=== PATIENT | male | born 1940 | race Caucasian/White ===

== ENCOUNTER 2016-09-04 15:06 | Inpatient (IN) | payer MEDICARE, OTHER ==
[~2016-09-04] VITALS: Ht 172.7 cm; Wt 103.0 kg
--- NOTE | 2016-09-04 16:38 | RAD ---
AP portable chest radiograph 09/04/2016 Clinical History: Cough for 2 to 3 days. An AP portable erect digital radiograph of the chest was obtained. No previous imaging studies are available for comparison. The cardiac silhouette is borderline enlarged. The thoracic aorta is mildly tortuous. Patchy areas of atelectasis and/or infiltrate are seen involving both lower lobes, left greater than right. No pneumothorax or pleural effusion is seen. There is diffuse osteopenia of the visualized bony structures. Degenerative changes are seen involving the thoracic spine. Impression: Patchy areas of atelectasis and/or infiltrate are seen involving both lower lobes.
[2016-09-04 17:45] LABS: BASO % 1 % (0-3); EOS % 4 % (0-3); HEMATOCRIT 32.5 % (39.0-53.0); LYMPH # 0.6 x10^3/uL (1.0-4.8); LYMPH % 7 % (24-48); MEAN CORPUSCULAR HEMOGLOBIN 31 pg (25-35); MEAN CORPUSCULAR HGB CONC 34 g/dL (31-37); MEAN CORPUSCULAR VOLUME 91 fL (79-100); MONO % 9 % (0-9); NEUT % 80 % (31-73); PLATELET COUNT 217 x10^3/uL (140-400); RED BLOOD COUNT 3.56 x10^6/uL (4.30-5.70); RED CELL DISTRIBUTION WIDTH 13.1 % (11.5-14.5); WHITE BLOOD COUNT 8.3 x10^3/uL (4.0-11.0)
[2016-09-04 18:04] LABS: CALCIUM 9.2 mg/dL (8.5-10.1); CREATININE 2.3 mg/dL (0.7-1.3); GFR 27.7
[2016-09-04 18:08] LABS: ALBUMIN 3.4 g/dL (3.4-5.0); ALBUMIN/GLOBULIN RATIO 0.8 (1.0-1.7); TOTAL BILIRUBIN 0.3 mg/dL (0.2-1.0); TOTAL PROTEIN 7.7 g/dL (6.4-8.2)
[2016-09-04] MEDS ORDERED: OXYCODONE/APAP 7.5/325 TABLET. PO ONE (18:15)
[2016-09-04] MEDS ORDERED: AMLO10TA2 PO (18:30)
[2016-09-04] MEDS ORDERED: OXYC-244 PO (18:30)
[2016-09-04] MEDS ORDERED: POTA20TA4 PO (18:30)
[2016-09-04] MEDS ORDERED: GABA-586 PO (18:30)
[2016-09-04] MEDS ORDERED: METO-269 PO (18:30)
[2016-09-04] MEDS ORDERED: PANT20TA2 PO (18:30)
[2016-09-04] MEDS ORDERED: SPIR50TA2 PO (18:30)
[2016-09-04] MEDS ORDERED: FURO-68 PO (18:30)
[2016-09-04] MEDS ORDERED: METF10002 PO (18:30)
[2016-09-04] MEDS ORDERED: ASPI-482 PO (18:30)
[2016-09-04] MEDS ORDERED: NITR0.4T SL (18:30)
[2016-09-04] MEDS ORDERED: PRAV20TA2 PO (18:30)
[2016-09-04] MEDS ORDERED: CYAN10005 PO (18:30)
[2016-09-04] MEDS ORDERED: SENN-37 PO (18:30)
[2016-09-04] MEDS ORDERED: CHOL10003 PO (18:30)
[2016-09-04] MEDS ORDERED: LISI10TA2 PO (18:30)
[2016-09-04] MEDS ORDERED: hydrALAZINE 20 MG/ML VIAL. IVP PRN (19:15)
[2016-09-04] MEDS ORDERED: ONDANSETRON PF 4 MG/2 ML VIAL. IV PRN (19:15)
--- NOTE | 2016-09-04 19:24 | PDOC1 ---
History and Physical Date of Admission Date of Admission 09/04/16 Identification/Chief Complaint Chief Complaint cough Problems: Source Source: Patient History of Present Illness History of Present Illness 76yo M, likely moderate dementia, from assisted living facility , for cough. Pt answer very few of my questions, saying only cough once time, doesnot know the place, or year, denies fever, chills, N/V, chest pain, sob. As PER ER nurse, pt' was admitted in hosp yesterday for PNA. The assited living facility found pt has some nose congestion and sent him here. CXR showed atelectasis/infiltrate. ERP gave levaquin 750mg in ER x1. normal WBC Past Medical History Past Medical History possible CHF Past Surgical History Past Surgical History: No pertinent history Family History Family History: No Significant Social History Smoke: No ALCOHOL: none Drugs: None Current Problem List Problem List Problems Medical Problems: (1) CAP (community acquired pneumonia) Status: Acute Current Medications Current Medications Current Medications Medications (Trade) Dose Ordered Sig/Eran Start Time Stop Time Status Last Admin Dose Admin Albuterol/ Ipratropium (Duoneb) 3 ml RTQID 09/04/16 20:00 09/05/16 19:59 Levofloxacin/ Dextrose (LEVAQUIN 750mg PREMIX) 150 ml @ 100 mls/hr 1X ONCE 09/04/16 18:30 09/04/16 19:59 09/04/16 18:16 100 MLS/HR Oxycodone/ Acetaminophen 1 tab 1 tab 1X ONCE 09/04/16 18:15 09/04/16 18:16 DC 09/04/16 18:13 1 TAB Allergies Allergies Allergies Coded Allergies Type Severity Reaction Last Updated Verified tetracycline Allergy Intermediate Rash 09/04/16 Yes ROS Review of System CONSTITUTIONAL: No fever or chills EYES: No recent changes SKIN: No rash or itching CARDIOVASCULAR: No chest pain, syncope, palpitations, or edema RESPIRATORY: No SOB or cough GASTROINTESTINAL: No nausea, vomiting or abdominal pain NEUROLOGICAL: No headaches or weakness ENDOCRINE: No cold or heat intolerance GENITOURINARY: No urgency or frequency of urination MUSCULOSKELETAL: No back pain or joint pain LYMPHATICS: No enlarged lymph nodes PSYCHIATRIC: No anxiety or depression Physical Exam Physical Exam GEN.: No apparent distress. Alert and orientedx1 HEENT: Head is normocephalic, atraumatic NECK: Supple. LUNGS: BL decreased BS HEART: RRR, S1, S2 present. Peripheral pulses intact ABDOMEN: Soft, nontender. Positive bowel sounds. EXTREMITIES: Without any cyanosis. NEUROLOGIC: Normal speech, normal tone PSYCHIATRIC: Normal affect, normal mood. SKIN: No ulcerations Vitals Vitals Vital Signs Date Time Temp Pulse Resp B/P Pulse Ox O2 Delivery O2 Flow Rate FiO2 09/04/16 18:13 26 09/04/16 18:12 70 130/67 95 Room Air 09/04/16 15:15 98.1 98.1 Labs Labs Laboratory Tests Test 09/04/16 17:10 White Blood Count 8.3x10^3/uL (4.0-11.0) Red Blood Count 3.56x10^6/uL (4.30-5.70) Hemoglobin 11.0g/dL (13.0-17.5) Hematocrit 32.5% (39.0-53.0) Mean Corpuscular Volume 91fL (79-100) Mean Corpuscular Hemoglobin 31pg (25-35) Mean Corpuscular Hemoglobin Concent 34g/dL (31-37) Red Cell Distribution Width 13.1% (11.5-14.5) Platelet Count 217x10^3/uL (140-400) Neutrophils (%) (Auto) 80% (31-73) Lymphocytes (%) (Auto) 7% (24-48) Monocytes (%) (Auto) 9% (0-9) Eosinophils (%) (Auto) 4% (0-3) Basophils (%) (Auto) 1% (0-3) Neutrophils # (Auto) 6.6x10^3uL (1.8-7.7) Lymphocytes # (Auto) 0.6x10^3/uL (1.0-4.8) Monocytes # (Auto) 0.7x10^3/uL (0.0-1.1) Eosinophils # (Auto) 0.3x10^3/uL (0.0-0.7) Basophils # (Auto) 0.0x10^3/uL (0.0-0.2) Sodium Level 139mmol/L (136-145) Potassium Level 5.0mmol/L (3.5-5.1) Chloride Level 100mmol/L (98-107) Carbon Dioxide Level 30mmol/L (21-32) Anion Gap 9 (6-14) Blood Urea Nitrogen 42mg/dL (8-26) Creatinine 2.3mg/dL (0.7-1.3) Estimated GFR (Cockcroft-Gault) 27.7 BUN/Creatinine Ratio 18 (6-20) Glucose Level 240mg/dL (70-99) Calcium Level 9.2mg/dL (8.5-10.1) Total Bilirubin 0.3mg/dL (0.2-1.0) Aspartate Amino Transf (AST/SGOT) 14U/L (15-37) Alanine Aminotransferase (ALT/SGPT) 19U/L (16-63) Alkaline Phosphatase 72U/L (46-116) Total Protein 7.7g/dL (6.4-8.2) Albumin 3.4g/dL (3.4-5.0) Albumin/Globulin Ratio 0.8 (1.0-1.7) Laboratory Tests Test 09/04/16 17:10 White Blood Count 8.3x10^3/uL (4.0-11.0) Red Blood Count 3.56x10^6/uL (4.30-5.70) Hemoglobin 11.0g/dL (13.0-17.5) Hematocrit 32.5% (39.0-53.0) Mean Corpuscular Volume 91fL (79-100) Mean Corpuscular Hemoglobin 31pg (25-35) Mean Corpuscular Hemoglobin Concent 34g/dL (31-37) Red Cell Distribution Width 13.1% (11.5-14.5) Platelet Count 217x10^3/uL (140-400) Neutrophils (%) (Auto) 80% (31-73) Lymphocytes (%) (Auto) 7% (24-48) Monocytes (%) (Auto) 9% (0-9) Eosinophils (%) (Auto) 4% (0-3) Basophils (%) (Auto) 1% (0-3) Neutrophils # (Auto) 6.6x10^3uL (1.8-7.7) Lymphocytes # (Auto) 0.6x10^3/uL (1.0-4.8) Monocytes # (Auto) 0.7x10^3/uL (0.0-1.1) Eosinophils # (Auto) 0.3x10^3/uL (0.0-0.7) Basophils # (Auto) 0.0x10^3/uL (0.0-0.2) Sodium Level 139mmol/L (136-145) Potassium Level 5.0mmol/L (3.5-5.1) Chloride Level 100mmol/L (98-107) Carbon Dioxide Level 30mmol/L (21-32) Anion Gap 9 (6-14) Blood Urea Nitrogen 42mg/dL (8-26) Creatinine 2.3mg/dL (0.7-1.3) Estimated GFR (Cockcroft-Gault) 27.7 BUN/Creatinine Ratio 18 (6-20) Glucose Level 240mg/dL (70-99) Calcium Level 9.2mg/dL (8.5-10.1) Total Bilirubin 0.3mg/dL (0.2-1.0) Aspartate Amino Transf (AST/SGOT) 14U/L (15-37) Alanine Aminotransferase (ALT/SGPT) 19U/L (16-63) Alkaline Phosphatase 72U/L (46-116) Total Protein 7.7g/dL (6.4-8.2) Albumin 3.4g/dL (3.4-5.0) Albumin/Globulin Ratio 0.8 (1.0-1.7) VTE Prophylaxis Ordered VTE Prophylaxis Devices: Yes VTE Pharmacological Prophylaxi: Yes Assessment/Plan Assessment/Plan 1. cough, could be 2/2 CHF, doubt PNA 2. CHF , no details 3. moderate/severe dementia 4. hyperglycemia, dm2 5. CKD4 possibly, wo baseline Cr 6. htn 7. gerd plan: 1. check Echo 2. cont home meds, ssi 3. labs tmr dvt ppx PTOT SW for SNF 4. levaquin for now, check flu. cough meds should taper abx soon if no symptoms hold metformin given CKD OBDULIO HER MD Sep 04, 2016 19:24
[2016-09-04] MEDS: IPRATRPIUM/ALBUTEROL 0.5/2.5MG 3 ML NEBU. NEB SCH (19:27)
--- NOTE | 2016-09-04 19:28 | PHYS DOC ---
Past Medical History Past Medical History: CHF, Diabetes-Type II, GERD, Hypertension Past Surgical History: Cholecystectomy Alcohol Use: None Drug Use: None Adult General Chief Complaint Chief Complaint: COUGH HPI HPI Patient is a 76 year old male brought to the ED from his intermediate with the complaint of cough. Patient is not really able to add much to the history. He does not know whether he's had a fever or chills. He believes he is been eating okay. He said his is currently in the hospital with pneumonia. His chief complaint at the time that I saw him was that he is behind on his oxycodone dose and he has pain all over and needs and oxycodone. He doesn't know whether he had a flu shot or not. He doesn't believe he has any lung problems or COPD, but again, he is a poor historian. Review of Systems Review of Systems Review of systems not able to be obtained because the patient is a poor historian and not giving reliable answers Current Medications Current Medications Current Medications Medications (Trade) Dose Ordered Sig/Eran Start Time Stop Time Status Last Admin Dose Admin Levofloxacin/ Dextrose (LEVAQUIN 750mg PREMIX) 150 ml @ 100 mls/hr 1X ONCE 09/04/16 18:30 09/04/16 19:59 DC 09/04/16 18:16 100 MLS/HR Oxycodone/ Acetaminophen 1 tab 1 tab 1X ONCE 09/04/16 18:15 09/04/16 18:16 DC 09/04/16 18:13 1 TAB Allergies Allergies Allergies Coded Allergies Type Severity Reaction Last Updated Verified tetracycline Allergy Intermediate Rash 09/04/16 Yes Physical Exam Physical Exam Constitutional: Well developed, well nourished, no acute distress, non-toxic appearance. No dyspnea, no cough, pulse ox on room air 94% at rest on the bed. HENT: Normocephalic, atraumatic, bilateral external ears normal, nose normal. [ ] Eyes: conjunctiva normal, no discharge. [] Neck: Normal range of motion, no stridor. [] Cardiovascular:Heart rate regular rhythm, no murmur [] Lungs & Thorax: Decreased breath sounds throughout with rhonchi in both bases, no wheezes Abdomen: Bowel sounds normal, soft, no tenderness, no masses, no pulsatile masses. [] Skin: Warm, dry, no erythema, no rash. [] Extremities: No tenderness, no cyanosis, no clubbing, ROM intact, no edema. [] Neurologic: Alert and oriented X 3, normal motor function, normal sensory function, no focal deficits noted. [] Current Patient Data Vital Signs Vital Signs Date Time Temp Pulse Resp B/P Pulse Ox O2 Delivery O2 Flow Rate FiO2 09/04/16 18:13 26 09/04/16 18:12 70 130/67 95 Room Air 09/04/16 15:15 98.1 98.1 Lab Values Laboratory Tests Test 09/04/16 17:10 White Blood Count 8.3x10^3/uL (4.0-11.0) Red Blood Count 3.56x10^6/uL (4.30-5.70) L Hemoglobin 11.0g/dL (13.0-17.5) L Hematocrit 32.5% (39.0-53.0) L Mean Corpuscular Volume 91fL (79-100) Mean Corpuscular Hemoglobin 31pg (25-35) Mean Corpuscular Hemoglobin Concent 34g/dL (31-37) Red Cell Distribution Width 13.1% (11.5-14.5) Platelet Count 217x10^3/uL (140-400) Neutrophils (%) (Auto) 80% (31-73) H Lymphocytes (%) (Auto) 7% (24-48) L Monocytes (%) (Auto) 9% (0-9) Eosinophils (%) (Auto) 4% (0-3) H Basophils (%) (Auto) 1% (0-3) Neutrophils # (Auto) 6.6x10^3uL (1.8-7.7) Lymphocytes # (Auto) 0.6x10^3/uL (1.0-4.8) L Monocytes # (Auto) 0.7x10^3/uL (0.0-1.1) Eosinophils # (Auto) 0.3x10^3/uL (0.0-0.7) Basophils # (Auto) 0.0x10^3/uL (0.0-0.2) Sodium Level 139mmol/L (136-145) Potassium Level 5.0mmol/L (3.5-5.1) Chloride Level 100mmol/L (98-107) Carbon Dioxide Level 30mmol/L (21-32) Anion Gap 9 (6-14) Blood Urea Nitrogen 42mg/dL (8-26) H Creatinine 2.3mg/dL (0.7-1.3) H Estimated GFR (Cockcroft-Gault) 27.7 BUN/Creatinine Ratio 18 (6-20) Glucose Level 240mg/dL (70-99) H Calcium Level 9.2mg/dL (8.5-10.1) Total Bilirubin 0.3mg/dL (0.2-1.0) Aspartate Amino Transferase (AST) 14U/L (15-37) L Alanine Aminotransferase (ALT) 19U/L (16-63) Alkaline Phosphatase 72U/L (46-116) Total Protein 7.7g/dL (6.4-8.2) Albumin 3.4g/dL (3.4-5.0) Albumin/Globulin Ratio 0.8 (1.0-1.7) L Laboratory Tests 09/04/16 17:10 Laboratory Tests 09/04/16 17:10 EKG EKG [] Radiology/Procedures Radiology/Procedures One view portable chest x-ray read by the radiologist. Patchy areas of atelectasis and/or infiltrate both lower lobes [] Course & Med Decision Making Course & Med Decision Making Pertinent Labs and Imaging studies reviewed. (See chart for details) 76-year-old male who is not a good historian sent from a intermediate with a cough, chest x-ray shows pneumonia. Blood cultures were done. The patient is a poor historian and in a intermediate setting, I believe he should be hospitalized for IV antibiotics and frequent nebulizers and close observation. I spoke with Dr. Sue , hospital medicine, who will admit the patient. I wrote bridge orders. [] Dragon Disclaimer Dragon Disclaimer This electronic medical record was generated, in whole or in part, using a voice recognition dictation system. Departure Departure Impression: Primary Impression: CAP (community acquired pneumonia) Disposition: ADMITTED INPATIENT Admitting Physician: Rebecca Sue Condition: STABLE Referrals: HARRIS LANDA MD (PCP) MASON PRO MD Sep 04, 2016 19:28
[2016-09-04 19:30] VITALS: BP 97/67
[2016-09-04] MEDS ORDERED: DEXTROSE 50% 25 GM / 50ML DISP.SYRIN. IV PRN (19:30)
[2016-09-04 20:00] VITALS: BP 97/67
--- NOTE | 2016-09-04 21:00 | ACF ---
Admission Forms Criteria PNEUMONIA, COMMUNITY ACQUIRED Clinical Indications for Admission to Inpatient Care ( Place 'X' for any and all applicable criteria): Admission is indicated for ANY ONE of the following (1)(2)(3): [ ]I. Hypoxemia indicated by ANY ONE of the following: [ ]a) Oxygen saturation less than 90% while breathing room air [ ]b) PO2 less than 60 mm Hg (8.0 kPa) while breathing room air [ ]c) Chronic lung disease with significant deterioration from baseline oxygenation [ ]II. Appropriate diagnostic testing and treatment unavailable in outpatient or recovery facility (eg,testing or infection control measures unavailable(10) [X]III. Moderate-risk or high-risk category patients (Pneumonia Severity Index (PSI) class IV or V, or CURB-65 score of 3 or greater). [ ]IV. Outpatient treatment failure as indicated by ANY ONE of the following(9) : [ ]a) Failure to respond to antibiotic (eg, resistant organism) [ ]b) Clinically significant adverse effects from medication (eg, vomiting) [ ]c) Complications of pneumonia (eg, empyema, bacteremia) [ ]d) Significant worsening of comorbid cond necessitating inpatient care (eg, chronic heart failure) [ ]V. Intermediate-risk category patients (eg, PSI class III or CURB-65 score 2) who do not improve with initial therapy and observation. [ ]. Immunocompromised patients (eg, AIDS, chronic steroid use) at moderate or high risk based on clinical evaluation. [ ]VII. Complicated pleural effusions (eg, exudative, loculated) [ ]VIII.Hemodynamic instability [ ] IX. Altered mental status that is severe or persistent. [ ]X. Dehydration that is severe or persistent. [ ]XI. Bacteremia [ ]XII. Respiratory finding (eg. tachypnea) that do not respond to outpatient or observation care treatment Extended stay beyond goal length of stay may be needed for (20) [ ]a) Unclear diagnosis [ ]b) Pleural disease [ ]c) Severe pneumonia or treatment failure (25 [ ]d) Respiratory failure (anticipate invasive or noninvasive ventilatory support) [ ]e) Abnormal serum electrolytes (serum Na concentration less than 135 mEq/L (mmol/L) (32)(33) [ ]f) Clinically significant comorbid illness (eg, heart failure, atrial fibrillation with rapid heart rate, alcohol withdrawal, renal insufficiency)(34)(35) [ ]g) Comorbid acute exacerbation of COPD(36) [ ]h) Concomitant diagnosis of malignancy that may be associated with malnutrition, immunologic impairment, or bronchial obstruction. [ ]i) Concomitant altered mental status [ ]j) Culture-identified Gram-negative or antibiotic-resistant organism (eg, Pseudomonas, methicillin-resistant Staphylococcus aureus)(30) [ ]k) Healthcare-associated pneumonia The original [facility] content created by [facility] [employer] has been revised. The portions of the content which have been revised are identified through the use of italic text or in bold, and [facility] has neither reviewed nor approved the modified material. All other unmodified content is copyright [facility] [employer]. Please see references footnoted in the original [facility] [employer] edition 2016 Admission Criteria Met?: Yes JACINDA PASCUAL Sep 04, 2016 21:00
[2016-09-04] MEDS: GUAIFENESIN ER 600 MG TABLET.ER PO SCH (21:05)
[2016-09-04] MEDS: GABAPENTIN 300 MG CAPSULE. PO SCH (21:05)
[2016-09-04] MEDS: ATORVASTATIN CALCIUM 10 MG TABLET. PO SCH (21:06)
[2016-09-04] MEDS: SENNOSIDES/DOCUSATE 8.6/50MG TABLET. PO SCH (21:08)
[2016-09-04] MEDS: HEPARIN PF for SUB-Q USE 5,000 UNIT/0.5 ML VIAL. SQ SCH (21:14)
[2016-09-05] VITALS (7 sets, daily range): BP systolic 90–121; BP diastolic 46–59
[2016-09-05 06:26] LABS: BASO % 0 % (0-3); EOS % 3 % (0-3); HEMATOCRIT 28.5 % (39.0-53.0); HEMOGLOBIN 10.1 g/dL (13.0-17.5); LYMPH # 0.6 x10^3/uL (1.0-4.8); LYMPH % 8 % (24-48); MEAN CORPUSCULAR HEMOGLOBIN 32 pg (25-35); MEAN CORPUSCULAR HGB CONC 35 g/dL (31-37); MEAN CORPUSCULAR VOLUME 91 fL (79-100); MONO % 10 % (0-9); NEUT % 79 % (31-73); PLATELET COUNT 176 x10^3/uL (140-400); RED BLOOD COUNT 3.12 x10^6/uL (4.30-5.70); RED CELL DISTRIBUTION WIDTH 12.9 % (11.5-14.5); WHITE BLOOD COUNT 7.6 x10^3/uL (4.0-11.0)
[2016-09-05 06:38] LABS: CALCIUM 9.1 mg/dL (8.5-10.1); GFR 32.6; POTASSIUM 4.9 mmol/L (3.5-5.1)
[2016-09-05] MEDS: HEPARIN PF for SUB-Q USE 5,000 UNIT/0.5 ML VIAL. SQ SCH ×3 (06:40→22:42)
[2016-09-05 07:07] LABS: OBC FLU VALID
[2016-09-05] MEDS: IPRATRPIUM/ALBUTEROL 0.5/2.5MG 3 ML NEBU. NEB SCH ×4 (08:34→19:43)
[2016-09-05] MEDS: PANTOPRAZOLE 40 MG TABLET. PO SCH (08:36)
[2016-09-05] MEDS: CYANOCOBALAMIN (VITAMIN B-12) 1,000 MCG TABLET. PO SCH (08:36)
[2016-09-05] MEDS: POTASSIUM CHLORIDE 20 MEQ TABLET.ER. PO SCH (08:36)
[2016-09-05] MEDS: OXYCODONE/APAP 7.5/325 TABLET. PO PRN ×2 (08:36→15:13)
[2016-09-05] MEDS: CHOLECALCIFEROL (VITAMIN D3) 1,000 UNIT TABLET PO SCH (08:43)
[2016-09-05] MEDS: ASPIRIN ENTERIC COATED 81 MG TABLET.DR. PO SCH (08:43)
[2016-09-05] MEDS: GUAIFENESIN ER 600 MG TABLET.ER PO SCH ×2 (08:43→20:22)
[2016-09-05] MEDS: INSULIN ASPART 300 UNITS/3 ML INSULN.PEN SQ SCH ×3 (08:53→17:08)
--- NOTE | 2016-09-05 11:45 | PDOC ---
PROGRESS NOTES Chief Complaint Chief Complaint 1. cough, could be 2/2 CHF, doubt PNA 2. CHF , no details 3. moderate/severe dementia 4. hyperglycemia, dm2 5. CKD4 possibly, wo baseline Cr 6. htn 7. gerd History of Present Illness History of Present Illness Resting in bed with no apparent distress VSS Labs reviewed Discussed with RN Vitals Vitals Vital Signs Date Time Temp Pulse Resp B/P Pulse Ox O2 Delivery O2 Flow Rate FiO2 09/05/16 11:24 98.2 97 17 121/55 92 Room Air 98.2 Physical Exam General: Alert, Cooperative Heart: Regular rate, No murmurs Lungs: Crackles Abdomen: Soft, No tenderness Extremities: No clubbing, Normal pulses Skin: No rashes, No breakdown Labs LABS Laboratory Tests Test 09/04/16 17:10 09/05/16 02:40 09/05/16 06:00 09/05/16 07:53 White Blood Count 8.3x10^3/uL (4.0-11.0) 7.6x10^3/uL (4.0-11.0) Red Blood Count 3.56x10^6/uL (4.30-5.70) 3.12x10^6/uL (4.30-5.70) Hemoglobin 11.0g/dL (13.0-17.5) 10.1g/dL (13.0-17.5) Hematocrit 32.5% (39.0-53.0) 28.5% (39.0-53.0) Mean Corpuscular Volume 91fL (79-100) 91fL (79-100) Mean Corpuscular Hemoglobin 31pg (25-35) 32pg (25-35) Mean Corpuscular Hemoglobin Concent 34g/dL (31-37) 35g/dL (31-37) Red Cell Distribution Width 13.1% (11.5-14.5) 12.9% (11.5-14.5) Platelet Count 217x10^3/uL (140-400) 176x10^3/uL (140-400) Neutrophils (%) (Auto) 80% (31-73) 79% (31-73) Lymphocytes (%) (Auto) 7% (24-48) 8% (24-48) Monocytes (%) (Auto) 9% (0-9) 10% (0-9) Eosinophils (%) (Auto) 4% (0-3) 3% (0-3) Basophils (%) (Auto) 1% (0-3) 0% (0-3) Neutrophils # (Auto) 6.6x10^3uL (1.8-7.7) 6.0x10^3uL (1.8-7.7) Lymphocytes # (Auto) 0.6x10^3/uL (1.0-4.8) 0.6x10^3/uL (1.0-4.8) Monocytes # (Auto) 0.7x10^3/uL (0.0-1.1) 0.8x10^3/uL (0.0-1.1) Eosinophils # (Auto) 0.3x10^3/uL (0.0-0.7) 0.2x10^3/uL (0.0-0.7) Basophils # (Auto) 0.0x10^3/uL (0.0-0.2) 0.0x10^3/uL (0.0-0.2) Sodium Level 139mmol/L (136-145) 133mmol/L (136-145) Potassium Level 5.0mmol/L (3.5-5.1) 4.9mmol/L (3.5-5.1) Chloride Level 100mmol/L (98-107) 101mmol/L (98-107) Carbon Dioxide Level 30mmol/L (21-32) 27mmol/L (21-32) Anion Gap 9 (6-14) 5 (6-14) Blood Urea Nitrogen 42mg/dL (8-26) 39mg/dL (8-26) Creatinine 2.3mg/dL (0.7-1.3) 2.0mg/dL (0.7-1.3) Estimated GFR (Cockcroft-Gault) 27.7 32.6 BUN/Creatinine Ratio 18 (6-20) Glucose Level 240mg/dL (70-99) 231mg/dL (70-99) Calcium Level 9.2mg/dL (8.5-10.1) 9.1mg/dL (8.5-10.1) Total Bilirubin 0.3mg/dL (0.2-1.0) Aspartate Amino Transf (AST/SGOT) 14U/L (15-37) Alanine Aminotransferase (ALT/SGPT) 19U/L (16-63) Alkaline Phosphatase 72U/L (46-116) Total Protein 7.7g/dL (6.4-8.2) Albumin 3.4g/dL (3.4-5.0) Albumin/Globulin Ratio 0.8 (1.0-1.7) Influenza Type A Antigen Negative (NEGATIVE) Influenza Type B Antigen Negative (NEGATIVE) Glucose (Fingerstick) 231mg/dL (70-99) Test 09/05/16 10:35 Glucose (Fingerstick) 271mg/dL (70-99) Review of Systems Review of Systems Complains of cough Complains of weakness Assessment and Plan Assessmemt and Plan Problems Medical Problems: (1) CAP (community acquired pneumonia) Status: Acute Assessment 1. cough, could be 2/2 CHF, doubt PNA 2. CHF , no details 3. moderate/severe dementia 4. hyperglycemia, dm2 5. CKD4 possibly, wo baseline Cr 6. htn 7. gerd plan: 1. check Echo 2. cont home meds, ssi 3. labs tmr dvt ppx PTOT SW for SNF 4. levaquin for now, check flu. cough meds should taper abx soon if no symptoms hold metformin given CKD Problems: Comment Review of Relevant I have reviewed the following items ivette (where applicable) has been applied. Labs Laboratory Tests Test 09/04/16 17:10 09/05/16 02:40 09/05/16 06:00 09/05/16 07:53 White Blood Count 8.3x10^3/uL (4.0-11.0) 7.6x10^3/uL (4.0-11.0) Red Blood Count 3.56x10^6/uL (4.30-5.70) 3.12x10^6/uL (4.30-5.70) Hemoglobin 11.0g/dL (13.0-17.5) 10.1g/dL (13.0-17.5) Hematocrit 32.5% (39.0-53.0) 28.5% (39.0-53.0) Mean Corpuscular Volume 91fL (79-100) 91fL (79-100) Mean Corpuscular Hemoglobin 31pg (25-35) 32pg (25-35) Mean Corpuscular Hemoglobin Concent 34g/dL (31-37) 35g/dL (31-37) Red Cell Distribution Width 13.1% (11.5-14.5) 12.9% (11.5-14.5) Platelet Count 217x10^3/uL (140-400) 176x10^3/uL (140-400) Neutrophils (%) (Auto) 80% (31-73) 79% (31-73) Lymphocytes (%) (Auto) 7% (24-48) 8% (24-48) Monocytes (%) (Auto) 9% (0-9) 10% (0-9) Eosinophils (%) (Auto) 4% (0-3) 3% (0-3) Basophils (%) (Auto) 1% (0-3) 0% (0-3) Neutrophils # (Auto) 6.6x10^3uL (1.8-7.7) 6.0x10^3uL (1.8-7.7) Lymphocytes # (Auto) 0.6x10^3/uL (1.0-4.8) 0.6x10^3/uL (1.0-4.8) Monocytes # (Auto) 0.7x10^3/uL (0.0-1.1) 0.8x10^3/uL (0.0-1.1) Eosinophils # (Auto) 0.3x10^3/uL (0.0-0.7) 0.2x10^3/uL (0.0-0.7) Basophils # (Auto) 0.0x10^3/uL (0.0-0.2) 0.0x10^3/uL (0.0-0.2) Sodium Level 139mmol/L (136-145) 133mmol/L (136-145) Potassium Level 5.0mmol/L (3.5-5.1) 4.9mmol/L (3.5-5.1) Chloride Level 100mmol/L (98-107) 101mmol/L (98-107) Carbon Dioxide Level 30mmol/L (21-32) 27mmol/L (21-32) Anion Gap 9 (6-14) 5 (6-14) Blood Urea Nitrogen 42mg/dL (8-26) 39mg/dL (8-26) Creatinine 2.3mg/dL (0.7-1.3) 2.0mg/dL (0.7-1.3) Estimated GFR (Cockcroft-Gault) 27.7 32.6 BUN/Creatinine Ratio 18 (6-20) Glucose Level 240mg/dL (70-99) 231mg/dL (70-99) Calcium Level 9.2mg/dL (8.5-10.1) 9.1mg/dL (8.5-10.1) Total Bilirubin 0.3mg/dL (0.2-1.0) Aspartate Amino Transf (AST/SGOT) 14U/L (15-37) Alanine Aminotransferase (ALT/SGPT) 19U/L (16-63) Alkaline Phosphatase 72U/L (46-116) Total Protein 7.7g/dL (6.4-8.2) Albumin 3.4g/dL (3.4-5.0) Albumin/Globulin Ratio 0.8 (1.0-1.7) Influenza Type A Antigen Negative (NEGATIVE) Influenza Type B Antigen Negative (NEGATIVE) Glucose (Fingerstick) 231mg/dL (70-99) Test 09/05/16 10:35 Glucose (Fingerstick) 271mg/dL (70-99) Laboratory Tests Test 09/04/16 17:10 09/05/16 02:40 09/05/16 06:00 09/05/16 07:53 White Blood Count 8.3x10^3/uL (4.0-11.0) 7.6x10^3/uL (4.0-11.0) Red Blood Count 3.56x10^6/uL (4.30-5.70) 3.12x10^6/uL (4.30-5.70) Hemoglobin 11.0g/dL (13.0-17.5) 10.1g/dL (13.0-17.5) Hematocrit 32.5% (39.0-53.0) 28.5% (39.0-53.0) Mean Corpuscular Volume 91fL (79-100) 91fL (79-100) Mean Corpuscular Hemoglobin 31pg (25-35) 32pg (25-35) Mean Corpuscular Hemoglobin Concent 34g/dL (31-37) 35g/dL (31-37) Red Cell Distribution Width 13.1% (11.5-14.5) 12.9% (11.5-14.5) Platelet Count 217x10^3/uL (140-400) 176x10^3/uL (140-400) Neutrophils (%) (Auto) 80% (31-73) 79% (31-73) Lymphocytes (%) (Auto) 7% (24-48) 8% (24-48) Monocytes (%) (Auto) 9% (0-9) 10% (0-9) Eosinophils (%) (Auto) 4% (0-3) 3% (0-3) Basophils (%) (Auto) 1% (0-3) 0% (0-3) Neutrophils # (Auto) 6.6x10^3uL (1.8-7.7) 6.0x10^3uL (1.8-7.7) Lymphocytes # (Auto) 0.6x10^3/uL (1.0-4.8) 0.6x10^3/uL (1.0-4.8) Monocytes # (Auto) 0.7x10^3/uL (0.0-1.1) 0.8x10^3/uL (0.0-1.1) Eosinophils # (Auto) 0.3x10^3/uL (0.0-0.7) 0.2x10^3/uL (0.0-0.7) Basophils # (Auto) 0.0x10^3/uL (0.0-0.2) 0.0x10^3/uL (0.0-0.2) Sodium Level 139mmol/L (136-145) 133mmol/L (136-145) Potassium Level 5.0mmol/L (3.5-5.1) 4.9mmol/L (3.5-5.1) Chloride Level 100mmol/L (98-107) 101mmol/L (98-107) Carbon Dioxide Level 30mmol/L (21-32) 27mmol/L (21-32) Anion Gap 9 (6-14) 5 (6-14) Blood Urea Nitrogen 42mg/dL (8-26) 39mg/dL (8-26) Creatinine 2.3mg/dL (0.7-1.3) 2.0mg/dL (0.7-1.3) Estimated GFR (Cockcroft-Gault) 27.7 32.6 BUN/Creatinine Ratio 18 (6-20) Glucose Level 240mg/dL (70-99) 231mg/dL (70-99) Calcium Level 9.2mg/dL (8.5-10.1) 9.1mg/dL (8.5-10.1) Total Bilirubin 0.3mg/dL (0.2-1.0) Aspartate Amino Transf (AST/SGOT) 14U/L (15-37) Alanine Aminotransferase (ALT/SGPT) 19U/L (16-63) Alkaline Phosphatase 72U/L (46-116) Total Protein 7.7g/dL (6.4-8.2) Albumin 3.4g/dL (3.4-5.0) Albumin/Globulin Ratio 0.8 (1.0-1.7) Influenza Type A Antigen Negative (NEGATIVE) Influenza Type B Antigen Negative (NEGATIVE) Glucose (Fingerstick) 231mg/dL (70-99) Test 09/05/16 10:35 Glucose (Fingerstick) 271mg/dL (70-99) Medications Current Medications Oxycodone/ Acetaminophen 1 tab 1 tab 1X ONCE PO Last administered on 09/04/16 18:13; Start 09/04/16 at 18:15; Stop 09/04/16 at 18:16; Status DC Levofloxacin/ Dextrose (LEVAQUIN 750mg PREMIX) 150 ml @ 100 mls/hr 1X ONCE IV Last administered on 09/04/16 18:16; Start 09/04/16 at 18:30; Stop 09/04/16 at 19:59; Status DC Albuterol/ Ipratropium (Duoneb) 3 ml RTQID NEB Last administered on 09/05/16 08 :34; Start 09/04/16 at 20:00; Stop 09/05/16 at 19:59 Amlodipine Besylate (Norvasc) 10 mg DAILY PO ; Start 09/05/16 at 09:00 Aspirin (Ecotrin) 81 mg DAILY PO Last administered on 09/05/16 08:43; Start 09/05/16 at 09:00 Vitamin D (Vitamin D3) 1,000 unit DAILY PO Last administered on 09/05/16 08:43 ; Start 09/05/16 at 09:00 Cyanocobalamin (Vitamin B-12) 1,000 mcg DAILY PO Last administered on 09/05/16 08:36; Start 09/05/16 at 09:00 Furosemide (Lasix) 40 mg DAILY PO ; Start 09/05/16 at 09:00 Gabapentin (Neurontin) 300 mg HS PO Last administered on 09/04/16 21:05; Start 09/04/16 at 21:00 Lisinopril (Prinivil) 10 mg DAILY PO ; Start 09/05/16 at 09:00 Metoprolol Succinate (Toprol Xl) 50 mg DAILY PO ; Start 09/05/16 at 09:00 Oxycodone/ Acetaminophen (Percocet 7.5/ 325) 1 tab PRN Q6HRS PRN PO PAIN Last administered on 09/05/16 08:36; Start 09/04/16 at 19:15 Potassium Chloride (Klor-Con) 20 meq DAILY PO Last administered on 09/05/16 08: 36; Start 09/05/16 at 09:00 Senna/Docusate Sodium (Senna Plus) 2 tab HS PO Last administered on 09/04/16 21 :08; Start 09/04/16 at 21:00 Pantoprazole Sodium (Protonix) 40 mg DAILYAC PO Last administered on 09/05/16 08:36; Start 09/05/16 at 07:30 Atorvastatin Calcium (Lipitor) 5 mg QHS PO Last administered on 09/04/16 21:06 ; Start 09/04/16 at 21:00 Spironolactone 50 mg 50 mg DAILY PO ; Start 09/05/16 at 09:00 Levofloxacin/ Dextrose (LEVAQUIN 250mg PREMIX) 50 ml @ 50 mls/hr Q24H IV ; Start 09/05/16 at 18:00 Albuterol Sulfate (Ventolin Neb Soln) 2.5 mg PRN Q4HRS PRN NEB SHORTNESS OF BREATH; Start 09/04/16 at 19:15 Guaifenesin (Mucinex) 600 mg BID PO Last administered on 09/05/16 08:43; Start 09/04/16 at 21:00 Acetaminophen (Tylenol) 650 mg PRN Q6HRS PRN PO MILD PAIN / TEMP; Start at 19:15 Ondansetron HCl (Zofran) 4 mg PRN Q6HRS PRN IV NAUSEA/VOMITING; Start 09/04/16 at 19:15 Heparin Sodium (Porcine) 5,000 unit Q8HRS SQ Last administered on 09/05/16 06: 40; Start 09/04/16 at 22:00 Hydralazine HCl (Apresoline) 10 mg PRN Q4HRS PRN IVP ELEVATED BP, SEE COMMENTS ; Start 09/04/16 at 19:15 Insulin Aspart (Novolog) 0-9 UNITS TIDWMEALS SQ Last administered on 09/05/16 08:53; Start 09/05/16 at 08:00 Dextrose 12.5 gm PRN Q15MIN PRN IV SEE COMMENTS; Start 09/04/16 at 19:30 Active Scripts Active Reported Protonix (Pantoprazole Sodium) 20 Mg Tablet.dr 1 Tab PO DAILY Toprol Xl (Metoprolol Succinate) 50 Mg Tab.er.24h 1 Tab PO DAILY Lisinopril 10 Mg Tablet 1 Tab PO DAILY Lasix (Furosemide) 40 Mg Tablet 1 Tab PO DAILY Aspir 81 (Aspirin) 81 Mg Tablet.dr 1 Tab PO DAILY Amlodipine Besylate 10 Mg Tablet 10 Mg PO DAILY Metformin Hcl 1,000 Mg Tablet 1 Tab PO BID Vitamin D3 (Cholecalciferol (Vitamin D3)) 1,000 Unit Tablet 800 Unit PO DAILY Vitamin B-12 (Cyanocobalamin (Vitamin B-12)) 1,000 Mcg Tablet 1 Tab PO DAILY Spironolactone 50 Mg Tablet 1 Tab PO DAILY Pravastatin Sodium 20 Mg Tablet 1 Tab PO DAILY Klor-Con M20 (Potassium Chloride) 20 Meq Tab.er.prt 1 Tab PO DAILY Nitrostat (Nitroglycerin) 0.4 Mg Tab.subl 1 Tab SL UD Senokot-S Tablet (Sennosides/Docusate Sodium) 1 Each Tablet 2 Tab PO HS Gabapentin 300 Mg Capsule 300 Mg PO HS Percocet 7.5-325 Mg Tablet (Oxycodone/Acetaminophen) 1 Each Tablet 1 Tab PO PRN Q6HRS PRN Vitals/I & O Vital Sign - Last 24 Hours 09/04/16 09/04/16 09/04/16 09/04/16 15:15 15:42 16:12 16:42 Temp 98.1 98.1 Pulse 75 62 60 58 Resp 18 16 15 16 B/P 92/55 100/58 113/55 114/63 Pulse Ox 94 92 95 96 O2 Delivery Room Air Room Air Room Air Room Air 09/04/16 09/04/16 09/04/16 09/04/16 17:12 17:42 18:12 18:13 Pulse 58 62 70 Resp 17 19 23 26 B/P 116/60 116/56 130/67 Pulse Ox 95 94 95 O2 Delivery Room Air Room Air Room Air 09/04/16 09/04/16 09/04/16 09/05/16 19:30 20:00 20:00 01:09 Temp 98.4 98.4 97.3 98.4 98.4 97.3 Pulse 67 67 74 Resp 20 22 B/P 97/67 97/67 112/54 Pulse Ox 91 91 92 O2 Delivery Room Air Room Air Room Air 09/05/16 09/05/16 09/05/16 09/05/16 03:00 03:58 07:00 07:45 Temp 98.7 98.8 98.7 98.8 Pulse 58 73 Resp 15 20 B/P 100/51 90/46 Pulse Ox 90 90 O2 Delivery Room Air Room Air Room Air 09/05/16 09/05/16 09/05/16 08:35 08:36 11:24 Temp 98.2 98.2 Pulse 97 Resp 17 B/P 121/55 Pulse Ox 90 92 O2 Delivery Room Air Room Air Room Air Intake and Output 09/04/16 09/04/16 09/05/16 15:00 23:00 07:00 Output Total 200 ml Balance -200 ml RAN ARROYO III DO Sep 05, 2016 11:45
[2016-09-05] MEDS: FUROSEMIDE 40 MG TABLET PO SCH (12:05)
[2016-09-05] MEDS: AMLODIPINE BESYLATE 10 MG TABLET PO SCH (12:05)
[2016-09-05] MEDS: METOPROLOL SUCC 24HR ER 50 MG TAB.ER.24H. PO SCH (12:05)
[2016-09-05] MEDS: ACETAMINOPHEN 325 MG TABLET. PO PRN (12:05)
[2016-09-05] MEDS: SPIRONOLACTONE 25 MG TABLET PO SCH (12:06)
[2016-09-05] MEDS: LISINOPRIL 10 MG TABLET PO SCH (12:08)
--- NOTE | 2016-09-05 12:54 | CARD ---
APPROVED REPORT EXAM: Two-dimensional and M-mode echocardiogram with Doppler and color Doppler. Other Information Quality : Fair INDICATION Congestive Heart Failure 2D DIMENSIONS Left Atrium(2D)3.2 (1.6-4.0cm)IVSd1.0 (0.7-1.1cm) Aortic Root(2D)2.9 (2.0-3.7cm)LVDd3.5 (3.9-5.9cm) LVOT Diameter1.9 (1.8-2.4cm)PWd1.1 (0.7-1.1cm) LVDs2.5 (2.5-4.0cm)FS (%) 29.2 % SV29.2 mlLVEF(%)57.0 (>50%) Aortic Valve AoV Peak Logan.183.4cm/sAoV VTI32.7cm AO Peak GR.13.5mmHgLVOT Peak Logan.167.0cm/s AO Mean GR.7mmHgAVA (VMAX)2.52cm2 ROWDY (VTI)2.80cm2 Mitral Valve MV E Wrcfmhgx21.1cm/sMV DECEL [id number] MV A Xozwhokl433.9cm/sE/A Ratio0.5 Tricuspid Valve TR P. Hlsgmpsu442am/sRAP [id number] TR Peak Gr.[id number] Pulmonary Vein S1 Qhagpmnn35.7cm/sD2 Smcpgfiv99.0cm/s PVa [id number] LEFT VENTRICLE The left ventricle is normal size. There is normal left ventricular wall thickness. The left ventricu lar systolic function is normal and the ejection fraction is within normal range. The Ejection Fracti on is 55-60%. There is grossly normal LV segmental wall motion. Transmitral Doppler flow pattern is G rade I-abnormal relaxation pattern. RIGHT VENTRICLE The right ventricle is normal size. The right ventricular systolic function is normal. ATRIA The left atrium size is normal. The right atrium size is normal. The interatrial septum is intact wit h no evidence for an atrial septal defect or patent foramen ovale as noted on 2-D or Doppler imaging. AORTIC VALVE The aortic valve is calcified but opens well. Doppler and Color Flow revealed no significant aortic r egurgitation. There is no significant aortic valvular stenosis. MITRAL VALVE The mitral valve is normal in structure and function. There is no evidence of mitral valve prolapse. There is no mitral valve stenosis. Doppler and Color-flow revealed trace mitral regurgitation. TRICUSPID VALVE The tricuspid valve is normal in structure and function. Doppler and Color Flow revealed trace to mil d tricuspid regurgitation. The PA pressure was estimated at 38 mmHg. There is no tricuspid valve sten osis. PULMONIC VALVE Doppler and Color Flow revealed trace pulmonic valvular regurgitation. There is no pulmonic valvular stenosis. GREAT VESSELS The aortic root is normal in size. The ascending aorta is normal in size. The IVC is normal in size a nd collapses >50% with inspiration. PERICARDIAL EFFUSION There is no evidence of significant pericardial effusion. Critical Notification Critical Value: No <Conclusion> The left ventricular systolic function is normal and the ejection fraction is within normal range. Th e Ejection Fraction is 55-60%. There is grossly normal LV segmental wall motion.
[2016-09-05] MEDS ORDERED: INSULIN DETEMIR 300 UNITS/3 ML INSULN.PEN. SQ SCH (16:00)
[2016-09-05] MEDS: ATORVASTATIN CALCIUM 10 MG TABLET. PO SCH (20:21)
[2016-09-05] MEDS: SENNOSIDES/DOCUSATE 8.6/50MG TABLET. PO SCH (20:21)
[2016-09-05] MEDS: GABAPENTIN 300 MG CAPSULE. PO SCH (20:21)
[2016-09-06 03:03] VITALS: BP 129/62
[2016-09-06 04:55] LABS: BASO % 0 % (0-3); EOS % 3 % (0-3); HEMATOCRIT 28.5 % (39.0-53.0); HEMOGLOBIN 9.7 g/dL (13.0-17.5); LYMPH # 0.7 x10^3/uL (1.0-4.8); LYMPH % 13 % (24-48); MEAN CORPUSCULAR HEMOGLOBIN 31 pg (25-35); MEAN CORPUSCULAR HGB CONC 34 g/dL (31-37); MEAN CORPUSCULAR VOLUME 93 fL (79-100); MONO % 9 % (0-9); NEUT % 74 % (31-73); PLATELET COUNT 174 x10^3/uL (140-400); RED BLOOD COUNT 3.07 x10^6/uL (4.30-5.70); RED CELL DISTRIBUTION WIDTH 12.8 % (11.5-14.5); WHITE BLOOD COUNT 4.9 x10^3/uL (4.0-11.0)
[2016-09-06 05:05] LABS: CALCIUM 8.6 mg/dL (8.5-10.1)
[2016-09-06 05:06] LABS: CREATININE 2.3 mg/dL (0.7-1.3); GFR 27.7; POTASSIUM 5.4 mmol/L (3.5-5.1)
[2016-09-06] MEDS: HEPARIN PF for SUB-Q USE 5,000 UNIT/0.5 ML VIAL. SQ SCH ×3 (06:27→21:06)
[2016-09-06 07:00] VITALS: BP 108/64
[2016-09-06] MEDS: ALBUTEROL SULFATE 2.5 MG/3 ML NEBU. NEB PRN ×4 (07:28→20:27)
[2016-09-06] MEDS ORDERED: INSULIN ASPART 300 UNITS/3 ML INSULN.PEN SQ ONE ×2 (08:00→13:30)
[2016-09-06] MEDS: INSULIN ASPART 300 UNITS/3 ML INSULN.PEN SQ SCH ×4 (08:00→18:06)
[2016-09-06] MEDS: POTASSIUM CHLORIDE 20 MEQ TABLET.ER. PO SCH ×2 (09:00→09:49)
[2016-09-06] MEDS: ASPIRIN ENTERIC COATED 81 MG TABLET.DR. PO SCH (09:47)
[2016-09-06] MEDS: LISINOPRIL 10 MG TABLET PO SCH (09:48)
[2016-09-06] MEDS: FUROSEMIDE 40 MG TABLET PO SCH (09:48)
[2016-09-06] MEDS: AMLODIPINE BESYLATE 10 MG TABLET PO SCH (09:49)
[2016-09-06] MEDS: GUAIFENESIN ER 600 MG TABLET.ER PO SCH ×2 (09:49→20:59)
[2016-09-06] MEDS: CHOLECALCIFEROL (VITAMIN D3) 1,000 UNIT TABLET PO SCH (09:49)
[2016-09-06] MEDS: CYANOCOBALAMIN (VITAMIN B-12) 1,000 MCG TABLET. PO SCH (09:49)
[2016-09-06] MEDS: PANTOPRAZOLE 40 MG TABLET. PO SCH (09:50)
[2016-09-06] MEDS: SPIRONOLACTONE 25 MG TABLET PO SCH (09:50)
[2016-09-06] MEDS: METOPROLOL SUCC 24HR ER 50 MG TAB.ER.24H. PO SCH (09:50)
[2016-09-06] MEDS: OXYCODONE/APAP 7.5/325 TABLET. PO PRN ×2 (10:05→17:56)
[2016-09-06 11:19] VITALS: BP 110/65
[2016-09-06 12:45] LABS: % EOS 2 % (0-5)
[2016-09-06 12:46] LABS: PLT ESTIMATE ADEQUATE (ADEQUATE)
--- NOTE | 2016-09-06 13:29 | PDOC ---
PROGRESS NOTES Chief Complaint Chief Complaint 1. cough, bronchtitis, 2. CHF , chronic diastolic 3. moderate/severe dementia 4. hyperglycemia, dm2 5. CKD4 possibly, wo baseline Cr 6. htn 7. gerd History of Present Illness History of Present Illness uo to chair some confusion cough better VSS Vitals Vitals Vital Signs Date Time Temp Pulse Resp B/P Pulse Ox O2 Delivery O2 Flow Rate FiO2 09/06/16 11:19 97.7 73 18 110/65 94 Room Air 97.7 Physical Exam General: Alert, Cooperative, No acute distress Heart: Regular rate, No murmurs Lungs: Crackles Abdomen: Soft, No tenderness Extremities: No clubbing, Normal pulses Skin: No rashes, No breakdown Labs LABS Laboratory Tests Test 09/05/16 16:57 09/05/16 20:44 09/06/16 04:30 09/06/16 07:40 Glucose (Fingerstick) 289mg/dL (70-99) 334mg/dL (70-99) 357mg/dL (70-99) White Blood Count 4.9x10^3/uL (4.0-11.0) Red Blood Count 3.07x10^6/uL (4.30-5.70) Hemoglobin 9.7g/dL (13.0-17.5) Hematocrit 28.5% (39.0-53.0) Mean Corpuscular Volume 93fL (79-100) Mean Corpuscular Hemoglobin 31pg (25-35) Mean Corpuscular Hemoglobin Concent 34g/dL (31-37) Red Cell Distribution Width 12.8% (11.5-14.5) Platelet Count 174x10^3/uL (140-400) Neutrophils (%) (Auto) 74% (31-73) Lymphocytes (%) (Auto) 13% (24-48) Monocytes (%) (Auto) 9% (0-9) Eosinophils (%) (Auto) 3% (0-3) Basophils (%) (Auto) 0% (0-3) Neutrophils # (Auto) 3.7x10^3uL (1.8-7.7) Lymphocytes # (Auto) 0.7x10^3/uL (1.0-4.8) Monocytes # (Auto) 0.4x10^3/uL (0.0-1.1) Eosinophils # (Auto) 0.2x10^3/uL (0.0-0.7) Basophils # (Auto) 0.0x10^3/uL (0.0-0.2) Segmented Neutrophils % 80% (35-66) Band Neutrophils % 4% (0-9) Lymphocytes % 11% (24-48) Monocytes % 3% (0-10) Eosinophils % 2% (0-5) Platelet Estimate Adequate (ADEQUATE) Sodium Level 138mmol/L (136-145) Potassium Level 5.4mmol/L (3.5-5.1) Chloride Level 101mmol/L (98-107) Carbon Dioxide Level 27mmol/L (21-32) Anion Gap 10 (6-14) Blood Urea Nitrogen 45mg/dL (8-26) Creatinine 2.3mg/dL (0.7-1.3) Estimated GFR (Cockcroft-Gault) 27.7 Glucose Level 302mg/dL (70-99) Calcium Level 8.6mg/dL (8.5-10.1) Test 09/06/16 10:22 09/06/16 12:09 Glucose (Fingerstick) 406mg/dL (70-99) 378mg/dL (70-99) Assessment and Plan Assessmemt and Plan very poor control DM2, add insulin X2, SSI Problems Medical Problems: (1) CAP (community acquired pneumonia) Status: Acute Problems: Comment Review of Relevant I have reviewed the following items ivette (where applicable) has been applied. Labs Laboratory Tests Test 09/04/16 17:10 09/05/16 02:40 09/05/16 06:00 09/05/16 07:53 White Blood Count 8.3x10^3/uL (4.0-11.0) 7.6x10^3/uL (4.0-11.0) Red Blood Count 3.56x10^6/uL (4.30-5.70) 3.12x10^6/uL (4.30-5.70) Hemoglobin 11.0g/dL (13.0-17.5) 10.1g/dL (13.0-17.5) Hematocrit 32.5% (39.0-53.0) 28.5% (39.0-53.0) Mean Corpuscular Volume 91fL (79-100) 91fL (79-100) Mean Corpuscular Hemoglobin 31pg (25-35) 32pg (25-35) Mean Corpuscular Hemoglobin Concent 34g/dL (31-37) 35g/dL (31-37) Red Cell Distribution Width 13.1% (11.5-14.5) 12.9% (11.5-14.5) Platelet Count 217x10^3/uL (140-400) 176x10^3/uL (140-400) Neutrophils (%) (Auto) 80% (31-73) 79% (31-73) Lymphocytes (%) (Auto) 7% (24-48) 8% (24-48) Monocytes (%) (Auto) 9% (0-9) 10% (0-9) Eosinophils (%) (Auto) 4% (0-3) 3% (0-3) Basophils (%) (Auto) 1% (0-3) 0% (0-3) Neutrophils # (Auto) 6.6x10^3uL (1.8-7.7) 6.0x10^3uL (1.8-7.7) Lymphocytes # (Auto) 0.6x10^3/uL (1.0-4.8) 0.6x10^3/uL (1.0-4.8) Monocytes # (Auto) 0.7x10^3/uL (0.0-1.1) 0.8x10^3/uL (0.0-1.1) Eosinophils # (Auto) 0.3x10^3/uL (0.0-0.7) 0.2x10^3/uL (0.0-0.7) Basophils # (Auto) 0.0x10^3/uL (0.0-0.2) 0.0x10^3/uL (0.0-0.2) Sodium Level 139mmol/L (136-145) 133mmol/L (136-145) Potassium Level 5.0mmol/L (3.5-5.1) 4.9mmol/L (3.5-5.1) Chloride Level 100mmol/L (98-107) 101mmol/L (98-107) Carbon Dioxide Level 30mmol/L (21-32) 27mmol/L (21-32) Anion Gap 9 (6-14) 5 (6-14) Blood Urea Nitrogen 42mg/dL (8-26) 39mg/dL (8-26) Creatinine 2.3mg/dL (0.7-1.3) 2.0mg/dL (0.7-1.3) Estimated GFR (Cockcroft-Gault) 27.7 32.6 BUN/Creatinine Ratio 18 (6-20) Glucose Level 240mg/dL (70-99) 231mg/dL (70-99) Calcium Level 9.2mg/dL (8.5-10.1) 9.1mg/dL (8.5-10.1) Total Bilirubin 0.3mg/dL (0.2-1.0) Aspartate Amino Transf (AST/SGOT) 14U/L (15-37) Alanine Aminotransferase (ALT/SGPT) 19U/L (16-63) Alkaline Phosphatase 72U/L (46-116) Total Protein 7.7g/dL (6.4-8.2) Albumin 3.4g/dL (3.4-5.0) Albumin/Globulin Ratio 0.8 (1.0-1.7) Nasal Screen MRSA (PCR) Negative (Negative) Influenza Type A Antigen Negative (NEGATIVE) Influenza Type B Antigen Negative (NEGATIVE) Glucose (Fingerstick) 231mg/dL (70-99) Test 09/05/16 10:35 09/05/16 16:57 09/05/16 20:44 09/06/16 04:30 Glucose (Fingerstick) 271mg/dL (70-99) 289mg/dL (70-99) 334mg/dL (70-99) White Blood Count 4.9x10^3/uL (4.0-11.0) Red Blood Count 3.07x10^6/uL (4.30-5.70) Hemoglobin 9.7g/dL (13.0-17.5) Hematocrit 28.5% (39.0-53.0) Mean Corpuscular Volume 93fL (79-100) Mean Corpuscular Hemoglobin 31pg (25-35) Mean Corpuscular Hemoglobin Concent 34g/dL (31-37) Red Cell Distribution Width 12.8% (11.5-14.5) Platelet Count 174x10^3/uL (140-400) Neutrophils (%) (Auto) 74% (31-73) Lymphocytes (%) (Auto) 13% (24-48) Monocytes (%) (Auto) 9% (0-9) Eosinophils (%) (Auto) 3% (0-3) Basophils (%) (Auto) 0% (0-3) Neutrophils # (Auto) 3.7x10^3uL (1.8-7.7) Lymphocytes # (Auto) 0.7x10^3/uL (1.0-4.8) Monocytes # (Auto) 0.4x10^3/uL (0.0-1.1) Eosinophils # (Auto) 0.2x10^3/uL (0.0-0.7) Basophils # (Auto) 0.0x10^3/uL (0.0-0.2) Segmented Neutrophils % 80% (35-66) Band Neutrophils % 4% (0-9) Lymphocytes % 11% (24-48) Monocytes % 3% (0-10) Eosinophils % 2% (0-5) Platelet Estimate Adequate (ADEQUATE) Sodium Level 138mmol/L (136-145) Potassium Level 5.4mmol/L (3.5-5.1) Chloride Level 101mmol/L (98-107) Carbon Dioxide Level 27mmol/L (21-32) Anion Gap 10 (6-14) Blood Urea Nitrogen 45mg/dL (8-26) Creatinine 2.3mg/dL (0.7-1.3) Estimated GFR (Cockcroft-Gault) 27.7 Glucose Level 302mg/dL (70-99) Calcium Level 8.6mg/dL (8.5-10.1) Test 09/06/16 07:40 09/06/16 10:22 09/06/16 12:09 Glucose (Fingerstick) 357mg/dL (70-99) 406mg/dL (70-99) 378mg/dL (70-99) Laboratory Tests Test 09/05/16 16:57 09/05/16 20:44 09/06/16 04:30 2/7/17 07:40 Glucose (Fingerstick) 289mg/dL (70-99) 334mg/dL (70-99) 357mg/dL (70-99) White Blood Count 4.9x10^3/uL (4.0-11.0) Red Blood Count 3.07x10^6/uL (4.30-5.70) Hemoglobin 9.7g/dL (13.0-17.5) Hematocrit 28.5% (39.0-53.0) Mean Corpuscular Volume 93fL (79-100) Mean Corpuscular Hemoglobin 31pg (25-35) Mean Corpuscular Hemoglobin Concent 34g/dL (31-37) Red Cell Distribution Width 12.8% (11.5-14.5) Platelet Count 174x10^3/uL (140-400) Neutrophils (%) (Auto) 74% (31-73) Lymphocytes (%) (Auto) 13% (24-48) Monocytes (%) (Auto) 9% (0-9) Eosinophils (%) (Auto) 3% (0-3) Basophils (%) (Auto) 0% (0-3) Neutrophils # (Auto) 3.7x10^3uL (1.8-7.7) Lymphocytes # (Auto) 0.7x10^3/uL (1.0-4.8) Monocytes # (Auto) 0.4x10^3/uL (0.0-1.1) Eosinophils # (Auto) 0.2x10^3/uL (0.0-0.7) Basophils # (Auto) 0.0x10^3/uL (0.0-0.2) Segmented Neutrophils % 80% (35-66) Band Neutrophils % 4% (0-9) Lymphocytes % 11% (24-48) Monocytes % 3% (0-10) Eosinophils % 2% (0-5) Platelet Estimate Adequate (ADEQUATE) Sodium Level 138mmol/L (136-145) Potassium Level 5.4mmol/L (3.5-5.1) Chloride Level 101mmol/L (98-107) Carbon Dioxide Level 27mmol/L (21-32) Anion Gap 10 (6-14) Blood Urea Nitrogen 45mg/dL (8-26) Creatinine 2.3mg/dL (0.7-1.3) Estimated GFR (Cockcroft-Gault) 27.7 Glucose Level 302mg/dL (70-99) Calcium Level 8.6mg/dL (8.5-10.1) Test 09/06/16 10:22 09/06/16 12:09 Glucose (Fingerstick) 406mg/dL (70-99) 378mg/dL (70-99) Microbiology 09/04/16 Blood Culture - Preliminary, Resulted NO GROWTH AFTER 1 DAY Medications Current Medications Oxycodone/ Acetaminophen 1 tab 1 tab 1X ONCE PO Last administered on 09/04/16 18:13; Start 09/04/16 at 18:15; Stop 09/04/16 at 18:16; Status DC Levofloxacin/ Dextrose (LEVAQUIN 750mg PREMIX) 150 ml @ 100 mls/hr 1X ONCE IV Last administered on 09/04/16 18:16; Start 09/04/16 at 18:30; Stop 09/04/16 at 19:59; Status DC Albuterol/ Ipratropium (Duoneb) 3 ml RTQID NEB Last administered on 09/05/16 19 :43; Start 09/04/16 at 20:00; Stop 09/05/16 at 19:59; Status DC Amlodipine Besylate (Norvasc) 10 mg DAILY PO Last administered on 09/06/16 09: 49; Start 09/05/16 at 09:00 Aspirin (Ecotrin) 81 mg DAILY PO Last administered on 09/06/16 09:47; Start 09/05/16 at 09:00 Vitamin D (Vitamin D3) 1,000 unit DAILY PO Last administered on 09/06/16 09:49 ; Start 09/05/16 at 09:00 Cyanocobalamin (Vitamin B-12) 1,000 mcg DAILY PO Last administered on 09/06/16 09:49; Start 09/05/16 at 09:00 Furosemide (Lasix) 40 mg DAILY PO Last administered on 09/06/16 09:48; Start at 09:00 Gabapentin (Neurontin) 300 mg HS PO Last administered on 09/05/16 20:21; Start 09/04/16 at 21:00 Lisinopril (Prinivil) 10 mg DAILY PO Last administered on 09/06/16 09:48; Start 09/05/16 at 09:00 Metoprolol Succinate (Toprol Xl) 50 mg DAILY PO Last administered on 09/06/16 09:50; Start 09/05/16 at 09:00 Oxycodone/ Acetaminophen (Percocet 7.5/ 325) 1 tab PRN Q6HRS PRN PO PAIN Last administered on 09/06/16 10:05; Start 09/04/16 at 19:15 Potassium Chloride (Klor-Con) 20 meq DAILY PO Last administered on 09/05/16 08: 36; Start 09/05/16 at 09:00 Senna/Docusate Sodium (Senna Plus) 2 tab HS PO Last administered on 09/05/16 20 :21; Start 09/04/16 at 21:00 Pantoprazole Sodium (Protonix) 40 mg DAILYAC PO Last administered on 09/06/16 09:50; Start 09/05/16 at 07:30 Atorvastatin Calcium (Lipitor) 5 mg QHS PO Last administered on 09/05/16 20:21 ; Start 09/04/16 at 21:00 Spironolactone 50 mg 50 mg DAILY PO Last administered on 09/06/16 09:50; Start 09/05/16 at 09:00 Levofloxacin/ Dextrose (LEVAQUIN 250mg PREMIX) 50 ml @ 50 mls/hr Q24H IV Last administered on 09/05/16 18:04; Start 09/05/16 at 18:00 Albuterol Sulfate (Ventolin Neb Soln) 2.5 mg PRN Q4HRS PRN NEB SHORTNESS OF BREATH Last administered on 09/06/16 11:07; Start 09/04/16 at 19:15 Guaifenesin (Mucinex) 600 mg BID PO Last administered on 09/06/16 09:49; Start 09/04/16 at 21:00 Acetaminophen (Tylenol) 650 mg PRN Q6HRS PRN PO MILD PAIN / TEMP Last administered on 09/05/16 12:05; Start 09/04/16 at 19:15 Ondansetron HCl (Zofran) 4 mg PRN Q6HRS PRN IV NAUSEA/VOMITING; Start 09/04/16 at 19:15 Heparin Sodium (Porcine) 5,000 unit Q8HRS SQ Last administered on 09/06/16 06: 27; Start 09/04/16 at 22:00 Hydralazine HCl (Apresoline) 10 mg PRN Q4HRS PRN IVP ELEVATED BP, SEE COMMENTS ; Start 09/04/16 at 19:15 Insulin Aspart (Novolog) 0-9 UNITS TIDWMEALS SQ Last administered on 09/06/16 12:14; Start 09/05/16 at 08:00 Dextrose 12.5 gm PRN Q15MIN PRN IV SEE COMMENTS; Start 09/04/16 at 19:30 Insulin Detemir (Levemir) 12 units QHS SQ Last administered on 09/05/16 17:08; Start 09/05/16 at 16:00 Insulin Aspart (Novolog) 11 units 1X ONCE SQ Last administered on 09/06/16 09: 56; Start 09/06/16 at 08:00; Stop 09/06/16 at 08:01; Status DC Active Scripts Active Reported Protonix (Pantoprazole Sodium) 20 Mg Tablet.dr 1 Tab PO DAILY Toprol Xl (Metoprolol Succinate) 50 Mg Tab.er.24h 1 Tab PO DAILY Lisinopril 10 Mg Tablet 1 Tab PO DAILY Lasix (Furosemide) 40 Mg Tablet 1 Tab PO DAILY Aspir 81 (Aspirin) 81 Mg Tablet.dr 1 Tab PO DAILY Amlodipine Besylate 10 Mg Tablet 10 Mg PO DAILY Metformin Hcl 1,000 Mg Tablet 1 Tab PO BID Vitamin D3 (Cholecalciferol (Vitamin D3)) 1,000 Unit Tablet 800 Unit PO DAILY Vitamin B-12 (Cyanocobalamin (Vitamin B-12)) 1,000 Mcg Tablet 1 Tab PO DAILY Spironolactone 50 Mg Tablet 1 Tab PO DAILY Pravastatin Sodium 20 Mg Tablet 1 Tab PO DAILY Klor-Con M20 (Potassium Chloride) 20 Meq Tab.er.prt 1 Tab PO DAILY Nitrostat (Nitroglycerin) 0.4 Mg Tab.subl 1 Tab SL UD Senokot-S Tablet (Sennosides/Docusate Sodium) 1 Each Tablet 2 Tab PO HS Gabapentin 300 Mg Capsule 300 Mg PO HS Percocet 7.5-325 Mg Tablet (Oxycodone/Acetaminophen) 1 Each Tablet 1 Tab PO PRN Q6HRS PRN Vitals/I & O Vital Sign - Last 24 Hours 2/6/17 2/6/17 2/6/17 2/6/17 15:13 15:22 15:30 17:09 Temp 97.6 97.6 Pulse 69 Resp 20 B/P 98/53 Pulse Ox 90 O2 Delivery Room Air Room Air Room Air Room Air 09/05/16 09/05/16 09/05/16 09/05/16 19:00 19:43 20:00 23:33 Temp 97.3 98.7 97.3 98.7 Pulse 71 60 Resp 18 18 B/P 99/51 119/59 Pulse Ox 94 92 96 O2 Delivery Room Air Room Air Room Air Room Air 09/06/16 09/06/16 09/06/16 09/06/16 03:03 07:00 07:29 09:48 Temp 97.8 97.7 97.8 97.7 Pulse 75 75 75 Resp 18 18 B/P 129/62 108/64 108/64 Pulse Ox 96 91 96 O2 Delivery Room Air Room Air Room Air 09/06/16 09/06/16 09/06/16 09/06/16 09:49 09:50 10:05 11:07 Pulse 75 75 Resp 18 B/P 108/64 108/64 Pulse Ox 94 O2 Delivery Room Air Room Air 09/06/16 11:19 Temp 97.7 97.7 Pulse 73 Resp 18 B/P 110/65 Pulse Ox 94 O2 Delivery Room Air Intake and Output 09/05/16 09/05/16 09/06/16 15:00 23:00 07:00 Intake Total 480 ml 300 ml Output Total 301 ml 700 ml Balance 480 ml -1 ml -700 ml PARVEEN HERRERA MD Sep 06, 2016 13:29
[2016-09-06 15:15] VITALS: BP 95/44
--- NOTE | 2016-09-06 16:39 | PDOC ---
Provider Note Provider Note dictated doubt pneumonia basal atelectasis can go back to assisted [facility] BETHEL GARCIA MD Sep 06, 2016 16:39
--- NOTE | 2016-09-06 17:22 | CONS ---
DATE OF CONSULTATION: 09/06/2016 ATTENDING PHYSICIAN: Dr. Sue. REASON FOR CONSULTATION: Possible pneumonia. HISTORY OF PRESENT ILLNESS: The patient is a 76-year-old with dementia. He was brought in from assisted living facility for runny nose. He says he does not have any significant cough. The patient has no fever, no chills, no shortness of breath, no chest pains. His chest x-ray was reviewed by me. There were patchy areas of atelectasis seen at the bases. Consultation was requested for further evaluation. Review of vital signs shows no fever and there was no significant leukocytosis. PAST MEDICAL HISTORY: Significant for possible CHF. PAST SURGICAL HISTORY: No recent surgery. ALLERGIES: TETRACYCLINE. MEDICATIONS: Reviewed as listed in the [facility] including antibiotic Levaquin. REVIEW OF SYSTEMS: A 10-point system was obtained. Pertinent positives discussed in history of present illness, otherwise noncontributory. SOCIAL HISTORY: Lives at the assisted living facility. PHYSICAL EXAMINATION: VITAL SIGNS: Blood pressure initially was 110, but later 95/44, pulse ox 94% on room air, afebrile. HEENT: Sclerae nonicteric. NECK: Supple. LUNGS: Diminished breath sounds. CARDIOVASCULAR: Regular rate. ABDOMEN: Soft, obese. EXTREMITIES: With no pitting edema. LABORATORY DATA: Reviewed. White cell count 4.9, hemoglobin 9.7. Influenza negative. BUN and creatinine 45 and 2.3. IMPRESSION: 1. Abnormal chest x-ray with most likely bibasilar atelectasis. Clinically, less likely pneumonia. 2. Clinically, less likely pneumonia. No cough, no fever, and no significant leukocytosis. 3. Renal insufficiency: Could be chronic. Need to review old lab values. 4. No significant tobacco history. RECOMMENDATIONS: 1. From a pulmonary standpoint, he could be discharged home on oral antibiotics. 2. Respiratory status is compensated. 3. Follow renal function. 4. We will be available on an as-needed basis for any further recommendations. Otherwise, I will sign off. BETHEL GARCIA MD DR: ELIJAH/holley JOB#: [id number] / [id number]
[2016-09-06 19:00] VITALS: BP 114/59
[2016-09-06] MEDS: SENNOSIDES/DOCUSATE 8.6/50MG TABLET. PO SCH (20:58)
[2016-09-06] MEDS: GABAPENTIN 300 MG CAPSULE. PO SCH (20:58)
[2016-09-06] MEDS: ATORVASTATIN CALCIUM 10 MG TABLET. PO SCH (20:59)
[2016-09-06] MEDS: INSULIN DETEMIR 300 UNITS/3 ML INSULN.PEN. SQ SCH (21:07)
[2016-09-06] MEDS: ACETAMINOPHEN 325 MG TABLET. PO PRN (21:09)
[2016-09-06 22:36] VITALS: BP 91/56
[2016-09-07 04:25] LABS: BASO % 1 % (0-3); EOS % 3 % (0-3); HEMATOCRIT 30.1 % (39.0-53.0); HEMOGLOBIN 10.3 g/dL (13.0-17.5); LYMPH # 0.8 x10^3/uL (1.0-4.8); LYMPH % 14 % (24-48); MEAN CORPUSCULAR HEMOGLOBIN 32 pg (25-35); MEAN CORPUSCULAR HGB CONC 34 g/dL (31-37); MEAN CORPUSCULAR VOLUME 93 fL (79-100); MONO % 9 % (0-9); NEUT % 72 % (31-73); PLATELET COUNT 175 x10^3/uL (140-400); RED BLOOD COUNT 3.25 x10^6/uL (4.30-5.70); RED CELL DISTRIBUTION WIDTH 12.6 % (11.5-14.5); WHITE BLOOD COUNT 5.7 x10^3/uL (4.0-11.0)
[2016-09-07 04:27] LABS: CALCIUM 8.9 mg/dL (8.5-10.1); CREATININE 2.3 mg/dL (0.7-1.3); GFR 27.7; POTASSIUM 4.9 mmol/L (3.5-5.1)
[2016-09-07] MEDS: HEPARIN PF for SUB-Q USE 5,000 UNIT/0.5 ML VIAL. SQ SCH ×3 (06:33→21:23)
[2016-09-07 07:00] VITALS: BP 111/66
[2016-09-07] MEDS: INSULIN ASPART 300 UNITS/3 ML INSULN.PEN SQ SCH ×6 (08:00→17:36)
[2016-09-07] MEDS: ASPIRIN ENTERIC COATED 81 MG TABLET.DR. PO SCH (08:38)
[2016-09-07] MEDS: CYANOCOBALAMIN (VITAMIN B-12) 1,000 MCG TABLET. PO SCH (08:38)
[2016-09-07] MEDS: PANTOPRAZOLE 40 MG TABLET. PO SCH (08:38)
[2016-09-07] MEDS: SPIRONOLACTONE 25 MG TABLET PO SCH (08:39)
[2016-09-07] MEDS: GUAIFENESIN ER 600 MG TABLET.ER PO SCH ×2 (08:39→21:13)
[2016-09-07] MEDS: POTASSIUM CHLORIDE 20 MEQ TABLET.ER. PO SCH (08:39)
[2016-09-07] MEDS: LISINOPRIL 10 MG TABLET PO SCH (08:39)
[2016-09-07] MEDS: METOPROLOL SUCC 24HR ER 50 MG TAB.ER.24H. PO SCH (08:40)
[2016-09-07] MEDS: FUROSEMIDE 40 MG TABLET PO SCH (08:40)
[2016-09-07] MEDS: AMLODIPINE BESYLATE 10 MG TABLET PO SCH (08:40)
[2016-09-07] MEDS: ACETAMINOPHEN 325 MG TABLET. PO PRN ×2 (09:10→14:56)
[2016-09-07] MEDS: CHOLECALCIFEROL (VITAMIN D3) 1,000 UNIT TABLET PO SCH (09:10)
[2016-09-07 10:51] VITALS: BP 122/74
--- NOTE | 2016-09-07 11:20 | PDOC ---
PULMONARY PROGRESS NOTES Subjective NO SOA Vitals Vital Signs Date Time Temp Pulse Resp B/P Pulse Ox O2 Delivery O2 Flow Rate FiO2 09/07/16 10:51 97.5 68 18 122/74 96 Room Air 97.5 General: Alert, No acute distress Lungs: Clear Cardiovascular: S1 Abdomen: Soft Neuro Exam: Alert Extremities: No Edema Skin: Warm Labs Laboratory Tests Test 09/05/16 16:57 09/05/16 20:44 09/06/16 04:30 09/06/16 07:40 Glucose (Fingerstick) 289mg/dL (70-99) 334mg/dL (70-99) 357mg/dL (70-99) White Blood Count 4.9x10^3/uL (4.0-11.0) Red Blood Count 3.07x10^6/uL (4.30-5.70) Hemoglobin 9.7g/dL (13.0-17.5) Hematocrit 28.5% (39.0-53.0) Mean Corpuscular Volume 93fL (79-100) Mean Corpuscular Hemoglobin 31pg (25-35) Mean Corpuscular Hemoglobin Concent 34g/dL (31-37) Red Cell Distribution Width 12.8% (11.5-14.5) Platelet Count 174x10^3/uL (140-400) Neutrophils (%) (Auto) 74% (31-73) Lymphocytes (%) (Auto) 13% (24-48) Monocytes (%) (Auto) 9% (0-9) Eosinophils (%) (Auto) 3% (0-3) Basophils (%) (Auto) 0% (0-3) Neutrophils # (Auto) 3.7x10^3uL (1.8-7.7) Lymphocytes # (Auto) 0.7x10^3/uL (1.0-4.8) Monocytes # (Auto) 0.4x10^3/uL (0.0-1.1) Eosinophils # (Auto) 0.2x10^3/uL (0.0-0.7) Basophils # (Auto) 0.0x10^3/uL (0.0-0.2) Segmented Neutrophils % 80% (35-66) Band Neutrophils % 4% (0-9) Lymphocytes % 11% (24-48) Monocytes % 3% (0-10) Eosinophils % 2% (0-5) Platelet Estimate Adequate (ADEQUATE) Sodium Level 138mmol/L (136-145) Potassium Level 5.4mmol/L (3.5-5.1) Chloride Level 101mmol/L (98-107) Carbon Dioxide Level 27mmol/L (21-32) Anion Gap 10 (6-14) Blood Urea Nitrogen 45mg/dL (8-26) Creatinine 2.3mg/dL (0.7-1.3) Estimated GFR (Cockcroft-Gault) 27.7 Glucose Level 302mg/dL (70-99) Hemoglobin A1c 7.2% (4.8-5.6) Calcium Level 8.6mg/dL (8.5-10.1) Test 09/06/16 10:22 09/06/16 12:09 09/06/16 15:04 09/06/16 16:14 Glucose (Fingerstick) 406mg/dL (70-99) 378mg/dL (70-99) 232mg/dL (70-99) 225mg/dL (70-99) Test 09/06/16 20:24 09/07/16 04:05 09/07/16 07:36 Glucose (Fingerstick) 156mg/dL (70-99) 183mg/dL (70-99) White Blood Count 5.7x10^3/uL (4.0-11.0) Red Blood Count 3.25x10^6/uL (4.30-5.70) Hemoglobin 10.3g/dL (13.0-17.5) Hematocrit 30.1% (39.0-53.0) Mean Corpuscular Volume 93fL (79-100) Mean Corpuscular Hemoglobin 32pg (25-35) Mean Corpuscular Hemoglobin Concent 34g/dL (31-37) Red Cell Distribution Width 12.6% (11.5-14.5) Platelet Count 175x10^3/uL (140-400) Neutrophils (%) (Auto) 72% (31-73) Lymphocytes (%) (Auto) 14% (24-48) Monocytes (%) (Auto) 9% (0-9) Eosinophils (%) (Auto) 3% (0-3) Basophils (%) (Auto) 1% (0-3) Neutrophils # (Auto) 4.1x10^3uL (1.8-7.7) Lymphocytes # (Auto) 0.8x10^3/uL (1.0-4.8) Monocytes # (Auto) 0.5x10^3/uL (0.0-1.1) Eosinophils # (Auto) 0.2x10^3/uL (0.0-0.7) Basophils # (Auto) 0.0x10^3/uL (0.0-0.2) Sodium Level 135mmol/L (136-145) Potassium Level 4.9mmol/L (3.5-5.1) Chloride Level 101mmol/L (98-107) Carbon Dioxide Level 28mmol/L (21-32) Anion Gap 6 (6-14) Blood Urea Nitrogen 40mg/dL (8-26) Creatinine 2.3mg/dL (0.7-1.3) Estimated GFR (Cockcroft-Gault) 27.7 Glucose Level 174mg/dL (70-99) Calcium Level 8.9mg/dL (8.5-10.1) Laboratory Tests Test 09/06/16 12:09 09/06/16 15:04 09/06/16 16:14 09/06/16 20:24 Glucose (Fingerstick) 378mg/dL (70-99) 232mg/dL (70-99) 225mg/dL (70-99) 156mg/dL (70-99) Test 09/07/16 04:05 09/07/16 07:36 White Blood Count 5.7x10^3/uL (4.0-11.0) Red Blood Count 3.25x10^6/uL (4.30-5.70) Hemoglobin 10.3g/dL (13.0-17.5) Hematocrit 30.1% (39.0-53.0) Mean Corpuscular Volume 93fL (79-100) Mean Corpuscular Hemoglobin 32pg (25-35) Mean Corpuscular Hemoglobin Concent 34g/dL (31-37) Red Cell Distribution Width 12.6% (11.5-14.5) Platelet Count 175x10^3/uL (140-400) Neutrophils (%) (Auto) 72% (31-73) Lymphocytes (%) (Auto) 14% (24-48) Monocytes (%) (Auto) 9% (0-9) Eosinophils (%) (Auto) 3% (0-3) Basophils (%) (Auto) 1% (0-3) Neutrophils # (Auto) 4.1x10^3uL (1.8-7.7) Lymphocytes # (Auto) 0.8x10^3/uL (1.0-4.8) Monocytes # (Auto) 0.5x10^3/uL (0.0-1.1) Eosinophils # (Auto) 0.2x10^3/uL (0.0-0.7) Basophils # (Auto) 0.0x10^3/uL (0.0-0.2) Sodium Level 135mmol/L (136-145) Potassium Level 4.9mmol/L (3.5-5.1) Chloride Level 101mmol/L (98-107) Carbon Dioxide Level 28mmol/L (21-32) Anion Gap 6 (6-14) Blood Urea Nitrogen 40mg/dL (8-26) Creatinine 2.3mg/dL (0.7-1.3) Estimated GFR (Cockcroft-Gault) 27.7 Glucose Level 174mg/dL (70-99) Calcium Level 8.9mg/dL (8.5-10.1) Glucose (Fingerstick) 183mg/dL (70-99) Medications Active Scripts Medications Dose Route/Sig Days Date Category Protonix (Pantoprazole Sodium) 20 Mg Tablet.dr 1 Tab PO DAILY 09/04/16 Reported Toprol Xl (Metoprolol Succinate) 50 Mg Tab.er.24h 1 Tab PO DAILY 09/04/16 Reported Lisinopril 10 Mg Tablet 1 Tab PO DAILY 09/04/16 Reported Lasix (Furosemide) 40 Mg Tablet 1 Tab PO DAILY 09/04/16 Reported Aspir 81 (Aspirin) 81 Mg Tablet.dr 1 Tab PO DAILY 09/04/16 Reported Amlodipine Besylate 10 Mg Tablet 10 Mg PO DAILY 09/04/16 Reported Metformin Hcl 1,000 Mg Tablet 1 Tab PO BID 09/04/16 Reported Vitamin D3 (Cholecalciferol (Vitamin D3)) 1,000 Unit Tablet 800 Unit PO DAILY 2/5/17 Reported Vitamin B-12 (Cyanocobalamin (Vitamin B-12)) 1,000 Mcg Tablet 1 Tab PO DAILY 09/04/16 Reported Spironolactone 50 Mg Tablet 1 Tab PO DAILY 09/04/16 Reported Pravastatin Sodium 20 Mg Tablet 1 Tab PO DAILY 09/04/16 Reported Klor-Con M20 (Potassium Chloride) 20 Meq Tab.er.prt 1 Tab PO DAILY 09/04/16 Reported Nitrostat (Nitroglycerin) 0.4 Mg Tab.subl 1 Tab SL UD 09/04/16 Reported Senokot-S Tablet (Sennosides/Docusate Sodium) 1 Each Tablet 2 Tab PO HS 09/04/16 Reported Gabapentin 300 Mg Capsule 300 Mg PO HS 09/04/16 Reported Percocet 7.5-325 Mg Tablet (Oxycodone/Acetaminophen) 1 Each Tablet 1 Tab PO PRN Q6HRS PRN 09/04/16 Reported Impression . 1. Abnormal chest x-ray with most likely bibasilar atelectasis. Clinically, less likely pneumonia. 2. Clinically, less likely pneumonia. No cough, no fever, and no significant leukocytosis. 3. Renal insufficiency: Could be chronic. Need to review old lab values. 4. No significant tobacco history. Plan . 1. From a pulmonary standpoint, he could be discharged home on oral antibiotics. 2. Respiratory status is compensated. 3. Follow renal function. 4. We will be available on an as-needed basis for any further recommendations. Otherwise, I will sign off. BETHEL GARCIA MD Sep 07, 2016 11:20
[2016-09-07] MEDS: OXYCODONE/APAP 7.5/325 TABLET. PO PRN ×2 (12:00→21:15)
[2016-09-07] MEDS: LEVOFLOXACIN 250 MG TABLET. PO SCH (14:41)
[2016-09-07 14:42] VITALS: BP 106/72
--- NOTE | 2016-09-07 14:54 | PDOC2 ---
CONSULT Date of Consult Date of Consult DATE: 09/07/16 TIME: 14:53 Reason for Consult Reason for Consult: ^ creat Referring Physician Referring Physician: Dr Jenkins Identification/Chief Complaint Chief Complaint Runny Nose Problems: Source Source: Chart review, Patient History of Present Illness Reason for Visit: as dictated Past Surgical History Past Surgical History: No pertinent history Family History Family History: No Significant Social History No ALCOHOL: none Drugs: None Lives: with Family Domestic Violence: Neg Current Problem List Problem List Problems Medical Problems: (1) CAP (community acquired pneumonia) Status: Acute Current Medications Current Medications Current Medications Oxycodone/ Acetaminophen 1 tab 1 tab 1X ONCE PO Last administered on 09/04/16 18:13; Start 09/04/16 at 18:15; Stop 09/04/16 at 18:16; Status DC Levofloxacin/ Dextrose (LEVAQUIN 750mg PREMIX) 150 ml @ 100 mls/hr 1X ONCE IV Last administered on 09/04/16 18:16; Start 09/04/16 at 18:30; Stop 09/04/16 at 19:59; Status DC Albuterol/ Ipratropium (Duoneb) 3 ml RTQID NEB Last administered on 09/05/16 19 :43; Start 09/04/16 at 20:00; Stop 09/05/16 at 19:59; Status DC Amlodipine Besylate (Norvasc) 10 mg DAILY PO Last administered on 09/07/16 08: 40; Start 09/05/16 at 09:00 Aspirin (Ecotrin) 81 mg DAILY PO Last administered on 09/07/16 08:38; Start 09/05/16 at 09:00 Vitamin D (Vitamin D3) 1,000 unit DAILY PO Last administered on 09/07/16 09:10 ; Start 09/05/16 at 09:00 Cyanocobalamin (Vitamin B-12) 1,000 mcg DAILY PO Last administered on 09/07/16 08:38; Start 09/05/16 at 09:00 Furosemide (Lasix) 40 mg DAILY PO Last administered on 09/07/16 08:40; Start at 09:00 Gabapentin (Neurontin) 300 mg HS PO Last administered on 09/06/16 20:58; Start 09/04/16 at 21:00 Lisinopril (Prinivil) 10 mg DAILY PO Last administered on 09/07/16 08:39; Start 09/05/16 at 09:00 Metoprolol Succinate (Toprol Xl) 50 mg DAILY PO Last administered on 09/07/16 08:40; Start 09/05/16 at 09:00 Oxycodone/ Acetaminophen (Percocet 7.5/ 325) 1 tab PRN Q6HRS PRN PO PAIN Last administered on 09/07/16 12:00; Start 09/04/16 at 19:15 Potassium Chloride (Klor-Con) 20 meq DAILY PO Last administered on 09/07/16 08: 39; Start 09/05/16 at 09:00 Senna/Docusate Sodium (Senna Plus) 2 tab HS PO Last administered on 09/06/16 20 :58; Start 09/04/16 at 21:00 Pantoprazole Sodium (Protonix) 40 mg DAILYAC PO Last administered on 09/07/16 08:38; Start 09/05/16 at 07:30 Atorvastatin Calcium (Lipitor) 5 mg QHS PO Last administered on 09/06/16 20:59 ; Start 09/04/16 at 21:00 Spironolactone 50 mg 50 mg DAILY PO Last administered on 09/07/16 08:39; Start 09/05/16 at 09:00 Levofloxacin/ Dextrose (LEVAQUIN 250mg PREMIX) 50 ml @ 50 mls/hr Q24H IV Last administered on 09/06/16 17:56; Start 09/05/16 at 18:00; Stop 09/07/16 at 13:15; Status DC Albuterol Sulfate (Ventolin Neb Soln) 2.5 mg PRN Q4HRS PRN NEB SHORTNESS OF BREATH Last administered on 09/06/16 20:27; Start 09/04/16 at 19:15 Guaifenesin (Mucinex) 600 mg BID PO Last administered on 09/07/16 08:39; Start 09/04/16 at 21:00 Acetaminophen (Tylenol) 650 mg PRN Q6HRS PRN PO MILD PAIN / TEMP Last administered on 09/07/16 09:10; Start 09/04/16 at 19:15 Ondansetron HCl (Zofran) 4 mg PRN Q6HRS PRN IV NAUSEA/VOMITING; Start 09/04/16 at 19:15 Heparin Sodium (Porcine) 5,000 unit Q8HRS SQ Last administered on 09/07/16 06: 33; Start 09/04/16 at 22:00 Hydralazine HCl (Apresoline) 10 mg PRN Q4HRS PRN IVP ELEVATED BP, SEE COMMENTS ; Start 09/04/16 at 19:15 Insulin Aspart (Novolog) 0-9 UNITS TIDWMEALS SQ Last administered on 09/07/16 12:00; Start 09/05/16 at 08:00 Dextrose 12.5 gm PRN Q15MIN PRN IV SEE COMMENTS; Start 09/04/16 at 19:30 Insulin Detemir (Levemir) 12 units QHS SQ Last administered on 09/05/16 17:08; Start 09/05/16 at 16:00; Stop 09/06/16 at 13:28; Status DC Insulin Aspart (Novolog) 11 units 1X ONCE SQ Last administered on 09/06/16 09: 56; Start 09/06/16 at 08:00; Stop 09/06/16 at 08:01; Status DC Insulin Detemir (Levemir) 18 units QHS SQ Last administered on 09/06/16 21:07; Start 09/06/16 at 21:00 Insulin Aspart (Novolog) 10 units TIDAC SQ Last administered on 09/07/16 11:30 ; Start 09/06/16 at 16:30 Insulin Aspart (Novolog) 14 units 1X ONCE SQ ; Start 09/06/16 at 13:30; Stop 09/06/16 at 13:32; Status DC Levofloxacin (Levaquin) 250 mg DAILY06 PO Last administered on 09/07/16 14:41; Start 09/07/16 at 14:00 Active Scripts Active Reported Protonix (Pantoprazole Sodium) 20 Mg Tablet. 1 Tab PO DAILY Toprol Xl (Metoprolol Succinate) 50 Mg Tab.er.24h 1 Tab PO DAILY Lisinopril 10 Mg Tablet 1 Tab PO DAILY Lasix (Furosemide) 40 Mg Tablet 1 Tab PO DAILY Aspir 81 (Aspirin) 81 Mg Tablet. 1 Tab PO DAILY Amlodipine Besylate 10 Mg Tablet 10 Mg PO DAILY Metformin Hcl 1,000 Mg Tablet 1 Tab PO BID Vitamin D3 (Cholecalciferol (Vitamin D3)) 1,000 Unit Tablet 800 Unit PO DAILY Vitamin B-12 (Cyanocobalamin (Vitamin B-12)) 1,000 Mcg Tablet 1 Tab PO DAILY Spironolactone 50 Mg Tablet 1 Tab PO DAILY Pravastatin Sodium 20 Mg Tablet 1 Tab PO DAILY Klor-Con M20 (Potassium Chloride) 20 Meq Tab.er.prt 1 Tab PO DAILY Nitrostat (Nitroglycerin) 0.4 Mg Tab.subl 1 Tab SL UD Senokot-S Tablet (Sennosides/Docusate Sodium) 1 Each Tablet 2 Tab PO HS Gabapentin 300 Mg Capsule 300 Mg PO HS Percocet 7.5-325 Mg Tablet (Oxycodone/Acetaminophen) 1 Each Tablet 1 Tab PO PRN Q6HRS PRN Allergies Allergies: Coded Allergies: tetracycline (Verified Allergy, Intermediate, Rash, 09/04/16) ROS Review of System GEN: no Fevers no Chills EYES: no new Visual Complaints ENT: no EN Drainage no Hearing deficits Runny nose CVS: no Orthopnea no CP RESP: no SOB no DAVID GI: no Nausea no Vomiting : no Dysuria no Urgency HEME: no easy bruising no Palp Ly Nodes NEURO no Focal Weakness no Sz PSYCH: no Suicidal Ideation no Depression SKIN: no Rashes ENDO: no Polyuria or Polydipsia no Hot/Cold Intolerance MU SK: ch Arthraigia no Myalgia Physical Exam Physical Exam General Appearance: Awake Alert Oriented x 2 In no Distress; forgetful/ Dementia Eyes: VIsion Unchanged Conjunctiva Normal EN: No EN Drainage Mucous Memb. moist Neck: no JVD no JVP Supple no Thyromegaly CVS: S1 S2 ? soft Murmur No Gallop No Rub no Edema Resp: no Rales no Rhonchi no Acc. Muscle use GI: BAS +ve NO Bruit Non Tender Non Distended : no CVA tenderness; no Suprapubic Tenderness SKIN: no Rashes Breast Exam deferred Mu.Sk: Adequate ROM no Muscle Atrophy Heme: Unable to palpate Obvious LAD no palp Splenomegaly NEURO: Good Strength and Tone Cranial Nerves II - XII grossly intact; ? Some memory loss Psych: not Depressed no Active hallucination Vital Signs Vital Signs Date Time Temp Pulse Resp B/P Pulse Ox O2 Delivery O2 Flow Rate FiO2 09/07/16 14:42 97.5 64 18 106/72 96 Room Air 97.5 Assessment & Plan CKD III: DM/ HTNsive / NS cannot be ruled out. Current FLuid and E-lyte status does not necessitate emergent need for Dialysis. Will re-evaluate for Dialysis in am ? ANTWON - await Renal US to R/o Obstruction. No baseline avail in our system and pt is not aware of recent Blood work - does not know his PCP either Anemia: check Iron etc; not ready for Epogen yet. Transfuse as needed. HTN: Current BP meds reviewed. See orders for changes. Discussed Plan of Care and prognosis etc. at length with family. Labs Labs Laboratory Tests Test 09/05/16 16:57 09/05/16 20:44 09/06/16 04:30 09/06/16 07:40 Glucose (Fingerstick) 289mg/dL (70-99) 334mg/dL (70-99) 357mg/dL (70-99) White Blood Count 4.9x10^3/uL (4.0-11.0) Red Blood Count 3.07x10^6/uL (4.30-5.70) Hemoglobin 9.7g/dL (13.0-17.5) Hematocrit 28.5% (39.0-53.0) Mean Corpuscular Volume 93fL (79-100) Mean Corpuscular Hemoglobin 31pg (25-35) Mean Corpuscular Hemoglobin Concent 34g/dL (31-37) Red Cell Distribution Width 12.8% (11.5-14.5) Platelet Count 174x10^3/uL (140-400) Neutrophils (%) (Auto) 74% (31-73) Lymphocytes (%) (Auto) 13% (24-48) Monocytes (%) (Auto) 9% (0-9) Eosinophils (%) (Auto) 3% (0-3) Basophils (%) (Auto) 0% (0-3) Neutrophils # (Auto) 3.7x10^3uL (1.8-7.7) Lymphocytes # (Auto) 0.7x10^3/uL (1.0-4.8) Monocytes # (Auto) 0.4x10^3/uL (0.0-1.1) Eosinophils # (Auto) 0.2x10^3/uL (0.0-0.7) Basophils # (Auto) 0.0x10^3/uL (0.0-0.2) Segmented Neutrophils % 80% (35-66) Band Neutrophils % 4% (0-9) Lymphocytes % 11% (24-48) Monocytes % 3% (0-10) Eosinophils % 2% (0-5) Platelet Estimate Adequate (ADEQUATE) Sodium Level 138mmol/L (136-145) Potassium Level 5.4mmol/L (3.5-5.1) Chloride Level 101mmol/L (98-107) Carbon Dioxide Level 27mmol/L (21-32) Anion Gap 10 (6-14) Blood Urea Nitrogen 45mg/dL (8-26) Creatinine 2.3mg/dL (0.7-1.3) Estimated GFR (Cockcroft-Gault) 27.7 Glucose Level 302mg/dL (70-99) Hemoglobin A1c 7.2% (4.8-5.6) Calcium Level 8.6mg/dL (8.5-10.1) Test 09/06/16 10:22 09/06/16 12:09 09/06/16 15:04 09/06/16 16:14 Glucose (Fingerstick) 406mg/dL (70-99) 378mg/dL (70-99) 232mg/dL (70-99) 225mg/dL (70-99) Test 09/06/16 20:24 09/07/16 04:05 09/07/16 07:36 09/07/16 11:17 Glucose (Fingerstick) 156mg/dL (70-99) 183mg/dL (70-99) 212mg/dL (70-99) White Blood Count 5.7x10^3/uL (4.0-11.0) Red Blood Count 3.25x10^6/uL (4.30-5.70) Hemoglobin 10.3g/dL (13.0-17.5) Hematocrit 30.1% (39.0-53.0) Mean Corpuscular Volume 93fL (79-100) Mean Corpuscular Hemoglobin 32pg (25-35) Mean Corpuscular Hemoglobin Concent 34g/dL (31-37) Red Cell Distribution Width 12.6% (11.5-14.5) Platelet Count 175x10^3/uL (140-400) Neutrophils (%) (Auto) 72% (31-73) Lymphocytes (%) (Auto) 14% (24-48) Monocytes (%) (Auto) 9% (0-9) Eosinophils (%) (Auto) 3% (0-3) Basophils (%) (Auto) 1% (0-3) Neutrophils # (Auto) 4.1x10^3uL (1.8-7.7) Lymphocytes # (Auto) 0.8x10^3/uL (1.0-4.8) Monocytes # (Auto) 0.5x10^3/uL (0.0-1.1) Eosinophils # (Auto) 0.2x10^3/uL (0.0-0.7) Basophils # (Auto) 0.0x10^3/uL (0.0-0.2) Sodium Level 135mmol/L (136-145) Potassium Level 4.9mmol/L (3.5-5.1) Chloride Level 101mmol/L (98-107) Carbon Dioxide Level 28mmol/L (21-32) Anion Gap 6 (6-14) Blood Urea Nitrogen 40mg/dL (8-26) Creatinine 2.3mg/dL (0.7-1.3) Estimated GFR (Cockcroft-Gault) 27.7 Glucose Level 174mg/dL (70-99) Calcium Level 8.9mg/dL (8.5-10.1) Laboratory Tests Test 09/06/16 15:04 09/06/16 16:14 09/06/16 20:24 09/07/16 04:05 Glucose (Fingerstick) 232mg/dL (70-99) 225mg/dL (70-99) 156mg/dL (70-99) White Blood Count 5.7x10^3/uL (4.0-11.0) Red Blood Count 3.25x10^6/uL (4.30-5.70) Hemoglobin 10.3g/dL (13.0-17.5) Hematocrit 30.1% (39.0-53.0) Mean Corpuscular Volume 93fL (79-100) Mean Corpuscular Hemoglobin 32pg (25-35) Mean Corpuscular Hemoglobin Concent 34g/dL (31-37) Red Cell Distribution Width 12.6% (11.5-14.5) Platelet Count 175x10^3/uL (140-400) Neutrophils (%) (Auto) 72% (31-73) Lymphocytes (%) (Auto) 14% (24-48) Monocytes (%) (Auto) 9% (0-9) Eosinophils (%) (Auto) 3% (0-3) Basophils (%) (Auto) 1% (0-3) Neutrophils # (Auto) 4.1x10^3uL (1.8-7.7) Lymphocytes # (Auto) 0.8x10^3/uL (1.0-4.8) Monocytes # (Auto) 0.5x10^3/uL (0.0-1.1) Eosinophils # (Auto) 0.2x10^3/uL (0.0-0.7) Basophils # (Auto) 0.0x10^3/uL (0.0-0.2) Sodium Level 135mmol/L (136-145) Potassium Level 4.9mmol/L (3.5-5.1) Chloride Level 101mmol/L (98-107) Carbon Dioxide Level 28mmol/L (21-32) Anion Gap 6 (6-14) Blood Urea Nitrogen 40mg/dL (8-26) Creatinine 2.3mg/dL (0.7-1.3) Estimated GFR (Cockcroft-Gault) 27.7 Glucose Level 174mg/dL (70-99) Calcium Level 8.9mg/dL (8.5-10.1) Test 09/07/16 07:36 09/07/16 11:17 Glucose (Fingerstick) 183mg/dL (70-99) 212mg/dL (70-99) Images Images The left ventricular systolic function is normal and the ejection fraction is within normal range. The Ejection Fraction is 55-60%. There is grossly normal LV segmental wall motion. Impression: Patchy areas of atelectasis and/or infiltrate are seen involving both lower lobes. TOBIN ANTONIO MD Sep 07, 2016 14:54
[2016-09-07] MEDS ORDERED: INSU100I17 SQ (14:55)
[2016-09-07] MEDS ORDERED: LEVO250T25 PO ×2 (14:55→14:56)
[2016-09-07] MEDS ORDERED: INSU100I27 SQ (14:55)
[2016-09-07] MEDS ORDERED: MAGNESIUM SULFATE 2GM 50 ML IV PRN (15:00)
[2016-09-07] MEDS ORDERED: OXYC-244 PO (15:11)
[2016-09-07 16:01] LABS: % SAT IRON 26 % (15-34); IRON,SERUM 67 ug/dL (65-175)
[2016-09-07 16:02] LABS: URIC ACID 8.7 mg/dL (3.5-7.2)
[2016-09-07 19:00] VITALS: BP 99/49
[2016-09-07] MEDS: ALBUTEROL SULFATE 2.5 MG/3 ML NEBU. NEB PRN (19:43)
[2016-09-07] MEDS: IPRATRPIUM/ALBUTEROL 0.5/2.5MG 3 ML NEBU. NEB SCH (20:00)
[2016-09-07] MEDS: SENNOSIDES/DOCUSATE 8.6/50MG TABLET. PO SCH (21:14)
[2016-09-07] MEDS: GABAPENTIN 300 MG CAPSULE. PO SCH (21:14)
[2016-09-07] MEDS: ATORVASTATIN CALCIUM 10 MG TABLET. PO SCH (21:14)
[2016-09-07] MEDS: INSULIN DETEMIR 300 UNITS/3 ML INSULN.PEN. SQ SCH (21:22)
[2016-09-07 23:00] VITALS: BP 103/63
[2016-09-08 05:17] LABS: UR PROTEIN RD 9.2 mg/dL (Not Estab.)
[2016-09-08 05:27] LABS: BASO % 1 % (0-3); EOS % 3 % (0-3); HEMATOCRIT 34.9 % (39.0-53.0); HEMOGLOBIN 11.9 g/dL (13.0-17.5); LYMPH % 13 % (24-48); MEAN CORPUSCULAR HEMOGLOBIN 31 pg (25-35); MEAN CORPUSCULAR HGB CONC 34 g/dL (31-37); MEAN CORPUSCULAR VOLUME 91 fL (79-100); MONO % 7 % (0-9); NEUT % 76 % (31-73); PLATELET COUNT 256 x10^3/uL (140-400); RED BLOOD COUNT 3.84 x10^6/uL (4.30-5.70); RED CELL DISTRIBUTION WIDTH 12.9 % (11.5-14.5); WHITE BLOOD COUNT 7.5 x10^3/uL (4.0-11.0)
[2016-09-08 05:37] LABS: ALBUMIN 3.2 g/dL (3.4-5.0); CALCIUM 9.5 mg/dL (8.5-10.1); CREATININE 2.2 mg/dL (0.7-1.3); GFR 29.2; PHOSPHORUS 3.7 mg/dL (2.6-4.7)
[2016-09-08 05:39] LABS: POTASSIUM 5.4 mmol/L (3.5-5.1)
[2016-09-08] MEDS: LEVOFLOXACIN 250 MG TABLET. PO SCH (06:21)
[2016-09-08] MEDS: HEPARIN PF for SUB-Q USE 5,000 UNIT/0.5 ML VIAL. SQ SCH (06:25)
[2016-09-08] MEDS: IPRATRPIUM/ALBUTEROL 0.5/2.5MG 3 ML NEBU. NEB SCH ×2 (07:09→10:52)
[2016-09-08 07:15] VITALS: BP 102/45
[2016-09-08] MEDS: FUROSEMIDE 40 MG TABLET PO SCH (08:06)
[2016-09-08] MEDS: CHOLECALCIFEROL (VITAMIN D3) 1,000 UNIT TABLET PO SCH (08:06)
[2016-09-08] MEDS: GUAIFENESIN ER 600 MG TABLET.ER PO SCH (08:06)
[2016-09-08] MEDS: SPIRONOLACTONE 25 MG TABLET PO SCH (08:06)
[2016-09-08] MEDS: CYANOCOBALAMIN (VITAMIN B-12) 1,000 MCG TABLET. PO SCH (08:06)
[2016-09-08] MEDS: OXYCODONE/APAP 7.5/325 TABLET. PO PRN (08:06)
[2016-09-08] MEDS: PANTOPRAZOLE 40 MG TABLET. PO SCH (08:06)
[2016-09-08] MEDS: METOPROLOL SUCC 24HR ER 50 MG TAB.ER.24H. PO SCH (08:07)
[2016-09-08] MEDS: ASPIRIN ENTERIC COATED 81 MG TABLET.DR. PO SCH (08:07)
[2016-09-08] MEDS: POTASSIUM CHLORIDE 20 MEQ TABLET.ER. PO SCH ×2 (08:07→08:15)
[2016-09-08] MEDS: AMLODIPINE BESYLATE 10 MG TABLET PO SCH (08:07)
[2016-09-08] MEDS: LISINOPRIL 10 MG TABLET PO SCH (08:07)
[2016-09-08] MEDS: INSULIN ASPART 300 UNITS/3 ML INSULN.PEN SQ SCH ×2 (08:14)
--- NOTE | 2016-09-08 08:32 | RAD ---
Renal sonography History: Chronic kidney disease. Acute renal failure. Findings: The longitudinal and AP and transverse dimensions of the right kidney are 9.2 cm and 5.8 cm and 5.5 cm respectively. There is a prominent central parapelvic cyst of the right kidney measuring 4.1 cm in greatest dimension. Sonography of the left renal fossa demonstrates a complex cystic structure. This measures 7.7 cm in greatest dimension. This could represent chronic hydronephrosis with associated renal atrophy or congenital cystic dysplasia of the left kidney. The urinary bladder is mildly distended. IMPRESSION: Prominent parapelvic cyst of the right kidney. No hydronephrosis is seen on this side. Complex cystic lesion of the left renal fossa is seen. The discussion above.
[2016-09-08 11:03] VITALS: BP 123/75
--- NOTE | 2016-09-08 11:09 | PDOC ---
SUBJECTIVE ROS Pt was Discharged beofre I could see him or review his US; I was not called prior to D/c OBJECTIVE Vital Signs Vital Signs Date Time Temp Pulse Resp B/P Pulse Ox O2 Delivery O2 Flow Rate FiO2 09/08/16 10:53 94 Room Air 09/08/16 08:07 70 102/45 09/08/16 07:15 98.7 18 98.7 I & 0 Intake and Output 09/08/16 07:00 Intake Total 1560 ml Output Total 850 ml Balance 710 ml Intake Oral 1560 ml Output Urine Total 850 ml # Voids 4 COMMENT/RELEVANT DATA Meds Current Medications Medications (Trade) Dose Ordered Sig/Eran Start Time Stop Time Status Last Admin Dose Admin Acetaminophen (Tylenol) 650 mg PRN Q6HRS PRN 09/04/16 19:15 09/07/16 14:56 650 MG Albuterol Sulfate (Ventolin Neb Soln) 2.5 mg PRN Q4HRS PRN 09/04/16 19:15 09/07/16 19:43 2.5 MG Albuterol/ Ipratropium (Duoneb) 3 ml RTQID 09/07/16 20:00 09/08/16 10:52 3 ML Amlodipine Besylate (Norvasc) 10 mg DAILY 09/05/16 09:00 09/08/16 08:07 10 MG Aspirin (Ecotrin) 81 mg DAILY 09/05/16 09:00 09/08/16 08:07 81 MG Atorvastatin Calcium (Lipitor) 5 mg QHS 09/04/16 21:00 09/07/16 21:14 5 MG Cyanocobalamin (Vitamin B-12) 1,000 mcg DAILY 09/05/16 09:00 09/08/16 08:06 1,000 MCG Dextrose 12.5 gm PRN Q15MIN PRN 09/04/16 19:30 Furosemide (Lasix) 40 mg DAILY 09/05/16 09:00 09/08/16 08:06 40 MG Gabapentin (Neurontin) 300 mg HS 09/04/16 21:00 09/07/16 21:14 300 MG Guaifenesin (Mucinex) 600 mg BID 09/04/16 21:00 09/08/16 08:06 600 MG Heparin Sodium (Porcine) 5,000 unit Q8HRS 09/04/16 22:00 09/08/16 06:25 5,000 UNIT Hydralazine HCl (Apresoline) 10 mg PRN Q4HRS PRN 09/04/16 19:15 Insulin Aspart (Novolog) 14 units 1X ONCE 09/06/16 13:30 09/06/16 13:32 DC Insulin Detemir (Levemir) 18 units QHS 09/06/16 21:00 09/07/16 21:22 18 UNITS Levofloxacin 250 mg 250 mg DAILY06 09/07/16 14:00 09/08/16 06:21 250 MG Levofloxacin/ Dextrose (LEVAQUIN 250mg PREMIX) 50 ml @ 50 mls/hr Q24H 09/05/16 18:00 09/07/16 13:15 DC 09/06/16 17:56 50 MLS/HR Levofloxacin/ Dextrose (LEVAQUIN 750mg PREMIX) 150 ml @ 100 mls/hr 1X ONCE 09/04/16 18:30 09/04/16 19:59 DC 09/04/16 18:16 100 MLS/HR Lisinopril (Prinivil) 10 mg DAILY 09/05/16 09:00 09/08/16 08:07 10 MG Magnesium Sulfate/ Dextrose (Magnesium Sulfate PREMIX 2GM) 50 ml @ 25 mls/hr PRN DAILY PRN 09/07/16 15:00 Metoprolol Succinate (Toprol Xl) 50 mg DAILY 09/05/16 09:00 09/08/16 08:07 50 MG Ondansetron HCl (Zofran) 4 mg PRN Q6HRS PRN 09/04/16 19:15 Oxycodone/ Acetaminophen (Percocet 7.5/ 325) 1 tab PRN Q6HRS PRN 09/04/16 19:15 09/08/16 08:06 1 TAB Oxycodone/ Acetaminophen 1 tab 1 tab 1X ONCE 09/04/16 18:15 09/04/16 18:16 DC 09/04/16 18:13 1 TAB Pantoprazole Sodium (Protonix) 40 mg DAILYAC 09/05/16 07:30 09/08/16 08:06 40 MG Potassium Chloride (Klor-Con) 20 meq DAILY 09/05/16 09:00 09/08/16 08:27 DC 09/07/16 08:39 20 MEQ Senna/Docusate Sodium (Senna Plus) 2 tab HS 09/04/16 21:00 09/07/16 21:14 2 TAB Spironolactone 50 mg 50 mg DAILY 09/05/16 09:00 09/08/16 08:06 50 MG Vitamin D (Vitamin D3) 1,000 unit DAILY 09/05/16 09:00 09/08/16 08:06 1,000 UNIT Lab Laboratory Tests Test 09/07/16 11:17 09/07/16 15:20 09/07/16 16:21 09/07/16 16:30 Glucose (Fingerstick) 212mg/dL (70-99) 130mg/dL (70-99) Reticulocyte Count (auto) 1.5% (0.5-2.5) Lactic Acid Level 1.3mmol/L (0.4-2.0) Uric Acid 8.7mg/dL (3.5-7.2) Iron Level 67ug/dL (65-175) Total Iron Binding Capacity 260ug/dL (250-450) Iron Saturation 26% (15-34) Ferritin 214ng/mL (26-388) Creatine Kinase 41U/L (39-308) Vitamin B12 Level 1599pg/mL (211-946) Urine Protein 9.2mg/dL (Not Estab.) Urine Random Sodium 86mmol/L (Not Estab.) Urine Creatinine 56.6mg/dL (Not Estab.) Urine Protein/Creatinine Ratio 163mg/g creat (0-200) Test 09/07/16 21:38 09/08/16 04:50 09/08/16 07:47 Glucose (Fingerstick) 203mg/dL (70-99) 214mg/dL (70-99) White Blood Count 7.5x10^3/uL (4.0-11.0) Red Blood Count 3.84x10^6/uL (4.30-5.70) Hemoglobin 11.9g/dL (13.0-17.5) Hematocrit 34.9% (39.0-53.0) Mean Corpuscular Volume 91fL (79-100) Mean Corpuscular Hemoglobin 31pg (25-35) Mean Corpuscular Hemoglobin Concent 34g/dL (31-37) Red Cell Distribution Width 12.9% (11.5-14.5) Platelet Count 256x10^3/uL (140-400) Neutrophils (%) (Auto) 76% (31-73) Lymphocytes (%) (Auto) 13% (24-48) Monocytes (%) (Auto) 7% (0-9) Eosinophils (%) (Auto) 3% (0-3) Basophils (%) (Auto) 1% (0-3) Neutrophils # (Auto) 5.7x10^3uL (1.8-7.7) Lymphocytes # (Auto) 1.0x10^3/uL (1.0-4.8) Monocytes # (Auto) 0.5x10^3/uL (0.0-1.1) Eosinophils # (Auto) 0.2x10^3/uL (0.0-0.7) Basophils # (Auto) 0.0x10^3/uL (0.0-0.2) Sodium Level 136mmol/L (136-145) Potassium Level 5.4mmol/L (3.5-5.1) Chloride Level 100mmol/L (98-107) Carbon Dioxide Level 30mmol/L (21-32) Anion Gap 6 (6-14) Blood Urea Nitrogen 43mg/dL (8-26) Creatinine 2.2mg/dL (0.7-1.3) Estimated GFR (Cockcroft-Gault) 29.2 Glucose Level 229mg/dL (70-99) Calcium Level 9.5mg/dL (8.5-10.1) Phosphorus Level 3.7mg/dL (2.6-4.7) Magnesium Level 1.9mg/dL (1.8-2.4) Albumin 3.2g/dL (3.4-5.0) TOBIN ANTONIO MD Sep 08, 2016 11:08
[2016-09-08] MEDS ORDERED: SODIUM POLYSTYRENE SULFONATE 15 GM/60 ML ORAL.SUSP. PO PRN (11:15)
--- NOTE | 2016-09-08 21:27 | CONS ---
DATE OF CONSULTATION: PRIMARY PHYSICIAN: Dr. Jenkins REASON FOR CONSULTATION: Acute renal failure. HISTORY OF PRESENT ILLNESS: The patient is a 76-year-old gentleman who is not the best historian. He appears to have ____ amount of underlying cognitive deficits and memory deficits too. He was admitted to the hospital for a runny nose, initially felt to have pneumonia, but this apparently did not machine turner to be the case. He is a poor historian and does not know his primary care physician. He does not know where his last set of labs was done. He tells me he is diabetic since 1963 (52 years). He is not aware of renal insufficiency per se. He is on Lasix and numerous other medications. He is known to be a diabetic. His sugars were mildly elevated. No urine specimens available. In this setting, he is noted to have a creatinine of 2.3 over the last few days and we were asked to see him. He is also noted to be anemic. Corresponding to his creatinine of 2.3, his GFR is noted to be 28 mL per minute. PAST MEDICAL HISTORY: Positive for: 1. Diabetes. 2. Hypertension. 3. Peripheral neuropathy. 4. Hyperlipidemia. 5. Hearing deficits. 6. Possible underlying dementia. 7. Abdominal hernia 8. Cholecystectomy. 9. Occasional heartburn/GERD. 10. Urinary urgency and incontinence. 11. Osteoarthritis. 12. Back pain. 13. Previous history of smoking. Does not smoke currently. FAMILY HISTORY: He is not aware of family history, but hypertension does run in the family. SOCIAL HISTORY: Currently nonsmoker, lives with his . No alcohol use. Assisted living facility. For rest of details, see electronic records. TOBIN ANTONIO MD DR: CJ/holley JOB#: [id number] / [id number]
== END 2016-09-08 11:12 | disposition home health service (06) | DRG 177 ==
LOC: ER 15:06 → 5 SOUTH 18:37
PROVIDERS: ADMIT Internal Medicine; ATTEND Internal Medicine
DX: J69.0 Pneumonitis due to inhalation of food and vomit (principal); N17.0 Acute kidney failure with tubular necrosis; I13.0 Hypertensive heart and chronic kidney disease with heart failure and stage 1 through stage 4 chronic kidney disease, or unspecified chronic kidney disease; J98.11 Atelectasis; I50.32 Chronic diastolic (congestive) heart failure; K21.9 Gastro-esophageal reflux disease without esophagitis; E11.65 Type 2 diabetes mellitus with hyperglycemia; E11.22 Type 2 diabetes mellitus with diabetic chronic kidney disease; D64.9 Anemia, unspecified; E78.5 Hyperlipidemia, unspecified; F03.90 Unspecified dementia, unspecified severity, without behavioral disturbance, psychotic disturbance, mood disturbance, and anxiety; N18.3 Chronic kidney disease, stage 3 (moderate); M19.90 Unspecified osteoarthritis, unspecified site; Z90.49 Acquired absence of other specified parts of digestive tract; Z87.891 Personal history of nicotine dependence; Z79.899 Other long term (current) drug therapy
CPT/HCPCS: 36415; 71010; 76770; 80048; 80053; 80069; 82550; 82570; 82607; 82728; 82947; 83036; 83540; 83550; 83605; 83735; 84156; 84300; 84550; 85007; 85027; 85045; 87040; 87641; 87804; 93306; 94250; 94640; 94760; 96374; J1815; J1956; J7620; 97110; 97116; 97530; 97535; 99285-25

== ENCOUNTER 2016-09-13 22:35 | Inpatient (IN) | payer MEDICARE ==
[~2016-09-13] VITALS: Ht 177.8 cm; Wt 103.0 kg
[~2016-09-13 22:35] MED LIST: AMLO10TA2 PO; ASPI-482 PO; CHOL10003 PO; CYAN10005 PO; FURO-68 PO; GABA-586 PO; INSU100I17 SQ; INSU100I27 SQ; LEVO250T25 PO; LISI10TA2 PO; METF10002 PO; METO-269 PO; NITR0.4T SL; OXYC-244 PO; PANT20TA2 PO; POTA20TA4 PO; PRAV20TA2 PO; SENN-37 PO; SPIR50TA2 PO
--- NOTE | 2016-09-14 00:07 | PHYS DOC ---
Past Medical History Past Medical History: CHF, Diabetes-Type II, GERD, Hypertension Past Surgical History: Cholecystectomy Alcohol Use: None Drug Use: None Adult General Chief Complaint Chief Complaint: HYPERGLYCEMIA HPI HPI Patient is a 76 year old male who presents with hyperglycemia. Patient sent to emergency department from [facility] living after his fingerstick read 459. Patient denies any complaints at this time. He does have history of diabetes, and believes he has been getting his medication as he is supposed to. Review of Systems Review of Systems Constitutional: Denies fever or chills Eyes: Denies change in visual acuity or eye pain HENT: Denies nasal congestion or sore throat Respiratory: Denies cough or shortness of breath Cardiovascular: Denies chest pain GI: Denies abdominal pain, nausea, vomiting, bloody stools or diarrhea : Denies dysuria or hematuria Musculoskeletal: Denies back pain or joint pain Integument: Denies rash or skin lesions Neurologic: Denies headache, focal weakness or sensory changes Current Medications Current Medications Current Medications Medications (Trade) Dose Ordered Sig/Eran Start Time Stop Time Status Last Admin Dose Admin Calcium Gluconate 1,000 mg 1X ONCE 09/14/16 01:00 09/14/16 01:01 DC 09/14/16 01:09 1,000 MG Furosemide (Lasix) 40 mg 1X ONCE 09/14/16 01:30 09/14/16 01:31 DC 09/14/16 02:07 40 MG Insulin Human Regular (Novolin R Vial) 10 unit 1X ONCE 09/14/16 01:00 09/14/16 01:01 DC 09/14/16 01:10 10 UNIT Sodium Chloride (Iv Sodium Chloride 0.9% 500ml Bag) 500 ml @ 500 mls/hr 1X ONCE 09/14/16 00:15 09/14/16 01:14 DC 09/14/16 00:25 500 MLS/HR Allergies Allergies Allergies Coded Allergies Type Severity Reaction Last Updated Verified tetracycline Allergy Intermediate Rash 09/04/16 Yes Physical Exam Physical Exam Constitutional: Well developed, well nourished, no acute distress, non-toxic appearance HENT: Normocephalic, atraumatic, bilateral external ears normal Eyes: EOMI, conjunctiva normal, no discharge Neck: Normal range of motion, no stridor Cardiovascular: Heart rate normal, regular rhythm, no murmur Lungs & Thorax: Bilateral breath sounds clear to auscultation Abdomen: Bowel sounds normal, soft, non-distended, no TTP Skin: Warm, dry, no erythema, no rash Back: No tenderness Extremities: BLE non-pitting edema. No obvious deformity, Neurologic: Alert and oriented X 3, no gross deficits noted Current Patient Data Vital Signs Vital Signs Date Time Temp Pulse Resp B/P Pulse Ox O2 Delivery O2 Flow Rate FiO2 09/14/16 01:00 58 14 128/60 100 Room Air 09/13/16 22:36 97.6 97.6 Lab Values Laboratory Tests Test 09/14/16 00:00 09/14/16 00:20 White Blood Count 8.9x10^3/uL (4.0-11.0) Red Blood Count 3.52x10^6/uL (4.30-5.70) L Hemoglobin 10.9g/dL (13.0-17.5) L Hematocrit 32.0% (39.0-53.0) L Mean Corpuscular Volume 91fL (79-100) Mean Corpuscular Hemoglobin 31pg (25-35) Mean Corpuscular Hemoglobin Concent 34g/dL (31-37) Red Cell Distribution Width 13.1% (11.5-14.5) Platelet Count 229x10^3/uL (140-400) Neutrophils (%) (Auto) 81% (31-73) H Lymphocytes (%) (Auto) 9% (24-48) L Monocytes (%) (Auto) 7% (0-9) Eosinophils (%) (Auto) 3% (0-3) Basophils (%) (Auto) 1% (0-3) Neutrophils # (Auto) 7.2x10^3uL (1.8-7.7) Lymphocytes # (Auto) 0.8x10^3/uL (1.0-4.8) L Monocytes # (Auto) 0.6x10^3/uL (0.0-1.1) Eosinophils # (Auto) 0.2x10^3/uL (0.0-0.7) Basophils # (Auto) 0.0x10^3/uL (0.0-0.2) Sodium Level 136mmol/L (136-145) Potassium Level 6.4mmol/L (3.5-5.1) *H Chloride Level 100mmol/L (98-107) Carbon Dioxide Level 29mmol/L (21-32) Anion Gap 7 (6-14) Blood Urea Nitrogen 55mg/dL (8-26) H Creatinine 2.5mg/dL (0.7-1.3) H Estimated GFR (Cockcroft-Gault) 25.2 Glucose Level 437mg/dL (70-99) H Calcium Level 9.3mg/dL (8.5-10.1) Urine Collection Type Unknown Urine Color Yellow Urine Clarity Clear Urine pH 6.0 Urine Specific [place] 1.010 Urine Protein Negativemg/dL (NEG-TRACE) Urine Glucose (UA) 500mg/dL (NEG) Urine Ketones (Stick) Negativemg/dL (NEG) Urine Blood Negative (NEG) Urine Nitrite Negative (NEG) Urine Bilirubin Negative (NEG) Urine Urobilinogen Dipstick 0.2mg/dL (0.2 mg/dL) Urine Leukocyte Esterase Negative (NEG) Urine RBC Occ/HPF (0-2) Urine WBC Occ/HPF (0-4) Urine Squamous Epithelial Cells Few/LPF Urine Bacteria 0/HPF (0-FEW) Laboratory Tests 09/14/16 00:00 Laboratory Tests 09/14/16 00:00 EKG EKG EKG (my read): sinus rhythm, rate 61, [place] 232ms, nonspecific ST changes Radiology/Procedures Radiology/Procedures [] Course & Med Decision Making Course & Med Decision Making Pertinent Labs and Imaging studies reviewed. (See chart for details) Patient is 76-year-old male who presents with hyperglycemia. Labs ordered to evaluate for diabetic complications. Labs most notable for hyperkalemia, potassium 6.4. Glucose 437, creatinine 2.5. Calcium gluconate ordered in addition to insulin and dose of Lasix. Discussed results with patient. Patient admitted to hospitalist service for further evaluation and treatment. Nephrology consult entered. Dragon Disclaimer Dragon Disclaimer This electronic medical record was generated, in whole or in part, using a voice recognition dictation system. Departure Departure Impression: Primary Impression: Hyperkalemia Additional Impression: Hyperglycemia Disposition: 09 ADMITTED INPATIENT Admitting Physician: Rebecca Sue Condition: STABLE Referrals: HARRIS LANDA MD (PCP) Problem Qualifiers VITALY BRAVO MD Sep 14, 2016 00:06
[2016-09-14] MEDS ORDERED: IV NORMAL SALINE 500ML BAG 500 ML IV ONE (00:15)
[2016-09-14 00:25] LABS: BASO % 1 % (0-3); EOS % 3 % (0-3); HEMOGLOBIN 10.9 g/dL (13.0-17.5); LYMPH # 0.8 x10^3/uL (1.0-4.8); LYMPH % 9 % (24-48); MEAN CORPUSCULAR HEMOGLOBIN 31 pg (25-35); MEAN CORPUSCULAR HGB CONC 34 g/dL (31-37); MEAN CORPUSCULAR VOLUME 91 fL (79-100); MONO % 7 % (0-9); NEUT % 81 % (31-73); PLATELET COUNT 229 x10^3/uL (140-400); RED BLOOD COUNT 3.52 x10^6/uL (4.30-5.70); RED CELL DISTRIBUTION WIDTH 13.1 % (11.5-14.5); WHITE BLOOD COUNT 8.9 x10^3/uL (4.0-11.0)
[2016-09-14 00:30] LABS: CALCIUM 9.3 mg/dL (8.5-10.1); CREATININE 2.5 mg/dL (0.7-1.3); GFR 25.2
[2016-09-14 00:45] LABS: BILIRUBIN,URINE NEGATIVE (NEG); GLUCOSE,URINE 500 mg/dL (NEG); NITRITE,URINE NEGATIVE (NEG); PROTEIN,URINE NEGATIVE (NEG-TRACE); UROBILINOGEN,URINE 0.2 mg/dL (0.2 mg/dL)
[2016-09-14 00:50] LABS: POTASSIUM 6.4 mmol/L (3.5-5.1)
[2016-09-14 00:56] LABS: BACTERIA,URINE 0 /HPF (0-FEW); RBC,URINE OCC /HPF (0-2); SQUAMOUS EPITHELIAL CELL,UR FEW /LPF; WBC,URINE OCC /HPF (0-4)
[2016-09-14] MEDS ORDERED: CALCIUM GLUCONATE 1,000 MG/10 ML VIAL IVP ONE (01:00)
[2016-09-14] MEDS ORDERED: INSULIN REGULAR 100 UNIT/ML 10ML VIAL. IV ONE (01:00)
[2016-09-14] MEDS ORDERED: FUROSEMIDE 40 MG/4 ML VIAL IVP ONE (01:30)
[2016-09-14] MEDS ORDERED: MORPHINE SULFATE 2 MG/ML DISP.SYRIN. IV PRN (01:45)
[2016-09-14] MEDS ORDERED: DEXTROSE 50% 25 GM / 50ML DISP.SYRIN. IV PRN (01:45)
[2016-09-14] MEDS ORDERED: ONDANSETRON PF 4 MG/2 ML VIAL. IV PRN (01:45)
[2016-09-14] MEDS ORDERED: ACETAMINOPHEN 325 MG TABLET. PO PRN ×2 (01:45→11:45)
[2016-09-14 04:11] LABS: CALCIUM 9.6 mg/dL (8.5-10.1); CREATININE 2.3 mg/dL (0.7-1.3); GFR 27.7; POTASSIUM 5.1 mmol/L (3.5-5.1)
[2016-09-14] MEDS ORDERED: ACET325T9 PO (05:28)
[2016-09-14 05:30] VITALS: BP 95/58
[2016-09-14 07:05] VITALS: BP 101/54
[2016-09-14] MEDS: INSULIN ASPART 300 UNITS/3 ML INSULN.PEN SQ SCH ×5 (08:45→18:20)
[2016-09-14 10:35] VITALS: BP 87/42
--- NOTE | 2016-09-14 11:34 | PDOC1 ---
History and Physical Date of Admission Date of Admission DATE: 09/14/16 TIME: 11:33 Identification/Chief Complaint Chief Complaint confusion Source Source: Chart review, Patient History of Present Illness History of Present Illness recent DC to SNU was confused yesterday, blood sugar elevated, lives at [facility] assisted living after his fingerstick read 459. Had been reported as medical compliant, Patient denies any complaints at this time. Past Medical History Cardiovascular: HTN GI: No pertinent hx Renal/: Chronic renal insuff, Acute renal failure Endocrine: Diabetes Past Surgical History Past Surgical History: No pertinent history Family History Family History: No Significant Social History Smoke: No ALCOHOL: none Drugs: None Current Problem List Problem List Problems Medical Problems: (1) Hyperglycemia Status: Acute (2) Hyperkalemia Status: Acute Problems: Current Medications Current Medications Current Medications Sodium Chloride (Iv Sodium Chloride 0.9% 500ml Bag) 500 ml @ 500 mls/hr 1X ONCE IV Last administered on 09/14/16 00:25; Start 09/14/16 at 00:15; Stop at 01:14; Status DC Calcium Gluconate 1,000 mg 1X ONCE IVP Last administered on 09/14/16 01:09; Start 09/14/16 at 01:00; Stop 09/14/16 at 01:01; Status DC Insulin Human Regular (Novolin R Vial) 10 unit 1X ONCE IV Last administered on 09/14/16 01:10; Start 09/14/16 at 01:00; Stop 09/14/16 at 01:01; Status DC Furosemide (Lasix) 40 mg 1X ONCE IVP Last administered on 09/14/16 02:07; Start 09/14/16 at 01:30; Stop 09/14/16 at 01:31; Status DC Ondansetron HCl (Zofran) 4 mg PRN Q8HRS PRN IV NAUSEA/VOMITING; Start 09/14/16 at 01:45; Stop 09/15/16 at 01:44 Morphine Sulfate 2 mg PRN Q2HR PRN IV PAIN; Start 09/14/16 at 01:45; Stop 09/15 at 01:44 Acetaminophen (Tylenol) 650 mg PRN Q4HRS PRN PO FEVER; Start 09/14/16 at 01:45 ; Stop 09/15/16 at 01:44 Insulin Aspart (Novolog) 0-7 UNITS TIDWMEALS SQ Last administered on 09/14/16t 08:45; Start 09/14/16 at 08:00 Dextrose 12.5 gm PRN Q15MIN PRN IV SEE COMMENTS; Start 09/14/16 at 01:45 Active Scripts Active Percocet 7.5-325 Mg Tablet (Oxycodone/Acetaminophen) 1 Each Tablet 1 Tab PO PRN Q6HRS PRN Levaquin (Levofloxacin) 250 Mg Tablet 250 Mg PO DAILY06 Levemir Flextouch (Insulin Detemir) 100 Unit/1 Ml Insuln.pen 18 Units SQ QHS 30 Days Novolog Flexpen (Insulin Aspart) 100 Unit/1 Ml Insuln.pen 10 Units SQ TIDAC 30 Days Reported Tylenol (Acetaminophen) 325 Mg Tablet 650 Mg PO PRN Q4-6HRS PRN Protonix (Pantoprazole Sodium) 20 Mg Tablet.dr 1 Tab PO DAILY Toprol Xl (Metoprolol Succinate) 50 Mg Tab.er.24h 1 Tab PO DAILY Lisinopril 10 Mg Tablet 1 Tab PO DAILY Lasix (Furosemide) 40 Mg Tablet 1 Tab PO DAILY Aspir 81 (Aspirin) 81 Mg Tablet.dr 1 Tab PO DAILY Amlodipine Besylate 10 Mg Tablet 10 Mg PO DAILY Vitamin D3 (Cholecalciferol (Vitamin D3)) 1,000 Unit Tablet 800 Unit PO DAILY Vitamin B-12 (Cyanocobalamin (Vitamin B-12)) 1,000 Mcg Tablet 1 Tab PO DAILY Spironolactone 50 Mg Tablet 1 Tab PO DAILY Pravastatin Sodium 20 Mg Tablet 1 Tab PO DAILY Klor-Con M20 (Potassium Chloride) 20 Meq Tab.er.prt 2 Tab PO DAILY Nitrostat (Nitroglycerin) 0.4 Mg Tab.subl 1 Tab SL UD Senokot-S Tablet (Sennosides/Docusate Sodium) 1 Each Tablet 2 Tab PO HS Gabapentin 300 Mg Capsule 300 Mg PO HS Allergies Allergies: Coded Allergies: tetracycline (Verified Allergy, Intermediate, Rash, 09/04/16) ROS General: No: Appetite, Chills, Fatigue, Malaise, Night Sweats, Other PSYCHOLOGICAL ROS: No: Anxiety, Behavioral Disorder, Concentration difficultie , Decreased libido, Depression, Disorientation, Hallucinations, Hostility, Irritablity, Memory difficulties, Mood Swings, Obsessive thoughts, Other, Physical abuse, Sexual abuse, Sleep disturbances, Suicidal ideation HEENT: No: Epistaxis, Heacaches, Hearing change, Nasal congestion, Nasal discharge, Oral lesions, Other, Sinus pain, Sneezing, Snoring, Sore Throat, Tinnitus, Vertigo, Visual Changes, Vocal changes Respiratory: No: Cough, Hemoptysis, Orthopnea, Other, Pleuritic Pain, SOB with excertion, Shortness of breath, Sputum Changes, Stridor, Tachypnea, Wheezing Cardiovascular: No Chest Pain, No Edema, No Lt Headedness, No Orthopnea, No Other, No Palpitations, No Paroxysmal Noc. Dyspnea Gastrointestinal: No Abdominal Pain, No Constipation, No Diarrhea, No Hematochezia, No Melena, No Nausea, No Other, No Vomiting Genitourinary: No , No , No , No , No , No , No , No Discharge, No Dysuria, No Flank Pain, No Frequency, No Hematuria, No Incontinence, No Other, No Pain, No Retention, No Urgency Musculoskeletal: No Gait Disturbance, No Joint Pain, No Joint Stiffness, No Joint Swelling, No Muscle Pain, No Muscular Weakness, No Other, No Pain In:, No Swelling In: Neurological: No Behavorial Changes, No Bowel/Bladder ControlChng, No Confusion , No Dizziness, No Gait Disturbance, No Headaches, No Impaired Coord/balance, No Memory Loss, No Numbness/Tingling, No Other, No Seizures, No Speech Problems , No Tremors, No Visual Changes, No Weakness Skin: No Acne, No Dry Skin, No Eczema, No Hair Changes, No Lumps, No Mole Changes, No Mottling, No Nail Changes, No Other, No Pruritus, No Rash, No Skin Lesion Changes Physical Exam General: Alert, Oriented X3, Cooperative, No acute distress HEENT: Atraumatic, PERRLA, EOMI, Mucous membr. moist/pink (a little dry, ), Other (dentures) Lungs: Clear to auscultation Heart: no gallops, no murmurs Abdomen: Normal bowel sounds, Soft Extremities: No clubbing, No edema Skin: No breakdown, No significant lesion Neuro: Normal speech Psych/Mental Status: Mood NL Vitals Vitals Vital Signs Date Time Temp Pulse Resp B/P Pulse Ox O2 Delivery O2 Flow Rate FiO2 2/15/17 07:05 97.6 62 18 101/54 97 Room Air 97.6 Labs Labs Laboratory Tests Test 09/13/16 22:46 09/14/16 00:00 09/14/16 00:20 09/14/16 03:20 Glucose (Fingerstick) 415mg/dL (70-99) White Blood Count 8.9x10^3/uL (4.0-11.0) Red Blood Count 3.52x10^6/uL (4.30-5.70) Hemoglobin 10.9g/dL (13.0-17.5) Hematocrit 32.0% (39.0-53.0) Mean Corpuscular Volume 91fL (79-100) Mean Corpuscular Hemoglobin 31pg (25-35) Mean Corpuscular Hemoglobin Concent 34g/dL (31-37) Red Cell Distribution Width 13.1% (11.5-14.5) Platelet Count 229x10^3/uL (140-400) Neutrophils (%) (Auto) 81% (31-73) Lymphocytes (%) (Auto) 9% (24-48) Monocytes (%) (Auto) 7% (0-9) Eosinophils (%) (Auto) 3% (0-3) Basophils (%) (Auto) 1% (0-3) Neutrophils # (Auto) 7.2x10^3uL (1.8-7.7) Lymphocytes # (Auto) 0.8x10^3/uL (1.0-4.8) Monocytes # (Auto) 0.6x10^3/uL (0.0-1.1) Eosinophils # (Auto) 0.2x10^3/uL (0.0-0.7) Basophils # (Auto) 0.0x10^3/uL (0.0-0.2) Sodium Level 136mmol/L (136-145) 139mmol/L (136-145) Potassium Level 6.4mmol/L (3.5-5.1) 5.1mmol/L (3.5-5.1) Chloride Level 100mmol/L (98-107) 103mmol/L (98-107) Carbon Dioxide Level 29mmol/L (21-32) 28mmol/L (21-32) Anion Gap 7 (6-14) 8 (6-14) Blood Urea Nitrogen 55mg/dL (8-26) 52mg/dL (8-26) Creatinine 2.5mg/dL (0.7-1.3) 2.3mg/dL (0.7-1.3) Estimated GFR (Cockcroft-Gault) 25.2 27.7 Glucose Level 437mg/dL (70-99) 158mg/dL (70-99) Calcium Level 9.3mg/dL (8.5-10.1) 9.6mg/dL (8.5-10.1) Urine Collection Type Unknown Urine Color Yellow Urine Clarity Clear Urine pH 6.0 Urine Specific [place] 1.010 Urine Protein Negativemg/dL (NEG-TRACE) Urine Glucose (UA) 500mg/dL (NEG) Urine Ketones (Stick) Negativemg/dL (NEG) Urine Blood Negative (NEG) Urine Nitrite Negative (NEG) Urine Bilirubin Negative (NEG) Urine Urobilinogen Dipstick 0.2mg/dL (0.2 mg/dL) Urine Leukocyte Esterase Negative (NEG) Urine RBC Occ/HPF (0-2) Urine WBC Occ/HPF (0-4) Urine Squamous Epithelial Cells Few/LPF Urine Bacteria 0/HPF (0-FEW) Test 09/14/16 08:29 Glucose (Fingerstick) 225mg/dL (70-99) Laboratory Tests Test 09/13/16 22:46 09/14/16 00:00 09/14/16 00:20 09/14/16 03:20 Glucose (Fingerstick) 415mg/dL (70-99) White Blood Count 8.9x10^3/uL (4.0-11.0) Red Blood Count 3.52x10^6/uL (4.30-5.70) Hemoglobin 10.9g/dL (13.0-17.5) Hematocrit 32.0% (39.0-53.0) Mean Corpuscular Volume 91fL (79-100) Mean Corpuscular Hemoglobin 31pg (25-35) Mean Corpuscular Hemoglobin Concent 34g/dL (31-37) Red Cell Distribution Width 13.1% (11.5-14.5) Platelet Count 229x10^3/uL (140-400) Neutrophils (%) (Auto) 81% (31-73) Lymphocytes (%) (Auto) 9% (24-48) Monocytes (%) (Auto) 7% (0-9) Eosinophils (%) (Auto) 3% (0-3) Basophils (%) (Auto) 1% (0-3) Neutrophils # (Auto) 7.2x10^3uL (1.8-7.7) Lymphocytes # (Auto) 0.8x10^3/uL (1.0-4.8) Monocytes # (Auto) 0.6x10^3/uL (0.0-1.1) Eosinophils # (Auto) 0.2x10^3/uL (0.0-0.7) Basophils # (Auto) 0.0x10^3/uL (0.0-0.2) Sodium Level 136mmol/L (136-145) 139mmol/L (136-145) Potassium Level 6.4mmol/L (3.5-5.1) 5.1mmol/L (3.5-5.1) Chloride Level 100mmol/L (98-107) 103mmol/L (98-107) Carbon Dioxide Level 29mmol/L (21-32) 28mmol/L (21-32) Anion Gap 7 (6-14) 8 (6-14) Blood Urea Nitrogen 55mg/dL (8-26) 52mg/dL (8-26) Creatinine 2.5mg/dL (0.7-1.3) 2.3mg/dL (0.7-1.3) Estimated GFR (Cockcroft-Gault) 25.2 27.7 Glucose Level 437mg/dL (70-99) 158mg/dL (70-99) Calcium Level 9.3mg/dL (8.5-10.1) 9.6mg/dL (8.5-10.1) Urine Collection Type Unknown Urine Color Yellow Urine Clarity Clear Urine pH 6.0 Urine Specific [place] 1.010 Urine Protein Negativemg/dL (NEG-TRACE) Urine Glucose (UA) 500mg/dL (NEG) Urine Ketones (Stick) Negativemg/dL (NEG) Urine Blood Negative (NEG) Urine Nitrite Negative (NEG) Urine Bilirubin Negative (NEG) Urine Urobilinogen Dipstick 0.2mg/dL (0.2 mg/dL) Urine Leukocyte Esterase Negative (NEG) Urine RBC Occ/HPF (0-2) Urine WBC Occ/HPF (0-4) Urine Squamous Epithelial Cells Few/LPF Urine Bacteria 0/HPF (0-FEW) Test 09/14/16 08:29 Glucose (Fingerstick) 225mg/dL (70-99) VTE Prophylaxis Ordered VTE Prophylaxis Devices: Yes VTE Pharmacological Prophylaxi: Yes Assessment/Plan Assessment/Plan recent admit, for PNA, was at SNU, has completed Levaquin 10 days admit for acute metabolic encephalopathy, a little improved chronic dementia hyperglycemia, better w/ insulin given Hyperkalemia on CKD 4, stop potassium repalcement, cont Aldactone, consult renal, will need closer outpatient f/u obesity BMI 32 mild/mod dementia, is oriented / now, but poor recall admit PARVEEN HERRERA MD Sep 14, 2016 11:34
[2016-09-14] MEDS ORDERED: NITROGLYCERIN SUBLINGUAL 0.4 MG BOTTLE OF 25. SL PRN (11:45)
[2016-09-14] MEDS ORDERED: OXYCODONE/APAP 7.5/325 TABLET. PO PRN (11:45)
[2016-09-14] MEDS: AMLODIPINE BESYLATE 10 MG TABLET PO SCH (12:00)
[2016-09-14] MEDS ORDERED: LISINOPRIL 10 MG TABLET PO SCH (12:00)
[2016-09-14] MEDS: SPIRONOLACTONE 25 MG TABLET PO SCH (12:00)
[2016-09-14] MEDS: FUROSEMIDE 40 MG TABLET PO SCH (12:00)
[2016-09-14] MEDS: PANTOPRAZOLE 40 MG TABLET. PO SCH (12:38)
[2016-09-14] MEDS: ASPIRIN ENTERIC COATED 81 MG TABLET.DR. PO SCH (12:40)
[2016-09-14] MEDS: CYANOCOBALAMIN (VITAMIN B-12) 1,000 MCG TABLET. PO SCH (12:40)
[2016-09-14] MEDS: METOPROLOL SUCC 24HR ER 50 MG TAB.ER.24H. PO SCH (12:40)
[2016-09-14] MEDS: CHOLECALCIFEROL (VITAMIN D3) 1,000 UNIT TABLET PO SCH (12:40)
--- NOTE | 2016-09-14 14:56 | PDOC2 ---
CONSULT Date of Consult Date of Consult DATE: 09/14/16 TIME: 14:51 Reason for Consult Reason for Consult: RENAL FAILURE Referring Physician Referring Physician: RENETTA Identification/Chief Complaint Chief Complaint INCREASED BG Source Source: Chart review History of Present Illness Reason for Visit: THIS IS A 76 YR OLD AD[facility]ED [facility] WITH CONFUSION AND INCREASED BLOOD GLUCOSE LEVELS. HER CR IS 2.5. OLD RECORDS SHOW A CR OF 2.0-2.5 AT BASELINE C/W STAGE 4 CKD. HE IS ALSO HYPERKALEMIC. HX NOTED FOR A BILATERAL RENAL CYST AND THE LEFT ONE WAS CLASSIFIED COMPLEX IN NATURE Past Medical History Cardiovascular: HTN GI: No pertinent hx Renal/: Chronic renal insuff, Acute renal failure Endocrine: Diabetes Past Surgical History Past Surgical History: No pertinent history Family History Family History: No Significant Social History No ALCOHOL: none Drugs: None Lives: with Family Domestic Violence: Neg Current Problem List Problem List Problems Medical Problems: (1) Hyperglycemia Status: Acute (2) Hyperkalemia Status: Acute Current Medications Current Medications Current Medications Sodium Chloride (Iv Sodium Chloride 0.9% 500ml Bag) 500 ml @ 500 mls/hr 1X ONCE IV Last administered on 09/14/16 00:25; Start 09/14/16 at 00:15; Stop at 01:14; Status DC Calcium Gluconate 1,000 mg 1X ONCE IVP Last administered on 09/14/16 01:09; Start 09/14/16 at 01:00; Stop 09/14/16 at 01:01; Status DC Insulin Human Regular (Novolin R Vial) 10 unit 1X ONCE IV Last administered on 09/14/16 01:10; Start 09/14/16 at 01:00; Stop 09/14/16 at 01:01; Status DC Furosemide (Lasix) 40 mg 1X ONCE IVP Last administered on 09/14/16 02:07; Start 09/14/16 at 01:30; Stop 09/14/16 at 01:31; Status DC Ondansetron HCl (Zofran) 4 mg PRN Q8HRS PRN IV NAUSEA/VOMITING; Start 09/14/16 at 01:45; Stop 09/15/16 at 01:44 Morphine Sulfate 2 mg PRN Q2HR PRN IV PAIN; Start 09/14/16 at 01:45; Stop 09/15 at 01:44 Acetaminophen (Tylenol) 650 mg PRN Q4HRS PRN PO FEVER; Start 09/14/16 at 01:45 ; Stop 09/15/16 at 01:44 Insulin Aspart (Novolog) 0-7 UNITS TIDWMEALS SQ Last administered on 09/14/16 08:45; Start 09/14/16 at 08:00 Dextrose 12.5 gm PRN Q15MIN PRN IV SEE COMMENTS; Start 09/14/16 at 01:45 Acetaminophen (Tylenol) 650 mg PRN Q8HRS PRN PO FEVER; Start 09/14/16 at 11:45 Amlodipine Besylate (Norvasc) 10 mg DAILY PO ; Start 09/14/16 at 12:00 Aspirin (Ecotrin) 81 mg DAILY08 PO Last administered on 09/14/16 12:40; Start 09/14/16 at 12:00 Vitamin D (Vitamin D3) 800 unit DAILY PO Last administered on 09/14/16 12:40; Start 09/14/16 at 12:00 Cyanocobalamin (Vitamin B-12) 1,000 mcg DAILY PO Last administered on 12:40; Start 09/14/16 at 12:00 Furosemide (Lasix) 40 mg DAILY PO ; Start 09/14/16 at 12:00 Gabapentin (Neurontin) 300 mg HS PO ; Start 09/14/16 at 21:00 Insulin Aspart (Novolog) 10 units TIDAC SQ ; Start 09/14/16 at 12:00 Insulin Detemir (Levemir) 18 units QHS SQ ; Start 09/14/16 at 21:00 Lisinopril (Prinivil) 10 mg DAILY PO ; Start 09/14/16 at 12:00 Metoprolol Succinate (Toprol Xl) 50 mg DAILY PO Last administered on 09/14/16 12:40; Start 09/14/16 at 12:00 Nitroglycerin (Nitrostat) 0.4 mg PRN Q5MIN PRN SL CHEST PAIN; Start 09/14/16 at 11:45 Oxycodone/ Acetaminophen (Percocet 7.5/ 325) 1 tab PRN Q6HRS PRN PO PAIN; Start 09/14/16 at 11:45 Senna/Docusate Sodium (Senna Plus) 2 tab HS PO ; Start 09/14/16 at 21:00 Pantoprazole Sodium (Protonix) 40 mg DAILYAC PO Last administered on 09/14/16t 12:38; Start 09/14/16 at 12:00 Atorvastatin Calcium (Lipitor) 5 mg QHS PO ; Start 09/14/16 at 21:00 Spironolactone (Aldactone) 50 mg DAILY PO ; Start 09/14/16 at 12:00 Enoxaparin Sodium (Lovenox Per Pharmacy Prophylaxis Dosing) 1 each PRN DAILY PRN MC SEE COMMENTS; Start 09/14/16 at 11:45 Enoxaparin Sodium (Lovenox 30mg Syringe) 30 mg Q24H SQ ; Start 09/14/16 at 16:00 Active Scripts Active Percocet 7.5-325 Mg Tablet (Oxycodone/Acetaminophen) 1 Each Tablet 1 Tab PO PRN Q6HRS PRN Levaquin (Levofloxacin) 250 Mg Tablet 250 Mg PO DAILY06 Levemir Flextouch (Insulin Detemir) 100 Unit/1 Ml Insuln.pen 18 Units SQ QHS 30 Days Novolog Flexpen (Insulin Aspart) 100 Unit/1 Ml Insuln.pen 10 Units SQ TIDAC 30 Days Reported Tylenol (Acetaminophen) 325 Mg Tablet 650 Mg PO PRN Q4-6HRS PRN Protonix (Pantoprazole Sodium) 20 Mg Tablet.dr 1 Tab PO DAILY Toprol Xl (Metoprolol Succinate) 50 Mg Tab.er.24h 1 Tab PO DAILY Lisinopril 10 Mg Tablet 1 Tab PO DAILY Lasix (Furosemide) 40 Mg Tablet 1 Tab PO DAILY Aspir 81 (Aspirin) 81 Mg Tablet.dr 1 Tab PO DAILY Amlodipine Besylate 10 Mg Tablet 10 Mg PO DAILY Vitamin D3 (Cholecalciferol (Vitamin D3)) 1,000 Unit Tablet 800 Unit PO DAILY Vitamin B-12 (Cyanocobalamin (Vitamin B-12)) 1,000 Mcg Tablet 1 Tab PO DAILY Spironolactone 50 Mg Tablet 1 Tab PO DAILY Pravastatin Sodium 20 Mg Tablet 1 Tab PO DAILY Klor-Con M20 (Potassium Chloride) 20 Meq Tab.er.prt 2 Tab PO DAILY Nitrostat (Nitroglycerin) 0.4 Mg Tab.subl 1 Tab SL UD Senokot-S Tablet (Sennosides/Docusate Sodium) 1 Each Tablet 2 Tab PO HS Gabapentin 300 Mg Capsule 300 Mg PO HS Allergies Allergies: Coded Allergies: tetracycline (Verified Allergy, Intermediate, Rash, 09/04/16) ROS Review of System CONFUSED Physical Exam General: Alert, Cooperative, No acute distress HEENT: Atraumatic, PERRLA Lungs: Clear to auscultation Heart: Regular rate, Normal S1, Normal S2 Abdomen: No tenderness Extremities: No clubbing Skin: No breakdown Neuro: Other (CONFUSED) Psych/Mental Status: Other (CONFUSED) Vitals VITALS Vital Signs Date Time Temp Pulse Resp B/P Pulse Ox O2 Delivery O2 Flow Rate FiO2 09/14/16 12:40 80 09/14/16 10:35 98.1 18 87/42 92 Room Air 98.1 Labs Labs Laboratory Tests Test 09/13/16 22:46 09/14/16 00:00 09/14/16 00:20 09/14/16 03:20 Glucose (Fingerstick) 415mg/dL (70-99) White Blood Count 8.9x10^3/uL (4.0-11.0) Red Blood Count 3.52x10^6/uL (4.30-5.70) Hemoglobin 10.9g/dL (13.0-17.5) Hematocrit 32.0% (39.0-53.0) Mean Corpuscular Volume 91fL (79-100) Mean Corpuscular Hemoglobin 31pg (25-35) Mean Corpuscular Hemoglobin Concent 34g/dL (31-37) Red Cell Distribution Width 13.1% (11.5-14.5) Platelet Count 229x10^3/uL (140-400) Neutrophils (%) (Auto) 81% (31-73) Lymphocytes (%) (Auto) 9% (24-48) Monocytes (%) (Auto) 7% (0-9) Eosinophils (%) (Auto) 3% (0-3) Basophils (%) (Auto) 1% (0-3) Neutrophils # (Auto) 7.2x10^3uL (1.8-7.7) Lymphocytes # (Auto) 0.8x10^3/uL (1.0-4.8) Monocytes # (Auto) 0.6x10^3/uL (0.0-1.1) Eosinophils # (Auto) 0.2x10^3/uL (0.0-0.7) Basophils # (Auto) 0.0x10^3/uL (0.0-0.2) Sodium Level 136mmol/L (136-145) 139mmol/L (136-145) Potassium Level 6.4mmol/L (3.5-5.1) 5.1mmol/L (3.5-5.1) Chloride Level 100mmol/L (98-107) 103mmol/L (98-107) Carbon Dioxide Level 29mmol/L (21-32) 28mmol/L (21-32) Anion Gap 7 (6-14) 8 (6-14) Blood Urea Nitrogen 55mg/dL (8-26) 52mg/dL (8-26) Creatinine 2.5mg/dL (0.7-1.3) 2.3mg/dL (0.7-1.3) Estimated GFR (Cockcroft-Gault) 25.2 27.7 Glucose Level 437mg/dL (70-99) 158mg/dL (70-99) Calcium Level 9.3mg/dL (8.5-10.1) 9.6mg/dL (8.5-10.1) Urine Collection Type Unknown Urine Color Yellow Urine Clarity Clear Urine pH 6.0 Urine Specific [place] 1.010 Urine Protein Negativemg/dL (NEG-TRACE) Urine Glucose (UA) 500mg/dL (NEG) Urine Ketones (Stick) Negativemg/dL (NEG) Urine Blood Negative (NEG) Urine Nitrite Negative (NEG) Urine Bilirubin Negative (NEG) Urine Urobilinogen Dipstick 0.2mg/dL (0.2 mg/dL) Urine Leukocyte Esterase Negative (NEG) Urine RBC Occ/HPF (0-2) Urine WBC Occ/HPF (0-4) Urine Squamous Epithelial Cells Few/LPF Urine Bacteria 0/HPF (0-FEW) Test 09/14/16 08:29 09/14/16 11:51 Glucose (Fingerstick) 225mg/dL (70-99) 296mg/dL (70-99) Laboratory Tests Test 09/13/16 22:46 09/14/16 00:00 09/14/16 00:20 09/14/16 03:20 Glucose (Fingerstick) 415mg/dL (70-99) White Blood Count 8.9x10^3/uL (4.0-11.0) Red Blood Count 3.52x10^6/uL (4.30-5.70) Hemoglobin 10.9g/dL (13.0-17.5) Hematocrit 32.0% (39.0-53.0) Mean Corpuscular Volume 91fL (79-100) Mean Corpuscular Hemoglobin 31pg (25-35) Mean Corpuscular Hemoglobin Concent 34g/dL (31-37) Red Cell Distribution Width 13.1% (11.5-14.5) Platelet Count 229x10^3/uL (140-400) Neutrophils (%) (Auto) 81% (31-73) Lymphocytes (%) (Auto) 9% (24-48) Monocytes (%) (Auto) 7% (0-9) Eosinophils (%) (Auto) 3% (0-3) Basophils (%) (Auto) 1% (0-3) Neutrophils # (Auto) 7.2x10^3uL (1.8-7.7) Lymphocytes # (Auto) 0.8x10^3/uL (1.0-4.8) Monocytes # (Auto) 0.6x10^3/uL (0.0-1.1) Eosinophils # (Auto) 0.2x10^3/uL (0.0-0.7) Basophils # (Auto) 0.0x10^3/uL (0.0-0.2) Sodium Level 136mmol/L (136-145) 139mmol/L (136-145) Potassium Level 6.4mmol/L (3.5-5.1) 5.1mmol/L (3.5-5.1) Chloride Level 100mmol/L (98-107) 103mmol/L (98-107) Carbon Dioxide Level 29mmol/L (21-32) 28mmol/L (21-32) Anion Gap 7 (6-14) 8 (6-14) Blood Urea Nitrogen 55mg/dL (8-26) 52mg/dL (8-26) Creatinine 2.5mg/dL (0.7-1.3) 2.3mg/dL (0.7-1.3) Estimated GFR (Cockcroft-Gault) 25.2 27.7 Glucose Level 437mg/dL (70-99) 158mg/dL (70-99) Calcium Level 9.3mg/dL (8.5-10.1) 9.6mg/dL (8.5-10.1) Urine Collection Type Unknown Urine Color Yellow Urine Clarity Clear Urine pH 6.0 Urine Specific [place] 1.010 Urine Protein Negativemg/dL (NEG-TRACE) Urine Glucose (UA) 500mg/dL (NEG) Urine Ketones (Stick) Negativemg/dL (NEG) Urine Blood Negative (NEG) Urine Nitrite Negative (NEG) Urine Bilirubin Negative (NEG) Urine Urobilinogen Dipstick 0.2mg/dL (0.2 mg/dL) Urine Leukocyte Esterase Negative (NEG) Urine RBC Occ/HPF (0-2) Urine WBC Occ/HPF (0-4) Urine Squamous Epithelial Cells Few/LPF Urine Bacteria 0/HPF (0-FEW) Test 09/14/16 08:29 09/14/16 11:51 Glucose (Fingerstick) 225mg/dL (70-99) 296mg/dL (70-99) Assessment/Plan Assessment/Plan IMP ANTWON MILD CKD STAGE 4 WITH CR OF 2.0-2.5 HYPERKALEMIA DM II WITH HYPERGLYCEMIA COMPLEX LEFT RENAL CYST PLAN HOLD LISINOPRIL HOLD KCL BARRERA'S THIEN SHAH MD Sep 14, 2016 14:56
[2016-09-14] MEDS: IV NORMAL SALINE 1000ML BAG 1,000 ML IV SCH (15:00)
[2016-09-14 15:05] VITALS: BP 95/56
[2016-09-14] MEDS ORDERED: ENOXAPARIN 30 MG/0.3 ML DISP.SYRIN. SQ SCH (16:00)
[2016-09-14 19:59] VITALS: BP 107/85
[2016-09-14] MEDS ORDERED: SENNOSIDES/DOCUSATE 8.6/50MG TABLET. PO SCH (21:00)
[2016-09-14] MEDS ORDERED: ATORVASTATIN CALCIUM 10 MG TABLET. PO SCH (21:00)
[2016-09-14] MEDS ORDERED: INSULIN DETEMIR 300 UNITS/3 ML INSULN.PEN. SQ SCH (21:00)
[2016-09-14] MEDS ORDERED: GABAPENTIN 300 MG CAPSULE. PO SCH (21:00)
[2016-09-14 23:00] VITALS: BP 110/75
[2016-09-15 03:11] VITALS: BP 109/58
[2016-09-15] MEDS: IV NORMAL SALINE 1000ML BAG 1,000 ML IV SCH (04:18)
[2016-09-15 05:59] LABS: CALCIUM 9.4 mg/dL (8.5-10.1); CREATININE 2.2 mg/dL (0.7-1.3); GFR 29.2
[2016-09-15 06:01] LABS: POTASSIUM 5.4 mmol/L (3.5-5.1)
[2016-09-15] MEDS: PANTOPRAZOLE 40 MG TABLET. PO SCH (06:13)
[2016-09-15 07:00] VITALS: BP 89/43
[2016-09-15] MEDS: AMLODIPINE BESYLATE 10 MG TABLET PO SCH (07:58)
[2016-09-15] MEDS: METOPROLOL SUCC 24HR ER 50 MG TAB.ER.24H. PO SCH (07:58)
[2016-09-15] MEDS: FUROSEMIDE 40 MG TABLET PO SCH (07:58)
[2016-09-15] MEDS: SPIRONOLACTONE 25 MG TABLET PO SCH (07:58)
[2016-09-15] MEDS: INSULIN ASPART 300 UNITS/3 ML INSULN.PEN SQ SCH ×4 (08:26→12:56)
[2016-09-15] MEDS: CHOLECALCIFEROL (VITAMIN D3) 1,000 UNIT TABLET PO SCH (09:57)
[2016-09-15] MEDS: ASPIRIN ENTERIC COATED 81 MG TABLET.DR. PO SCH (09:57)
[2016-09-15] MEDS: CYANOCOBALAMIN (VITAMIN B-12) 1,000 MCG TABLET. PO SCH (09:57)
[2016-09-15 11:00] VITALS: BP 96/43
--- NOTE | 2016-09-15 12:12 | PDOC ---
Renal-Progress Notes Subjective Notes Notes NONE History of Present Illness Hx of present illness BETTER Vitals Vitals Vital Signs Date Time Temp Pulse Resp B/P Pulse Ox O2 Delivery O2 Flow Rate FiO2 09/15/16 11:00 98.0 66 18 96/43 93 Room Air 98.0 Weight Weight [ ] I.O. Intake and Output Intake and Output 09/15/16 07:00 Intake Total 1340 ml Output Total 750 ml Balance 590 ml Intake Oral 1340 ml Output Urine Total 750 ml # Voids 6 Labs Labs Laboratory Tests Test 09/14/16 16:35 09/14/16 21:08 09/15/16 03:15 09/15/16 07:21 Glucose (Fingerstick) 206mg/dL (70-99) 151mg/dL (70-99) 270mg/dL (70-99) Sodium Level 138mmol/L (136-145) Potassium Level 5.4mmol/L (3.5-5.1) Chloride Level 101mmol/L (98-107) Carbon Dioxide Level 28mmol/L (21-32) Anion Gap 9 (6-14) Blood Urea Nitrogen 51mg/dL (8-26) Creatinine 2.2mg/dL (0.7-1.3) Estimated GFR (Cockcroft-Gault) 29.2 Glucose Level 256mg/dL (70-99) Calcium Level 9.4mg/dL (8.5-10.1) Test 09/15/16 11:29 Glucose (Fingerstick) 323mg/dL (70-99) Review of Systems Constitutional: yes: no symptom reported Physical Exam General Appearance: no apparent distress Skin: warm Respiratory: decreased breath sounds Heart: S1S2 Abdomen: soft, bowel sounds present Extremities: pulses present Neurology: alert Assessment Assessment IMP CKD STAGE 4-STABLE WITH CR OF 2.2 HYPERKALEMIA-BETTER COMPLICATED LEFT RENAL CYST HYPERGLYCEMIA-IMPROVED PLAN OP SONO TO EVAL RENAL CYST Q 6 MONTHS CONT IVF'S THIEN SHAH MD Sep 15, 2016 12:12
--- NOTE | 2016-09-15 13:23 | PDOC3 ---
Discharge Summary Visit Information Date of Admission: Sep 14, 2016 Date of Discharge: Sep 15, 2016 Admitting Diagnosis Comment: Syncopal episode likely sec to hyperglycemia [place] resident Obesity CKD stage 3 Hyperkalemia Final Diagnosis Problems Medical Problems: (1) CKD stage 3 due to type 1 diabetes mellitus Status: Acute (2) Hyperglycemia Status: Acute (3) Hyperkalemia Status: Acute Brief Hospital Course Allergies Allergies Coded Allergies Type Severity Reaction Last Updated Verified tetracycline Allergy Intermediate Rash 09/04/16 Yes Vital Signs Vital Signs Date Time Temp Pulse Resp B/P Pulse Ox O2 Delivery O2 Flow Rate FiO2 09/15/16 11:00 98.0 66 18 96/43 93 Room Air 98.0 Lab Results Laboratory Tests Test 09/13/16 22:46 09/14/16 00:00 09/14/16 00:20 09/14/16 03:20 Glucose (Fingerstick) 415mg/dL (70-99) White Blood Count 8.9x10^3/uL (4.0-11.0) Red Blood Count 3.52x10^6/uL (4.30-5.70) Hemoglobin 10.9g/dL (13.0-17.5) Hematocrit 32.0% (39.0-53.0) Mean Corpuscular Volume 91fL (79-100) Mean Corpuscular Hemoglobin 31pg (25-35) Mean Corpuscular Hemoglobin Concent 34g/dL (31-37) Red Cell Distribution Width 13.1% (11.5-14.5) Platelet Count 229x10^3/uL (140-400) Neutrophils (%) (Auto) 81% (31-73) Lymphocytes (%) (Auto) 9% (24-48) Monocytes (%) (Auto) 7% (0-9) Eosinophils (%) (Auto) 3% (0-3) Basophils (%) (Auto) 1% (0-3) Neutrophils # (Auto) 7.2x10^3uL (1.8-7.7) Lymphocytes # (Auto) 0.8x10^3/uL (1.0-4.8) Monocytes # (Auto) 0.6x10^3/uL (0.0-1.1) Eosinophils # (Auto) 0.2x10^3/uL (0.0-0.7) Basophils # (Auto) 0.0x10^3/uL (0.0-0.2) Sodium Level 136mmol/L (136-145) 139mmol/L (136-145) Potassium Level 6.4mmol/L (3.5-5.1) 5.1mmol/L (3.5-5.1) Chloride Level 100mmol/L (98-107) 103mmol/L (98-107) Carbon Dioxide Level 29mmol/L (21-32) 28mmol/L (21-32) Anion Gap 7 (6-14) 8 (6-14) Blood Urea Nitrogen 55mg/dL (8-26) 52mg/dL (8-26) Creatinine 2.5mg/dL (0.7-1.3) 2.3mg/dL (0.7-1.3) Estimated GFR (Cockcroft-Gault) 25.2 27.7 Glucose Level 437mg/dL (70-99) 158mg/dL (70-99) Calcium Level 9.3mg/dL (8.5-10.1) 9.6mg/dL (8.5-10.1) Urine Collection Type Unknown Urine Color Yellow Urine Clarity Clear Urine pH 6.0 Urine Specific [place] 1.010 Urine Protein Negativemg/dL (NEG-TRACE) Urine Glucose (UA) 500mg/dL (NEG) Urine Ketones (Stick) Negativemg/dL (NEG) Urine Blood Negative (NEG) Urine Nitrite Negative (NEG) Urine Bilirubin Negative (NEG) Urine Urobilinogen Dipstick 0.2mg/dL (0.2 mg/dL) Urine Leukocyte Esterase Negative (NEG) Urine RBC Occ/HPF (0-2) Urine WBC Occ/HPF (0-4) Urine Squamous Epithelial Cells Few/LPF Urine Bacteria 0/HPF (0-FEW) Test 09/14/16 08:29 09/14/16 11:51 09/14/16 16:35 09/14/16 21:08 Glucose (Fingerstick) 225mg/dL (70-99) 296mg/dL (70-99) 206mg/dL (70-99) 151mg/dL (70-99) Test 09/15/16 03:15 09/15/16 07:21 09/15/16 11:29 Sodium Level 138mmol/L (136-145) Potassium Level 5.4mmol/L (3.5-5.1) Chloride Level 101mmol/L (98-107) Carbon Dioxide Level 28mmol/L (21-32) Anion Gap 9 (6-14) Blood Urea Nitrogen 51mg/dL (8-26) Creatinine 2.2mg/dL (0.7-1.3) Estimated GFR (Cockcroft-Gault) 29.2 Glucose Level 256mg/dL (70-99) Calcium Level 9.4mg/dL (8.5-10.1) Glucose (Fingerstick) 270mg/dL (70-99) 323mg/dL (70-99) Laboratory Tests Test 09/14/16 16:35 09/14/16 21:08 09/15/16 03:15 09/15/16 07:21 Glucose (Fingerstick) 206mg/dL (70-99) 151mg/dL (70-99) 270mg/dL (70-99) Sodium Level 138mmol/L (136-145) Potassium Level 5.4mmol/L (3.5-5.1) Chloride Level 101mmol/L (98-107) Carbon Dioxide Level 28mmol/L (21-32) Anion Gap 9 (6-14) Blood Urea Nitrogen 51mg/dL (8-26) Creatinine 2.2mg/dL (0.7-1.3) Estimated GFR (Cockcroft-Gault) 29.2 Glucose Level 256mg/dL (70-99) Calcium Level 9.4mg/dL (8.5-10.1) Test 09/15/16 11:29 Glucose (Fingerstick) 323mg/dL (70-99) Brief Hospital Course Mr. Townsend is a 76 old male recently dcd [facility] [place], admitted bec of hyperglycemia, BS > 500s. now better. HAs a wofe. Pt wants to go home, Seems knowledgeable to adjust/inc detemir that I have instructed (from 18 to 25 qhs),. Cont 10 units novolog TID,. Cleared from PT to go back to [place] or H with HH Script for inc detemir provided, Needs teaching on how to do this Dw pt and RN Pt seen and examined Discharge Information Condition at Discharge: Improved, Stable Disposition/Orders: D/C to Home, Other ([place]) Scheduled Amlodipine Besylate (Amlodipine Besylate) 10 MG PO DAILY (Reported) Aspirin (Aspir 81) 1 TAB PO DAILY (Reported) Cholecalciferol (Vitamin D3) (Vitamin D3) 800 UNIT PO DAILY (Reported) Cyanocobalamin (Vitamin B-12) (Vitamin B-12) 1 TAB PO DAILY (Reported) Furosemide (Lasix) 1 TAB PO DAILY (Reported) Gabapentin (Gabapentin) 300 MG PO HS (Reported) Insulin Aspart (Novolog Flexpen) 10 UNITS SQ TIDAC Insulin Detemir (Levemir Flextouch) 18 UNITS SQ QHS Levofloxacin (Levaquin) 250 MG PO DAILY06 Lisinopril (Lisinopril) 1 TAB PO DAILY (Reported) Metoprolol Succinate (Toprol Xl) 1 TAB PO DAILY (Reported) Nitroglycerin (Nitrostat) 1 TAB SL UD (Reported) Pantoprazole Sodium (Protonix) 1 TAB PO DAILY (Reported) Potassium Chloride (Klor-Con M20) 2 TAB PO DAILY (Reported) Pravastatin Sodium (Pravastatin Sodium) 1 TAB PO DAILY (Reported) Sennosides/Docusate Sodium (Senokot-S Tablet) 2 TAB PO HS (Reported) Spironolactone (Spironolactone) 1 TAB PO DAILY (Reported) Scheduled PRN Acetaminophen (Tylenol) 650 MG PO PRN Q4-6HRS PRN PRN FEVER (Reported) Oxycodone/Apap 7.5-325 (Percocet 7.5-325 Mg Tablet) 1 TAB PO PRN Q6HRS PRN PRN PAIN HADLEY MANCINI MD Sep 15, 2016 13:23
--- NOTE | 2016-09-15 17:31 | ACF ---
Admission Forms Criteria DIABETES Clinical Indications for Admission to Inpatient Care (Place 'X' for any and all applicable criteria): Admission is indicated by presence of ALL (if I & II) or ANY ONE (if III or IV) of the following (1)(2)(3)(4): [X]I. Diabetes is uncontrolled as indicated by ANY ONE of the following: [ ]a) Diabetic ketoacidosis as indicated by ALL of the following (8): [ ]i) Hyperglycemia (eg, plasma glucose greater than 200 mg/ dL (11.1 mmol/L)) [ ]ii) Acidosis (eg, arterial pH less than 7.30, serum bicarbonate level less than 15 mEq/L (mmol/L)) [ ]iii) Moderate ketonuria or ketonemia [ ]b) Hyperglycemic hyperosmolar state as indicated by ALL of the following(9)(10): [ ]i) Neurologic dysfunction (eg, stupor, coma, hemiparesis , seizure)(13) [ ]ii) Plasma glucose greater than 600 mg/dL (33.3 mmol/L) [ ]iii) Serum osmolality greater than 320 mOsm/kg (mmol/kg) [X]c) Severe signs or symptoms secondary to hyperglycemia indicated by ANY ONE of the following: [ ]i) Altered mental status(10) [ ]ii) Significant hypovolemia or dehydration [ ]iii) Intractable nausea or vomiting [ ]iv) Unexplained fever or severe infection [X]v) Severe electrolyte abnormality (eg, hypokalemia, hyperkalemia, hypernatremia) [X]II. Management at other levels of care (Also use Diabetes: Observation Care as appropriate) is not feasible because of ANY ONE of the following: [X]a) Condition was not adequately corrected with treatment at other levels of care. [ ]b) Treatment at other levels of care is not appropriate because of condition severity (eg, hyperosmolar coma). [ ]III. Contraindications and/or Inappropriate clinical situations for Observational Care in patients with Diabetes, when ANY ONE of the following is required: [ ]a) Patient require specific diagnostic workup or therapeutic intervention 22 [ ]b) Patient with abnormal vital signs or altered mental status 23 [ ]IV. General contraindications and/or Inappropriate clinical situations for Observational Care in patients with Diabetes, when ANY ONE of the following is required: [ ]a) Prediction of prolongation of LOS based on ANY ONE of the following may be considered as a contraindication for observational care 2, 3, 4, 5, 6, 7, 8, 9, 10, 11 [ ]i) Age > 65 yrs. [ ]ii) Patient arriving by ambulance [ ]iii) Patient with high acuity [ ]iv) Patient requiring vital sign monitoring [ ]v) Patient on IV medication [ ]b) Systolic blood pressures 180mmHg 3,12 [ ]c) Patient with altered mental status including delirium and other alteration of consciousness, (3) [ ]d) Patient whose discharge disposition will be to a assisted home or rehabilitation home should not be managed in Emergency Department Observation Unit. CMS rule requires 3 days hospital stay before such placement.3,13 [ ]e) Patient with failure to thrive due to broad array of etiologies 3,16,17 [ ]f) Inability to ambulate 3,14 Extended stay beyond goal length of stay may be needed for(3)(20): [ ]a) Treatment of precipitating causes [ ]b) Development of hypoglycemia [ ]c) Complications of treatment [ ]d) Complications of decompensated diabetes (eg, acute gastric dilatation, persistent metabolic or neurologic derangement) [ ]e) Active Comorbidities [ ]f) Older patients( 65 years or older) The original [employer] content created by [employer] has been revised. The portions of the content which have been revised are identified through the use of italic text or in bold,and [facility] [employer] [employer] has neither reviewed nor approved the modified material. All other unmodified content is copyright [employer]. Please see references footnoted in the original [facility] edition 2016 Admission Criteria Met?: Yes LUIZ ANNA Sep 15, 2016 17:31
[2016-09-15] MEDS ORDERED: INSULIN DETEMIR 300 UNITS/3 ML INSULN.PEN. SQ SCH (21:00)
== END 2016-09-15 15:30 | disposition home or self-care (01) | DRG 682 ==
LOC: ER 22:35 → 6 SOUTH 09-14 01:32
PROVIDERS: ADMIT Internal Medicine; ATTEND Internal Medicine
DX: N17.9 Acute kidney failure, unspecified (principal); G93.41 Metabolic encephalopathy; I13.0 Hypertensive heart and chronic kidney disease with heart failure and stage 1 through stage 4 chronic kidney disease, or unspecified chronic kidney disease; E11.65 Type 2 diabetes mellitus with hyperglycemia; N18.4 Chronic kidney disease, stage 4 (severe); F03.90 Unspecified dementia, unspecified severity, without behavioral disturbance, psychotic disturbance, mood disturbance, and anxiety; Z68.32 Body mass index [BMI] 32.0-32.9, adult; E11.22 Type 2 diabetes mellitus with diabetic chronic kidney disease; E66.9 Obesity, unspecified; I50.9 Heart failure, unspecified; Z79.899 Other long term (current) drug therapy; Z79.82 Long term (current) use of aspirin; Z88.1 Allergy status to other antibiotic agents; Z90.49 Acquired absence of other specified parts of digestive tract
CPT/HCPCS: 36415; 80048; 81001; 82947; 85027; 96361; 96374; 96375; J0610; J1650; J1815; J1940; J7030; J7040; 97116; 99285-25

== ENCOUNTER 2016-12-29 17:18 | Inpatient (IN) | payer MEDICARE ==
[~2016-12-29] VITALS: Ht 175.3 cm; Wt 104.5 kg
[2016-12-29] VITALS (18 sets, daily range): BP systolic 70–153; BP diastolic 42–88
[~2016-12-29 17:18] MED LIST changes: +ACET325T9 PO; +METF-620 PO; -METF10002 PO
[2016-12-29] MEDS ORDERED: ATROPINE 1 MG/10 ML DISP.SYRIN ONE (17:27)
[2016-12-29] MEDS ORDERED: NALOXONE 2 MG/2 ML DISP.SYRIN. ONE (17:27)
[2016-12-29] MEDS ORDERED: IV NORMAL SALINE 1000ML BAG 1,000 ML IV SCH (17:44)
[2016-12-29 17:53] LABS: BASO % 1 % (0-3); EOS % 3 % (0-3); HEMATOCRIT 31.1 % (39.0-53.0); HEMOGLOBIN 10.5 g/dL (13.0-17.5); LYMPH # 0.6 x10^3/uL (1.0-4.8); LYMPH % 11 % (24-48); MEAN CORPUSCULAR HEMOGLOBIN 31 pg (25-35); MEAN CORPUSCULAR HGB CONC 34 g/dL (31-37); MEAN CORPUSCULAR VOLUME 91 fL (79-100); MONO % 11 % (0-9); NEUT % 74 % (31-73); PLATELET COUNT 156 x10^3/uL (140-400); RED BLOOD COUNT 3.41 x10^6/uL (4.30-5.70); WHITE BLOOD COUNT 5.9 x10^3/uL (4.0-11.0)
[2016-12-29 18:00] LABS: INR 1.1 (0.8-1.1); PROTHROMBIN TIME PATIENT 13.6 SEC (11.7-14.0)
[2016-12-29] MEDS ORDERED: MIDAZOLAM PREMIX 100 ML IV ONE (18:00)
[2016-12-29] MEDS ORDERED: MIDAZOLAM HCL/PF 5 MG/5 ML VIAL. IV ONE (18:00)
[2016-12-29 18:05] LABS: CALCIUM 8.7 mg/dL (8.5-10.1); CREATININE 2.2 mg/dL (0.7-1.3); GFR 29.2; POTASSIUM 4.3 mmol/L (3.5-5.1)
[2016-12-29] MEDS ORDERED: ETOMIDATE 20 MG/10 ML VIAL. IV ONE ×2 (18:05→18:45)
[2016-12-29] MEDS ORDERED: SUCCINYLCHOLINE 200 MG/10 ML VIAL. ONE (18:05)
[2016-12-29 18:11] LABS: ALBUMIN 3.6 g/dL (3.4-5.0); ALBUMIN/GLOBULIN RATIO 1.4 (1.0-1.7); TOTAL BILIRUBIN 0.3 mg/dL (0.2-1.0); TOTAL PROTEIN 6.1 g/dL (6.4-8.2)
[2016-12-29 18:17] LABS: BILIRUBIN,URINE NEGATIVE (NEG); GLUCOSE,URINE NEGATIVE (NEG); NITRITE,URINE NEGATIVE (NEG); PH,URINE 5.5; PROTEIN,URINE NEGATIVE (NEG-TRACE); UROBILINOGEN,URINE 0.2 mg/dL (0.2 mg/dL)
[2016-12-29 18:23] LABS: BARBITURATES NEG (NEG); BENZODIAZEPINES NEG (NEG); CANNABINOIDS NEG (NEG); COCAINE NEG (NEG); METHADONE NEG (NEG); OPIATES NEG (NEG); PHENCYCLIDINE NEG (NEG)
[2016-12-29 18:28] LABS: BACTERIA,URINE 0 /HPF (0-FEW); RBC,URINE 0 /HPF (0-2); SQUAMOUS EPITHELIAL CELL,UR FEW /LPF; WBC,URINE 0 /HPF (0-4)
[2016-12-29 18:42] LABS: HCO3 ABG 21 mmol/L (21-28); PCO2 ABG 41 mmHg (35-46); PH ABG 7.32 (7.35-7.45); PO2 ABG 156 mmHg (65-108); SAT O2 ABG 98 % (92-99)
[2016-12-29 18:43] LABS: FIO2 ABG 40
[2016-12-29] MEDS ORDERED: DEXTROSE 50% 25 GM / 50ML DISP.SYRIN. IV ONE (18:45)
[2016-12-29] MEDS ORDERED: hydrALAZINE 20 MG/ML VIAL. IVP PRN (18:45)
[2016-12-29] MEDS ORDERED: DEXTROSE 50% 25 GM / 50ML DISP.SYRIN. IV PRN ×2 (18:45→19:45)
[2016-12-29] MEDS ORDERED: NALOXONE 2 MG/2 ML DISP.SYRIN. IV ONE (18:45)
[2016-12-29] MEDS ORDERED: SUCCINYLCHOLINE 200 MG/10 ML VIAL. IV ONE (18:45)
[2016-12-29] MEDS ORDERED: PIP/TAZO PER PHARMACY MC PRN (18:45)
[2016-12-29] MEDS: IV NORMAL SALINE 1000ML BAG 1,000 ML IV SCH ×6 (18:45→21:39)
[2016-12-29] MEDS ORDERED: DOCUSATE SODIUM 100 MG CAPSULE. PO PRN (18:45)
[2016-12-29] MEDS ORDERED: ACETAMINOPHEN 325 MG TABLET. PO PRN ×2 (18:45→19:45)
[2016-12-29] MEDS ORDERED: ONDANSETRON PF 4 MG/2 ML VIAL. IV PRN ×2 (18:45→19:45)
--- NOTE | 2016-12-29 18:53 | PDOC1 ---
History and Physical Date of Admission Date of Admission 12/29/16 Identification/Chief Complaint Chief Complaint AMS Problems: Source Source: Chart review History of Present Illness History of Present Illness 76yo M, h/o HTN, DM2, FROM SNF, was sent for AMS. pt is intubated now, all history from ERP. as per ERP, pt was found ok at 5pm today, then became lethargic. EMS was called , pt was found hypoglycemia at 47 and d50 was given, repeated glucose in ER was fine. pt was thought taken too much pain meds in SNF, then Narcan was given x2, no response. Pt cont lethargic, unresponsive, BP 90s, RR 8, HR 47 in ER, he was then intubated. pt seems only moves left lower ext when i saw him in ER. CXR, hEAD CT, CHEST CT done, result pending. Past Medical History Cardiovascular: HTN GI: No pertinent hx Renal/: Chronic renal insuff, Acute renal failure Endocrine: Diabetes Past Surgical History Past Surgical History: No pertinent history Family History Family History: No Significant Social History Smoke: No ALCOHOL: none Drugs: None Current Medications Current Medications Current Medications Medications (Trade) Dose Ordered Sig/Eran Start Time Stop Time Status Last Admin Dose Admin Atropine Sulfate 1 mg STK-MED ONCE 12/29/16 17:27 12/29/16 17:28 DC Etomidate (Amidate) 20 mg STK-MED ONCE 12/29/16 18:05 12/29/16 18:06 DC Midazolam HCl 100 ml @ 0 mls/hr 1X ONCE 12/29/16 18:00 12/29/16 18:01 DC 12/29/16 18:08 0 MLS/HR Midazolam HCl (Versed) 5 mg 1X ONCE 12/29/16 18:00 12/29/16 18:01 DC 12/29/16 17:53 5 MG Naloxone HCl (Narcan) 2 mg STK-MED ONCE 12/29/16 17:27 12/29/16 17:28 DC Sodium Chloride 1,000 ml @ 1,000 mls/hr Q1H 12/29/16 17:44 12/29/16 18:43 12/29/16 17:30 1,000 MLS/HR Succinylcholine Chloride (Anectine) 200 mg STK-MED ONCE 12/29/16 18:05 12/29/16 18:06 DC Allergies Allergies Allergies Coded Allergies Type Severity Reaction Last Updated Verified tetracycline Allergy Intermediate Rash 09/04/16 Yes ROS Review of System CONSTITUTIONAL: No fever or chills EYES: No recent changes SKIN: No rash or itching CARDIOVASCULAR: No chest pain, syncope, palpitations, or edema RESPIRATORY: No SOB or cough GASTROINTESTINAL: No nausea, vomiting or abdominal pain NEUROLOGICAL: No headaches or weakness ENDOCRINE: No cold or heat intolerance GENITOURINARY: No urgency or frequency of urination MUSCULOSKELETAL: No back pain or joint pain LYMPHATICS: No enlarged lymph nodes PSYCHIATRIC: No anxiety or depression Physical Exam Physical Exam GEN.: intubated, sedated HEENT: Head is normocephalic, atraumatic NECK: Supple. LUNGS: Clear to auscultation. HEART: RRR, S1, S2 present. Peripheral pulses intact ABDOMEN: Soft, nontender. Positive bowel sounds. EXTREMITIES: Without any cyanosis. NEUROLOGIC: Normal speech, normal tone PSYCHIATRIC: Normal affect, normal mood. SKIN: No ulcerations Vitals Vitals Vital Signs Date Time Temp Pulse Resp B/P (MAP) Pulse Ox O2 Delivery O2 Flow Rate FiO2 12/29/16 17:49 100 Ventilator 12/29/16 17:44 65 14 195/104 (134) 12/29/16 17:19 98.0 98.0 Labs Labs Laboratory Tests Test 12/29/16 17:30 12/29/16 18:10 White Blood Count 5.9 x10^3/uL (4.0-11.0) Red Blood Count 3.41 x10^6/uL (4.30-5.70) Hemoglobin 10.5 g/dL (13.0-17.5) Hematocrit 31.1 % (39.0-53.0) Mean Corpuscular Volume 91 fL (79-100) Mean Corpuscular Hemoglobin 31 pg (25-35) Mean Corpuscular Hemoglobin Concent 34 g/dL (31-37) Red Cell Distribution Width 13.0 % (11.5-14.5) Platelet Count 156 x10^3/uL (140-400) Neutrophils (%) (Auto) 74 % (31-73) Lymphocytes (%) (Auto) 11 % (24-48) Monocytes (%) (Auto) 11 % (0-9) Eosinophils (%) (Auto) 3 % (0-3) Basophils (%) (Auto) 1 % (0-3) Neutrophils # (Auto) 4.4 x10^3uL (1.8-7.7) Lymphocytes # (Auto) 0.6 x10^3/uL (1.0-4.8) Monocytes # (Auto) 0.7 x10^3/uL (0.0-1.1) Eosinophils # (Auto) 0.2 x10^3/uL (0.0-0.7) Basophils # (Auto) 0.0 x10^3/uL (0.0-0.2) Prothrombin Time 13.6 SEC (11.7-14.0) Prothromb Time International Ratio 1.1 (0.8-1.1) Activated Partial Thromboplast Time 34 SEC (24-38) Sodium Level 138 mmol/L (136-145) Potassium Level 4.3 mmol/L (3.5-5.1) Chloride Level 103 mmol/L (98-107) Carbon Dioxide Level 28 mmol/L (21-32) Anion Gap 7 (6-14) Blood Urea Nitrogen 43 mg/dL (8-26) Creatinine 2.2 mg/dL (0.7-1.3) Estimated GFR (Cockcroft-Gault) 29.2 BUN/Creatinine Ratio 20 (6-20) Glucose Level 142 mg/dL (70-99) Lactic Acid Level 1.4 mmol/L (0.4-2.0) Calcium Level 8.7 mg/dL (8.5-10.1) Magnesium Level 2.0 mg/dL (1.8-2.4) Total Bilirubin 0.3 mg/dL (0.2-1.0) Aspartate Amino Transf (AST/SGOT) 19 U/L (15-37) Alanine Aminotransferase (ALT/SGPT) 21 U/L (16-63) Alkaline Phosphatase 62 U/L (46-116) Ammonia 17 mcmol/L (11-34) Total Protein 6.1 g/dL (6.4-8.2) Albumin 3.6 g/dL (3.4-5.0) Albumin/Globulin Ratio 1.4 (1.0-1.7) Lipase 156 U/L (73-393) Urine Collection Type Unknown Urine Color Yellow Urine Clarity Clear Urine pH 5.5 Urine Specific [place] 1.015 Urine Protein Negative mg/dL (NEG-TRACE) Urine Glucose (UA) Negative mg/dL (NEG) Urine Ketones (Stick) Negative mg/dL (NEG) Urine Blood Negative (NEG) Urine Nitrite Negative (NEG) Urine Bilirubin Negative (NEG) Urine Urobilinogen Dipstick 0.2 mg/dL (0.2 mg/dL) Urine Leukocyte Esterase Negative (NEG) Urine RBC 0 /HPF (0-2) Urine WBC 0 /HPF (0-4) Urine Squamous Epithelial Cells Few /LPF Urine Bacteria 0 /HPF (0-FEW) Urine Hyaline Casts Few /HPF Urine Mucus Mod /LPF Urine Opiates Screen Neg (NEG) Urine Methadone Screen Neg (NEG) Urine Barbiturates Neg (NEG) Urine Phencyclidine Screen Neg (NEG) Urine Amphetamine/Methamphetamine Neg (NEG) Urine Benzodiazepines Screen Neg (NEG) Urine Cocaine Screen Neg (NEG) Urine Cannabinoids Screen Neg (NEG) Urine Ethyl Alcohol Neg (NEG) Laboratory Tests Test 12/29/16 17:30 12/29/16 18:10 White Blood Count 5.9 x10^3/uL (4.0-11.0) Red Blood Count 3.41 x10^6/uL (4.30-5.70) Hemoglobin 10.5 g/dL (13.0-17.5) Hematocrit 31.1 % (39.0-53.0) Mean Corpuscular Volume 91 fL (79-100) Mean Corpuscular Hemoglobin 31 pg (25-35) Mean Corpuscular Hemoglobin Concent 34 g/dL (31-37) Red Cell Distribution Width 13.0 % (11.5-14.5) Platelet Count 156 x10^3/uL (140-400) Neutrophils (%) (Auto) 74 % (31-73) Lymphocytes (%) (Auto) 11 % (24-48) Monocytes (%) (Auto) 11 % (0-9) Eosinophils (%) (Auto) 3 % (0-3) Basophils (%) (Auto) 1 % (0-3) Neutrophils # (Auto) 4.4 x10^3uL (1.8-7.7) Lymphocytes # (Auto) 0.6 x10^3/uL (1.0-4.8) Monocytes # (Auto) 0.7 x10^3/uL (0.0-1.1) Eosinophils # (Auto) 0.2 x10^3/uL (0.0-0.7) Basophils # (Auto) 0.0 x10^3/uL (0.0-0.2) Prothrombin Time 13.6 SEC (11.7-14.0) Prothromb Time International Ratio 1.1 (0.8-1.1) Activated Partial Thromboplast Time 34 SEC (24-38) Sodium Level 138 mmol/L (136-145) Potassium Level 4.3 mmol/L (3.5-5.1) Chloride Level 103 mmol/L (98-107) Carbon Dioxide Level 28 mmol/L (21-32) Anion Gap 7 (6-14) Blood Urea Nitrogen 43 mg/dL (8-26) Creatinine 2.2 mg/dL (0.7-1.3) Estimated GFR (Cockcroft-Gault) 29.2 BUN/Creatinine Ratio 20 (6-20) Glucose Level 142 mg/dL (70-99) Lactic Acid Level 1.4 mmol/L (0.4-2.0) Calcium Level 8.7 mg/dL (8.5-10.1) Magnesium Level 2.0 mg/dL (1.8-2.4) Total Bilirubin 0.3 mg/dL (0.2-1.0) Aspartate Amino Transf (AST/SGOT) 19 U/L (15-37) Alanine Aminotransferase (ALT/SGPT) 21 U/L (16-63) Alkaline Phosphatase 62 U/L (46-116) Ammonia 17 mcmol/L (11-34) Total Protein 6.1 g/dL (6.4-8.2) Albumin 3.6 g/dL (3.4-5.0) Albumin/Globulin Ratio 1.4 (1.0-1.7) Lipase 156 U/L (73-393) Urine Collection Type Unknown Urine Color Yellow Urine Clarity Clear Urine pH 5.5 Urine Specific [place] 1.015 Urine Protein Negative mg/dL (NEG-TRACE) Urine Glucose (UA) Negative mg/dL (NEG) Urine Ketones (Stick) Negative mg/dL (NEG) Urine Blood Negative (NEG) Urine Nitrite Negative (NEG) Urine Bilirubin Negative (NEG) Urine Urobilinogen Dipstick 0.2 mg/dL (0.2 mg/dL) Urine Leukocyte Esterase Negative (NEG) Urine RBC 0 /HPF (0-2) Urine WBC 0 /HPF (0-4) Urine Squamous Epithelial Cells Few /LPF Urine Bacteria 0 /HPF (0-FEW) Urine Hyaline Casts Few /HPF Urine Mucus Mod /LPF Urine Opiates Screen Neg (NEG) Urine Methadone Screen Neg (NEG) Urine Barbiturates Neg (NEG) Urine Phencyclidine Screen Neg (NEG) Urine Amphetamine/Methamphetamine Neg (NEG) Urine Benzodiazepines Screen Neg (NEG) Urine Cocaine Screen Neg (NEG) Urine Cannabinoids Screen Neg (NEG) Urine Ethyl Alcohol Neg (NEG) VTE Prophylaxis Ordered VTE Prophylaxis Devices: Yes VTE Pharmacological Prophylaxi: Yes Assessment/Plan Assessment/Plan 1. AMS, metabolic encephalopathy 2/2 hypoglycemia possibly, head CT pending 2. acute resp failure with 1, and possible PNA (CXR has some infiltrate at LLL vs. atelectasis) 3. DM2 with hypoglycemia now, on insulin 4. HTN, now BP borderline low 5. from SNF, baseline mild dementia 6. obesity 7. CKD4 8. NORmacytic anemia 9. sinus bradycardia,resolved. plan: ABG was not done till intubated, result pending CXR, head CT, chest CT pending, may need Brain MRI if not wake up tmr admit in ICU with intubation sedation NPO, ivf for now hold po home meds and insulin, ssi for now pulm, neuro consult CXR daily labs tmr add zosyn and vanco for now, dc soon if wake up wo PNA issues dvt, gi ppx critical care 40min OBDULIO HER MD Dec 29, 2016 18:53
--- NOTE | 2016-12-29 18:56 | PHYS DOC ---
Past Medical History Past Medical History: CHF, Diabetes-Type II, GERD, Hypertension Past Surgical History: Cholecystectomy Alcohol Use: None Drug Use: None Adult General Chief Complaint Chief Complaint: HYPOGLYCEMIA HPI HPI Patient is a 76 year old male who presents with altered mental status. Patient was brought to the emergency department by EMS from [facility] for evaluation. Patient was noted at approximately 1700 this evening to display signs of lethargy. The patient presented to the emergency department and severe lethargy and is unable to provide any history. EMS reports that the patient was found have a blood sugar of 47 on their arrival. The patient was given any up of D50 which helped improve the patient's mental status. The patient did not display any focal neurologic symptoms per the EMS evaluation. However upon arrival the patient became severely lethargic and is arousable only to painful stimulus. Patient has history of type 2 diabetes mellitus and is on insulin therapy. Patient was last seen at his baseline shortly prior to 1700. The patient is noted to also be on oxycodone for treatment of chronic pain. [facility] notes that the patient also takes sleep aids which he purchases and takes independently from his MAR. Review of Systems Review of Systems Unable to obtain from patient as he is currently obtunded Current Medications Current Medications Current Medications Medications (Trade) Dose Ordered Sig/Eran Start Time Stop Time Status Last Admin Dose Admin Atropine Sulfate 1 mg STK-MED ONCE 12/29/16 17:27 12/29/16 17:28 DC Etomidate (Amidate) 20 mg STK-MED ONCE 12/29/16 18:05 12/29/16 18:06 DC Midazolam HCl 100 ml @ 0 mls/hr 1X ONCE 12/29/16 18:00 12/29/16 18:01 DC 12/29/16 18:08 0 MLS/HR Midazolam HCl (Versed) 5 mg 1X ONCE 12/29/16 18:00 12/29/16 18:01 DC 12/29/16 17:53 5 MG Naloxone HCl (Narcan) 2 mg STK-MED ONCE 12/29/16 17:27 12/29/16 17:28 DC Sodium Chloride 1,000 ml @ 1,000 mls/hr Q1H 12/29/16 17:44 12/29/16 18:43 DC 12/29/16 17:30 1,000 MLS/HR Succinylcholine Chloride (Anectine) 200 mg STK-MED ONCE 12/29/16 18:05 12/29/16 18:06 DC Allergies Allergies Allergies Coded Allergies Type Severity Reaction Last Updated Verified tetracycline Allergy Intermediate Rash 09/04/16 Yes Physical Exam Physical Exam Constitutional: Patient is obtunded, afebrile, opens eyes to deep painful stimulus. [] HENT: Normocephalic, atraumatic, bilateral external ears normal, oropharynx dry , no oral exudates, nose normal. [] Eyes: PERRLA, EOMI, conjunctiva normal, no discharge. [] Neck: Normal range of motion, no tenderness, supple, no stridor. [] Cardiovascular: Bradycardia, normal rhythm, no murmur [] Lungs & Thorax: Slow and sonorous respirations, clear to auscultation bilaterally, 5 cm ecchymosis present along left lateral chest wall near the axilla [] Abdomen: Bowel sounds normal, nondistended, no palpable masses. [] Skin: Cool, pale, no erythema, no rash. [] Back: No tenderness, no CVA tenderness. [] Extremities: No tenderness, no cyanosis, no clubbing, ROM intact, no edema. [] Neurologic: Obtunded, opens eyes to sternal rub and withdraws to pain, moves all extremities purposefully. [] Current Patient Data Vital Signs Vital Signs Date Time Temp Pulse Resp B/P (MAP) Pulse Ox O2 Delivery O2 Flow Rate FiO2 12/29/16 18:15 54 16 151/85 (107) 100 Ventilator 12/29/16 17:19 98.0 98.0 Lab Values Laboratory Tests Test 12/29/16 17:30 12/29/16 17:44 12/29/16 18:10 White Blood Count 5.9 x10^3/uL (4.0-11.0) Red Blood Count 3.41 x10^6/uL (4.30-5.70) L Hemoglobin 10.5 g/dL (13.0-17.5) L Hematocrit 31.1 % (39.0-53.0) L Mean Corpuscular Volume 91 fL (79-100) Mean Corpuscular Hemoglobin 31 pg (25-35) Mean Corpuscular Hemoglobin Concent 34 g/dL (31-37) Red Cell Distribution Width 13.0 % (11.5-14.5) Platelet Count 156 x10^3/uL (140-400) Neutrophils (%) (Auto) 74 % (31-73) H Lymphocytes (%) (Auto) 11 % (24-48) L Monocytes (%) (Auto) 11 % (0-9) H Eosinophils (%) (Auto) 3 % (0-3) Basophils (%) (Auto) 1 % (0-3) Neutrophils # (Auto) 4.4 x10^3uL (1.8-7.7) Lymphocytes # (Auto) 0.6 x10^3/uL (1.0-4.8) L Monocytes # (Auto) 0.7 x10^3/uL (0.0-1.1) Eosinophils # (Auto) 0.2 x10^3/uL (0.0-0.7) Basophils # (Auto) 0.0 x10^3/uL (0.0-0.2) Prothrombin Time 13.6 SEC (11.7-14.0) Prothrombin Time INR 1.1 (0.8-1.1) PTT 34 SEC (24-38) Sodium Level 138 mmol/L (136-145) Potassium Level 4.3 mmol/L (3.5-5.1) Chloride Level 103 mmol/L (98-107) Carbon Dioxide Level 28 mmol/L (21-32) Anion Gap 7 (6-14) Blood Urea Nitrogen 43 mg/dL (8-26) H Creatinine 2.2 mg/dL (0.7-1.3) H Estimated GFR (Cockcroft-Gault) 29.2 BUN/Creatinine Ratio 20 (6-20) Glucose Level 142 mg/dL (70-99) H Lactic Acid Level 1.4 mmol/L (0.4-2.0) Calcium Level 8.7 mg/dL (8.5-10.1) Magnesium Level 2.0 mg/dL (1.8-2.4) Total Bilirubin 0.3 mg/dL (0.2-1.0) Aspartate Amino Transferase (AST) 19 U/L (15-37) Alanine Aminotransferase (ALT) 21 U/L (16-63) Alkaline Phosphatase 62 U/L (46-116) Ammonia 17 mcmol/L (11-34) Total Protein 6.1 g/dL (6.4-8.2) L Albumin 3.6 g/dL (3.4-5.0) Albumin/Globulin Ratio 1.4 (1.0-1.7) Lipase 156 U/L (73-393) O2 Saturation 98 % (92-99) Arterial Blood pH 7.32 (7.35-7.45) L Arterial Blood pCO2 at Patient Temp 41 mmHg (35-46) Arterial Blood pO2 at Patient Temp 156 mmHg (65-108) H Arterial Blood HCO3 21 mmol/L (21-28) Arterial Blood Base Excess -5 mmol/L (-3-3) L FiO2 40 Urine Collection Type Unknown Urine Color Yellow Urine Clarity Clear Urine pH 5.5 Urine Specific [place] 1.015 Urine Protein Negative mg/dL (NEG-TRACE) Urine Glucose (UA) Negative mg/dL (NEG) Urine Ketones (Stick) Negative mg/dL (NEG) Urine Blood Negative (NEG) Urine Nitrite Negative (NEG) Urine Bilirubin Negative (NEG) Urine Urobilinogen Dipstick 0.2 mg/dL (0.2 mg/dL) Urine Leukocyte Esterase Negative (NEG) Urine RBC 0 /HPF (0-2) Urine WBC 0 /HPF (0-4) Urine Squamous Epithelial Cells Few /LPF Urine Bacteria 0 /HPF (0-FEW) Urine Hyaline Casts Few /HPF Urine Mucus Mod /LPF Urine Opiates Screen Neg (NEG) Urine Methadone Screen Neg (NEG) Urine Barbiturates Neg (NEG) Urine Phencyclidine Screen Neg (NEG) Urine Amphetamine/Methamphetamine Neg (NEG) Urine Benzodiazepines Screen Neg (NEG) Urine Cocaine Screen Neg (NEG) Urine Cannabinoids Screen Neg (NEG) Urine Ethyl Alcohol Neg (NEG) Laboratory Tests 12/29/16 17:30 Laboratory Tests 12/29/16 17:30 EKG EKG Interpreted by me: Heart rate 48, sinus bradycardia, prolonged WI interval, left axis deviation, no acute ST/T-wave abnormalities present [] Radiology/Procedures Radiology/Procedures One view AP chest x-ray interpreted by me: Endotracheal tube in satisfactory position above the joseline, no obvious infiltrate, possible left lower lobe effusion versus deep sulcus [] Course & Med Decision Making Course & Med Decision Making Pertinent Labs and Imaging studies reviewed. (See chart for details) The patient was placed in the trauma bay in the emergency department. IV access was obtained and patient was started on IV fluids due to hypotension. Patient was given 2 mg of IV Narcan with no response. Patient was also given a half amp of D50 with no improvement in patient's mental status. Patient's blood sugar was found to be 119 before administration of D50. Patient's respiratory rate remains dangerously slow. For this reason the patient was intubated for airway protection and impending respiratory failure. This procedure as outlined in the procedure note. After intubation the patient's vital signs have stabilized. The patient's advanced imaging reveals no obvious acute pathology at this time. The patient's symptoms are suspected to be due to possible medication overdose. Patient will be admitted for further evaluation and treatment under ICU care. I spoke with Dr. Sue who accepted care patient in hospital. Critical care time excluding procedures: 55 minutes Dragon Disclaimer Dragon Disclaimer This electronic medical record was generated, in whole or in part, using a voice recognition dictation system. Intubation Procedure Intub Indication: Respiratory failure Consent: Unable to give consent due to emergent nature. Medications Used: see nursing note Procedure: The patient was placed in the appropriate position. Intubation was performed under direct laryngoscopy with placement of a 7.5 endotracheal tube. Secured at 21 cm at the lip. Initial confirmation of placement included bilateral breath sounds, tube fogging, adequate chest rise, adequate pulse oximetry reading. A chest x-ray to verify correct placement of the tube showed appropriate tube position. The patient tolerated the procedure well. Complications: none. Departure Departure Impression: Primary Impression: Acute encephalopathy Additional Impressions: Acute respiratory failure Chronic kidney disease, stage IV (severe) Hypoglycemia Type 2 diabetes mellitus Disposition: ADMITTED INPATIENT Admitting Physician: Rebecca Sue Condition: CRITICAL Referrals: UNKNOWN PCP NAME (PCP) Problem Qualifiers Additional Impressions: Acute respiratory failure Respiratory failure complication: hypoxia Qualified Codes: J96.01 - Acute respiratory failure with hypoxia Type 2 diabetes mellitus Diabetes mellitus complication status: with hypoglycemia Diabetes mellitus complication detail: with coma Diabetes mellitus exterminator helper insulin use: with shelter use Qualified Codes: E11.641 - Type 2 diabetes mellitus with hypoglycemia with coma; Z79.4 - correction (current) use of insulin DIONTE CUENCA MD Dec 29, 2016 18:56
--- NOTE | 2016-12-29 18:59 | RAD ---
INDICATION: AMS, NO PRIORS COMPARISON: None. TECHNIQUE: Axial CT images obtained through the head without intravenous contrast. One or more of the following individualized dose reduction techniques were utilized for this examination: 1. Automated exposure control; 2. Adjustment of the mA and/or kV according to patient size; 3. Use of iterative reconstruction technique. FINDINGS: No intracranial hemorrhage. No midline shift. Basal cisterns patents. Ventricles and sulci are globally prominent. No acute osseous abnormality. Scattered foci of low attenuation within the white matter. Calcific atherosclerosis. IMPRESSION: 1. No acute intracranial hemorrhage. 2. Scattered regions of low attenuation within the white matter. Non-specific in nature but frequently secondary to chronic small vessel ischemic disease. 3. Prominence of ventricles and sulci which is frequently secondary to age related volume loss. 4. Partial opacification left mastoid air cells. Could be from congestion within the region but mastoiditis not excluded. Electronically signed by: Ash Petty MD (12/29/2016 6:56 PM)
--- NOTE | 2016-12-29 19:14 | RAD ---
INDICATION: AMS, ABNORMAL CXR, NO PRIORS COMPARISON: None. TECHNIQUE: Axial CT images obtained through the chest. No intravenous contrast. One or more of the following individualized dose reduction techniques were utilized for this examination: 1. Automated exposure control; 2. Adjustment of the mA and/or kV according to patient size; 3. Use of iterative reconstruction technique. FINDINGS: Endotracheal tube midthoracic trachea. Enteric tube with tip in stomach. Scoliotic curvature of the spine with degenerative changes. No evidence of pneumothorax. Linear opacities in bilateral lungs. Mild patchy opacity left lung base dependently. Sub-4 mm nodule near fissure on right. Partially visualized lesion left kidney measuring up to about 44 mm with calcifications. There is also partially visualized right renal exophytic lesion. A large amount of stool in partially visualized colon. Moderate calcific atherosclerosis. Coronary artery calcific atherosclerosis. Multiple compression fractures of the spine including mild compression fracture T1, T3, T4, T6. Moderate compression fracture T7. Moderate compression fracture T9. Moderate compression fracture T12. Angulation at mid sternum. IMPRESSION: 1. Linear opacities bilateral lungs with mild patchy opacity at left lung base. This could all be secondary to atelectasis but if the patient is displaying infectious symptoms early infiltrate not excluded given left basilar opacity. 2. Sub-4 mm right lung pulmonary nodule. 3. Multiple compression fractures thoracic spine unknown age. There is also some angulation of the sternum which could be secondary to an old fracture but would correlate with point tenderness to ensure that there is not an acute injury contributing to this appearance. 4. Partial visualization of bilateral renal lesions. Would obtain a follow-up ultrasound, CT or MRI renal protocol to further evaluate and to assess for solid neoplastic component. Electronically signed by: Ash Petty MD (12/29/2016 7:11 PM)
[2016-12-29] MEDS: VANCOMYCIN PER PHARMACY MC PRN (19:30)
[2016-12-29] MEDS ORDERED: VANCOMYCIN 2 GM in IV NORMAL SALINE 500ML BAG 500 ML IV ONE (20:00)
[2016-12-29] MEDS: PIPERACILLIN/TAZOBACTAM 3.375 GM in IV NORMAL SALINE 50ML 50 ML IV SCH (20:16)
[2016-12-29] MEDS ORDERED: AMLO5TAB2 PO (21:36)
[2016-12-29] MEDS ORDERED: ATOR10TA60 PO (21:36)
[2016-12-29] MEDS ORDERED: INSU100I17 SQ (21:36)
[2016-12-29] MEDS ORDERED: OXYC-244 PO (21:36)
[2016-12-29] MEDS ORDERED: GUAI600T38 PO (21:36)
[2016-12-29] MEDS ORDERED: INSU100V13 SQ (21:36)
[2016-12-29] MEDS ORDERED: NOREPINEPHRIN PREMIX 250 ML IV PRN (21:45)
[2016-12-29] MEDS ORDERED: IV NORMAL SALINE 1000ML BAG 1,000 ML IV ONE (21:45)
--- NOTE | 2016-12-29 22:17 | EKG ---
[facility] [address] [place] [address] Test Date: 2016-12-29 Test Time: 22:17:52 Pat Name: RUBI BOLAND Department: Room: 110 1 Gender: M Converter Operator: LUCIE : [id number] Requested By: DIONTE CUENCA Order Number: [id number] Reading MD: Abhishek Wise Measurements Intervals [place] Rate: 37 P: -61 NC: 220 QRS: -43 QRSD: 102 T: 43 QT: 536 QTc: 425 Interpretive Statements SINUS BRADYCARDIA PROLONGED NC INTERVAL ABNORMAL LEFT AXIS DEVIATION LEFT ANTERIOR FASCICULAR BLOCK ABNORMAL ECG RI6.01 Compared to ECG 09/14/2016 01:15:57 Sinus rhythm no longer present Electronically Signed On 01-04-2017 9:26:10 CDT by Abhishek Wise
[2016-12-29] MEDS: HYDROCORTISONE SOD SUCC/PF 100 MG/2 ML VIAL. IV SCH (23:50)
[2016-12-30] VITALS (26 sets, daily range): BP systolic 100–148; BP diastolic 47–63
[2016-12-30] MEDS: PIPERACILLIN/TAZOBACTAM 3.375 GM in IV NORMAL SALINE 50ML 50 ML IV SCH ×5 (00:29→23:38)
[2016-12-30] MEDS: MIDAZOLAM PREMIX 100 ML IV PRN ×2 (00:48→10:12)
--- NOTE | 2016-12-30 03:45 | ACF ---
Admission Forms Criteria RESPIRATORY FAILURE G Clinical Indications for Admission to Inpatient Care (Place 'X' for any and all applicable criteria): Hospital admission is needed for appropriate care of the patient because of acute respiratory failure or insufficiency as indicated by ANY ONE of the following(1)(2)(3)(4)(5)(6)(7)(8): X]I. Mechanical ventilation needed (acute invasive or noninvasive) [ ]II. Severe ventilation deficit as indicated by ANY ONE of the following (9) [ ]a) Respiratory acidosis (pH less than 7.32 and partial pressure of carbon dioxide greater than 40 mm Hg (5.3 kPa)) [ ]b) Partial pressure of carbon dioxide greater than 44 mm Hg (5.9 kPa ) (new) [ ]c) Airflow measurements less than 25% of predicted (eg, peak expiratory flow rate less than 100 L/minute) [ ]d) Forced vital capacity less than 15 mL/kg of ideal body weight, or 50% decrease in vital capacity from baseline [ ]III. Noncardiac pulmonary edema not resolving with rapid emergency treatment (8) [ ]IV. Severe respiratory distress as indicated by ANY ONE of the following: [ ]a) Severe tachypnea (respiratory rate greater than 30, greater than 45 for 6-month-old, greater than 60 for ) [ ]b) Severe hypoxemia (partial pressure of oxygen less than 50 mm Hg ( 6.7 kPa) on greater than 50% oxygen or partial pressure of oxygen to FIO2 ratio less than 200) [ ]c) Mental status deterioration from respiratory disease [ ]V. Airway obstruction or inadequate protection [A](10)(11) The original [employer] content created by [employer] has been revised. The portions of the content which have been revised are identified through the use of italic text or in bold, and [employer] has neither reviewed nor approved the modified material. All other unmodified content is copyright [employer]. Please see references footnoted in the original [employer] edition 2016 Admission Criteria Met?: Yes NOEMY ARGUELLO Dec 30, 2016 03:45
[2016-12-30] MEDS: IV NORMAL SALINE 1000ML BAG 1,000 ML IV SCH ×3 (05:35→16:39)
[2016-12-30 05:36] LABS: BASO % 0 % (0-3); EOS % 0 % (0-3); HEMATOCRIT 33.2 % (39.0-53.0); HEMOGLOBIN 11.8 g/dL (13.0-17.5); LYMPH # 0.5 x10^3/uL (1.0-4.8); LYMPH % 5 % (24-48); MEAN CORPUSCULAR HEMOGLOBIN 32 pg (25-35); MEAN CORPUSCULAR HGB CONC 36 g/dL (31-37); MEAN CORPUSCULAR VOLUME 89 fL (79-100); MONO % 4 % (0-9); NEUT % 91 % (31-73); PLATELET COUNT 192 x10^3/uL (140-400); RED BLOOD COUNT 3.74 x10^6/uL (4.30-5.70); RED CELL DISTRIBUTION WIDTH 13.2 % (11.5-14.5); WHITE BLOOD COUNT 10.2 x10^3/uL (4.0-11.0)
[2016-12-30] MEDS: HYDROCORTISONE SOD SUCC/PF 100 MG/2 ML VIAL. IV SCH ×3 (05:50→21:48)
[2016-12-30 05:52] LABS: CALCIUM 8.4 mg/dL (8.5-10.1); CREATININE 1.9 mg/dL (0.7-1.3); GFR 34.5; POTASSIUM 4.4 mmol/L (3.5-5.1)
--- NOTE | 2016-12-30 07:35 | EKG ---
[facility] [address] [place] [address] Test Date: 2016-12-29 Test Time: 17:29:24 Pat Name: RUBI BOLAND Department: Room: 110 1 Gender: M Representative: : [id number] Requested By: OBDULIO HER Order Number: [id number] Reading MD: Abhishek Wise Measurements Intervals [place] Rate: 48 P: 51 NM: 252 QRS: -36 QRSD: 104 T: 24 QT: 480 QTc: 429 Interpretive Statements SINUS BRADYCARDIA PROLONGED NM INTERVAL ABNORMAL LEFT AXIS DEVIATION LEFT ANTERIOR FASCICULAR BLOCK RI6.01 Unconfirmed report Compared to ECG 09/14/2016 01:15:57 Sinus rhythm no longer present Electronically Signed On 01-04-2017 9:22:31 CDT by Abhishek Wise
[2016-12-30] MEDS: ASPIRIN ENTERIC COATED 81 MG TABLET.DR. PO SCH (07:43)
[2016-12-30] MEDS: PANTOPRAZOLE IV PUSH 40 MG VIAL. IVP SCH (07:43)
[2016-12-30 07:45] LABS: HCO3 ABG 19 mmol/L (21-28); PCO2 ABG 34 mmHg (35-46); PH ABG 7.36 (7.35-7.45); PO2 ABG 102 mmHg (65-108); SAT O2 ABG 97 % (92-99)
[2016-12-30 07:57] LABS: FIO2 ABG 40
--- NOTE | 2016-12-30 08:22 | RAD ---
Exam: AP portable chest. History: Respiratory failure, status post intubation. Comparison: 09/04/2016. Findings: Endotracheal tube tip projects 5 cm above the joseline. Cardiac silhouette appears within normal limits for size. No pneumothorax is seen. Right lung appears clear. There is hazy density at the left lung base. Impression: 1. Hazy density at the left lung base, could represent combination of pleural effusion and atelectasis versus developing airspace disease. 2. Endotracheal tube tip projects 5 cm above the joseline.
[2016-12-30] MEDS: CYANOCOBALAMIN (VITAMIN B-12) 1,000 MCG TABLET. PO SCH (08:27)
[2016-12-30] MEDS: CHOLECALCIFEROL (VITAMIN D3) 1,000 UNIT TABLET PO SCH (08:28)
--- NOTE | 2016-12-30 08:28 | RAD ---
Exam: AP portable chest. History: Intubation, respiratory distress. Comparison: 12/29/2016. Findings: Endotracheal tube tip projects 6 cm by the joseline. Esophagogastric tube has been placed with the tip projecting at the proximal body of stomach. No pneumothorax is identified. Left basilar density persists. There is mild increased density at the right lung base. There is mild accentuation of pulmonary vascularity, but this may be artifact of supine positioning. Impression: 1. Left greater than right basilar densities. This could represent changes of pleural effusions and atelectasis versus airspace disease.
[2016-12-30] MEDS: INSULIN ASPART 300 UNITS/3 ML INSULN.PEN SQ SCH ×3 (08:57→16:40)
[2016-12-30 09:43] LABS: PLT ESTIMATE ADEQUATE (ADEQUATE)
[2016-12-30] MEDS ORDERED: ENOXAPARIN 30 MG/0.3 ML SYRINGE. SQ SCH (10:00)
--- NOTE | 2016-12-30 10:00 | PDOC2 ---
NEUROLOGY CONSULT Date of Admission Date of Admission DATE: 12/30/16 TIME: 09:54 Reason for Consult Reason for Consult: altered mental status Referring Physician Referring Physician: Dr. Sue Source Source: Chart review History of Present Illness History of Present Illness The patient is a 76-year-old male who was found unresponsive at his assisted living. It is thought that he took too much sleeping medicine and his blood sugar was 47 when found. He was intubated. He is now on sedation. No one witnessed any seizures. Past Medical History Cardiovascular: HTN, Hyperlipidemia Pulmonary: Bronchitis CENTRAL NERVOUS SYSTEM: Periperal neuropathy GI: Other (Ventral hernia) Musculoskeletal: low back pain, Osteoarthritis Renal/: Urinary Incontinence Endocrine: Diabetes Past Surgical History Past Surgical History: Cholecystectomy Family History Family History: No pertinent hx Social History Social History Lives in assisted-living Current Medications Current Medications Current Medications Naloxone HCl (Narcan) 2 mg STK-MED ONCE .ROUTE ; Start 12/29/16 at 17:27; Stop at 17:28; Status DC Atropine Sulfate 1 mg STK-MED ONCE .ROUTE ; Start 12/29/16 at 17:27; Stop at 17:28; Status DC Sodium Chloride 1,000 ml @ 1,000 mls/hr Q1H IV Last administered on 12/29/16 17:30; Start 12/29/16 at 17:44; Stop 12/29/16 at 18:43; Status DC Midazolam HCl (Versed) 5 mg 1X ONCE IV Last administered on 12/29/16 17:53; Start 12/29/16 at 18:00; Stop 12/29/16 at 18:01; Status DC Midazolam HCl 100 ml @ 0 mls/hr 1X ONCE IV Last administered on 12/29/16 18:08 ; Start 12/29/16 at 18:00; Stop 12/29/16 at 18:01; Status DC Etomidate (Amidate) 20 mg STK-MED ONCE IV ; Start 12/29/16 at 18:05; Stop at 18:06; Status DC Succinylcholine Chloride (Anectine) 200 mg STK-MED ONCE .ROUTE ; Start 12/29/16 at 18:05; Stop 12/29/16 at 18:06; Status DC Aspirin (Ecotrin) 81 mg DAILYWBKFT PO ; Start 12/30/16 at 08:00 Vitamin D (Vitamin D3) 1,000 unit DAILY PO ; Start 12/30/16 at 09:00 Cyanocobalamin (Vitamin B-12) 1,000 mcg DAILY PO ; Start 12/30/16 at 09:00 Sodium Chloride 1,000 ml @ 100 mls/hr Q10H IV Last administered on 12/30/16 07 :43; Start 12/29/16 at 18:45 Acetaminophen (Tylenol) 650 mg PRN Q6HRS PRN PO FEVER; Start 12/29/16 at 18:45 Ondansetron HCl (Zofran) 4 mg PRN Q6HRS PRN IV NAUSEA/VOMITING; Start 12/29/16 at 18:45 Morphine Sulfate 2 mg PRN Q2HR PRN IV PAIN; Start 12/29/16 at 18:45 Tramadol HCl (Ultram) 50 mg PRN Q6HRS PRN PO PAIN; Start 12/29/16 at 18:45 Hydralazine HCl (Apresoline) 10 mg PRN Q4HRS PRN IVP ELEVATED BP, SEE COMMENTS ; Start 12/29/16 at 18:45 Docusate Sodium (Colace) 100 mg PRN DAILY PRN PO CONSTIPATION; Start 12/29/16 at 18:45 Naloxone HCl (Narcan) 2 mg 1X ONCE IV Last administered on 12/29/16 17:32; Start 12/29/16 at 18:45; Stop 12/29/16 at 18:46; Status DC Etomidate (Amidate) 20 mg 1X ONCE IV Last administered on 12/29/16 17:39; Start 12/29/16 at 18:45; Stop 12/29/16 at 18:46; Status DC Succinylcholine Chloride (Anectine) 100 mg 1X ONCE IV Last administered on 12/29 17:39; Start 12/29/16 at 18:45; Stop 12/29/16 at 18:46; Status DC Dextrose (Dextrose 50%-Water Syringe) 25 gm 1X ONCE IV Last administered on 17:20; Start 12/29/16 at 18:45; Stop 12/29/16 at 18:46; Status DC Insulin Aspart (NovoLOG) 0-9 UNITS TIDWMEALS SQ Last administered on 12/30/16 08:57; Start 12/30/16 at 08:00 Dextrose (Dextrose 50%-Water Syringe) 12.5 gm PRN Q15MIN PRN IV SEE COMMENTS; Start 12/29/16 at 18:45; Stop 12/29/16 at 19:45; Status DC Enoxaparin Sodium (Lovenox 30mg Syringe) 30 mg Q24H SQ Last administered on 12/30 08:51; Start 12/30/16 at 10:00 Pantoprazole Sodium (Protonix Vial) 40 mg DAILYAC IVP Last administered on 07:43; Start 12/30/16 at 07:30 Vancomycin HCl (Vanco Per Pharmacy) 1 each PRN DAILY PRN MC SEE COMMENTS Last administered on 12/29/16 19:30; Start 12/29/16 at 18:45 Vancomycin HCl 2 gm/Sodium Chloride 500 ml @ 250 mls/hr 1X ONCE IV Last administered on 12/29/16 20:47; Start 12/29/16 at 20:00; Stop 12/29/16 at 21:59; Status DC Piperacillin Sod/ Tazobactam Sod 3.375 gm/Sodium Chloride 50 ml @ 100 mls/hr Q6HRS IV Last administered on 12/30/16 05:46; Start 12/29/16 at 19:00 Piperacillin Sod/ Tazobactam Sod (Zosyn Per Pharmacy) 1 each PRN DAILY PRN MC SEE COMMENTS; Start 12/29/16 at 18:45 Vancomycin HCl 1.5 gm/Sodium Chloride 500 ml @ 250 mls/hr Q24H IV ; Start at 20:00 Vancomycin HCl 1 each 1X ONCE MC ; Start 12/31/16 at 19:30; Stop 12/31/16 at 19: 31 Ondansetron HCl (Zofran) 4 mg PRN Q8HRS PRN IV NAUSEA/VOMITING; Start 12/29/16 at 19:45; Stop 12/30/16 at 19:44 Sodium Chloride 1,000 ml @ 100 mls/hr Q10H IV ; Start 12/29/16 at 19:35; Stop at 07:37; Status DC Acetaminophen (Tylenol) 650 mg PRN Q4HRS PRN PO FEVER; Start 12/29/16 at 19:45; Stop 12/30/16 at 19:44 Dextrose (Dextrose 50%-Water Syringe) 12.5 gm PRN Q15MIN PRN IV SEE COMMENTS; Start 12/29/16 at 19:45 Midazolam HCl 100 ml @ 0 mls/hr CONT PRN IV SEE I/O RECORD Last administered on 12/30/16 00:48; Start 12/29/16 at 19:45 Sodium Chloride 1,000 ml @ 3,030 mls/hr Q20M IV Last administered on 12/29/16 21:39; Start 12/29/16 at 20:30; Stop 12/29/16 at 21:30; Status DC Norepinephrine Bitartrate 250 ml @ 0 mls/hr CONT PRN IV SEE I/O RECORD Last administered on 12/29/16 22:00; Start 12/29/16 at 21:45 Sodium Chloride 1,000 ml @ 999 mls/hr 1X ONCE IV Last administered on 22:20; Start 12/29/16 at 21:45; Stop 12/29/16 at 22:45; Status DC Dopamine HCl/ Dextrose 250 ml @ As Directed STK-MED ONCE IV ; Start 12/29/16 at 22:04; Stop 12/29/16 at 22:05; Status DC Dopamine HCl/ Dextrose 250 ml @ 18.966 mls/ hr CONT PRN IV SEE I/O RECORD Last administered on 12/30/16 07:43; Start 12/29/16 at 22:15 Hydrocortisone Sodium Succinate (Solu-CORTEF) 100 mg Q8HRS IV Last administered on 12/30/16 05:50; Start 12/29/16 at 22:30 Active Scripts Active Reported Levemir (Insulin Detemir) 100 Unit/1 Ml Vial 40 Unit SQ QHS Mucinex (Guaifenesin) 600 Mg Tablet.er 1 Tab PO BID PRN Atorvastatin Calcium 10 Mg Tablet 10 Mg PO HS Percocet 7.5-325 Mg Tablet (Oxycodone/Acetaminophen) 1 Each Tablet 1 Tab PO Q4HRS Amlodipine Besylate 5 Mg Tablet 5 Mg PO DAILY Novolog Flexpen (Insulin Aspart) 100 Unit/1 Ml Insuln.pen 15 Unit SQ BIDACLD Tylenol (Acetaminophen) 325 Mg Tablet 650 Mg PO PRN Q4-6HRS PRN Protonix (Pantoprazole Sodium) 20 Mg Tablet.dr 1 Tab PO DAILY Toprol Xl (Metoprolol Succinate) 50 Mg Tab.er.24h 1 Tab PO DAILY Lisinopril 10 Mg Tablet 1 Tab PO DAILY Lasix (Furosemide) 40 Mg Tablet 1 Tab PO DAILY Aspir 81 (Aspirin) 81 Mg Tablet.dr 1 Tab PO DAILY Vitamin D3 (Cholecalciferol (Vitamin D3)) 1,000 Unit Tablet 800 Unit PO DAILY Vitamin B-12 (Cyanocobalamin (Vitamin B-12)) 1,000 Mcg Tablet 1 Tab PO DAILY Spironolactone 50 Mg Tablet 1 Tab PO DAILY Nitrostat (Nitroglycerin) 0.4 Mg Tab.subl 1 Tab SL UD Senokot-S Tablet (Sennosides/Docusate Sodium) 1 Each Tablet 2 Tab PO HS Gabapentin 300 Mg Capsule 300 Mg PO HS Allergies Allergies: Coded Allergies: tetracycline (Verified Allergy, Intermediate, Rash, 09/04/16) ROS Review of System Not obtainable Physical Exam Physical Examination PHYSICAL EXAMINATION: Vital signs: see above. General appearance is normal and in no acute distress. HEENT: Normocephalic and nontraumatic. Eyes, nose, ears, and throat are unremarkable. Neck is supple. No lymphadenopathy. No bruits are heard over the carotid artery. No crepitus. NEUROLOGIC: He is intubated and sedated in the intensive care unit. Pupil are reactive to light. There is no facial asymmetry. Reflexes are 0+. Plantar responses are silent. I saw some spontaneous movement of the right foot. Vitals VITALS Vital Signs Date Time Temp Pulse Resp B/P (MAP) Pulse Ox O2 Delivery O2 Flow Rate FiO2 12/30/16 09:12 99 Ventilator 12/30/16 07:00 63 16 128/60 (82) 12/30/16 04:00 99.1 99.1 Labs Labs Laboratory Tests Test 12/29/16 17:30 12/29/16 17:44 12/29/16 18:10 12/29/16 22:08 White Blood Count 5.9 x10^3/uL (4.0-11.0) Red Blood Count 3.41 x10^6/uL (4.30-5.70) Hemoglobin 10.5 g/dL (13.0-17.5) Hematocrit 31.1 % (39.0-53.0) Mean Corpuscular Volume 91 fL (79-100) Mean Corpuscular Hemoglobin 31 pg (25-35) Mean Corpuscular Hemoglobin Concent 34 g/dL (31-37) Red Cell Distribution Width 13.0 % (11.5-14.5) Platelet Count 156 x10^3/uL (140-400) Neutrophils (%) (Auto) 74 % (31-73) Lymphocytes (%) (Auto) 11 % (24-48) Monocytes (%) (Auto) 11 % (0-9) Eosinophils (%) (Auto) 3 % (0-3) Basophils (%) (Auto) 1 % (0-3) Neutrophils # (Auto) 4.4 x10^3uL (1.8-7.7) Lymphocytes # (Auto) 0.6 x10^3/uL (1.0-4.8) Monocytes # (Auto) 0.7 x10^3/uL (0.0-1.1) Eosinophils # (Auto) 0.2 x10^3/uL (0.0-0.7) Basophils # (Auto) 0.0 x10^3/uL (0.0-0.2) Prothrombin Time 13.6 SEC (11.7-14.0) Prothromb Time International Ratio 1.1 (0.8-1.1) Activated Partial Thromboplast Time 34 SEC (24-38) Sodium Level 138 mmol/L (136-145) Potassium Level 4.3 mmol/L (3.5-5.1) Chloride Level 103 mmol/L (98-107) Carbon Dioxide Level 28 mmol/L (21-32) Anion Gap 7 (6-14) Blood Urea Nitrogen 43 mg/dL (8-26) Creatinine 2.2 mg/dL (0.7-1.3) Estimated GFR (Cockcroft-Gault) 29.2 BUN/Creatinine Ratio 20 (6-20) Glucose Level 142 mg/dL (70-99) Lactic Acid Level 1.4 mmol/L (0.4-2.0) Calcium Level 8.7 mg/dL (8.5-10.1) Magnesium Level 2.0 mg/dL (1.8-2.4) Total Bilirubin 0.3 mg/dL (0.2-1.0) Aspartate Amino Transf (AST/SGOT) 19 U/L (15-37) Alanine Aminotransferase (ALT/SGPT) 21 U/L (16-63) Alkaline Phosphatase 62 U/L (46-116) Ammonia 17 mcmol/L (11-34) Total Protein 6.1 g/dL (6.4-8.2) Albumin 3.6 g/dL (3.4-5.0) Albumin/Globulin Ratio 1.4 (1.0-1.7) Lipase 156 U/L (73-393) O2 Saturation 98 % (92-99) Arterial Blood pH 7.32 (7.35-7.45) Arterial Blood pCO2 at Patient Temp 41 mmHg (35-46) Arterial Blood pO2 at Patient Temp 156 mmHg (65-108) Arterial Blood HCO3 21 mmol/L (21-28) Arterial Blood Base Excess -5 mmol/L (-3-3) FiO2 40 Urine Collection Type Unknown Urine Color Yellow Urine Clarity Clear Urine pH 5.5 Urine Specific [place] 1.015 Urine Protein Negative mg/dL (NEG-TRACE) Urine Glucose (UA) Negative mg/dL (NEG) Urine Ketones (Stick) Negative mg/dL (NEG) Urine Blood Negative (NEG) Urine Nitrite Negative (NEG) Urine Bilirubin Negative (NEG) Urine Urobilinogen Dipstick 0.2 mg/dL (0.2 mg/dL) Urine Leukocyte Esterase Negative (NEG) Urine RBC 0 /HPF (0-2) Urine WBC 0 /HPF (0-4) Urine Squamous Epithelial Cells Few /LPF Urine Bacteria 0 /HPF (0-FEW) Urine Hyaline Casts Few /HPF Urine Mucus Mod /LPF Urine Opiates Screen Neg (NEG) Urine Methadone Screen Neg (NEG) Urine Barbiturates Neg (NEG) Urine Phencyclidine Screen Neg (NEG) Urine Amphetamine/Methamphetamine Neg (NEG) Urine Benzodiazepines Screen Neg (NEG) Urine Cocaine Screen Neg (NEG) Urine Cannabinoids Screen Neg (NEG) Urine Ethyl Alcohol Neg (NEG) Glucose (Fingerstick) 102 mg/dL (70-99) Test 12/30/16 00:42 12/30/16 05:00 12/30/16 07:41 12/30/16 08:00 Glucose (Fingerstick) 170 mg/dL (70-99) 236 mg/dL (70-99) White Blood Count 10.2 x10^3/uL (4.0-11.0) Red Blood Count 3.74 x10^6/uL (4.30-5.70) Hemoglobin 11.8 g/dL (13.0-17.5) Hematocrit 33.2 % (39.0-53.0) Mean Corpuscular Volume 89 fL (79-100) Mean Corpuscular Hemoglobin 32 pg (25-35) Mean Corpuscular Hemoglobin Concent 36 g/dL (31-37) Red Cell Distribution Width 13.2 % (11.5-14.5) Platelet Count 192 x10^3/uL (140-400) Neutrophils (%) (Auto) 91 % (31-73) Lymphocytes (%) (Auto) 5 % (24-48) Monocytes (%) (Auto) 4 % (0-9) Eosinophils (%) (Auto) 0 % (0-3) Basophils (%) (Auto) 0 % (0-3) Neutrophils # (Auto) 9.3 x10^3uL (1.8-7.7) Lymphocytes # (Auto) 0.5 x10^3/uL (1.0-4.8) Monocytes # (Auto) 0.4 x10^3/uL (0.0-1.1) Eosinophils # (Auto) 0.0 x10^3/uL (0.0-0.7) Basophils # (Auto) 0.0 x10^3/uL (0.0-0.2) Segmented Neutrophils % 85 % (35-66) Band Neutrophils % 8 % (0-9) Lymphocytes % 5 % (24-48) Monocytes % 2 % (0-10) Platelet Estimate Adequate (ADEQUATE) Sodium Level 139 mmol/L (136-145) Potassium Level 4.4 mmol/L (3.5-5.1) Chloride Level 105 mmol/L (98-107) Carbon Dioxide Level 20 mmol/L (21-32) Anion Gap 14 (6-14) Blood Urea Nitrogen 38 mg/dL (8-26) Creatinine 1.9 mg/dL (0.7-1.3) Estimated GFR (Cockcroft-Gault) 34.5 Glucose Level 231 mg/dL (70-99) Calcium Level 8.4 mg/dL (8.5-10.1) O2 Saturation 97 % (92-99) Arterial Blood pH 7.36 (7.35-7.45) Arterial Blood pCO2 at Patient Temp 34 mmHg (35-46) Arterial Blood pO2 at Patient Temp 102 mmHg (65-108) Arterial Blood HCO3 19 mmol/L (21-28) Arterial Blood Base Excess -6 mmol/L (-3-3) FiO2 40 Laboratory Tests Test 12/29/16 17:30 12/29/16 17:44 12/29/16 18:10 12/29/16 22:08 White Blood Count 5.9 x10^3/uL (4.0-11.0) Red Blood Count 3.41 x10^6/uL (4.30-5.70) Hemoglobin 10.5 g/dL (13.0-17.5) Hematocrit 31.1 % (39.0-53.0) Mean Corpuscular Volume 91 fL (79-100) Mean Corpuscular Hemoglobin 31 pg (25-35) Mean Corpuscular Hemoglobin Concent 34 g/dL (31-37) Red Cell Distribution Width 13.0 % (11.5-14.5) Platelet Count 156 x10^3/uL (140-400) Neutrophils (%) (Auto) 74 % (31-73) Lymphocytes (%) (Auto) 11 % (24-48) Monocytes (%) (Auto) 11 % (0-9) Eosinophils (%) (Auto) 3 % (0-3) Basophils (%) (Auto) 1 % (0-3) Neutrophils # (Auto) 4.4 x10^3uL (1.8-7.7) Lymphocytes # (Auto) 0.6 x10^3/uL (1.0-4.8) Monocytes # (Auto) 0.7 x10^3/uL (0.0-1.1) Eosinophils # (Auto) 0.2 x10^3/uL (0.0-0.7) Basophils # (Auto) 0.0 x10^3/uL (0.0-0.2) Prothrombin Time 13.6 SEC (11.7-14.0) Prothromb Time International Ratio 1.1 (0.8-1.1) Activated Partial Thromboplast Time 34 SEC (24-38) Sodium Level 138 mmol/L (136-145) Potassium Level 4.3 mmol/L (3.5-5.1) Chloride Level 103 mmol/L (98-107) Carbon Dioxide Level 28 mmol/L (21-32) Anion Gap 7 (6-14) Blood Urea Nitrogen 43 mg/dL (8-26) Creatinine 2.2 mg/dL (0.7-1.3) Estimated GFR (Cockcroft-Gault) 29.2 BUN/Creatinine Ratio 20 (6-20) Glucose Level 142 mg/dL (70-99) Lactic Acid Level 1.4 mmol/L (0.4-2.0) Calcium Level 8.7 mg/dL (8.5-10.1) Magnesium Level 2.0 mg/dL (1.8-2.4) Total Bilirubin 0.3 mg/dL (0.2-1.0) Aspartate Amino Transf (AST/SGOT) 19 U/L (15-37) Alanine Aminotransferase (ALT/SGPT) 21 U/L (16-63) Alkaline Phosphatase 62 U/L (46-116) Ammonia 17 mcmol/L (11-34) Total Protein 6.1 g/dL (6.4-8.2) Albumin 3.6 g/dL (3.4-5.0) Albumin/Globulin Ratio 1.4 (1.0-1.7) Lipase 156 U/L (73-393) O2 Saturation 98 % (92-99) Arterial Blood pH 7.32 (7.35-7.45) Arterial Blood pCO2 at Patient Temp 41 mmHg (35-46) Arterial Blood pO2 at Patient Temp 156 mmHg (65-108) Arterial Blood HCO3 21 mmol/L (21-28) Arterial Blood Base Excess -5 mmol/L (-3-3) FiO2 40 Urine Collection Type Unknown Urine Color Yellow Urine Clarity Clear Urine pH 5.5 Urine Specific [place] 1.015 Urine Protein Negative mg/dL (NEG-TRACE) Urine Glucose (UA) Negative mg/dL (NEG) Urine Ketones (Stick) Negative mg/dL (NEG) Urine Blood Negative (NEG) Urine Nitrite Negative (NEG) Urine Bilirubin Negative (NEG) Urine Urobilinogen Dipstick 0.2 mg/dL (0.2 mg/dL) Urine Leukocyte Esterase Negative (NEG) Urine RBC 0 /HPF (0-2) Urine WBC 0 /HPF (0-4) Urine Squamous Epithelial Cells Few /LPF Urine Bacteria 0 /HPF (0-FEW) Urine Hyaline Casts Few /HPF Urine Mucus Mod /LPF Urine Opiates Screen Neg (NEG) Urine Methadone Screen Neg (NEG) Urine Barbiturates Neg (NEG) Urine Phencyclidine Screen Neg (NEG) Urine Amphetamine/Methamphetamine Neg (NEG) Urine Benzodiazepines Screen Neg (NEG) Urine Cocaine Screen Neg (NEG) Urine Cannabinoids Screen Neg (NEG) Urine Ethyl Alcohol Neg (NEG) Glucose (Fingerstick) 102 mg/dL (70-99) Test 12/30/16 00:42 12/30/16 05:00 12/30/16 07:41 12/30/16 08:00 Glucose (Fingerstick) 170 mg/dL (70-99) 236 mg/dL (70-99) White Blood Count 10.2 x10^3/uL (4.0-11.0) Red Blood Count 3.74 x10^6/uL (4.30-5.70) Hemoglobin 11.8 g/dL (13.0-17.5) Hematocrit 33.2 % (39.0-53.0) Mean Corpuscular Volume 89 fL (79-100) Mean Corpuscular Hemoglobin 32 pg (25-35) Mean Corpuscular Hemoglobin Concent 36 g/dL (31-37) Red Cell Distribution Width 13.2 % (11.5-14.5) Platelet Count 192 x10^3/uL (140-400) Neutrophils (%) (Auto) 91 % (31-73) Lymphocytes (%) (Auto) 5 % (24-48) Monocytes (%) (Auto) 4 % (0-9) Eosinophils (%) (Auto) 0 % (0-3) Basophils (%) (Auto) 0 % (0-3) Neutrophils # (Auto) 9.3 x10^3uL (1.8-7.7) Lymphocytes # (Auto) 0.5 x10^3/uL (1.0-4.8) Monocytes # (Auto) 0.4 x10^3/uL (0.0-1.1) Eosinophils # (Auto) 0.0 x10^3/uL (0.0-0.7) Basophils # (Auto) 0.0 x10^3/uL (0.0-0.2) Segmented Neutrophils % 85 % (35-66) Band Neutrophils % 8 % (0-9) Lymphocytes % 5 % (24-48) Monocytes % 2 % (0-10) Platelet Estimate Adequate (ADEQUATE) Sodium Level 139 mmol/L (136-145) Potassium Level 4.4 mmol/L (3.5-5.1) Chloride Level 105 mmol/L (98-107) Carbon Dioxide Level 20 mmol/L (21-32) Anion Gap 14 (6-14) Blood Urea Nitrogen 38 mg/dL (8-26) Creatinine 1.9 mg/dL (0.7-1.3) Estimated GFR (Cockcroft-Gault) 34.5 Glucose Level 231 mg/dL (70-99) Calcium Level 8.4 mg/dL (8.5-10.1) O2 Saturation 97 % (92-99) Arterial Blood pH 7.36 (7.35-7.45) Arterial Blood pCO2 at Patient Temp 34 mmHg (35-46) Arterial Blood pO2 at Patient Temp 102 mmHg (65-108) Arterial Blood HCO3 19 mmol/L (21-28) Arterial Blood Base Excess -6 mmol/L (-3-3) FiO2 40 Images Images FINDINGS: No intracranial hemorrhage. No midline shift. Basal cisterns patents. Ventricles and sulci are globally prominent. No acute osseous abnormality. Scattered foci of low attenuation within the white matter. Calcific atherosclerosis. IMPRESSION: 1. No acute intracranial hemorrhage. 2. Scattered regions of low attenuation within the white matter. Non-specific in nature but frequently secondary to chronic small vessel ischemic disease. 3. Prominence of ventricles and sulci which is frequently secondary to age related volume loss. 4. Partial opacification left mastoid air cells. Could be from congestion within the region but mastoiditis not excluded. Assessment/Plan Assessment/Plan Impression: Metabolic encephalopathy due to hypoglycemia, possible sedatives, although urine drug screen is negative. Recommendations: Wean from respirator if possible Additional studies depending on his course, but no need for immediate MRI, repeat head scan, or lumbar puncture. EEG would be useless under the sedation. Thank you for letting me help with the patient's care. JOSE ALBERTO ROMERO MD Dec 30, 2016 10:00
--- NOTE | 2016-12-30 10:12 | PDOC2 ---
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 Sue SOURCE Source: Chart review HISTORY OF PRESENT ILLNESS HISTORY OF PRESENT ILLNESS This is a 76 yo male who presented from [facility] secondary to altered mental status. HPI obtain from chart review as patient is intubate. Patient reportedly found to be lethargic around 1700 yesterday evening. EMS called. BS noted to be 47. Given D50, which improved cognition. Upon arrival to ED, patient only arousable to painful stimuli. Given Narcan and D50 without improvement in mental status. RR suppressed and subsequently intubated. Concern for patient taking too many sleeping aides as he administers them to himself without supervision. PAST MEDICAL HISTORY Cardiovascular: HTN, Hyperlipidemia Pulmonary: Pneumonia CENTRAL NERVOUS SYSTEM: Dementia, Periperal neuropathy Musculoskeletal: low back pain, Osteoarthritis Endocrine: Diabetes PAST SURGICAL HISTORY Past Surgical History: Cholecystectomy FAMILY HISTORY Family History: Family History Unknown SOCIAL HISTORY Smoke: No ALCOHOL: none Lives: Long Term ([facility] ) CURRENT MEDICATIONS CURRENT MEDICATIONS Current Medications Medications (Trade) Dose Ordered Sig/Eran Route PRN Reason Start Time Stop Time Status Last Admin Dose Admin Sodium Chloride 1,000 ml @ 1,000 mls/hr Q1H IV 12/29/16 17:44 12/29/16 18:43 DC 12/29/16 17:30 Midazolam HCl (Versed) 5 mg 1X ONCE IV 12/29/16 18:00 12/29/16 18:01 DC 12/29/16 17:53 Midazolam HCl 100 ml @ 0 mls/hr 1X ONCE IV 12/29/16 18:00 12/29/16 18:01 DC 12/29/16 18:08 Sodium Chloride 1,000 ml @ 100 mls/hr Q10H IV 12/29/16 18:45 12/30/16 07:43 Naloxone HCl (Narcan) 2 mg 1X ONCE IV 12/29/16 18:45 12/29/16 18:46 DC 12/29/16 17:32 Etomidate (Amidate) 20 mg 1X ONCE IV 12/29/16 18:45 12/29/16 18:46 DC 12/29/16 17:39 Succinylcholine Chloride (Anectine) 100 mg 1X ONCE IV 12/29/16 18:45 12/29/16 18:46 DC 12/29/16 17:39 Dextrose (Dextrose 50%-Water Syringe) 25 gm 1X ONCE IV 12/29/16 18:45 12/29/16 18:46 DC 12/29/16 17:20 Insulin Aspart (NovoLOG) 0-9 UNITS TIDWMEALS SQ 12/30/16 08:00 12/30/16 08:57 Enoxaparin Sodium (Lovenox 30mg Syringe) 30 mg Q24H SQ 12/30/16 10:00 12/30/16 08:51 Pantoprazole Sodium (Protonix Vial) 40 mg DAILYAC IVP 12/30/16 07:30 12/30/16 07:43 Vancomycin HCl (Vanco Per Pharmacy) 1 each PRN DAILY PRN MC SEE COMMENTS 12/29/16 18:45 12/29/16 19:30 Vancomycin HCl 2 gm/Sodium Chloride 500 ml @ 250 mls/hr 1X ONCE IV 12/29/16 20:00 12/29/16 21:59 DC 12/29/16 20:47 Piperacillin Sod/ Tazobactam Sod 3.375 gm/Sodium Chloride 50 ml @ 100 mls/hr Q6HRS IV 12/29/16 19:00 12/30/16 05:46 Midazolam HCl 100 ml @ 0 mls/hr CONT PRN IV SEE I/O RECORD 12/29/16 19:45 12/30/16 00:48 Sodium Chloride 1,000 ml @ 3,030 mls/hr Q20M IV 12/29/16 20:30 12/29/16 21:30 DC 12/29/16 21:39 Norepinephrine Bitartrate 250 ml @ 0 mls/hr CONT PRN IV SEE I/O RECORD 12/29/16 21:45 12/29/16 22:00 Sodium Chloride 1,000 ml @ 999 mls/hr 1X ONCE IV 12/29/16 21:45 12/29/16 22:45 DC 12/29/16 22:20 Dopamine HCl/ Dextrose 250 ml @ 18.966 mls/ hr CONT PRN IV SEE I/O RECORD 12/29/16 22:15 12/30/16 07:43 Hydrocortisone Sodium Succinate (Solu-CORTEF) 100 mg Q8HRS IV 12/29/16 22:30 12/30/16 05:50 ALLERGIES ALLERGIES: Coded Allergies: tetracycline (Verified Allergy, Intermediate, Rash, 09/04/16) ROS Review of System unobtainable PHYSICAL EXAM General: Other (sedated ) HEENT: Atraumatic Lungs: Other (mechanical ventilation) Heart: Normal S1, Normal S2, Other (tele; SB. distant heart tones ) Abdomen: Soft Extremities: No edema, Normal pulses Skin: No significant lesion Neuro: Other (sedated ) VITALS VITALS Vital Signs Date Time Temp Pulse Resp B/P (MAP) Pulse Ox O2 Delivery O2 Flow Rate FiO2 12/30/16 09:12 99 Ventilator 12/30/16 07:00 63 16 128/60 (82) 12/30/16 04:00 99.1 99.1 LABS Lab: Laboratory Tests Test 12/29/16 17:30 12/29/16 17:44 12/29/16 18:10 12/29/16 22:08 White Blood Count 5.9 x10^3/uL (4.0-11.0) Red Blood Count 3.41 x10^6/uL (4.30-5.70) Hemoglobin 10.5 g/dL (13.0-17.5) Hematocrit 31.1 % (39.0-53.0) Mean Corpuscular Volume 91 fL (79-100) Mean Corpuscular Hemoglobin 31 pg (25-35) Mean Corpuscular Hemoglobin Concent 34 g/dL (31-37) Red Cell Distribution Width 13.0 % (11.5-14.5) Platelet Count 156 x10^3/uL (140-400) Neutrophils (%) (Auto) 74 % (31-73) Lymphocytes (%) (Auto) 11 % (24-48) Monocytes (%) (Auto) 11 % (0-9) Eosinophils (%) (Auto) 3 % (0-3) Basophils (%) (Auto) 1 % (0-3) Neutrophils # (Auto) 4.4 x10^3uL (1.8-7.7) Lymphocytes # (Auto) 0.6 x10^3/uL (1.0-4.8) Monocytes # (Auto) 0.7 x10^3/uL (0.0-1.1) Eosinophils # (Auto) 0.2 x10^3/uL (0.0-0.7) Basophils # (Auto) 0.0 x10^3/uL (0.0-0.2) Prothrombin Time 13.6 SEC (11.7-14.0) Prothromb Time International Ratio 1.1 (0.8-1.1) Activated Partial Thromboplast Time 34 SEC (24-38) Sodium Level 138 mmol/L (136-145) Potassium Level 4.3 mmol/L (3.5-5.1) Chloride Level 103 mmol/L (98-107) Carbon Dioxide Level 28 mmol/L (21-32) Anion Gap 7 (6-14) Blood Urea Nitrogen 43 mg/dL (8-26) Creatinine 2.2 mg/dL (0.7-1.3) Estimated GFR (Cockcroft-Gault) 29.2 BUN/Creatinine Ratio 20 (6-20) Glucose Level 142 mg/dL (70-99) Lactic Acid Level 1.4 mmol/L (0.4-2.0) Calcium Level 8.7 mg/dL (8.5-10.1) Magnesium Level 2.0 mg/dL (1.8-2.4) Total Bilirubin 0.3 mg/dL (0.2-1.0) Aspartate Amino Transf (AST/SGOT) 19 U/L (15-37) Alanine Aminotransferase (ALT/SGPT) 21 U/L (16-63) Alkaline Phosphatase 62 U/L (46-116) Ammonia 17 mcmol/L (11-34) Total Protein 6.1 g/dL (6.4-8.2) Albumin 3.6 g/dL (3.4-5.0) Albumin/Globulin Ratio 1.4 (1.0-1.7) Lipase 156 U/L (73-393) O2 Saturation 98 % (92-99) Arterial Blood pH 7.32 (7.35-7.45) Arterial Blood pCO2 at Patient Temp 41 mmHg (35-46) Arterial Blood pO2 at Patient Temp 156 mmHg (65-108) Arterial Blood HCO3 21 mmol/L (21-28) Arterial Blood Base Excess -5 mmol/L (-3-3) FiO2 40 Urine Collection Type Unknown Urine Color Yellow Urine Clarity Clear Urine pH 5.5 Urine Specific Mccoy 1.015 Urine Protein Negative mg/dL (NEG-TRACE) Urine Glucose (UA) Negative mg/dL (NEG) Urine Ketones (Stick) Negative mg/dL (NEG) Urine Blood Negative (NEG) Urine Nitrite Negative (NEG) Urine Bilirubin Negative (NEG) Urine Urobilinogen Dipstick 0.2 mg/dL (0.2 mg/dL) Urine Leukocyte Esterase Negative (NEG) Urine RBC 0 /HPF (0-2) Urine WBC 0 /HPF (0-4) Urine Squamous Epithelial Cells Few /LPF Urine Bacteria 0 /HPF (0-FEW) Urine Hyaline Casts Few /HPF Urine Mucus Mod /LPF Urine Opiates Screen Neg (NEG) Urine Methadone Screen Neg (NEG) Urine Barbiturates Neg (NEG) Urine Phencyclidine Screen Neg (NEG) Urine Amphetamine/Methamphetamine Neg (NEG) Urine Benzodiazepines Screen Neg (NEG) Urine Cocaine Screen Neg (NEG) Urine Cannabinoids Screen Neg (NEG) Urine Ethyl Alcohol Neg (NEG) Glucose (Fingerstick) 102 mg/dL (70-99) Test 12/30/16 00:42 12/30/16 05:00 12/30/16 07:41 12/30/16 08:00 Glucose (Fingerstick) 170 mg/dL (70-99) 236 mg/dL (70-99) White Blood Count 10.2 x10^3/uL (4.0-11.0) Red Blood Count 3.74 x10^6/uL (4.30-5.70) Hemoglobin 11.8 g/dL (13.0-17.5) Hematocrit 33.2 % (39.0-53.0) Mean Corpuscular Volume 89 fL (79-100) Mean Corpuscular Hemoglobin 32 pg (25-35) Mean Corpuscular Hemoglobin Concent 36 g/dL (31-37) Red Cell Distribution Width 13.2 % (11.5-14.5) Platelet Count 192 x10^3/uL (140-400) Neutrophils (%) (Auto) 91 % (31-73) Lymphocytes (%) (Auto) 5 % (24-48) Monocytes (%) (Auto) 4 % (0-9) Eosinophils (%) (Auto) 0 % (0-3) Basophils (%) (Auto) 0 % (0-3) Neutrophils # (Auto) 9.3 x10^3uL (1.8-7.7) Lymphocytes # (Auto) 0.5 x10^3/uL (1.0-4.8) Monocytes # (Auto) 0.4 x10^3/uL (0.0-1.1) Eosinophils # (Auto) 0.0 x10^3/uL (0.0-0.7) Basophils # (Auto) 0.0 x10^3/uL (0.0-0.2) Segmented Neutrophils % 85 % (35-66) Band Neutrophils % 8 % (0-9) Lymphocytes % 5 % (24-48) Monocytes % 2 % (0-10) Platelet Estimate Adequate (ADEQUATE) Sodium Level 139 mmol/L (136-145) Potassium Level 4.4 mmol/L (3.5-5.1) Chloride Level 105 mmol/L (98-107) Carbon Dioxide Level 20 mmol/L (21-32) Anion Gap 14 (6-14) Blood Urea Nitrogen 38 mg/dL (8-26) Creatinine 1.9 mg/dL (0.7-1.3) Estimated GFR (Cockcroft-Gault) 34.5 Glucose Level 231 mg/dL (70-99) Calcium Level 8.4 mg/dL (8.5-10.1) O2 Saturation 97 % (92-99) Arterial Blood pH 7.36 (7.35-7.45) Arterial Blood pCO2 at Patient Temp 34 mmHg (35-46) Arterial Blood pO2 at Patient Temp 102 mmHg (65-108) Arterial Blood HCO3 19 mmol/L (21-28) Arterial Blood Base Excess -6 mmol/L (-3-3) FiO2 40 ECHOCARDIOGRAM ECHOCARDIOGRAM <Conclusion> The left ventricular systolic function is normal and the ejection fraction is within normal range. The Ejection Fraction is 55-60%. There is grossly normal LV segmental wall motion. DATE: 09/05/16 1254 ASSESSMENT/PLAN ASSESSMENT/PLAN 1. Sinus bradycardia with period of 2:1 block; medication/hypothermia induced? 2. Metabolic encephalopathy 3. Acute respiratory failure s/p intubation 4. Abd CXR; ?PNA 5. Hypothermia; resolved 6. Hypotension 7. Hyperlipidemia 8. ANTWON with CKD 9. DM with hypoglycemia 10. Baseline dementia ? Recommendations Initial EKG shows SB; review of tele shows period of 2:1 block. Monitor tele Hold BB. Avoid AV jorge blocking agents Titrate off Dopamine as able. Recent echo with normal LVEF Ventilator management per pulmonary Supportive care Problems: BALA MITCHELL MD 12/30/161907: CARDIAC CONSULT ALLERGIES ALLERGIES: Coded Allergies: tetracycline (Verified Allergy, Intermediate, Rash, 09/04/16) ASSESSMENT/PLAN ASSESSMENT/PLAN Patient seen and examined. Agree with above nurse practitioner note. 76-year-old male presenting with mental status changes. Etiology likely related to underlying sepsis. Telemetry reviewed and notable for bradycardia in the setting of hypothermia again likely related to sepsis. On examination he has normal heart tones. Echocardiogram without any significant pathology. Supportive care from a cardiac standpoint. Off dopamine at this time. Maintaining heart rate. We will follow along peripherally. Problems: GENO COPELAND APRN Dec 30, 2016 10:12 BALA MITCHELL MD Dec 30, 2016 19:08
--- NOTE | 2016-12-30 10:32 | PDOC ---
PROGRESS NOTES Chief Complaint Chief Complaint 1. AMS, metabolic encephalopathy in the background of hypoglycemia 2. acute resp failure with bradypnea and possible PNA, intubated on admission () 3 L > R pleuarl effusion vs atelectasis vs PNA 4. HYPOTENSIVE shock on dopa 5. from SNF, baseline mild dementia 6. obesity 7. ANTWON on CKD4 8. NORmocytic anemia 9. Multiple compression fxs, chronic 10. 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 Vitals Vitals Vital Signs Date Time Temp Pulse Resp B/P (MAP) Pulse Ox O2 Delivery O2 Flow Rate FiO2 12/30/16 10:00 56 16 129/51 (77) 99 Ventilator 12/30/16 08:00 99.1 99.1 Physical Exam General: No acute distress Heart: Regular rate, Normal S1, Normal S2, No murmurs Lungs: Other (dec BS L, coarse) Abdomen: Normal bowel sounds, Soft Extremities: No clubbing, No cyanosis Skin: No rashes, No breakdown Labs LABS Laboratory Tests Test 12/29/16 17:30 12/29/16 17:44 12/29/16 18:10 12/29/16 22:08 White Blood Count 5.9 x10^3/uL (4.0-11.0) Red Blood Count 3.41 x10^6/uL (4.30-5.70) Hemoglobin 10.5 g/dL (13.0-17.5) Hematocrit 31.1 % (39.0-53.0) Mean Corpuscular Volume 91 fL (79-100) Mean Corpuscular Hemoglobin 31 pg (25-35) Mean Corpuscular Hemoglobin Concent 34 g/dL (31-37) Red Cell Distribution Width 13.0 % (11.5-14.5) Platelet Count 156 x10^3/uL (140-400) Neutrophils (%) (Auto) 74 % (31-73) Lymphocytes (%) (Auto) 11 % (24-48) Monocytes (%) (Auto) 11 % (0-9) Eosinophils (%) (Auto) 3 % (0-3) Basophils (%) (Auto) 1 % (0-3) Neutrophils # (Auto) 4.4 x10^3uL (1.8-7.7) Lymphocytes # (Auto) 0.6 x10^3/uL (1.0-4.8) Monocytes # (Auto) 0.7 x10^3/uL (0.0-1.1) Eosinophils # (Auto) 0.2 x10^3/uL (0.0-0.7) Basophils # (Auto) 0.0 x10^3/uL (0.0-0.2) Prothrombin Time 13.6 SEC (11.7-14.0) Prothromb Time International Ratio 1.1 (0.8-1.1) Activated Partial Thromboplast Time 34 SEC (24-38) Sodium Level 138 mmol/L (136-145) Potassium Level 4.3 mmol/L (3.5-5.1) Chloride Level 103 mmol/L (98-107) Carbon Dioxide Level 28 mmol/L (21-32) Anion Gap 7 (6-14) Blood Urea Nitrogen 43 mg/dL (8-26) Creatinine 2.2 mg/dL (0.7-1.3) Estimated GFR (Cockcroft-Gault) 29.2 BUN/Creatinine Ratio 20 (6-20) Glucose Level 142 mg/dL (70-99) Lactic Acid Level 1.4 mmol/L (0.4-2.0) Calcium Level 8.7 mg/dL (8.5-10.1) Magnesium Level 2.0 mg/dL (1.8-2.4) Total Bilirubin 0.3 mg/dL (0.2-1.0) Aspartate Amino Transf (AST/SGOT) 19 U/L (15-37) Alanine Aminotransferase (ALT/SGPT) 21 U/L (16-63) Alkaline Phosphatase 62 U/L (46-116) Ammonia 17 mcmol/L (11-34) Total Protein 6.1 g/dL (6.4-8.2) Albumin 3.6 g/dL (3.4-5.0) Albumin/Globulin Ratio 1.4 (1.0-1.7) Lipase 156 U/L (73-393) O2 Saturation 98 % (92-99) Arterial Blood pH 7.32 (7.35-7.45) Arterial Blood pCO2 at Patient Temp 41 mmHg (35-46) Arterial Blood pO2 at Patient Temp 156 mmHg (65-108) Arterial Blood HCO3 21 mmol/L (21-28) Arterial Blood Base Excess -5 mmol/L (-3-3) FiO2 40 Urine Collection Type Unknown Urine Color Yellow Urine Clarity Clear Urine pH 5.5 Urine Specific [place] 1.015 Urine Protein Negative mg/dL (NEG-TRACE) Urine Glucose (UA) Negative mg/dL (NEG) Urine Ketones (Stick) Negative mg/dL (NEG) Urine Blood Negative (NEG) Urine Nitrite Negative (NEG) Urine Bilirubin Negative (NEG) Urine Urobilinogen Dipstick 0.2 mg/dL (0.2 mg/dL) Urine Leukocyte Esterase Negative (NEG) Urine RBC 0 /HPF (0-2) Urine WBC 0 /HPF (0-4) Urine Squamous Epithelial Cells Few /LPF Urine Bacteria 0 /HPF (0-FEW) Urine Hyaline Casts Few /HPF Urine Mucus Mod /LPF Urine Opiates Screen Neg (NEG) Urine Methadone Screen Neg (NEG) Urine Barbiturates Neg (NEG) Urine Phencyclidine Screen Neg (NEG) Urine Amphetamine/Methamphetamine Neg (NEG) Urine Benzodiazepines Screen Neg (NEG) Urine Cocaine Screen Neg (NEG) Urine Cannabinoids Screen Neg (NEG) Urine Ethyl Alcohol Neg (NEG) Glucose (Fingerstick) 102 mg/dL (70-99) Test 12/30/16 00:42 12/30/16 05:00 12/30/16 07:41 12/30/16 08:00 Glucose (Fingerstick) 170 mg/dL (70-99) 236 mg/dL (70-99) White Blood Count 10.2 x10^3/uL (4.0-11.0) Red Blood Count 3.74 x10^6/uL (4.30-5.70) Hemoglobin 11.8 g/dL (13.0-17.5) Hematocrit 33.2 % (39.0-53.0) Mean Corpuscular Volume 89 fL (79-100) Mean Corpuscular Hemoglobin 32 pg (25-35) Mean Corpuscular Hemoglobin Concent 36 g/dL (31-37) Red Cell Distribution Width 13.2 % (11.5-14.5) Platelet Count 192 x10^3/uL (140-400) Neutrophils (%) (Auto) 91 % (31-73) Lymphocytes (%) (Auto) 5 % (24-48) Monocytes (%) (Auto) 4 % (0-9) Eosinophils (%) (Auto) 0 % (0-3) Basophils (%) (Auto) 0 % (0-3) Neutrophils # (Auto) 9.3 x10^3uL (1.8-7.7) Lymphocytes # (Auto) 0.5 x10^3/uL (1.0-4.8) Monocytes # (Auto) 0.4 x10^3/uL (0.0-1.1) Eosinophils # (Auto) 0.0 x10^3/uL (0.0-0.7) Basophils # (Auto) 0.0 x10^3/uL (0.0-0.2) Segmented Neutrophils % 85 % (35-66) Band Neutrophils % 8 % (0-9) Lymphocytes % 5 % (24-48) Monocytes % 2 % (0-10) Platelet Estimate Adequate (ADEQUATE) Sodium Level 139 mmol/L (136-145) Potassium Level 4.4 mmol/L (3.5-5.1) Chloride Level 105 mmol/L (98-107) Carbon Dioxide Level 20 mmol/L (21-32) Anion Gap 14 (6-14) Blood Urea Nitrogen 38 mg/dL (8-26) Creatinine 1.9 mg/dL (0.7-1.3) Estimated GFR (Cockcroft-Gault) 34.5 Glucose Level 231 mg/dL (70-99) Calcium Level 8.4 mg/dL (8.5-10.1) O2 Saturation 97 % (92-99) Arterial Blood pH 7.36 (7.35-7.45) Arterial Blood pCO2 at Patient Temp 34 mmHg (35-46) Arterial Blood pO2 at Patient Temp 102 mmHg (65-108) Arterial Blood HCO3 19 mmol/L (21-28) Arterial Blood Base Excess -6 mmol/L (-3-3) FiO2 40 Review of Systems Review of Systems intubated,sedated Assessment and Plan Assessmemt and Plan Problems Medical Problems: (1) Acute encephalopathy Status: Acute (2) Acute respiratory failure Status: Acute (3) Chronic kidney disease, stage IV (severe) Status: Acute (4) Hypoglycemia Status: Acute (5) Type 2 diabetes mellitus Status: Acute Problems: Comment Review of Relevant I have reviewed the following items ivette (where applicable) has been applied. Labs Laboratory Tests Test 12/29/16 17:30 12/29/16 17:44 12/29/16 18:10 12/29/16 22:08 White Blood Count 5.9 x10^3/uL (4.0-11.0) Red Blood Count 3.41 x10^6/uL (4.30-5.70) Hemoglobin 10.5 g/dL (13.0-17.5) Hematocrit 31.1 % (39.0-53.0) Mean Corpuscular Volume 91 fL (79-100) Mean Corpuscular Hemoglobin 31 pg (25-35) Mean Corpuscular Hemoglobin Concent 34 g/dL (31-37) Red Cell Distribution Width 13.0 % (11.5-14.5) Platelet Count 156 x10^3/uL (140-400) Neutrophils (%) (Auto) 74 % (31-73) Lymphocytes (%) (Auto) 11 % (24-48) Monocytes (%) (Auto) 11 % (0-9) Eosinophils (%) (Auto) 3 % (0-3) Basophils (%) (Auto) 1 % (0-3) Neutrophils # (Auto) 4.4 x10^3uL (1.8-7.7) Lymphocytes # (Auto) 0.6 x10^3/uL (1.0-4.8) Monocytes # (Auto) 0.7 x10^3/uL (0.0-1.1) Eosinophils # (Auto) 0.2 x10^3/uL (0.0-0.7) Basophils # (Auto) 0.0 x10^3/uL (0.0-0.2) Prothrombin Time 13.6 SEC (11.7-14.0) Prothromb Time International Ratio 1.1 (0.8-1.1) Activated Partial Thromboplast Time 34 SEC (24-38) Sodium Level 138 mmol/L (136-145) Potassium Level 4.3 mmol/L (3.5-5.1) Chloride Level 103 mmol/L (98-107) Carbon Dioxide Level 28 mmol/L (21-32) Anion Gap 7 (6-14) Blood Urea Nitrogen 43 mg/dL (8-26) Creatinine 2.2 mg/dL (0.7-1.3) Estimated GFR (Cockcroft-Gault) 29.2 BUN/Creatinine Ratio 20 (6-20) Glucose Level 142 mg/dL (70-99) Lactic Acid Level 1.4 mmol/L (0.4-2.0) Calcium Level 8.7 mg/dL (8.5-10.1) Magnesium Level 2.0 mg/dL (1.8-2.4) Total Bilirubin 0.3 mg/dL (0.2-1.0) Aspartate Amino Transf (AST/SGOT) 19 U/L (15-37) Alanine Aminotransferase (ALT/SGPT) 21 U/L (16-63) Alkaline Phosphatase 62 U/L (46-116) Ammonia 17 mcmol/L (11-34) Total Protein 6.1 g/dL (6.4-8.2) Albumin 3.6 g/dL (3.4-5.0) Albumin/Globulin Ratio 1.4 (1.0-1.7) Lipase 156 U/L (73-393) O2 Saturation 98 % (92-99) Arterial Blood pH 7.32 (7.35-7.45) Arterial Blood pCO2 at Patient Temp 41 mmHg (35-46) Arterial Blood pO2 at Patient Temp 156 mmHg (65-108) Arterial Blood HCO3 21 mmol/L (21-28) Arterial Blood Base Excess -5 mmol/L (-3-3) FiO2 40 Urine Collection Type Unknown Urine Color Yellow Urine Clarity Clear Urine pH 5.5 Urine Specific [place] 1.015 Urine Protein Negative mg/dL (NEG-TRACE) Urine Glucose (UA) Negative mg/dL (NEG) Urine Ketones (Stick) Negative mg/dL (NEG) Urine Blood Negative (NEG) Urine Nitrite Negative (NEG) Urine Bilirubin Negative (NEG) Urine Urobilinogen Dipstick 0.2 mg/dL (0.2 mg/dL) Urine Leukocyte Esterase Negative (NEG) Urine RBC 0 /HPF (0-2) Urine WBC 0 /HPF (0-4) Urine Squamous Epithelial Cells Few /LPF Urine Bacteria 0 /HPF (0-FEW) Urine Hyaline Casts Few /HPF Urine Mucus Mod /LPF Urine Opiates Screen Neg (NEG) Urine Methadone Screen Neg (NEG) Urine Barbiturates Neg (NEG) Urine Phencyclidine Screen Neg (NEG) Urine Amphetamine/Methamphetamine Neg (NEG) Urine Benzodiazepines Screen Neg (NEG) Urine Cocaine Screen Neg (NEG) Urine Cannabinoids Screen Neg (NEG) Urine Ethyl Alcohol Neg (NEG) Glucose (Fingerstick) 102 mg/dL (70-99) Test 12/30/16 00:42 12/30/16 05:00 12/30/16 07:41 12/30/16 08:00 Glucose (Fingerstick) 170 mg/dL (70-99) 236 mg/dL (70-99) White Blood Count 10.2 x10^3/uL (4.0-11.0) Red Blood Count 3.74 x10^6/uL (4.30-5.70) Hemoglobin 11.8 g/dL (13.0-17.5) Hematocrit 33.2 % (39.0-53.0) Mean Corpuscular Volume 89 fL (79-100) Mean Corpuscular Hemoglobin 32 pg (25-35) Mean Corpuscular Hemoglobin Concent 36 g/dL (31-37) Red Cell Distribution Width 13.2 % (11.5-14.5) Platelet Count 192 x10^3/uL (140-400) Neutrophils (%) (Auto) 91 % (31-73) Lymphocytes (%) (Auto) 5 % (24-48) Monocytes (%) (Auto) 4 % (0-9) Eosinophils (%) (Auto) 0 % (0-3) Basophils (%) (Auto) 0 % (0-3) Neutrophils # (Auto) 9.3 x10^3uL (1.8-7.7) Lymphocytes # (Auto) 0.5 x10^3/uL (1.0-4.8) Monocytes # (Auto) 0.4 x10^3/uL (0.0-1.1) Eosinophils # (Auto) 0.0 x10^3/uL (0.0-0.7) Basophils # (Auto) 0.0 x10^3/uL (0.0-0.2) Segmented Neutrophils % 85 % (35-66) Band Neutrophils % 8 % (0-9) Lymphocytes % 5 % (24-48) Monocytes % 2 % (0-10) Platelet Estimate Adequate (ADEQUATE) Sodium Level 139 mmol/L (136-145) Potassium Level 4.4 mmol/L (3.5-5.1) Chloride Level 105 mmol/L (98-107) Carbon Dioxide Level 20 mmol/L (21-32) Anion Gap 14 (6-14) Blood Urea Nitrogen 38 mg/dL (8-26) Creatinine 1.9 mg/dL (0.7-1.3) Estimated GFR (Cockcroft-Gault) 34.5 Glucose Level 231 mg/dL (70-99) Calcium Level 8.4 mg/dL (8.5-10.1) O2 Saturation 97 % (92-99) Arterial Blood pH 7.36 (7.35-7.45) Arterial Blood pCO2 at Patient Temp 34 mmHg (35-46) Arterial Blood pO2 at Patient Temp 102 mmHg (65-108) Arterial Blood HCO3 19 mmol/L (21-28) Arterial Blood Base Excess -6 mmol/L (-3-3) FiO2 40 Laboratory Tests Test 12/29/16 17:30 12/29/16 17:44 12/29/16 18:10 12/29/16 22:08 White Blood Count 5.9 x10^3/uL (4.0-11.0) Red Blood Count 3.41 x10^6/uL (4.30-5.70) Hemoglobin 10.5 g/dL (13.0-17.5) Hematocrit 31.1 % (39.0-53.0) Mean Corpuscular Volume 91 fL (79-100) Mean Corpuscular Hemoglobin 31 pg (25-35) Mean Corpuscular Hemoglobin Concent 34 g/dL (31-37) Red Cell Distribution Width 13.0 % (11.5-14.5) Platelet Count 156 x10^3/uL (140-400) Neutrophils (%) (Auto) 74 % (31-73) Lymphocytes (%) (Auto) 11 % (24-48) Monocytes (%) (Auto) 11 % (0-9) Eosinophils (%) (Auto) 3 % (0-3) Basophils (%) (Auto) 1 % (0-3) Neutrophils # (Auto) 4.4 x10^3uL (1.8-7.7) Lymphocytes # (Auto) 0.6 x10^3/uL (1.0-4.8) Monocytes # (Auto) 0.7 x10^3/uL (0.0-1.1) Eosinophils # (Auto) 0.2 x10^3/uL (0.0-0.7) Basophils # (Auto) 0.0 x10^3/uL (0.0-0.2) Prothrombin Time 13.6 SEC (11.7-14.0) Prothromb Time International Ratio 1.1 (0.8-1.1) Activated Partial Thromboplast Time 34 SEC (24-38) Sodium Level 138 mmol/L (136-145) Potassium Level 4.3 mmol/L (3.5-5.1) Chloride Level 103 mmol/L (98-107) Carbon Dioxide Level 28 mmol/L (21-32) Anion Gap 7 (6-14) Blood Urea Nitrogen 43 mg/dL (8-26) Creatinine 2.2 mg/dL (0.7-1.3) Estimated GFR (Cockcroft-Gault) 29.2 BUN/Creatinine Ratio 20 (6-20) Glucose Level 142 mg/dL (70-99) Lactic Acid Level 1.4 mmol/L (0.4-2.0) Calcium Level 8.7 mg/dL (8.5-10.1) Magnesium Level 2.0 mg/dL (1.8-2.4) Total Bilirubin 0.3 mg/dL (0.2-1.0) Aspartate Amino Transf (AST/SGOT) 19 U/L (15-37) Alanine Aminotransferase (ALT/SGPT) 21 U/L (16-63) Alkaline Phosphatase 62 U/L (46-116) Ammonia 17 mcmol/L (11-34) Total Protein 6.1 g/dL (6.4-8.2) Albumin 3.6 g/dL (3.4-5.0) Albumin/Globulin Ratio 1.4 (1.0-1.7) Lipase 156 U/L (73-393) O2 Saturation 98 % (92-99) Arterial Blood pH 7.32 (7.35-7.45) Arterial Blood pCO2 at Patient Temp 41 mmHg (35-46) Arterial Blood pO2 at Patient Temp 156 mmHg (65-108) Arterial Blood HCO3 21 mmol/L (21-28) Arterial Blood Base Excess -5 mmol/L (-3-3) FiO2 40 Urine Collection Type Unknown Urine Color Yellow Urine Clarity Clear Urine pH 5.5 Urine Specific [place] 1.015 Urine Protein Negative mg/dL (NEG-TRACE) Urine Glucose (UA) Negative mg/dL (NEG) Urine Ketones (Stick) Negative mg/dL (NEG) Urine Blood Negative (NEG) Urine Nitrite Negative (NEG) Urine Bilirubin Negative (NEG) Urine Urobilinogen Dipstick 0.2 mg/dL (0.2 mg/dL) Urine Leukocyte Esterase Negative (NEG) Urine RBC 0 /HPF (0-2) Urine WBC 0 /HPF (0-4) Urine Squamous Epithelial Cells Few /LPF Urine Bacteria 0 /HPF (0-FEW) Urine Hyaline Casts Few /HPF Urine Mucus Mod /LPF Urine Opiates Screen Neg (NEG) Urine Methadone Screen Neg (NEG) Urine Barbiturates Neg (NEG) Urine Phencyclidine Screen Neg (NEG) Urine Amphetamine/Methamphetamine Neg (NEG) Urine Benzodiazepines Screen Neg (NEG) Urine Cocaine Screen Neg (NEG) Urine Cannabinoids Screen Neg (NEG) Urine Ethyl Alcohol Neg (NEG) Glucose (Fingerstick) 102 mg/dL (70-99) Test 12/30/16 00:42 12/30/16 05:00 12/30/16 07:41 12/30/16 08:00 Glucose (Fingerstick) 170 mg/dL (70-99) 236 mg/dL (70-99) White Blood Count 10.2 x10^3/uL (4.0-11.0) Red Blood Count 3.74 x10^6/uL (4.30-5.70) Hemoglobin 11.8 g/dL (13.0-17.5) Hematocrit 33.2 % (39.0-53.0) Mean Corpuscular Volume 89 fL (79-100) Mean Corpuscular Hemoglobin 32 pg (25-35) Mean Corpuscular Hemoglobin Concent 36 g/dL (31-37) Red Cell Distribution Width 13.2 % (11.5-14.5) Platelet Count 192 x10^3/uL (140-400) Neutrophils (%) (Auto) 91 % (31-73) Lymphocytes (%) (Auto) 5 % (24-48) Monocytes (%) (Auto) 4 % (0-9) Eosinophils (%) (Auto) 0 % (0-3) Basophils (%) (Auto) 0 % (0-3) Neutrophils # (Auto) 9.3 x10^3uL (1.8-7.7) Lymphocytes # (Auto) 0.5 x10^3/uL (1.0-4.8) Monocytes # (Auto) 0.4 x10^3/uL (0.0-1.1) Eosinophils # (Auto) 0.0 x10^3/uL (0.0-0.7) Basophils # (Auto) 0.0 x10^3/uL (0.0-0.2) Segmented Neutrophils % 85 % (35-66) Band Neutrophils % 8 % (0-9) Lymphocytes % 5 % (24-48) Monocytes % 2 % (0-10) Platelet Estimate Adequate (ADEQUATE) Sodium Level 139 mmol/L (136-145) Potassium Level 4.4 mmol/L (3.5-5.1) Chloride Level 105 mmol/L (98-107) Carbon Dioxide Level 20 mmol/L (21-32) Anion Gap 14 (6-14) Blood Urea Nitrogen 38 mg/dL (8-26) Creatinine 1.9 mg/dL (0.7-1.3) Estimated GFR (Cockcroft-Gault) 34.5 Glucose Level 231 mg/dL (70-99) Calcium Level 8.4 mg/dL (8.5-10.1) O2 Saturation 97 % (92-99) Arterial Blood pH 7.36 (7.35-7.45) Arterial Blood pCO2 at Patient Temp 34 mmHg (35-46) Arterial Blood pO2 at Patient Temp 102 mmHg (65-108) Arterial Blood HCO3 19 mmol/L (21-28) Arterial Blood Base Excess -6 mmol/L (-3-3) FiO2 40 Medications Current Medications Naloxone HCl (Narcan) 2 mg STK-MED ONCE .ROUTE ; Start 12/29/16 at 17:27; Stop at 17:28; Status DC Atropine Sulfate 1 mg STK-MED ONCE .ROUTE ; Start 12/29/16 at 17:27; Stop at 17:28; Status DC Sodium Chloride 1,000 ml @ 1,000 mls/hr Q1H IV Last administered on 12/29/16 17:30; Start 12/29/16 at 17:44; Stop 12/29/16 at 18:43; Status DC Midazolam HCl (Versed) 5 mg 1X ONCE IV Last administered on 12/29/16 17:53; Start 12/29/16 at 18:00; Stop 12/29/16 at 18:01; Status DC Midazolam HCl 100 ml @ 0 mls/hr 1X ONCE IV Last administered on 12/29/16 18:08 ; Start 12/29/16 at 18:00; Stop 12/29/16 at 18:01; Status DC Etomidate (Amidate) 20 mg STK-MED ONCE IV ; Start 12/29/16 at 18:05; Stop at 18:06; Status DC Succinylcholine Chloride (Anectine) 200 mg STK-MED ONCE .ROUTE ; Start 12/29/16 at 18:05; Stop 12/29/16 at 18:06; Status DC Aspirin (Ecotrin) 81 mg DAILYWBKFT PO ; Start 12/30/16 at 08:00 Vitamin D (Vitamin D3) 1,000 unit DAILY PO ; Start 12/30/16 at 09:00 Cyanocobalamin (Vitamin B-12) 1,000 mcg DAILY PO ; Start 12/30/16 at 09:00 Sodium Chloride 1,000 ml @ 100 mls/hr Q10H IV Last administered on 12/30/16 07 :43; Start 12/29/16 at 18:45 Acetaminophen (Tylenol) 650 mg PRN Q6HRS PRN PO FEVER; Start 12/29/16 at 18:45 Ondansetron HCl (Zofran) 4 mg PRN Q6HRS PRN IV NAUSEA/VOMITING; Start 12/29/16 at 18:45 Morphine Sulfate 2 mg PRN Q2HR PRN IV PAIN; Start 12/29/16 at 18:45 Tramadol HCl (Ultram) 50 mg PRN Q6HRS PRN PO PAIN; Start 12/29/16 at 18:45 Hydralazine HCl (Apresoline) 10 mg PRN Q4HRS PRN IVP ELEVATED BP, SEE COMMENTS ; Start 12/29/16 at 18:45 Docusate Sodium (Colace) 100 mg PRN DAILY PRN PO CONSTIPATION; Start 12/29/16 at 18:45 Naloxone HCl (Narcan) 2 mg 1X ONCE IV Last administered on 12/29/16 17:32; Start 12/29/16 at 18:45; Stop 12/29/16 at 18:46; Status DC Etomidate (Amidate) 20 mg 1X ONCE IV Last administered on 12/29/16 17:39; Start 12/29/16 at 18:45; Stop 12/29/16 at 18:46; Status DC Succinylcholine Chloride (Anectine) 100 mg 1X ONCE IV Last administered on 12/29 17:39; Start 12/29/16 at 18:45; Stop 12/29/16 at 18:46; Status DC Dextrose (Dextrose 50%-Water Syringe) 25 gm 1X ONCE IV Last administered on 17:20; Start 12/29/16 at 18:45; Stop 12/29/16 at 18:46; Status DC Insulin Aspart (NovoLOG) 0-9 UNITS TIDWMEALS SQ Last administered on 12/30/16 08:57; Start 12/30/16 at 08:00 Dextrose (Dextrose 50%-Water Syringe) 12.5 gm PRN Q15MIN PRN IV SEE COMMENTS; Start 12/29/16 at 18:45; Stop 12/29/16 at 19:45; Status DC Enoxaparin Sodium (Lovenox 30mg Syringe) 30 mg Q24H SQ Last administered on 12/30 08:51; Start 12/30/16 at 10:00 Pantoprazole Sodium (Protonix Vial) 40 mg DAILYAC IVP Last administered on 07:43; Start 12/30/16 at 07:30 Vancomycin HCl (Vanco Per Pharmacy) 1 each PRN DAILY PRN MC SEE COMMENTS Last administered on 12/29/16 19:30; Start 12/29/16 at 18:45 Vancomycin HCl 2 gm/Sodium Chloride 500 ml @ 250 mls/hr 1X ONCE IV Last administered on 12/29/16 20:47; Start 12/29/16 at 20:00; Stop 12/29/16 at 21:59; Status DC Piperacillin Sod/ Tazobactam Sod 3.375 gm/Sodium Chloride 50 ml @ 100 mls/hr Q6HRS IV Last administered on 12/30/16 05:46; Start 12/29/16 at 19:00 Piperacillin Sod/ Tazobactam Sod (Zosyn Per Pharmacy) 1 each PRN DAILY PRN MC SEE COMMENTS; Start 12/29/16 at 18:45 Vancomycin HCl 1.5 gm/Sodium Chloride 500 ml @ 250 mls/hr Q24H IV ; Start at 20:00 Vancomycin HCl 1 each 1X ONCE MC ; Start 12/31/16 at 19:30; Stop 12/31/16 at 19: 31 Ondansetron HCl (Zofran) 4 mg PRN Q8HRS PRN IV NAUSEA/VOMITING; Start 12/29/16 at 19:45; Stop 12/30/16 at 19:44 Sodium Chloride 1,000 ml @ 100 mls/hr Q10H IV ; Start 12/29/16 at 19:35; Stop at 07:37; Status DC Acetaminophen (Tylenol) 650 mg PRN Q4HRS PRN PO FEVER; Start 12/29/16 at 19:45; Stop 12/30/16 at 19:44 Dextrose (Dextrose 50%-Water Syringe) 12.5 gm PRN Q15MIN PRN IV SEE COMMENTS; Start 12/29/16 at 19:45 Midazolam HCl 100 ml @ 0 mls/hr CONT PRN IV SEE I/O RECORD Last administered on 12/30/16 10:12; Start 12/29/16 at 19:45 Sodium Chloride 1,000 ml @ 3,030 mls/hr Q20M IV Last administered on 12/29/16 21:39; Start 12/29/16 at 20:30; Stop 12/29/16 at 21:30; Status DC Norepinephrine Bitartrate 250 ml @ 0 mls/hr CONT PRN IV SEE I/O RECORD Last administered on 12/29/16 22:00; Start 12/29/16 at 21:45 Sodium Chloride 1,000 ml @ 999 mls/hr 1X ONCE IV Last administered on 22:20; Start 12/29/16 at 21:45; Stop 12/29/16 at 22:45; Status DC Dopamine HCl/ Dextrose 250 ml @ As Directed STK-MED ONCE IV ; Start 12/29/16 at 22:04; Stop 12/29/16 at 22:05; Status DC Dopamine HCl/ Dextrose 250 ml @ 18.966 mls/ hr CONT PRN IV SEE I/O RECORD Last administered on 12/30/16 07:43; Start 12/29/16 at 22:15 Hydrocortisone Sodium Succinate (Solu-CORTEF) 100 mg Q8HRS IV Last administered on 12/30/16 05:50; Start 12/29/16 at 22:30 Active Scripts Active Reported Levemir (Insulin Detemir) 100 Unit/1 Ml Vial 40 Unit SQ QHS Mucinex (Guaifenesin) 600 Mg Tablet.er 1 Tab PO BID PRN Atorvastatin Calcium 10 Mg Tablet 10 Mg PO HS Percocet 7.5-325 Mg Tablet (Oxycodone/Acetaminophen) 1 Each Tablet 1 Tab PO Q4HRS Amlodipine Besylate 5 Mg Tablet 5 Mg PO DAILY Novolog Flexpen (Insulin Aspart) 100 Unit/1 Ml Insuln.pen 15 Unit SQ BIDACLD Tylenol (Acetaminophen) 325 Mg Tablet 650 Mg PO PRN Q4-6HRS PRN Protonix (Pantoprazole Sodium) 20 Mg Tablet.dr 1 Tab PO DAILY Toprol Xl (Metoprolol Succinate) 50 Mg Tab.er.24h 1 Tab PO DAILY Lisinopril 10 Mg Tablet 1 Tab PO DAILY Lasix (Furosemide) 40 Mg Tablet 1 Tab PO DAILY Aspir 81 (Aspirin) 81 Mg Tablet.dr 1 Tab PO DAILY Vitamin D3 (Cholecalciferol (Vitamin D3)) 1,000 Unit Tablet 800 Unit PO DAILY Vitamin B-12 (Cyanocobalamin (Vitamin B-12)) 1,000 Mcg Tablet 1 Tab PO DAILY Spironolactone 50 Mg Tablet 1 Tab PO DAILY Nitrostat (Nitroglycerin) 0.4 Mg Tab.subl 1 Tab SL UD Senokot-S Tablet (Sennosides/Docusate Sodium) 1 Each Tablet 2 Tab PO HS Gabapentin 300 Mg Capsule 300 Mg PO HS Vitals/I & O Vital Sign - Last 24 Hours 12/29/16 12/29/16 12/29/16 12/29/16 17:19 17:44 17:49 18:00 Temp 98.0 98.0 Pulse 46 65 56 Resp 9 14 16 B/P (MAP) 92/51 (65) 195/104 (134) 131/65 (87) Pulse Ox 86 100 100 100 O2 Delivery Room Air Ventilator Ventilator Ventilator 12/29/16 12/29/16 12/29/16 12/29/16 18:15 18:30 18:45 19:00 Pulse 54 54 54 52 Resp 16 16 16 16 B/P (MAP) 151/85 (107) 116/57 (76) 123/67 (85) 99/62 (74) Pulse Ox 100 100 100 100 O2 Delivery Ventilator Ventilator Ventilator Ventilator 12/29/16 12/29/16 12/29/16 12/29/16 19:30 19:42 19:45 19:45 Temp 92.0 92.0 Pulse 48 50 Resp 16 16 B/P (MAP) 106/59 (75) 90/56 (67) Pulse Ox 100 100 O2 Delivery Ventilator Ventilator Ventilator Mechanical Ventilator 12/29/16 12/29/16 12/29/16 12/29/16 20:00 20:15 20:30 20:45 Pulse 49 47 46 46 Resp 16 16 16 16 B/P (MAP) 71/49 (56) 73/49 (57) 70/45 (53) 71/43 (52) Pulse Ox 100 100 100 100 O2 Delivery Ventilator Ventilator Ventilator Ventilator 12/29/16 12/29/16 12/29/16 12/29/16 21:00 21:15 21:30 21:45 Temp 96.4 96.4 Pulse 45 46 45 45 Resp 16 16 16 16 B/P (MAP) 74/45 (55) 79/46 (57) 83/48 (60) 85/42 (56) Pulse Ox 100 100 100 100 O2 Delivery Ventilator Ventilator Ventilator Ventilator 12/29/16 12/29/16 12/29/16 12/29/16 22:00 22:15 22:30 22:45 Pulse 36 38 44 57 Resp 16 16 16 16 B/P (MAP) 123/55 (77) 152/88 (109) 123/61 (81) 147/66 (93) Pulse Ox 100 100 100 100 O2 Delivery Ventilator Ventilator Ventilator Ventilator 12/29/16 12/29/16 12/29/16 12/29/16 23:00 23:15 23:30 23:45 Pulse 50 52 60 58 Resp 16 16 16 16 B/P (MAP) 153/61 (91) 148/61 (90) 149/61 (90) 140/60 (86) Pulse Ox 100 100 99 99 O2 Delivery Ventilator Ventilator Ventilator Ventilator 12/29/16 12/30/16 12/30/16 12/30/16 23:59 00:00 00:02 00:15 Temp 98.1 98.1 Pulse 63 58 Resp 16 16 B/P (MAP) 135/59 (84) 132/52 (78) Pulse Ox 99 98 99 O2 Delivery Mechanical Ventilator Ventilator Ventilator Ventilator 12/30/16 12/30/16 12/30/16 12/30/16 00:30 00:45 01:00 01:46 Pulse 60 60 64 Resp 16 16 16 B/P (MAP) 129/51 (77) 126/50 (75) 123/49 (73) Pulse Ox 99 99 99 98 O2 Delivery Ventilator Ventilator Ventilator Ventilator 12/30/16 12/30/16 12/30/16 12/30/16 02:00 03:00 03:36 04:00 Temp 99.1 99.1 Pulse 69 64 61 Resp 16 16 16 B/P (MAP) 128/58 (81) 136/58 (84) 129/59 (82) Pulse Ox 99 100 98 100 O2 Delivery Ventilator Ventilator Ventilator Ventilator 12/30/16 12/30/16 12/30/16 12/30/16 04:00 05:00 05:38 06:00 Pulse 62 61 Resp 16 16 B/P (MAP) 129/57 (81) 122/61 (81) Pulse Ox 100 98 100 O2 Delivery Mechanical Ventilator Ventilator Ventilator Ventilator 12/30/16 12/30/16 12/30/16 12/30/16 07:00 07:16 08:00 09:00 Temp 99.1 99.1 Pulse 63 60 47 Resp 16 16 16 B/P (MAP) 128/60 (82) 127/62 (83) 137/63 (87) Pulse Ox 99 99 99 99 O2 Delivery Ventilator Ventilator Ventilator Ventilator 12/30/16 12/30/16 09:12 10:00 Pulse 56 Resp 16 B/P (MAP) 129/51 (77) Pulse Ox 99 99 O2 Delivery Ventilator Ventilator Intake and Output 12/29/16 12/29/16 12/30/16 14:59 22:59 06:59 Intake Total 4550 ml 2818 ml Output Total 200 ml 1375 ml Balance 4350 ml 1443 ml Nutrition Consultation Dietary Evaluation: Recommendations by RD: Increase Calorie Intake Comments: Rec. TF's as medically appropriate: Diabetisource AC, goal rate 60 ml/hr start at 20 ml/hr, increase by 20 ml/hr q8h to goal rate flushes 200 cc q6h if no IVF's running Expected Outcomes/Goals: TF initiation Malnutrition Findings: Reduced [employer] Strength: N/A Weight Status: Obese Fluid Accumulation (N/A): N/A HADLEY MANCINI MD Dec 30, 2016 10:32
--- NOTE | 2016-12-30 11:14 | PDOC ---
Provider Note Provider Note dictated BETHEL GARCIA MD Dec 30, 2016 11:14
[2016-12-30] MEDS ORDERED: PANTOPRAZOLE IV PUSH 40 MG VIAL. IVP SCH (11:30)
[2016-12-30] MEDS: VANCOMYCIN PER PHARMACY MC PRN (12:00)
--- NOTE | 2016-12-30 12:12 | CONS ---
DATE OF CONSULTATION: ATTENDING PHYSICIAN: Dr. Sue. REASON FOR CONSULTATION: Respiratory failure, encephalopathy. HISTORY OF PRESENT ILLNESS: The patient is a 76-year-old male who was brought in from skilled care facility with altered mental status. The patient was found okay yesterday at 5 p.m., but then became lethargic. EMS was called and he was found to be hypoglycemic with a blood sugar of 47. He received an amp of D50. He also had received multiple amps of glucose in the ER. The patient was also thought to have taken pain medications at [facility] and was given ____ without any response. He also apparently took a sleeping aid as well. I have reviewed his medications from home and they do include gabapentin and oxycodone. He was intubated due to poor mental status. His arterial blood gases post-intubation showed a pH of 7.32, pCO2 of 41, pO2 156 with bicarbonate 21 on 40% FiO2. He underwent CT of the chest, which was reviewed by me. There was some basal atelectasis. There was a 4-mm tiny right lung nodule. There were multiple compression fractures in the thoracic spine of unknown age. There was some partially visualized bilateral renal lesions. The patient was also hypotensive on arrival and did receive 4 liters of IV fluid per sepsis protocol. He was also hypothermic on arrival with a core temperature in the low 90s and also was bradycardic as well. Initially was on Levophed and then to help his heart rate. He was then switched to dopamine and currently on ____ dopamine. He is also on Versed ____ the dose has been tapered off. I have been asked to see him for further evaluation. He is currently on assist control mode, rate of 16, tidal volume of 600, 40% FiO2 and 5 of PEEP. PAST MEDICAL HISTORY: Significant for history of CHF, diabetes, GERD and hypertension. PAST SURGICAL HISTORY: Cholecystectomy. ALLERGIES: TETRACYCLINE. MEDICATIONS: All reviewed including broad spectrum antibiotics and also hydrocortisone. REVIEW OF SYSTEMS: System review unable to obtain as the patient is on the ventilator. SOCIAL HISTORY: He was living at the skilled care facility. PHYSICAL EXAMINATION: GENERAL: He is intubated. He is sedated with Versed. VITAL SIGNS: His latest blood pressure 121 systolic. He is on ____ of dopamine. Heart rate is in the 50s. Pulse ox is 99%. HEENT: Sclerae nonicteric. Pupils reactive to light. NECK: Supple. LUNGS: Diminished breath sounds. CARDIOVASCULAR: Regular rate. ABDOMEN: Obese. EXTREMITIES: With trace pitting edema. LABORATORY DATA: Reviewed. ABGs latest showed a pH of 7.36, pCO2 of 34 and a pO2 102 with a bicarbonate of 19 on 40% FiO2. BUN is 38, creatinine 1.9. That is trending towards improvement. White cell count ____, hemoglobin 11.8 and platelets are 192. IMPRESSION: 1. Acute respiratory failure secondary to multifactorial etiologies and includes a combination of early sepsis and hypoglycemic encephalopathy. 2. Hypotension with hypothermia present on admission. He has a low-grade fever of 99. Suspect sepsis. Currently, etiology is not so obvious. He has some basilar atelectasis on the CT chest. 3. Abnormal CT chest with basilar atelectasis and 4 mm nodule in the right lung. He also has some bilateral renal lesions and I will leave up to primary care to do any further workup. 4. Shock combination of hypovolemic and septic. 5. Encephalopathy related to hypoglycemia and early sepsis. 6. Bradycardia RECOMMENDATIONS: 1. Continue with present assist control mode. We will wean off sedation and assess mental status. 2. Wean off dopamine. 3. Monitor heart rate and if he becomes bradycardic again, consider Cardiology recommendations and followup. 4. Continue hydrocortisone. 5. Bronchodilators. 6. Broad-spectrum antibiotics. 7. Follow all cultures. 8. DVT prophylaxis with heparin. 9. Stress ulcer prophylaxis with Protonix. 10. Follow Infectious Disease recommendations. 11. Discussed with RN and RT. We will follow along with you. Critical care time 40 minutes. BETHEL GARCIA MD DR: ELIJAH/holley JOB#: [id number] / [id number] MARSHA
[2016-12-30] MEDS: HEPARIN PF for SUB-Q USE 5,000 UNIT/0.5 ML VIAL. SQ SCH ×2 (14:19→21:48)
--- NOTE | 2016-12-30 17:50 | CARD ---
APPROVED REPORT EXAM: Two-dimensional and M-mode echocardiogram with Doppler and color Doppler. Other Information Quality : AverageHR: 67bpm Rhythm : NSR INDICATION Bradycardia 2D DIMENSIONS Left Atrium(2D)2.5 (1.6-4.0cm)IVSd1.2 (0.7-1.1cm) Aortic Root(2D)3.0 (2.0-3.7cm)LVDd4.1 (3.9-5.9cm) LVOT Diameter2.3 (1.8-2.4cm)PWd1.2 (0.7-1.1cm) LVDs2.4 (2.5-4.0cm)FS (%) 41.7 % SV55.2 mlLVEF(%)73.0 (>50%) Aortic Valve AoV Peak Logan.168.1cm/sAoV VTI33.3cm AO Peak GR.11.3mmHgLVOT Peak Logan.154.5cm/s AO Mean GR.6mmHgAVA (VMAX)3.93cm2 Mitral Valve MV E Iizejqmm68.2cm/sMV E Peak Gr.3mmHg MV DECEL [id number] A Xjmuaidu515.9cm/s MV E Mean Gr.2mmHgE/A Ratio0.8 MV A [id number] Pulmonary Valve PV Peak Bxaubgoz66.3cm/s Tricuspid Valve TR P. [id number]/sTR Peak Gr.10mmHg LEFT VENTRICLE The left ventricle is normal size. There is mild left ventricular hypertrophy. The left ventricular s ystolic function is normal and the ejection fraction is within normal range. The Ejection Fraction is 65-70%. There is normal LV segmental wall motion. Transmitral Doppler flow pattern is Grade I-abnorm al relaxation pattern. RIGHT VENTRICLE The right ventricle is normal size. There is normal right ventricular wall thickness. The right ventr icular systolic function is normal. ATRIA The left atrium size is normal. The right atrium size is normal. The interatrial septum is intact wit h no evidence for an atrial septal defect or patent foramen ovale as noted on 2-D or Doppler imaging. AORTIC VALVE The aortic valve is not well visualized but appeared to open well. Doppler and Color Flow revealed no significant aortic regurgitation. There is no significant aortic valvular stenosis. MITRAL VALVE The mitral valve is not well visualized but appeared to open well. There is no evidence of mitral debbi ve prolapse. There is no mitral valve stenosis. Doppler and Color Flow revealed no mitral valve regur gitation noted. TRICUSPID VALVE Doppler and Color Flow revealed trace tricuspid regurgitation. The pulmonary artery systolic pressure is estimated at 13 mmHg. There is no pulmonary hypertension. PULMONIC VALVE The pulmonic valve is not well visualized but appeared to open well. Doppler and Color Flow revealed no pulmonic valvular regurgitation. There is no pulmonic valvular stenosis. GREAT VESSELS The aortic root is normal in size. The ascending aorta is normal in size. The pulmonary artery is not well visualized. The IVC is normal in size and collapses >50% with inspiration. PERICARDIAL EFFUSION There is no evidence of significant pericardial effusion. Critical Notification Critical Value: No <Conclusion> The left ventricular systolic function is normal and the ejection fraction is within normal range. T he Ejection Fraction is 65-70%. There is normal LV segmental wall motion.
[2016-12-30] MEDS: VANCOMYCIN 1.5 GM in IV NORMAL SALINE 500ML BAG 500 ML IV SCH (20:02)
[2016-12-31] VITALS (24 sets, daily range): BP systolic 124–162; BP diastolic 58–86
[2016-12-31 05:33] LABS: BASO % 0 % (0-3); EOS % 0 % (0-3); HEMOGLOBIN 10.4 g/dL (13.0-17.5); LYMPH # 0.4 x10^3/uL (1.0-4.8); LYMPH % 7 % (24-48); MEAN CORPUSCULAR HEMOGLOBIN 31 pg (25-35); MEAN CORPUSCULAR HGB CONC 35 g/dL (31-37); MEAN CORPUSCULAR VOLUME 91 fL (79-100); MONO % 5 % (0-9); NEUT % 88 % (31-73); PLATELET COUNT 151 x10^3/uL (140-400); RED BLOOD COUNT 3.31 x10^6/uL (4.30-5.70); RED CELL DISTRIBUTION WIDTH 13.5 % (11.5-14.5); WHITE BLOOD COUNT 6.2 x10^3/uL (4.0-11.0)
[2016-12-31] MEDS: HYDROCORTISONE SOD SUCC/PF 100 MG/2 ML VIAL. IV SCH ×3 (05:43→20:24)
[2016-12-31] MEDS: PIPERACILLIN/TAZOBACTAM 3.375 GM in IV NORMAL SALINE 50ML 50 ML IV SCH ×4 (05:44→23:34)
[2016-12-31] MEDS: HEPARIN PF for SUB-Q USE 5,000 UNIT/0.5 ML VIAL. SQ SCH ×3 (05:46→20:25)
[2016-12-31 06:03] LABS: CALCIUM 8.2 mg/dL (8.5-10.1); CREATININE 1.9 mg/dL (0.7-1.3); GFR 34.5; POTASSIUM 3.8 mmol/L (3.5-5.1)
[2016-12-31] MEDS: IV NORMAL SALINE 1000ML BAG 1,000 ML IV SCH ×3 (07:22→17:20)
[2016-12-31 07:46] LABS: HCO3 ABG 20 mmol/L (21-28); PCO2 ABG 33 mmHg (35-46); PH ABG 7.39 (7.35-7.45); PO2 ABG 111 mmHg (65-108); SAT O2 ABG 97 % (92-99)
[2016-12-31 07:48] LABS: FIO2 ABG 40
[2016-12-31] MEDS: PANTOPRAZOLE IV PUSH 40 MG VIAL. IVP SCH (08:09)
[2016-12-31] MEDS: ASPIRIN ENTERIC COATED 81 MG TABLET.DR. PO SCH (08:09)
[2016-12-31] MEDS: INSULIN ASPART 300 UNITS/3 ML INSULN.PEN SQ SCH ×3 (08:14→17:11)
[2016-12-31] MEDS: CHOLECALCIFEROL (VITAMIN D3) 1,000 UNIT TABLET PO SCH (08:16)
[2016-12-31] MEDS: CYANOCOBALAMIN (VITAMIN B-12) 1,000 MCG TABLET. PO SCH (08:17)
[2016-12-31 10:08] LABS: HCO3 ABG 20 mmol/L (21-28); PCO2 ABG 35 mmHg (35-46); PH ABG 7.38 (7.35-7.45); PO2 ABG 106 mmHg (65-108); SAT O2 ABG 97 % (92-99)
[2016-12-31 10:09] LABS: FIO2 ABG 40
--- NOTE | 2016-12-31 10:29 | PDOC ---
PULMONARY PROGRESS NOTES Subjective fully awake Vitals Vital Signs Date Time Temp Pulse Resp B/P (MAP) Pulse Ox O2 Delivery O2 Flow Rate FiO2 12/31/16 10:10 65 17 154/73 (100) 100 Ventilator 12/31/16 07:00 98.6 98.6 General: Alert, No acute distress Lungs: Other (decrease bs) Cardiovascular: S1 Abdomen: Soft Extremities: No Edema Labs Laboratory Tests Test 12/29/16 17:30 12/29/16 17:44 12/29/16 18:10 12/29/16 19:30 White Blood Count 5.9 x10^3/uL (4.0-11.0) Red Blood Count 3.41 x10^6/uL (4.30-5.70) Hemoglobin 10.5 g/dL (13.0-17.5) Hematocrit 31.1 % (39.0-53.0) Mean Corpuscular Volume 91 fL (79-100) Mean Corpuscular Hemoglobin 31 pg (25-35) Mean Corpuscular Hemoglobin Concent 34 g/dL (31-37) Red Cell Distribution Width 13.0 % (11.5-14.5) Platelet Count 156 x10^3/uL (140-400) Neutrophils (%) (Auto) 74 % (31-73) Lymphocytes (%) (Auto) 11 % (24-48) Monocytes (%) (Auto) 11 % (0-9) Eosinophils (%) (Auto) 3 % (0-3) Basophils (%) (Auto) 1 % (0-3) Neutrophils # (Auto) 4.4 x10^3uL (1.8-7.7) Lymphocytes # (Auto) 0.6 x10^3/uL (1.0-4.8) Monocytes # (Auto) 0.7 x10^3/uL (0.0-1.1) Eosinophils # (Auto) 0.2 x10^3/uL (0.0-0.7) Basophils # (Auto) 0.0 x10^3/uL (0.0-0.2) Prothrombin Time 13.6 SEC (11.7-14.0) Prothromb Time International Ratio 1.1 (0.8-1.1) Activated Partial Thromboplast Time 34 SEC (24-38) Sodium Level 138 mmol/L (136-145) Potassium Level 4.3 mmol/L (3.5-5.1) Chloride Level 103 mmol/L (98-107) Carbon Dioxide Level 28 mmol/L (21-32) Anion Gap 7 (6-14) Blood Urea Nitrogen 43 mg/dL (8-26) Creatinine 2.2 mg/dL (0.7-1.3) Estimated GFR (Cockcroft-Gault) 29.2 BUN/Creatinine Ratio 20 (6-20) Glucose Level 142 mg/dL (70-99) Lactic Acid Level 1.4 mmol/L (0.4-2.0) Calcium Level 8.7 mg/dL (8.5-10.1) Magnesium Level 2.0 mg/dL (1.8-2.4) Total Bilirubin 0.3 mg/dL (0.2-1.0) Aspartate Amino Transf (AST/SGOT) 19 U/L (15-37) Alanine Aminotransferase (ALT/SGPT) 21 U/L (16-63) Alkaline Phosphatase 62 U/L (46-116) Ammonia 17 mcmol/L (11-34) Total Protein 6.1 g/dL (6.4-8.2) Albumin 3.6 g/dL (3.4-5.0) Albumin/Globulin Ratio 1.4 (1.0-1.7) Lipase 156 U/L (73-393) O2 Saturation 98 % (92-99) Arterial Blood pH 7.32 (7.35-7.45) Arterial Blood pCO2 at Patient Temp 41 mmHg (35-46) Arterial Blood pO2 at Patient Temp 156 mmHg (65-108) Arterial Blood HCO3 21 mmol/L (21-28) Arterial Blood Base Excess -5 mmol/L (-3-3) FiO2 40 Urine Collection Type Unknown Urine Color Yellow Urine Clarity Clear Urine pH 5.5 Urine Specific [place] 1.015 Urine Protein Negative mg/dL (NEG-TRACE) Urine Glucose (UA) Negative mg/dL (NEG) Urine Ketones (Stick) Negative mg/dL (NEG) Urine Blood Negative (NEG) Urine Nitrite Negative (NEG) Urine Bilirubin Negative (NEG) Urine Urobilinogen Dipstick 0.2 mg/dL (0.2 mg/dL) Urine Leukocyte Esterase Negative (NEG) Urine RBC 0 /HPF (0-2) Urine WBC 0 /HPF (0-4) Urine Squamous Epithelial Cells Few /LPF Urine Bacteria 0 /HPF (0-FEW) Urine Hyaline Casts Few /HPF Urine Mucus Mod /LPF Urine Opiates Screen Neg (NEG) Urine Methadone Screen Neg (NEG) Urine Barbiturates Neg (NEG) Urine Phencyclidine Screen Neg (NEG) Urine Amphetamine/Methamphetamine Neg (NEG) Urine Benzodiazepines Screen Neg (NEG) Urine Cocaine Screen Neg (NEG) Urine Cannabinoids Screen Neg (NEG) Urine Ethyl Alcohol Neg (NEG) Nasal Screen MRSA (PCR) Negative (Negative) Test 12/29/16 22:08 12/30/16 00:42 12/30/16 05:00 12/30/16 07:41 Glucose (Fingerstick) 102 mg/dL (70-99) 170 mg/dL (70-99) 236 mg/dL (70-99) White Blood Count 10.2 x10^3/uL (4.0-11.0) Red Blood Count 3.74 x10^6/uL (4.30-5.70) Hemoglobin 11.8 g/dL (13.0-17.5) Hematocrit 33.2 % (39.0-53.0) Mean Corpuscular Volume 89 fL (79-100) Mean Corpuscular Hemoglobin 32 pg (25-35) Mean Corpuscular Hemoglobin Concent 36 g/dL (31-37) Red Cell Distribution Width 13.2 % (11.5-14.5) Platelet Count 192 x10^3/uL (140-400) Neutrophils (%) (Auto) 91 % (31-73) Lymphocytes (%) (Auto) 5 % (24-48) Monocytes (%) (Auto) 4 % (0-9) Eosinophils (%) (Auto) 0 % (0-3) Basophils (%) (Auto) 0 % (0-3) Neutrophils # (Auto) 9.3 x10^3uL (1.8-7.7) Lymphocytes # (Auto) 0.5 x10^3/uL (1.0-4.8) Monocytes # (Auto) 0.4 x10^3/uL (0.0-1.1) Eosinophils # (Auto) 0.0 x10^3/uL (0.0-0.7) Basophils # (Auto) 0.0 x10^3/uL (0.0-0.2) Segmented Neutrophils % 85 % (35-66) Band Neutrophils % 8 % (0-9) Lymphocytes % 5 % (24-48) Monocytes % 2 % (0-10) Platelet Estimate Adequate (ADEQUATE) Sodium Level 139 mmol/L (136-145) Potassium Level 4.4 mmol/L (3.5-5.1) Chloride Level 105 mmol/L (98-107) Carbon Dioxide Level 20 mmol/L (21-32) Anion Gap 14 (6-14) Blood Urea Nitrogen 38 mg/dL (8-26) Creatinine 1.9 mg/dL (0.7-1.3) Estimated GFR (Cockcroft-Gault) 34.5 Glucose Level 231 mg/dL (70-99) Calcium Level 8.4 mg/dL (8.5-10.1) Test 12/30/16 08:00 12/30/16 12:42 12/30/16 16:36 12/30/16 20:50 O2 Saturation 97 % (92-99) Arterial Blood pH 7.36 (7.35-7.45) Arterial Blood pCO2 at Patient Temp 34 mmHg (35-46) Arterial Blood pO2 at Patient Temp 102 mmHg (65-108) Arterial Blood HCO3 19 mmol/L (21-28) Arterial Blood Base Excess -6 mmol/L (-3-3) FiO2 40 Glucose (Fingerstick) 261 mg/dL (70-99) 233 mg/dL (70-99) 201 mg/dL (70-99) Test 12/31/16 01:30 12/31/16 05:10 12/31/16 07:40 12/31/16 08:12 Glucose (Fingerstick) 267 mg/dL (70-99) 271 mg/dL (70-99) White Blood Count 6.2 x10^3/uL (4.0-11.0) Red Blood Count 3.31 x10^6/uL (4.30-5.70) Hemoglobin 10.4 g/dL (13.0-17.5) Hematocrit 30.0 % (39.0-53.0) Mean Corpuscular Volume 91 fL (79-100) Mean Corpuscular Hemoglobin 31 pg (25-35) Mean Corpuscular Hemoglobin Concent 35 g/dL (31-37) Red Cell Distribution Width 13.5 % (11.5-14.5) Platelet Count 151 x10^3/uL (140-400) Neutrophils (%) (Auto) 88 % (31-73) Lymphocytes (%) (Auto) 7 % (24-48) Monocytes (%) (Auto) 5 % (0-9) Eosinophils (%) (Auto) 0 % (0-3) Basophils (%) (Auto) 0 % (0-3) Neutrophils # (Auto) 5.4 x10^3uL (1.8-7.7) Lymphocytes # (Auto) 0.4 x10^3/uL (1.0-4.8) Monocytes # (Auto) 0.3 x10^3/uL (0.0-1.1) Eosinophils # (Auto) 0.0 x10^3/uL (0.0-0.7) Basophils # (Auto) 0.0 x10^3/uL (0.0-0.2) Sodium Level 143 mmol/L (136-145) Potassium Level 3.8 mmol/L (3.5-5.1) Chloride Level 110 mmol/L (98-107) Carbon Dioxide Level 20 mmol/L (21-32) Anion Gap 13 (6-14) Blood Urea Nitrogen 40 mg/dL (8-26) Creatinine 1.9 mg/dL (0.7-1.3) Estimated GFR (Cockcroft-Gault) 34.5 Glucose Level 278 mg/dL (70-99) Calcium Level 8.2 mg/dL (8.5-10.1) O2 Saturation 97 % (92-99) Arterial Blood pH 7.39 (7.35-7.45) Arterial Blood pCO2 at Patient Temp 33 mmHg (35-46) Arterial Blood pO2 at Patient Temp 111 mmHg (65-108) Arterial Blood HCO3 20 mmol/L (21-28) Arterial Blood Base Excess -5 mmol/L (-3-3) FiO2 40 Test /10/14 10:05 O2 Saturation 97 % (92-99) Arterial Blood pH 7.38 (7.35-7.45) Arterial Blood pCO2 at Patient Temp 35 mmHg (35-46) Arterial Blood pO2 at Patient Temp 106 mmHg (65-108) Arterial Blood HCO3 20 mmol/L (21-28) Arterial Blood Base Excess -4 mmol/L (-3-3) FiO2 40 Laboratory Tests Test 12/30/16 12:42 12/30/16 16:36 12/30/16 20:50 12/31/16 01:30 Glucose (Fingerstick) 261 mg/dL (70-99) 233 mg/dL (70-99) 201 mg/dL (70-99) 267 mg/dL (70-99) Test 12/31/16 05:10 12/31/16 07:40 12/31/16 08:12 12/31/16 10:05 White Blood Count 6.2 x10^3/uL (4.0-11.0) Red Blood Count 3.31 x10^6/uL (4.30-5.70) Hemoglobin 10.4 g/dL (13.0-17.5) Hematocrit 30.0 % (39.0-53.0) Mean Corpuscular Volume 91 fL (79-100) Mean Corpuscular Hemoglobin 31 pg (25-35) Mean Corpuscular Hemoglobin Concent 35 g/dL (31-37) Red Cell Distribution Width 13.5 % (11.5-14.5) Platelet Count 151 x10^3/uL (140-400) Neutrophils (%) (Auto) 88 % (31-73) Lymphocytes (%) (Auto) 7 % (24-48) Monocytes (%) (Auto) 5 % (0-9) Eosinophils (%) (Auto) 0 % (0-3) Basophils (%) (Auto) 0 % (0-3) Neutrophils # (Auto) 5.4 x10^3uL (1.8-7.7) Lymphocytes # (Auto) 0.4 x10^3/uL (1.0-4.8) Monocytes # (Auto) 0.3 x10^3/uL (0.0-1.1) Eosinophils # (Auto) 0.0 x10^3/uL (0.0-0.7) Basophils # (Auto) 0.0 x10^3/uL (0.0-0.2) Sodium Level 143 mmol/L (136-145) Potassium Level 3.8 mmol/L (3.5-5.1) Chloride Level 110 mmol/L (98-107) Carbon Dioxide Level 20 mmol/L (21-32) Anion Gap 13 (6-14) Blood Urea Nitrogen 40 mg/dL (8-26) Creatinine 1.9 mg/dL (0.7-1.3) Estimated GFR (Cockcroft-Gault) 34.5 Glucose Level 278 mg/dL (70-99) Calcium Level 8.2 mg/dL (8.5-10.1) O2 Saturation 97 % (92-99) 97 % (92-99) Arterial Blood pH 7.39 (7.35-7.45) 7.38 (7.35-7.45) Arterial Blood pCO2 at Patient Temp 33 mmHg (35-46) 35 mmHg (35-46) Arterial Blood pO2 at Patient Temp 111 mmHg (65-108) 106 mmHg (65-108) Arterial Blood HCO3 20 mmol/L (21-28) 20 mmol/L (21-28) Arterial Blood Base Excess -5 mmol/L (-3-3) -4 mmol/L (-3-3) FiO2 40 40 Glucose (Fingerstick) 271 mg/dL (70-99) Medications Active Scripts Medications Dose Route/Sig Max Daily Dose Days Date Category Levemir (Insulin Detemir) 100 Unit/1 Ml Vial 40 Unit SQ QHS 12/29/16 Reported Mucinex (Guaifenesin) 600 Mg Tablet.er 1 Tab PO BID PRN 12/29/16 Reported Atorvastatin Calcium 10 Mg Tablet 10 Mg PO HS 12/29/16 Reported Percocet 7.5-325 Mg Tablet (Oxycodone/Acetaminophen) 1 Each Tablet 1 Tab PO Q4HRS 12/29/16 Reported Amlodipine Besylate 5 Mg Tablet 5 Mg PO DAILY 12/29/16 Reported Novolog Flexpen (Insulin Aspart) 100 Unit/1 Ml Insuln.pen 15 Unit SQ BIDACLD 12/29/16 Reported Tylenol (Acetaminophen) 325 Mg Tablet 650 Mg PO PRN Q4-6HRS PRN 09/14/16 Reported Protonix (Pantoprazole Sodium) 20 Mg Tablet.dr 1 Tab PO DAILY 09/04/16 Reported Toprol Xl (Metoprolol Succinate) 50 Mg Tab.er.24h 1 Tab PO DAILY 09/04/16 Reported Lisinopril 10 Mg Tablet 1 Tab PO DAILY 09/04/16 Reported Lasix (Furosemide) 40 Mg Tablet 1 Tab PO DAILY 09/04/16 Reported Aspir 81 (Aspirin) 81 Mg Tablet.dr 1 Tab PO DAILY 09/04/16 Reported Vitamin D3 (Cholecalciferol (Vitamin D3)) 1,000 Unit Tablet 800 Unit PO DAILY 09/04/16 Reported Vitamin B-12 (Cyanocobalamin (Vitamin B-12)) 1,000 Mcg Tablet 1 Tab PO DAILY 09/04/16 Reported Spironolactone 50 Mg Tablet 1 Tab PO DAILY 09/04/16 Reported Nitrostat (Nitroglycerin) 0.4 Mg Tab.subl 1 Tab SL UD 09/04/16 Reported Senokot-S Tablet (Sennosides/Docusate Sodium) 1 Each Tablet 2 Tab PO HS 09/04/16 Reported Gabapentin 300 Mg Capsule 300 Mg PO HS 09/04/16 Reported Impression . 1. Acute respiratory failure secondary to multifactorial etiologies and includes a combination of early sepsis and hypoglycemic encephalopathy. 2. Hypotension with hypothermia present on admission. He has a low-grade fever of 99. Suspect sepsis. Currently, etiology is not so obvious. He has some basilar atelectasis on the CT chest. 3. Abnormal CT chest with basilar atelectasis and 4 mm nodule in the right lung. He also has some bilateral renal lesions and I will leave up to primary care to do any further workup. 4. Shock combination of hypovolemic and septic. 5. Encephalopathy related to hypoglycemia and early sepsis. 6. Bradycardia Plan . 1. fully awake, on CPAP trial. will extubate 2. off dopamine. 3. Monitor heart rate .follow Cardiology recommendations 4. Continue hydrocortisone.taper dose 5. Bronchodilators. 6. Broad-spectrum antibiotics. 7. Follow all cultures. 8. DVT prophylaxis with heparin. 9. Stress ulcer prophylaxis with Protonix. 10. Follow Infectious Disease recommendations. 11. Discussed with RN and RT. BETHEL GARCIA MD Dec 31, 2016 10:29
--- NOTE | 2016-12-31 10:35 | PDOC ---
PROGRESS NOTES Chief Complaint Chief Complaint 1. AMS, metabolic encephalopathy in the background of hypoglycemia 2. acute resp failure with bradypnea and possible PNA, intubated on admission () 3 L > R pleuarl effusion vs atelectasis vs PNA 4. HYPOTENSIVE shock on dopa 5. from SNF, baseline mild dementia 6. obesity 7. ANTWON on CKD4 8. NORmocytic anemia 9. Multiple compression fxs, chronic 10. DM 2 History of Present Illness History of Present Illness Bradycardia resolved Off dopa gtt Sen in ICU, intubated but awake Follows commands If ABG good this AM, likely extubate today LAbs good VS good I have personally reviewed Vent 40% fiO2 PEEP5 [place] in CREa stable at 1.9 BS high, (230s) on TF via NGT CXR I have personally reviewed today,stable PLAN: Await ABG Likely be able to extubate today Start levemir 20 qdaily, first dose now COnt high dose SSI Dw RT Vitals Vitals Vital Signs Date Time Temp Pulse Resp B/P (MAP) Pulse Ox O2 Delivery O2 Flow Rate FiO2 12/31/16 10:28 Nasal Cannula 4.0 12/31/16 10:10 65 17 154/73 (100) 100 12/31/16 07:00 98.6 98.6 Physical Exam General: Other (sedated ) Heart: Normal S1, Normal S2, Other (tele; SB. distant heart tones ) Lungs: Other (decrease bs) Abdomen: Soft Extremities: No clubbing, No edema, Normal pulses Skin: No rashes, No significant lesion Labs LABS Laboratory Tests Test 12/30/16 12:42 12/30/16 16:36 12/30/16 20:50 12/31/16 01:30 Glucose (Fingerstick) 261 mg/dL (70-99) 233 mg/dL (70-99) 201 mg/dL (70-99) 267 mg/dL (70-99) Test 12/31/16 05:10 12/31/16 07:40 12/31/16 08:12 12/31/16 10:05 White Blood Count 6.2 x10^3/uL (4.0-11.0) Red Blood Count 3.31 x10^6/uL (4.30-5.70) Hemoglobin 10.4 g/dL (13.0-17.5) Hematocrit 30.0 % (39.0-53.0) Mean Corpuscular Volume 91 fL (79-100) Mean Corpuscular Hemoglobin 31 pg (25-35) Mean Corpuscular Hemoglobin Concent 35 g/dL (31-37) Red Cell Distribution Width 13.5 % (11.5-14.5) Platelet Count 151 x10^3/uL (140-400) Neutrophils (%) (Auto) 88 % (31-73) Lymphocytes (%) (Auto) 7 % (24-48) Monocytes (%) (Auto) 5 % (0-9) Eosinophils (%) (Auto) 0 % (0-3) Basophils (%) (Auto) 0 % (0-3) Neutrophils # (Auto) 5.4 x10^3uL (1.8-7.7) Lymphocytes # (Auto) 0.4 x10^3/uL (1.0-4.8) Monocytes # (Auto) 0.3 x10^3/uL (0.0-1.1) Eosinophils # (Auto) 0.0 x10^3/uL (0.0-0.7) Basophils # (Auto) 0.0 x10^3/uL (0.0-0.2) Sodium Level 143 mmol/L (136-145) Potassium Level 3.8 mmol/L (3.5-5.1) Chloride Level 110 mmol/L (98-107) Carbon Dioxide Level 20 mmol/L (21-32) Anion Gap 13 (6-14) Blood Urea Nitrogen 40 mg/dL (8-26) Creatinine 1.9 mg/dL (0.7-1.3) Estimated GFR (Cockcroft-Gault) 34.5 Glucose Level 278 mg/dL (70-99) Calcium Level 8.2 mg/dL (8.5-10.1) O2 Saturation 97 % (92-99) 97 % (92-99) Arterial Blood pH 7.39 (7.35-7.45) 7.38 (7.35-7.45) Arterial Blood pCO2 at Patient Temp 33 mmHg (35-46) 35 mmHg (35-46) Arterial Blood pO2 at Patient Temp 111 mmHg (65-108) 106 mmHg (65-108) Arterial Blood HCO3 20 mmol/L (21-28) 20 mmol/L (21-28) Arterial Blood Base Excess -5 mmol/L (-3-3) -4 mmol/L (-3-3) FiO2 40 40 Glucose (Fingerstick) 271 mg/dL (70-99) Review of Systems Review of Systems intubated Assessment and Plan Assessmemt and Plan Problems Medical Problems: (1) Acute encephalopathy Status: Acute (2) Acute respiratory failure Status: Acute (3) Chronic kidney disease, stage IV (severe) Status: Acute (4) Hypoglycemia Status: Acute (5) Type 2 diabetes mellitus Status: Acute Problems: Comment Review of Relevant I have reviewed the following items ivette (where applicable) has been applied. Labs Laboratory Tests Test 12/29/16 17:30 12/29/16 17:44 12/29/16 18:10 12/29/16 19:30 White Blood Count 5.9 x10^3/uL (4.0-11.0) Red Blood Count 3.41 x10^6/uL (4.30-5.70) Hemoglobin 10.5 g/dL (13.0-17.5) Hematocrit 31.1 % (39.0-53.0) Mean Corpuscular Volume 91 fL (79-100) Mean Corpuscular Hemoglobin 31 pg (25-35) Mean Corpuscular Hemoglobin Concent 34 g/dL (31-37) Red Cell Distribution Width 13.0 % (11.5-14.5) Platelet Count 156 x10^3/uL (140-400) Neutrophils (%) (Auto) 74 % (31-73) Lymphocytes (%) (Auto) 11 % (24-48) Monocytes (%) (Auto) 11 % (0-9) Eosinophils (%) (Auto) 3 % (0-3) Basophils (%) (Auto) 1 % (0-3) Neutrophils # (Auto) 4.4 x10^3uL (1.8-7.7) Lymphocytes # (Auto) 0.6 x10^3/uL (1.0-4.8) Monocytes # (Auto) 0.7 x10^3/uL (0.0-1.1) Eosinophils # (Auto) 0.2 x10^3/uL (0.0-0.7) Basophils # (Auto) 0.0 x10^3/uL (0.0-0.2) Prothrombin Time 13.6 SEC (11.7-14.0) Prothromb Time International Ratio 1.1 (0.8-1.1) Activated Partial Thromboplast Time 34 SEC (24-38) Sodium Level 138 mmol/L (136-145) Potassium Level 4.3 mmol/L (3.5-5.1) Chloride Level 103 mmol/L (98-107) Carbon Dioxide Level 28 mmol/L (21-32) Anion Gap 7 (6-14) Blood Urea Nitrogen 43 mg/dL (8-26) Creatinine 2.2 mg/dL (0.7-1.3) Estimated GFR (Cockcroft-Gault) 29.2 BUN/Creatinine Ratio 20 (6-20) Glucose Level 142 mg/dL (70-99) Lactic Acid Level 1.4 mmol/L (0.4-2.0) Calcium Level 8.7 mg/dL (8.5-10.1) Magnesium Level 2.0 mg/dL (1.8-2.4) Total Bilirubin 0.3 mg/dL (0.2-1.0) Aspartate Amino Transf (AST/SGOT) 19 U/L (15-37) Alanine Aminotransferase (ALT/SGPT) 21 U/L (16-63) Alkaline Phosphatase 62 U/L (46-116) Ammonia 17 mcmol/L (11-34) Total Protein 6.1 g/dL (6.4-8.2) Albumin 3.6 g/dL (3.4-5.0) Albumin/Globulin Ratio 1.4 (1.0-1.7) Lipase 156 U/L (73-393) O2 Saturation 98 % (92-99) Arterial Blood pH 7.32 (7.35-7.45) Arterial Blood pCO2 at Patient Temp 41 mmHg (35-46) Arterial Blood pO2 at Patient Temp 156 mmHg (65-108) Arterial Blood HCO3 21 mmol/L (21-28) Arterial Blood Base Excess -5 mmol/L (-3-3) FiO2 40 Urine Collection Type Unknown Urine Color Yellow Urine Clarity Clear Urine pH 5.5 Urine Specific [place] 1.015 Urine Protein Negative mg/dL (NEG-TRACE) Urine Glucose (UA) Negative mg/dL (NEG) Urine Ketones (Stick) Negative mg/dL (NEG) Urine Blood Negative (NEG) Urine Nitrite Negative (NEG) Urine Bilirubin Negative (NEG) Urine Urobilinogen Dipstick 0.2 mg/dL (0.2 mg/dL) Urine Leukocyte Esterase Negative (NEG) Urine RBC 0 /HPF (0-2) Urine WBC 0 /HPF (0-4) Urine Squamous Epithelial Cells Few /LPF Urine Bacteria 0 /HPF (0-FEW) Urine Hyaline Casts Few /HPF Urine Mucus Mod /LPF Urine Opiates Screen Neg (NEG) Urine Methadone Screen Neg (NEG) Urine Barbiturates Neg (NEG) Urine Phencyclidine Screen Neg (NEG) Urine Amphetamine/Methamphetamine Neg (NEG) Urine Benzodiazepines Screen Neg (NEG) Urine Cocaine Screen Neg (NEG) Urine Cannabinoids Screen Neg (NEG) Urine Ethyl Alcohol Neg (NEG) Nasal Screen MRSA (PCR) Negative (Negative) Test 12/29/16 22:08 12/30/16 00:42 12/30/16 05:00 12/30/16 07:41 Glucose (Fingerstick) 102 mg/dL (70-99) 170 mg/dL (70-99) 236 mg/dL (70-99) White Blood Count 10.2 x10^3/uL (4.0-11.0) Red Blood Count 3.74 x10^6/uL (4.30-5.70) Hemoglobin 11.8 g/dL (13.0-17.5) Hematocrit 33.2 % (39.0-53.0) Mean Corpuscular Volume 89 fL (79-100) Mean Corpuscular Hemoglobin 32 pg (25-35) Mean Corpuscular Hemoglobin Concent 36 g/dL (31-37) Red Cell Distribution Width 13.2 % (11.5-14.5) Platelet Count 192 x10^3/uL (140-400) Neutrophils (%) (Auto) 91 % (31-73) Lymphocytes (%) (Auto) 5 % (24-48) Monocytes (%) (Auto) 4 % (0-9) Eosinophils (%) (Auto) 0 % (0-3) Basophils (%) (Auto) 0 % (0-3) Neutrophils # (Auto) 9.3 x10^3uL (1.8-7.7) Lymphocytes # (Auto) 0.5 x10^3/uL (1.0-4.8) Monocytes # (Auto) 0.4 x10^3/uL (0.0-1.1) Eosinophils # (Auto) 0.0 x10^3/uL (0.0-0.7) Basophils # (Auto) 0.0 x10^3/uL (0.0-0.2) Segmented Neutrophils % 85 % (35-66) Band Neutrophils % 8 % (0-9) Lymphocytes % 5 % (24-48) Monocytes % 2 % (0-10) Platelet Estimate Adequate (ADEQUATE) Sodium Level 139 mmol/L (136-145) Potassium Level 4.4 mmol/L (3.5-5.1) Chloride Level 105 mmol/L (98-107) Carbon Dioxide Level 20 mmol/L (21-32) Anion Gap 14 (6-14) Blood Urea Nitrogen 38 mg/dL (8-26) Creatinine 1.9 mg/dL (0.7-1.3) Estimated GFR (Cockcroft-Gault) 34.5 Glucose Level 231 mg/dL (70-99) Calcium Level 8.4 mg/dL (8.5-10.1) Test 12/30/16 08:00 12/30/16 12:42 12/30/16 16:36 12/30/16 20:50 O2 Saturation 97 % (92-99) Arterial Blood pH 7.36 (7.35-7.45) Arterial Blood pCO2 at Patient Temp 34 mmHg (35-46) Arterial Blood pO2 at Patient Temp 102 mmHg (65-108) Arterial Blood HCO3 19 mmol/L (21-28) Arterial Blood Base Excess -6 mmol/L (-3-3) FiO2 40 Glucose (Fingerstick) 261 mg/dL (70-99) 233 mg/dL (70-99) 201 mg/dL (70-99) Test 12/31/16 01:30 12/31/16 05:10 12/31/16 07:40 12/31/16 08:12 Glucose (Fingerstick) 267 mg/dL (70-99) 271 mg/dL (70-99) White Blood Count 6.2 x10^3/uL (4.0-11.0) Red Blood Count 3.31 x10^6/uL (4.30-5.70) Hemoglobin 10.4 g/dL (13.0-17.5) Hematocrit 30.0 % (39.0-53.0) Mean Corpuscular Volume 91 fL (79-100) Mean Corpuscular Hemoglobin 31 pg (25-35) Mean Corpuscular Hemoglobin Concent 35 g/dL (31-37) Red Cell Distribution Width 13.5 % (11.5-14.5) Platelet Count 151 x10^3/uL (140-400) Neutrophils (%) (Auto) 88 % (31-73) Lymphocytes (%) (Auto) 7 % (24-48) Monocytes (%) (Auto) 5 % (0-9) Eosinophils (%) (Auto) 0 % (0-3) Basophils (%) (Auto) 0 % (0-3) Neutrophils # (Auto) 5.4 x10^3uL (1.8-7.7) Lymphocytes # (Auto) 0.4 x10^3/uL (1.0-4.8) Monocytes # (Auto) 0.3 x10^3/uL (0.0-1.1) Eosinophils # (Auto) 0.0 x10^3/uL (0.0-0.7) Basophils # (Auto) 0.0 x10^3/uL (0.0-0.2) Sodium Level 143 mmol/L (136-145) Potassium Level 3.8 mmol/L (3.5-5.1) Chloride Level 110 mmol/L (98-107) Carbon Dioxide Level 20 mmol/L (21-32) Anion Gap 13 (6-14) Blood Urea Nitrogen 40 mg/dL (8-26) Creatinine 1.9 mg/dL (0.7-1.3) Estimated GFR (Cockcroft-Gault) 34.5 Glucose Level 278 mg/dL (70-99) Calcium Level 8.2 mg/dL (8.5-10.1) O2 Saturation 97 % (92-99) Arterial Blood pH 7.39 (7.35-7.45) Arterial Blood pCO2 at Patient Temp 33 mmHg (35-46) Arterial Blood pO2 at Patient Temp 111 mmHg (65-108) Arterial Blood HCO3 20 mmol/L (21-28) Arterial Blood Base Excess -5 mmol/L (-3-3) FiO2 40 Test 6/3/17 10:05 O2 Saturation 97 % (92-99) Arterial Blood pH 7.38 (7.35-7.45) Arterial Blood pCO2 at Patient Temp 35 mmHg (35-46) Arterial Blood pO2 at Patient Temp 106 mmHg (65-108) Arterial Blood HCO3 20 mmol/L (21-28) Arterial Blood Base Excess -4 mmol/L (-3-3) FiO2 40 Laboratory Tests Test 12/30/16 12:42 12/30/16 16:36 12/30/16 20:50 12/31/16 01:30 Glucose (Fingerstick) 261 mg/dL (70-99) 233 mg/dL (70-99) 201 mg/dL (70-99) 267 mg/dL (70-99) Test 12/31/16 05:10 12/31/16 07:40 12/31/16 08:12 12/31/16 10:05 White Blood Count 6.2 x10^3/uL (4.0-11.0) Red Blood Count 3.31 x10^6/uL (4.30-5.70) Hemoglobin 10.4 g/dL (13.0-17.5) Hematocrit 30.0 % (39.0-53.0) Mean Corpuscular Volume 91 fL (79-100) Mean Corpuscular Hemoglobin 31 pg (25-35) Mean Corpuscular Hemoglobin Concent 35 g/dL (31-37) Red Cell Distribution Width 13.5 % (11.5-14.5) Platelet Count 151 x10^3/uL (140-400) Neutrophils (%) (Auto) 88 % (31-73) Lymphocytes (%) (Auto) 7 % (24-48) Monocytes (%) (Auto) 5 % (0-9) Eosinophils (%) (Auto) 0 % (0-3) Basophils (%) (Auto) 0 % (0-3) Neutrophils # (Auto) 5.4 x10^3uL (1.8-7.7) Lymphocytes # (Auto) 0.4 x10^3/uL (1.0-4.8) Monocytes # (Auto) 0.3 x10^3/uL (0.0-1.1) Eosinophils # (Auto) 0.0 x10^3/uL (0.0-0.7) Basophils # (Auto) 0.0 x10^3/uL (0.0-0.2) Sodium Level 143 mmol/L (136-145) Potassium Level 3.8 mmol/L (3.5-5.1) Chloride Level 110 mmol/L (98-107) Carbon Dioxide Level 20 mmol/L (21-32) Anion Gap 13 (6-14) Blood Urea Nitrogen 40 mg/dL (8-26) Creatinine 1.9 mg/dL (0.7-1.3) Estimated GFR (Cockcroft-Gault) 34.5 Glucose Level 278 mg/dL (70-99) Calcium Level 8.2 mg/dL (8.5-10.1) O2 Saturation 97 % (92-99) 97 % (92-99) Arterial Blood pH 7.39 (7.35-7.45) 7.38 (7.35-7.45) Arterial Blood pCO2 at Patient Temp 33 mmHg (35-46) 35 mmHg (35-46) Arterial Blood pO2 at Patient Temp 111 mmHg (65-108) 106 mmHg (65-108) Arterial Blood HCO3 20 mmol/L (21-28) 20 mmol/L (21-28) Arterial Blood Base Excess -5 mmol/L (-3-3) -4 mmol/L (-3-3) FiO2 40 40 Glucose (Fingerstick) 271 mg/dL (70-99) Microbiology 12/29/16 Blood Culture - Preliminary, Resulted NO GROWTH AFTER 1 DAY Medications Current Medications Naloxone HCl (Narcan) 2 mg STK-MED ONCE .ROUTE ; Start 12/29/16 at 17:27; Stop at 17:28; Status DC Atropine Sulfate 1 mg STK-MED ONCE .ROUTE ; Start 12/29/16 at 17:27; Stop at 17:28; Status DC Sodium Chloride 1,000 ml @ 1,000 mls/hr Q1H IV Last administered on 12/29/16 17:30; Start 12/29/16 at 17:44; Stop 12/29/16 at 18:43; Status DC Midazolam HCl (Versed) 5 mg 1X ONCE IV Last administered on 12/29/16 17:53; Start 12/29/16 at 18:00; Stop 12/29/16 at 18:01; Status DC Midazolam HCl 100 ml @ 0 mls/hr 1X ONCE IV Last administered on 12/29/16 18:08 ; Start 12/29/16 at 18:00; Stop 12/29/16 at 18:01; Status DC Etomidate (Amidate) 20 mg STK-MED ONCE IV ; Start 12/29/16 at 18:05; Stop at 18:06; Status DC Succinylcholine Chloride (Anectine) 200 mg STK-MED ONCE .ROUTE ; Start 12/29/16 at 18:05; Stop 12/29/16 at 18:06; Status DC Aspirin (Ecotrin) 81 mg DAILYWBKFT PO Last administered on 12/31/16 08:09; Start 12/30/16 at 08:00 Vitamin D (Vitamin D3) 1,000 unit DAILY PO Last administered on 12/31/16 08:16 ; Start 12/30/16 at 09:00 Cyanocobalamin (Vitamin B-12) 1,000 mcg DAILY PO Last administered on 12/31/16 08:17; Start 12/30/16 at 09:00 Sodium Chloride 1,000 ml @ 100 mls/hr Q10H IV Last administered on 12/31/16 07 :22; Start 12/29/16 at 18:45 Acetaminophen (Tylenol) 650 mg PRN Q6HRS PRN PO FEVER; Start 12/29/16 at 18:45 Ondansetron HCl (Zofran) 4 mg PRN Q6HRS PRN IV NAUSEA/VOMITING; Start 12/29/16 at 18:45 Morphine Sulfate 2 mg PRN Q2HR PRN IV PAIN; Start 12/29/16 at 18:45 Tramadol HCl (Ultram) 50 mg PRN Q6HRS PRN PO PAIN; Start 12/29/16 at 18:45 Hydralazine HCl (Apresoline) 10 mg PRN Q4HRS PRN IVP ELEVATED BP, SEE COMMENTS ; Start 12/29/16 at 18:45 Docusate Sodium (Colace) 100 mg PRN DAILY PRN PO CONSTIPATION; Start 12/29/16 at 18:45 Naloxone HCl (Narcan) 2 mg 1X ONCE IV Last administered on 12/29/16 17:32; Start 12/29/16 at 18:45; Stop 12/29/16 at 18:46; Status DC Etomidate (Amidate) 20 mg 1X ONCE IV Last administered on 12/29/16 17:39; Start 12/29/16 at 18:45; Stop 12/29/16 at 18:46; Status DC Succinylcholine Chloride (Anectine) 100 mg 1X ONCE IV Last administered on 12/29 17:39; Start 12/29/16 at 18:45; Stop 12/29/16 at 18:46; Status DC Dextrose (Dextrose 50%-Water Syringe) 25 gm 1X ONCE IV Last administered on 17:20; Start 12/29/16 at 18:45; Stop 12/29/16 at 18:46; Status DC Insulin Aspart (NovoLOG) 0-9 UNITS TIDWMEALS SQ Last administered on 12/31/16 08:14; Start 12/30/16 at 08:00 Dextrose (Dextrose 50%-Water Syringe) 12.5 gm PRN Q15MIN PRN IV SEE COMMENTS; Start 12/29/16 at 18:45; Stop 12/29/16 at 19:45; Status DC Enoxaparin Sodium (Lovenox 30mg Syringe) 30 mg Q24H SQ Last administered on 12/30 08:51; Start 12/30/16 at 10:00; Stop 12/30/16 at 10:38; Status DC Pantoprazole Sodium (Protonix Vial) 40 mg DAILYAC IVP Last administered on 08:09; Start 12/30/16 at 07:30 Vancomycin HCl (Vanco Per Pharmacy) 1 each PRN DAILY PRN MC SEE COMMENTS Last administered on 12/30/16 12:00; Start 12/29/16 at 18:45 Vancomycin HCl 2 gm/Sodium Chloride 500 ml @ 250 mls/hr 1X ONCE IV Last administered on 12/29/16 20:47; Start 12/29/16 at 20:00; Stop 12/29/16 at 21:59; Status DC Piperacillin Sod/ Tazobactam Sod 3.375 gm/Sodium Chloride 50 ml @ 100 mls/hr Q6HRS IV Last administered on 12/31/16 05:44; Start 12/29/16 at 19:00 Piperacillin Sod/ Tazobactam Sod (Zosyn Per Pharmacy) 1 each PRN DAILY PRN MC SEE COMMENTS; Start 12/29/16 at 18:45 Vancomycin HCl 1.5 gm/Sodium Chloride 500 ml @ 250 mls/hr Q24H IV Last administered on 12/30/16 20:02; Start 12/30/16 at 20:00 Vancomycin HCl 1 each 1X ONCE MC ; Start 12/31/16 at 19:30; Stop 12/31/16 at 19: 31 Ondansetron HCl (Zofran) 4 mg PRN Q8HRS PRN IV NAUSEA/VOMITING; Start 12/29/16 at 19:45; Stop 12/30/16 at 10:39; Status DC Sodium Chloride 1,000 ml @ 100 mls/hr Q10H IV ; Start 12/29/16 at 19:35; Stop at 07:37; Status DC Acetaminophen (Tylenol) 650 mg PRN Q4HRS PRN PO FEVER; Start 12/29/16 at 19:45; Stop 12/30/16 at 10:37; Status DC Dextrose (Dextrose 50%-Water Syringe) 12.5 gm PRN Q15MIN PRN IV SEE COMMENTS; Start 12/29/16 at 19:45 Midazolam HCl 100 ml @ 0 mls/hr CONT PRN IV SEE I/O RECORD Last administered on 12/30/16 10:12; Start 12/29/16 at 19:45 Sodium Chloride 1,000 ml @ 3,030 mls/hr Q20M IV Last administered on 12/29/16 21:39; Start 12/29/16 at 20:30; Stop 12/29/16 at 21:30; Status DC Norepinephrine Bitartrate 250 ml @ 0 mls/hr CONT PRN IV SEE I/O RECORD Last administered on 12/29/16 22:00; Start 12/29/16 at 21:45 Sodium Chloride 1,000 ml @ 999 mls/hr 1X ONCE IV Last administered on 22:20; Start 12/29/16 at 21:45; Stop 12/29/16 at 22:45; Status DC Dopamine HCl/ Dextrose 250 ml @ As Directed STK-MED ONCE IV ; Start 12/29/16 at 22:04; Stop 12/29/16 at 22:05; Status DC Dopamine HCl/ Dextrose 250 ml @ 18.966 mls/ hr CONT PRN IV SEE I/O RECORD Last administered on 12/30/16 07:43; Start 12/29/16 at 22:15 Hydrocortisone Sodium Succinate (Solu-CORTEF) 100 mg Q8HRS IV Last administered on 12/31/16 05:43; Start 12/29/16 at 22:30; Stop 12/31/16 at 10:30; Status DC Heparin Sodium (Porcine) (Heparin Sq) 5,000 unit Q8HRS SQ Last administered on 12/31/16 05:46; Start 12/30/16 at 14:00 Pantoprazole Sodium (Protonix Vial) 40 mg DAILYAC IVP ; Start 12/30/16 at 11:30; Status Cancel Hydrocortisone Sodium Succinate (Solu-CORTEF) 50 mg Q8HRS IV ; Start 12/31/16 at 14:00; Status UNV Active Scripts Active Reported Levemir (Insulin Detemir) 100 Unit/1 Ml Vial 40 Unit SQ QHS Mucinex (Guaifenesin) 600 Mg Tablet.er 1 Tab PO BID PRN Atorvastatin Calcium 10 Mg Tablet 10 Mg PO HS Percocet 7.5-325 Mg Tablet (Oxycodone/Acetaminophen) 1 Each Tablet 1 Tab PO Q4HRS Amlodipine Besylate 5 Mg Tablet 5 Mg PO DAILY Novolog Flexpen (Insulin Aspart) 100 Unit/1 Ml Insuln.pen 15 Unit SQ BIDACLD Tylenol (Acetaminophen) 325 Mg Tablet 650 Mg PO PRN Q4-6HRS PRN Protonix (Pantoprazole Sodium) 20 Mg Tablet.dr 1 Tab PO DAILY Toprol Xl (Metoprolol Succinate) 50 Mg Tab.er.24h 1 Tab PO DAILY Lisinopril 10 Mg Tablet 1 Tab PO DAILY Lasix (Furosemide) 40 Mg Tablet 1 Tab PO DAILY Aspir 81 (Aspirin) 81 Mg Tablet.dr 1 Tab PO DAILY Vitamin D3 (Cholecalciferol (Vitamin D3)) 1,000 Unit Tablet 800 Unit PO DAILY Vitamin B-12 (Cyanocobalamin (Vitamin B-12)) 1,000 Mcg Tablet 1 Tab PO DAILY Spironolactone 50 Mg Tablet 1 Tab PO DAILY Nitrostat (Nitroglycerin) 0.4 Mg Tab.subl 1 Tab SL UD Senokot-S Tablet (Sennosides/Docusate Sodium) 1 Each Tablet 2 Tab PO HS Gabapentin 300 Mg Capsule 300 Mg PO HS Vitals/I & O Vital Sign - Last 24 Hours 12/30/16 12/30/16 12/30/16 12/30/16 11:00 11:06 12:00 12:00 Temp 99.3 99.3 Pulse 52 56 Resp 16 16 B/P (MAP) 121/53 (75) 147/59 (88) Pulse Ox 99 99 100 O2 Delivery Ventilator Ventilator Mechanical Ventilator Ventilator 12/30/16 12/30/16 12/30/16 12/30/16 12:56 13:00 14:00 14:53 Pulse 55 60 Resp 16 16 B/P (MAP) 116/57 (76) 117/56 (76) Pulse Ox 100 100 100 100 O2 Delivery Ventilator Ventilator Ventilator Ventilator 12/30/16 12/30/16 12/30/16 12/30/16 16:00 16:00 16:50 17:00 Temp 99.1 99.1 Pulse 62 53 Resp 16 16 B/P (MAP) 132/60 (84) 114/62 (79) Pulse Ox 100 100 100 O2 Delivery Mechanical Ventilator Ventilator Ventilator Ventilator 12/30/16 12/30/16 12/30/16 12/30/16 18:00 19:00 19:38 19:38 Temp 99.5 99.5 Pulse 51 55 Resp 16 16 B/P (MAP) 125/61 (82) 124/54 (77) Pulse Ox 100 100 100 O2 Delivery Ventilator Ventilator Ventilator Mechanical Ventilator 12/30/16 12/30/16 12/30/16 12/30/16 20:00 21:00 21:10 22:00 Pulse 64 59 55 Resp 16 16 16 B/P (MAP) 123/58 (79) 100/47 (64) 138/53 (81) Pulse Ox 100 100 100 100 O2 Delivery Ventilator Ventilator Ventilator Ventilator 12/30/16 12/30/16 12/30/16 12/31/16 23:00 23:15 23:57 00:00 Temp 98.2 98.2 Pulse 57 57 Resp 16 16 B/P (MAP) 148/61 (90) 139/66 (90) Pulse Ox 100 100 100 O2 Delivery Ventilator Ventilator Mechanical Ventilator Ventilator 12/31/16 12/31/16 12/31/16 12/31/16 01:00 01:20 02:00 03:00 Pulse 59 56 72 Resp 16 16 16 B/P (MAP) 148/69 (95) 149/68 (95) 138/71 (93) Pulse Ox 100 100 100 100 O2 Delivery Ventilator Ventilator Ventilator Ventilator 12/31/16 12/31/16 12/31/16 12/31/16 03:35 04:00 04:00 05:00 Temp 99.3 99.3 Pulse 55 65 Resp 16 16 B/P (MAP) 152/75 (100) 151/68 (95) Pulse Ox 100 100 100 O2 Delivery Ventilator Mechanical Ventilator Ventilator Ventilator 12/31/16 12/31/16 12/31/16 12/31/16 05:32 06:02 07:00 07:37 Temp 98.6 98.6 Pulse 58 70 Resp 16 15 B/P (MAP) 141/61 (87) 151/69 (96) Pulse Ox 100 100 100 100 O2 Delivery Ventilator Ventilator Ventilator Ventilator 12/31/16 12/31/16 12/31/16 12/31/16 08:00 08:10 09:10 10:10 Pulse 57 61 65 Resp 15 18 17 B/P (MAP) 158/68 (98) 154/70 (98) 154/73 (100) Pulse Ox 100 100 100 O2 Delivery Ventilator Mechanical Ventilator Ventilator Ventilator 12/31/16 10:28 O2 Delivery Nasal Cannula O2 Flow Rate 4.0 Intake and Output 12/30/16 12/30/16 12/31/16 15:00 23:00 07:00 Intake Total 500 ml 1324 ml Output Total 775 ml 745 ml 715 ml Balance -775 ml -245 ml 609 ml Nutrition Consultation Dietary Evaluation: Recommendations by RD: Increase Calorie Intake Comments: Rec. TF's as medically appropriate: Diabetisource AC, goal rate 60 ml/hr start at 20 ml/hr, increase by 20 ml/hr q8h to goal rate flushes 200 cc q6h if no IVF's running Expected Outcomes/Goals: TF initiation Malnutrition Findings: Reduced Demurrage Agent Strength: N/A Weight Status: Obese Fluid Accumulation (N/A): N/A HADLEY MANCINI MD Dec 31, 2016 10:35
[2016-12-31] MEDS ORDERED: INSULIN DETEMIR 300 UNITS/3 ML INSULN.PEN. SQ SCH (11:00)
--- NOTE | 2016-12-31 15:14 | PDOC ---
PROGRESS NOTES Assessment Problems Medical Problems: (1) Acute encephalopathy Status: Acute (2) Acute respiratory failure Status: Acute (3) Chronic kidney disease, stage IV (severe) Status: Acute (4) Hypoglycemia Status: Acute (5) Type 2 diabetes mellitus Status: Acute Metabolic encephalopathy due to hypoglycemia, possible sedatives, although urine drug screen is negative. Right-sided strabismus, ptosis, old Plan No additional neurological studies needed Subjective No complaints Objective Vital Signs Date Time Temp Pulse Resp B/P (MAP) Pulse Ox O2 Delivery O2 Flow Rate FiO2 12/31/16 14:57 85 18 149/86 (107) 100 Nasal Cannula 12/31/16 12:24 3.0 12/31/16 10:55 98.6 98.6 Intake and Output 12/31/16 07:00 Intake Total 1824 ml Output Total 2235 ml Balance -411 ml Intake IV Total 1596 ml Tube Feeding 228 ml Output Urine Total 2235 ml PHYSICAL EXAM Alert. Oriented to place and person, does not know date. PERRL. EOMI. CN: Right-sided ptosis, otherwise no focal findings. Muscle tone: normal. Muscle strength: 4/5 DTR: 1+ Plantar reflex: Flexor Gait: not examined in bed. Sensory exam: Stocking loss. No cerebellar signs elicited. Review of Relevant I have reviewed the following items ivette (where applicable) has been applied. Labs Laboratory Tests Test 12/29/16 17:30 12/29/16 17:44 12/29/16 18:10 12/29/16 19:30 White Blood Count 5.9 x10^3/uL (4.0-11.0) Red Blood Count 3.41 x10^6/uL (4.30-5.70) Hemoglobin 10.5 g/dL (13.0-17.5) Hematocrit 31.1 % (39.0-53.0) Mean Corpuscular Volume 91 fL (79-100) Mean Corpuscular Hemoglobin 31 pg (25-35) Mean Corpuscular Hemoglobin Concent 34 g/dL (31-37) Red Cell Distribution Width 13.0 % (11.5-14.5) Platelet Count 156 x10^3/uL (140-400) Neutrophils (%) (Auto) 74 % (31-73) Lymphocytes (%) (Auto) 11 % (24-48) Monocytes (%) (Auto) 11 % (0-9) Eosinophils (%) (Auto) 3 % (0-3) Basophils (%) (Auto) 1 % (0-3) Neutrophils # (Auto) 4.4 x10^3uL (1.8-7.7) Lymphocytes # (Auto) 0.6 x10^3/uL (1.0-4.8) Monocytes # (Auto) 0.7 x10^3/uL (0.0-1.1) Eosinophils # (Auto) 0.2 x10^3/uL (0.0-0.7) Basophils # (Auto) 0.0 x10^3/uL (0.0-0.2) Prothrombin Time 13.6 SEC (11.7-14.0) Prothromb Time International Ratio 1.1 (0.8-1.1) Activated Partial Thromboplast Time 34 SEC (24-38) Sodium Level 138 mmol/L (136-145) Potassium Level 4.3 mmol/L (3.5-5.1) Chloride Level 103 mmol/L (98-107) Carbon Dioxide Level 28 mmol/L (21-32) Anion Gap 7 (6-14) Blood Urea Nitrogen 43 mg/dL (8-26) Creatinine 2.2 mg/dL (0.7-1.3) Estimated GFR (Cockcroft-Gault) 29.2 BUN/Creatinine Ratio 20 (6-20) Glucose Level 142 mg/dL (70-99) Lactic Acid Level 1.4 mmol/L (0.4-2.0) Calcium Level 8.7 mg/dL (8.5-10.1) Magnesium Level 2.0 mg/dL (1.8-2.4) Total Bilirubin 0.3 mg/dL (0.2-1.0) Aspartate Amino Transf (AST/SGOT) 19 U/L (15-37) Alanine Aminotransferase (ALT/SGPT) 21 U/L (16-63) Alkaline Phosphatase 62 U/L (46-116) Ammonia 17 mcmol/L (11-34) Total Protein 6.1 g/dL (6.4-8.2) Albumin 3.6 g/dL (3.4-5.0) Albumin/Globulin Ratio 1.4 (1.0-1.7) Lipase 156 U/L (73-393) O2 Saturation 98 % (92-99) Arterial Blood pH 7.32 (7.35-7.45) Arterial Blood pCO2 at Patient Temp 41 mmHg (35-46) Arterial Blood pO2 at Patient Temp 156 mmHg (65-108) Arterial Blood HCO3 21 mmol/L (21-28) Arterial Blood Base Excess -5 mmol/L (-3-3) FiO2 40 Urine Collection Type Unknown Urine Color Yellow Urine Clarity Clear Urine pH 5.5 Urine Specific [place] 1.015 Urine Protein Negative mg/dL (NEG-TRACE) Urine Glucose (UA) Negative mg/dL (NEG) Urine Ketones (Stick) Negative mg/dL (NEG) Urine Blood Negative (NEG) Urine Nitrite Negative (NEG) Urine Bilirubin Negative (NEG) Urine Urobilinogen Dipstick 0.2 mg/dL (0.2 mg/dL) Urine Leukocyte Esterase Negative (NEG) Urine RBC 0 /HPF (0-2) Urine WBC 0 /HPF (0-4) Urine Squamous Epithelial Cells Few /LPF Urine Bacteria 0 /HPF (0-FEW) Urine Hyaline Casts Few /HPF Urine Mucus Mod /LPF Urine Opiates Screen Neg (NEG) Urine Methadone Screen Neg (NEG) Urine Barbiturates Neg (NEG) Urine Phencyclidine Screen Neg (NEG) Urine Amphetamine/Methamphetamine Neg (NEG) Urine Benzodiazepines Screen Neg (NEG) Urine Cocaine Screen Neg (NEG) Urine Cannabinoids Screen Neg (NEG) Urine Ethyl Alcohol Neg (NEG) Nasal Screen MRSA (PCR) Negative (Negative) Test 12/29/16 22:08 12/30/16 00:42 12/30/16 05:00 12/30/16 07:41 Glucose (Fingerstick) 102 mg/dL (70-99) 170 mg/dL (70-99) 236 mg/dL (70-99) White Blood Count 10.2 x10^3/uL (4.0-11.0) Red Blood Count 3.74 x10^6/uL (4.30-5.70) Hemoglobin 11.8 g/dL (13.0-17.5) Hematocrit 33.2 % (39.0-53.0) Mean Corpuscular Volume 89 fL (79-100) Mean Corpuscular Hemoglobin 32 pg (25-35) Mean Corpuscular Hemoglobin Concent 36 g/dL (31-37) Red Cell Distribution Width 13.2 % (11.5-14.5) Platelet Count 192 x10^3/uL (140-400) Neutrophils (%) (Auto) 91 % (31-73) Lymphocytes (%) (Auto) 5 % (24-48) Monocytes (%) (Auto) 4 % (0-9) Eosinophils (%) (Auto) 0 % (0-3) Basophils (%) (Auto) 0 % (0-3) Neutrophils # (Auto) 9.3 x10^3uL (1.8-7.7) Lymphocytes # (Auto) 0.5 x10^3/uL (1.0-4.8) Monocytes # (Auto) 0.4 x10^3/uL (0.0-1.1) Eosinophils # (Auto) 0.0 x10^3/uL (0.0-0.7) Basophils # (Auto) 0.0 x10^3/uL (0.0-0.2) Segmented Neutrophils % 85 % (35-66) Band Neutrophils % 8 % (0-9) Lymphocytes % 5 % (24-48) Monocytes % 2 % (0-10) Platelet Estimate Adequate (ADEQUATE) Sodium Level 139 mmol/L (136-145) Potassium Level 4.4 mmol/L (3.5-5.1) Chloride Level 105 mmol/L (98-107) Carbon Dioxide Level 20 mmol/L (21-32) Anion Gap 14 (6-14) Blood Urea Nitrogen 38 mg/dL (8-26) Creatinine 1.9 mg/dL (0.7-1.3) Estimated GFR (Cockcroft-Gault) 34.5 Glucose Level 231 mg/dL (70-99) Calcium Level 8.4 mg/dL (8.5-10.1) Test 12/30/16 08:00 12/30/16 12:42 12/30/16 16:36 12/30/16 20:50 O2 Saturation 97 % (92-99) Arterial Blood pH 7.36 (7.35-7.45) Arterial Blood pCO2 at Patient Temp 34 mmHg (35-46) Arterial Blood pO2 at Patient Temp 102 mmHg (65-108) Arterial Blood HCO3 19 mmol/L (21-28) Arterial Blood Base Excess -6 mmol/L (-3-3) FiO2 40 Glucose (Fingerstick) 261 mg/dL (70-99) 233 mg/dL (70-99) 201 mg/dL (70-99) Test 12/31/16 01:30 12/31/16 05:10 12/31/16 07:40 12/31/16 08:12 Glucose (Fingerstick) 267 mg/dL (70-99) 271 mg/dL (70-99) White Blood Count 6.2 x10^3/uL (4.0-11.0) Red Blood Count 3.31 x10^6/uL (4.30-5.70) Hemoglobin 10.4 g/dL (13.0-17.5) Hematocrit 30.0 % (39.0-53.0) Mean Corpuscular Volume 91 fL (79-100) Mean Corpuscular Hemoglobin 31 pg (25-35) Mean Corpuscular Hemoglobin Concent 35 g/dL (31-37) Red Cell Distribution Width 13.5 % (11.5-14.5) Platelet Count 151 x10^3/uL (140-400) Neutrophils (%) (Auto) 88 % (31-73) Lymphocytes (%) (Auto) 7 % (24-48) Monocytes (%) (Auto) 5 % (0-9) Eosinophils (%) (Auto) 0 % (0-3) Basophils (%) (Auto) 0 % (0-3) Neutrophils # (Auto) 5.4 x10^3uL (1.8-7.7) Lymphocytes # (Auto) 0.4 x10^3/uL (1.0-4.8) Monocytes # (Auto) 0.3 x10^3/uL (0.0-1.1) Eosinophils # (Auto) 0.0 x10^3/uL (0.0-0.7) Basophils # (Auto) 0.0 x10^3/uL (0.0-0.2) Sodium Level 143 mmol/L (136-145) Potassium Level 3.8 mmol/L (3.5-5.1) Chloride Level 110 mmol/L (98-107) Carbon Dioxide Level 20 mmol/L (21-32) Anion Gap 13 (6-14) Blood Urea Nitrogen 40 mg/dL (8-26) Creatinine 1.9 mg/dL (0.7-1.3) Estimated GFR (Cockcroft-Gault) 34.5 Glucose Level 278 mg/dL (70-99) Calcium Level 8.2 mg/dL (8.5-10.1) O2 Saturation 97 % (92-99) Arterial Blood pH 7.39 (7.35-7.45) Arterial Blood pCO2 at Patient Temp 33 mmHg (35-46) Arterial Blood pO2 at Patient Temp 111 mmHg (65-108) Arterial Blood HCO3 20 mmol/L (21-28) Arterial Blood Base Excess -5 mmol/L (-3-3) FiO2 40 Test 12/31/16 10:05 12/31/16 11:20 O2 Saturation 97 % (92-99) Arterial Blood pH 7.38 (7.35-7.45) Arterial Blood pCO2 at Patient Temp 35 mmHg (35-46) Arterial Blood pO2 at Patient Temp 106 mmHg (65-108) Arterial Blood HCO3 20 mmol/L (21-28) Arterial Blood Base Excess -4 mmol/L (-3-3) FiO2 40 Glucose (Fingerstick) 290 mg/dL (70-99) Laboratory Tests Test 12/30/16 16:36 12/30/16 20:50 12/31/16 01:30 12/31/16 05:10 Glucose (Fingerstick) 233 mg/dL (70-99) 201 mg/dL (70-99) 267 mg/dL (70-99) White Blood Count 6.2 x10^3/uL (4.0-11.0) Red Blood Count 3.31 x10^6/uL (4.30-5.70) Hemoglobin 10.4 g/dL (13.0-17.5) Hematocrit 30.0 % (39.0-53.0) Mean Corpuscular Volume 91 fL (79-100) Mean Corpuscular Hemoglobin 31 pg (25-35) Mean Corpuscular Hemoglobin Concent 35 g/dL (31-37) Red Cell Distribution Width 13.5 % (11.5-14.5) Platelet Count 151 x10^3/uL (140-400) Neutrophils (%) (Auto) 88 % (31-73) Lymphocytes (%) (Auto) 7 % (24-48) Monocytes (%) (Auto) 5 % (0-9) Eosinophils (%) (Auto) 0 % (0-3) Basophils (%) (Auto) 0 % (0-3) Neutrophils # (Auto) 5.4 x10^3uL (1.8-7.7) Lymphocytes # (Auto) 0.4 x10^3/uL (1.0-4.8) Monocytes # (Auto) 0.3 x10^3/uL (0.0-1.1) Eosinophils # (Auto) 0.0 x10^3/uL (0.0-0.7) Basophils # (Auto) 0.0 x10^3/uL (0.0-0.2) Sodium Level 143 mmol/L (136-145) Potassium Level 3.8 mmol/L (3.5-5.1) Chloride Level 110 mmol/L (98-107) Carbon Dioxide Level 20 mmol/L (21-32) Anion Gap 13 (6-14) Blood Urea Nitrogen 40 mg/dL (8-26) Creatinine 1.9 mg/dL (0.7-1.3) Estimated GFR (Cockcroft-Gault) 34.5 Glucose Level 278 mg/dL (70-99) Calcium Level 8.2 mg/dL (8.5-10.1) Test 12/31/16 07:40 12/31/16 08:12 12/31/16 10:05 12/31/16 11:20 O2 Saturation 97 % (92-99) 97 % (92-99) Arterial Blood pH 7.39 (7.35-7.45) 7.38 (7.35-7.45) Arterial Blood pCO2 at Patient Temp 33 mmHg (35-46) 35 mmHg (35-46) Arterial Blood pO2 at Patient Temp 111 mmHg (65-108) 106 mmHg (65-108) Arterial Blood HCO3 20 mmol/L (21-28) 20 mmol/L (21-28) Arterial Blood Base Excess -5 mmol/L (-3-3) -4 mmol/L (-3-3) FiO2 40 40 Glucose (Fingerstick) 271 mg/dL (70-99) 290 mg/dL (70-99) Microbiology 12/29/16 Blood Culture - Preliminary, Resulted NO GROWTH AFTER 1 DAY Medications Current Medications Naloxone HCl (Narcan) 2 mg STK-MED ONCE .ROUTE ; Start 12/29/16 at 17:27; Stop at 17:28; Status DC Atropine Sulfate 1 mg STK-MED ONCE .ROUTE ; Start 12/29/16 at 17:27; Stop at 17:28; Status DC Sodium Chloride 1,000 ml @ 1,000 mls/hr Q1H IV Last administered on 12/29/16 17:30; Start 12/29/16 at 17:44; Stop 12/29/16 at 18:43; Status DC Midazolam HCl (Versed) 5 mg 1X ONCE IV Last administered on 12/29/16 17:53; Start 12/29/16 at 18:00; Stop 12/29/16 at 18:01; Status DC Midazolam HCl 100 ml @ 0 mls/hr 1X ONCE IV Last administered on 12/29/16 18:08 ; Start 12/29/16 at 18:00; Stop 12/29/16 at 18:01; Status DC Etomidate (Amidate) 20 mg STK-MED ONCE IV ; Start 12/29/16 at 18:05; Stop at 18:06; Status DC Succinylcholine Chloride (Anectine) 200 mg STK-MED ONCE .ROUTE ; Start 12/29/16 at 18:05; Stop 12/29/16 at 18:06; Status DC Aspirin (Ecotrin) 81 mg DAILYWBKFT PO Last administered on 12/31/16 08:09; Start 12/30/16 at 08:00 Vitamin D (Vitamin D3) 1,000 unit DAILY PO Last administered on 12/31/16 08:16 ; Start 12/30/16 at 09:00 Cyanocobalamin (Vitamin B-12) 1,000 mcg DAILY PO Last administered on 12/31/16 08:17; Start 12/30/16 at 09:00 Sodium Chloride 1,000 ml @ 100 mls/hr Q10H IV Last administered on 12/31/16 07 :22; Start 12/29/16 at 18:45 Acetaminophen (Tylenol) 650 mg PRN Q6HRS PRN PO FEVER; Start 12/29/16 at 18:45 Ondansetron HCl (Zofran) 4 mg PRN Q6HRS PRN IV NAUSEA/VOMITING; Start 12/29/16 at 18:45 Morphine Sulfate 2 mg PRN Q2HR PRN IV PAIN; Start 12/29/16 at 18:45 Tramadol HCl (Ultram) 50 mg PRN Q6HRS PRN PO PAIN; Start 12/29/16 at 18:45 Hydralazine HCl (Apresoline) 10 mg PRN Q4HRS PRN IVP ELEVATED BP, SEE COMMENTS ; Start 12/29/16 at 18:45 Docusate Sodium (Colace) 100 mg PRN DAILY PRN PO CONSTIPATION; Start 12/29/16 at 18:45 Naloxone HCl (Narcan) 2 mg 1X ONCE IV Last administered on 12/29/16 17:32; Start 12/29/16 at 18:45; Stop 12/29/16 at 18:46; Status DC Etomidate (Amidate) 20 mg 1X ONCE IV Last administered on 12/29/16 17:39; Start 12/29/16 at 18:45; Stop 12/29/16 at 18:46; Status DC Succinylcholine Chloride (Anectine) 100 mg 1X ONCE IV Last administered on 12/29 17:39; Start 12/29/16 at 18:45; Stop 12/29/16 at 18:46; Status DC Dextrose (Dextrose 50%-Water Syringe) 25 gm 1X ONCE IV Last administered on 17:20; Start 12/29/16 at 18:45; Stop 12/29/16 at 18:46; Status DC Insulin Aspart (NovoLOG) 0-9 UNITS TIDWMEALS SQ Last administered on 12/31/16 08:14; Start 12/30/16 at 08:00 Dextrose (Dextrose 50%-Water Syringe) 12.5 gm PRN Q15MIN PRN IV SEE COMMENTS; Start 12/29/16 at 18:45; Stop 12/29/16 at 19:45; Status DC Enoxaparin Sodium (Lovenox 30mg Syringe) 30 mg Q24H SQ Last administered on 12/30 08:51; Start 12/30/16 at 10:00; Stop 12/30/16 at 10:38; Status DC Pantoprazole Sodium (Protonix Vial) 40 mg DAILYAC IVP Last administered on 08:09; Start 12/30/16 at 07:30 Vancomycin HCl (Vanco Per Pharmacy) 1 each PRN DAILY PRN MC SEE COMMENTS Last administered on 12/30/16 12:00; Start 12/29/16 at 18:45 Vancomycin HCl 2 gm/Sodium Chloride 500 ml @ 250 mls/hr 1X ONCE IV Last administered on 12/29/16 20:47; Start 12/29/16 at 20:00; Stop 12/29/16 at 21:59; Status DC Piperacillin Sod/ Tazobactam Sod 3.375 gm/Sodium Chloride 50 ml @ 100 mls/hr Q6HRS IV Last administered on 12/31/16 11:43; Start 12/29/16 at 19:00 Piperacillin Sod/ Tazobactam Sod (Zosyn Per Pharmacy) 1 each PRN DAILY PRN MC SEE COMMENTS; Start 12/29/16 at 18:45 Vancomycin HCl 1.5 gm/Sodium Chloride 500 ml @ 250 mls/hr Q24H IV Last administered on 12/30/16 20:02; Start 12/30/16 at 20:00 Vancomycin HCl 1 each 1X ONCE MC ; Start 12/31/16 at 19:30; Stop 12/31/16 at 19: 31 Ondansetron HCl (Zofran) 4 mg PRN Q8HRS PRN IV NAUSEA/VOMITING; Start 12/29/16 at 19:45; Stop 12/30/16 at 10:39; Status DC Sodium Chloride 1,000 ml @ 100 mls/hr Q10H IV ; Start 12/29/16 at 19:35; Stop at 07:37; Status DC Acetaminophen (Tylenol) 650 mg PRN Q4HRS PRN PO FEVER; Start 12/29/16 at 19:45; Stop 12/30/16 at 10:37; Status DC Dextrose (Dextrose 50%-Water Syringe) 12.5 gm PRN Q15MIN PRN IV SEE COMMENTS; Start 12/29/16 at 19:45 Midazolam HCl 100 ml @ 0 mls/hr CONT PRN IV SEE I/O RECORD Last administered on 12/30/16 10:12; Start 12/29/16 at 19:45; Stop 12/31/16 at 10:34; Status DC Sodium Chloride 1,000 ml @ 3,030 mls/hr Q20M IV Last administered on 12/29/16 21:39; Start 12/29/16 at 20:30; Stop 12/29/16 at 21:30; Status DC Norepinephrine Bitartrate 250 ml @ 0 mls/hr CONT PRN IV SEE I/O RECORD Last administered on 12/29/16 22:00; Start 12/29/16 at 21:45; Stop 12/31/16 at 10:34; Status DC Sodium Chloride 1,000 ml @ 999 mls/hr 1X ONCE IV Last administered on 22:20; Start 12/29/16 at 21:45; Stop 12/29/16 at 22:45; Status DC Dopamine HCl/ Dextrose 250 ml @ As Directed STK-MED ONCE IV ; Start 12/29/16 at 22:04; Stop 12/29/16 at 22:05; Status DC Dopamine HCl/ Dextrose 250 ml @ 18.966 mls/ hr CONT PRN IV SEE I/O RECORD Last administered on 12/30/16 07:43; Start 12/29/16 at 22:15; Stop 12/31/16 at 10: 34; Status DC Hydrocortisone Sodium Succinate (Solu-CORTEF) 100 mg Q8HRS IV Last administered on 12/31/16 05:43; Start 12/29/16 at 22:30; Stop 12/31/16 at 10:30; Status DC Heparin Sodium (Porcine) (Heparin Sq) 5,000 unit Q8HRS SQ Last administered on 12/31/16 14:14; Start 12/30/16 at 14:00 Pantoprazole Sodium (Protonix Vial) 40 mg DAILYAC IVP ; Start 12/30/16 at 11:30; Status Cancel Hydrocortisone Sodium Succinate (Solu-CORTEF) 50 mg Q8HRS IV Last administered on 12/31/16 14:15; Start 12/31/16 at 14:00 Insulin Detemir (Levemir) 20 units DAILY SQ Last administered on 12/31/16 11:42 ; Start 12/31/16 at 11:00 Active Scripts Active Reported Levemir (Insulin Detemir) 100 Unit/1 Ml Vial 40 Unit SQ QHS Mucinex (Guaifenesin) 600 Mg Tablet.er 1 Tab PO BID PRN Atorvastatin Calcium 10 Mg Tablet 10 Mg PO HS Percocet 7.5-325 Mg Tablet (Oxycodone/Acetaminophen) 1 Each Tablet 1 Tab PO Q4HRS Amlodipine Besylate 5 Mg Tablet 5 Mg PO DAILY Novolog Flexpen (Insulin Aspart) 100 Unit/1 Ml Insuln.pen 15 Unit SQ BIDACLD Tylenol (Acetaminophen) 325 Mg Tablet 650 Mg PO PRN Q4-6HRS PRN Protonix (Pantoprazole Sodium) 20 Mg Tablet.dr 1 Tab PO DAILY Toprol Xl (Metoprolol Succinate) 50 Mg Tab.er.24h 1 Tab PO DAILY Lisinopril 10 Mg Tablet 1 Tab PO DAILY Lasix (Furosemide) 40 Mg Tablet 1 Tab PO DAILY Aspir 81 (Aspirin) 81 Mg Tablet.dr 1 Tab PO DAILY Vitamin D3 (Cholecalciferol (Vitamin D3)) 1,000 Unit Tablet 800 Unit PO DAILY Vitamin B-12 (Cyanocobalamin (Vitamin B-12)) 1,000 Mcg Tablet 1 Tab PO DAILY Spironolactone 50 Mg Tablet 1 Tab PO DAILY Nitrostat (Nitroglycerin) 0.4 Mg Tab.subl 1 Tab SL UD Senokot-S Tablet (Sennosides/Docusate Sodium) 1 Each Tablet 2 Tab PO HS Gabapentin 300 Mg Capsule 300 Mg PO HS Vitals/I & O Vital Sign - Last 24 Hours 12/30/16 12/30/16 12/30/16 12/30/16 16:00 16:00 16:50 17:00 Temp 99.1 99.1 Pulse 62 53 Resp 16 16 B/P (MAP) 132/60 (84) 114/62 (79) Pulse Ox 100 100 100 O2 Delivery Mechanical Ventilator Ventilator Ventilator Ventilator 12/30/16 12/30/16 12/30/16 12/30/16 18:00 19:00 19:38 19:38 Temp 99.5 99.5 Pulse 51 55 Resp 16 16 B/P (MAP) 125/61 (82) 124/54 (77) Pulse Ox 100 100 100 O2 Delivery Ventilator Ventilator Ventilator Mechanical Ventilator 12/30/16 12/30/16 12/30/16 12/30/16 20:00 21:00 21:10 22:00 Pulse 64 59 55 Resp 16 16 16 B/P (MAP) 123/58 (79) 100/47 (64) 138/53 (81) Pulse Ox 100 100 100 100 O2 Delivery Ventilator Ventilator Ventilator Ventilator 12/30/16 12/30/16 12/30/16 12/31/16 23:00 23:15 23:57 00:00 Temp 98.2 98.2 Pulse 57 57 Resp 16 16 B/P (MAP) 148/61 (90) 139/66 (90) Pulse Ox 100 100 100 O2 Delivery Ventilator Ventilator Mechanical Ventilator Ventilator 12/31/16 12/31/16 12/31/16 12/31/16 01:00 01:20 02:00 03:00 Pulse 59 56 72 Resp 16 16 16 B/P (MAP) 148/69 (95) 149/68 (95) 138/71 (93) Pulse Ox 100 100 100 100 O2 Delivery Ventilator Ventilator Ventilator Ventilator 12/31/16 12/31/16 12/31/16 12/31/16 03:35 04:00 04:00 05:00 Temp 99.3 99.3 Pulse 55 65 Resp 16 16 B/P (MAP) 152/75 (100) 151/68 (95) Pulse Ox 100 100 100 O2 Delivery Ventilator Mechanical Ventilator Ventilator Ventilator 12/31/16 12/31/16 12/31/16 12/31/16 05:32 06:02 07:00 07:37 Temp 98.6 98.6 Pulse 58 70 Resp 16 15 B/P (MAP) 141/61 (87) 151/69 (96) Pulse Ox 100 100 100 100 O2 Delivery Ventilator Ventilator Ventilator Ventilator 12/31/16 12/31/16 12/31/16 12/31/16 08:00 08:10 09:10 09:15 Pulse 57 61 Resp 15 18 B/P (MAP) 158/68 (98) 154/70 (98) Pulse Ox 100 100 100 O2 Delivery Ventilator Mechanical Ventilator Ventilator Ventilator 12/31/16 12/31/16 12/31/16 12/31/16 10:10 10:15 10:55 12:04 Temp 98.6 98.6 Pulse 65 65 72 Resp 17 17 22 B/P (MAP) 154/73 (100) 140/63 (88) 149/67 (94) Pulse Ox 100 100 99 O2 Delivery Ventilator Nasal Cannula Ventilator Nasal Cannula O2 Flow Rate 3.0 12/31/16 12/31/16 12/31/16 12/31/16 12:24 13:15 14:06 14:57 Pulse 75 85 85 Resp 15 20 18 B/P (MAP) 159/80 (106) 162/83 (109) 149/86 (107) Pulse Ox 100 100 100 O2 Delivery Mechanical Ventilator Nasal Cannula Nasal Cannula Nasal Cannula O2 Flow Rate 3.0 Intake and Output 12/30/16 12/30/16 12/31/16 15:00 23:00 07:00 Intake Total 500 ml 1324 ml Output Total 775 ml 745 ml 715 ml Balance -775 ml -245 ml 609 ml JOSE ALBERTO ROMERO MD Dec 31, 2016 15:14
[2016-12-31] MEDS: VANCOMYCIN PER PHARMACY MC PRN (20:08)
[2016-12-31] MEDS: VANCOMYCIN 1.5 GM in IV NORMAL SALINE 500ML BAG 500 ML IV SCH (20:24)
[2016-12-31] MEDS: traMADol 50 MG TABLET PO PRN (21:57)
[2017-01-01] VITALS (14 sets, daily range): BP systolic 109–153; BP diastolic 59–83
[2017-01-01] MEDS: MORPHINE SULFATE 2 MG/ML DISP.SYRIN. IV PRN ×2 (02:16→21:58)
--- NOTE | 2017-01-01 03:58 | EKG ---
[facility] [address] [place] [address] Test Date: 2017-01-01 Test Time: 02:50:04 Pat Name: RUBI BOLAND Department: Room: 110 1 Gender: M Director Of Graduate Medical Education: [facility] : 1940 Requested By: RAN ARROYO Order Number: [id number] Reading MD: Mahesh Franklin Measurements Intervals [place] Rate: 100 P: [place]: QRS: -53 QRSD: 98 T: 61 QT: 352 QTc: 457 Interpretive Statements afib with rvr Electronically Signed On 01-01-2017 6:58:55 CDT by Mahesh Franklin
[2017-01-01] MEDS: HYDROCORTISONE SOD SUCC/PF 100 MG/2 ML VIAL. IV SCH ×3 (05:29→21:58)
[2017-01-01] MEDS: HEPARIN PF for SUB-Q USE 5,000 UNIT/0.5 ML VIAL. SQ SCH (05:30)
[2017-01-01] MEDS: PIPERACILLIN/TAZOBACTAM 3.375 GM in IV NORMAL SALINE 50ML 50 ML IV SCH ×3 (05:30→17:18)
[2017-01-01] MEDS: IV NORMAL SALINE 1000ML BAG 1,000 ML IV SCH (06:45)
--- NOTE | 2017-01-01 07:09 | PDOC ---
CARDIOLOGY PROGRESS NOTE SUBJECTIVE: No acute events, Extubated. Went into Afib overnight. Denies chest pain, dyspnea this a.m. OBJECTIVE: Vital SIgns: Vital Signs Date Time Temp Pulse Resp B/P (MAP) Pulse Ox O2 Delivery O2 Flow Rate FiO2 01/01/17 06:00 95 15 121/83 (96) 98 Nasal Cannula 2.0 01/01/17 04:00 98.6 98.6 I & O Intake and Output 01/01/17 07:00 Intake Total 3024 ml Output Total 2635 ml Balance 389 ml Intake Oral 120 ml IV Total 2677 ml Tube Feeding 227 ml Output Urine Total 2635 ml Objective: +5L Gen: AO x to person and time, not place Mild tachypnea. Decreased breath sounds at the lung bases. Irr heart tones ext warm to touch abd soft. CURRENT MEDICATIONS: Current Medications Medications (Trade) Dose Ordered Sig/Eran Start Time Stop Time Status Last Admin Dose Admin Acetaminophen (Tylenol) 650 mg PRN Q4HRS PRN 12/29/16 19:45 12/30/16 10:37 DC Aspirin (Ecotrin) 81 mg DAILYWBKFT 12/30/16 08:00 12/31/16 08:09 81 MG Atropine Sulfate 1 mg STK-MED ONCE 12/29/16 17:27 12/29/16 17:28 DC Cyanocobalamin (Vitamin B-12) 1,000 mcg DAILY 12/30/16 09:00 12/31/16 08:17 1,000 MCG Dextrose (Dextrose 50%-Water Syringe) 12.5 gm PRN Q15MIN PRN 12/29/16 19:45 Docusate Sodium (Colace) 100 mg PRN DAILY PRN 12/29/16 18:45 Dopamine HCl/ Dextrose 250 ml @ 18.966 mls/ hr CONT PRN 12/29/16 22:15 12/31/16 10:34 DC 12/30/16 07:43 28.446 MLS/HR Enoxaparin Sodium (Lovenox 30mg Syringe) 30 mg Q24H 12/30/16 10:00 12/30/16 10:38 DC 12/30/16 08:51 30 MG Etomidate (Amidate) 20 mg 1X ONCE 12/29/16 18:45 12/29/16 18:46 DC 12/29/16 17:39 20 MG Heparin Sodium (Porcine) (Heparin Sq) 5,000 unit Q8HRS 12/30/16 14:00 01/01/17 05:30 5,000 UNIT Hydralazine HCl (Apresoline) 10 mg PRN Q4HRS PRN 12/29/16 18:45 Hydrocortisone Sodium Succinate (Solu-CORTEF) 50 mg Q8HRS 12/31/16 14:00 01/01/17 05:29 50 MG Insulin Aspart (NovoLOG) 0-9 UNITS TIDWMEALS 12/30/16 08:00 12/31/16 17:11 4 UNITS Insulin Detemir (Levemir) 20 units DAILY 12/31/16 11:00 12/31/16 11:42 10 UNITS Midazolam HCl 100 ml @ 0 mls/hr CONT PRN 12/29/16 19:45 12/31/16 10:34 DC 12/30/16 10:12 8 MLS/HR Midazolam HCl (Versed) 5 mg 1X ONCE 12/29/16 18:00 12/29/16 18:01 DC 12/29/16 17:53 5 MG Morphine Sulfate 2 mg PRN Q2HR PRN 12/29/16 18:45 01/01/17 02:16 2 MG Naloxone HCl (Narcan) 2 mg 1X ONCE 12/29/16 18:45 12/29/16 18:46 DC 12/29/16 17:32 2 MG Norepinephrine Bitartrate 250 ml @ 0 mls/hr CONT PRN 12/29/16 21:45 12/31/16 10:34 DC 12/29/16 22:00 15 MLS/HR Ondansetron HCl (Zofran) 4 mg PRN Q8HRS PRN 12/29/16 19:45 12/30/16 10:39 DC Pantoprazole Sodium (Protonix Vial) 40 mg DAILYAC 12/30/16 11:30 Cancel Piperacillin Sod/ Tazobactam Sod (Zosyn Per Pharmacy) 1 each PRN DAILY PRN 12/29/16 18:45 Piperacillin Sod/ Tazobactam Sod 3.375 gm/Sodium Chloride 50 ml @ 100 mls/hr Q6HRS 12/29/16 19:00 01/01/17 05:30 100 MLS/HR Sodium Chloride 1,000 ml @ 999 mls/hr 1X ONCE 12/29/16 21:45 12/29/16 22:45 DC 12/29/16 22:20 999 MLS/HR Succinylcholine Chloride (Anectine) 100 mg 1X ONCE 12/29/16 18:45 12/29/16 18:46 DC 12/29/16 17:39 100 MG Tramadol HCl (Ultram) 50 mg PRN Q6HRS PRN 12/29/16 18:45 12/31/16 21:57 50 MG Vancomycin HCl 1 each 1X ONCE 12/31/16 19:30 12/31/16 19:31 DC 12/31/16 19:30 1 EACH Vancomycin HCl (Vanco Per Pharmacy) 1 each PRN DAILY PRN 12/29/16 18:45 12/31/16 20:08 1 EACH Vancomycin HCl 1.5 gm/Sodium Chloride 500 ml @ 250 mls/hr Q24H 12/30/16 20:00 12/31/16 20:24 250 MLS/HR Vancomycin HCl 2 gm/Sodium Chloride 500 ml @ 250 mls/hr 1X ONCE 12/29/16 20:00 12/29/16 21:59 DC 12/29/16 20:47 250 MLS/HR Vitamin D (Vitamin D3) 1,000 unit DAILY 12/30/16 09:00 12/31/16 08:16 1,000 UNIT DIAGNOSTIC TESTING: Cr 1.9 Hgb 10.4 PLT 151 ASSESSMENT: 1. New onset afib 2. Sepsis resolving Problems: PLAN: 1. Will start Metoprolol 12.5mg P.o q 6 hrs 2. Start eliquis 2.5mg bid. If tolerated, will uptitrate to 5mg bid at dc 3. Stop hep sq Will follow. Can consider outpt CVN if he does not revert on his own. BALA MITCHELL MD Jan 01, 2017 07:09
[2017-01-01] MEDS ORDERED: ANTI-COAG MONITOR BY PHARMACY. MC PRN (07:30)
[2017-01-01 07:51] LABS: HEMATOCRIT 31.8 % (39.0-53.0); HEMOGLOBIN 10.7 g/dL (13.0-17.5); RED BLOOD COUNT 3.46 x10^6/uL (4.30-5.70); RED CELL DISTRIBUTION WIDTH 13.6 % (11.5-14.5); WHITE BLOOD COUNT 5.5 x10^3/uL (4.0-11.0)
[2017-01-01] MEDS: ASPIRIN ENTERIC COATED 81 MG TABLET.DR. PO SCH (08:00)
[2017-01-01 08:01] LABS: CALCIUM 8.6 mg/dL (8.5-10.1); CREATININE 1.7 mg/dL (0.7-1.3); GFR 39.3; PHOSPHORUS 2.5 mg/dL (2.6-4.7); POTASSIUM 3.7 mmol/L (3.5-5.1)
[2017-01-01] MEDS: APIXABAN 5 MG TABLET. PO SCH ×2 (09:00→20:03)
[2017-01-01] MEDS: CYANOCOBALAMIN (VITAMIN B-12) 1,000 MCG TABLET. PO SCH (09:00)
[2017-01-01] MEDS: CHOLECALCIFEROL (VITAMIN D3) 1,000 UNIT TABLET PO SCH (09:00)
--- NOTE | 2017-01-01 10:05 | PDOC ---
PROGRESS NOTES Chief Complaint Chief Complaint 1. AMS, metabolic encephalopathy in the background of hypoglycemia 2. acute resp failure with bradypnea and possible PNA, intubated on admission () EXTUBATED 12/31/16 3. NEw osnet ATrial fib eted back to NSR sponatenously 4 L > R pleural effusion vs atelectasis vs PNA 5 HYPOTENSIVE shock s/p dopa 5. from SNF, baseline mild dementia 6. obesity 7. ANTWON on CKD4, better 8. NORmocytic anemia 9. Multiple compression fxs, chronic 10. 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 distant heart tones ) Lungs: Other (decrease bs) Abdomen: Soft Extremities: No clubbing, No edema, Normal pulses Skin: No rashes, No significant lesion Labs LABS Laboratory Tests Test 12/31/16 10:05 12/31/16 11:20 12/31/16 17:06 12/31/16 19:00 O2 Saturation 97 % (92-99) Arterial Blood pH 7.38 (7.35-7.45) Arterial Blood pCO2 at Patient Temp 35 mmHg (35-46) Arterial Blood pO2 at Patient Temp 106 mmHg (65-108) Arterial Blood HCO3 20 mmol/L (21-28) Arterial Blood Base Excess -4 mmol/L (-3-3) FiO2 40 Glucose (Fingerstick) 290 mg/dL (70-99) 278 mg/dL (70-99) Vancomycin Level Trough 15.0 mcg/mL (10.0-20.0) Vancomycin Last Dose Date Vancomycin Last Dose Time Test 01/01/17 07:40 White Blood Count 5.5 x10^3/uL (4.0-11.0) Red Blood Count 3.46 x10^6/uL (4.30-5.70) Hemoglobin 10.7 g/dL (13.0-17.5) Hematocrit 31.8 % (39.0-53.0) Mean Corpuscular Volume 92 fL (79-100) Mean Corpuscular Hemoglobin 31 pg (25-35) Mean Corpuscular Hemoglobin Concent 34 g/dL (31-37) Red Cell Distribution Width 13.6 % (11.5-14.5) Platelet Count 163 x10^3/uL (140-400) Sodium Level 148 mmol/L (136-145) Potassium Level 3.7 mmol/L (3.5-5.1) Chloride Level 114 mmol/L (98-107) Carbon Dioxide Level 22 mmol/L (21-32) Anion Gap 12 (6-14) Blood Urea Nitrogen 38 mg/dL (8-26) Creatinine 1.7 mg/dL (0.7-1.3) Estimated GFR (Cockcroft-Gault) 39.3 Glucose Level 281 mg/dL (70-99) Calcium Level 8.6 mg/dL (8.5-10.1) Phosphorus Level 2.5 mg/dL (2.6-4.7) Magnesium Level 2.0 mg/dL (1.8-2.4) Review of Systems Review of Systems denies 14 pt, just maybe weak and hungry Assessment and Plan Assessmemt and Plan Problems Medical Problems: (1) Acute encephalopathy Status: Acute (2) Acute respiratory failure Status: Acute (3) Chronic kidney disease, stage IV (severe) Status: Acute (4) Hypoglycemia Status: Acute (5) Type 2 diabetes mellitus Status: Acute Problems: Comment Review of Relevant I have reviewed the following items ivette (where applicable) has been applied. Labs Laboratory Tests Test 12/30/16 12:42 12/30/16 16:36 12/30/16 20:50 12/31/16 01:30 Glucose (Fingerstick) 261 mg/dL (70-99) 233 mg/dL (70-99) 201 mg/dL (70-99) 267 mg/dL (70-99) Test 12/31/16 05:10 12/31/16 07:40 12/31/16 08:12 12/31/16 10:05 White Blood Count 6.2 x10^3/uL (4.0-11.0) Red Blood Count 3.31 x10^6/uL (4.30-5.70) Hemoglobin 10.4 g/dL (13.0-17.5) Hematocrit 30.0 % (39.0-53.0) Mean Corpuscular Volume 91 fL (79-100) Mean Corpuscular Hemoglobin 31 pg (25-35) Mean Corpuscular Hemoglobin Concent 35 g/dL (31-37) Red Cell Distribution Width 13.5 % (11.5-14.5) Platelet Count 151 x10^3/uL (140-400) Neutrophils (%) (Auto) 88 % (31-73) Lymphocytes (%) (Auto) 7 % (24-48) Monocytes (%) (Auto) 5 % (0-9) Eosinophils (%) (Auto) 0 % (0-3) Basophils (%) (Auto) 0 % (0-3) Neutrophils # (Auto) 5.4 x10^3uL (1.8-7.7) Lymphocytes # (Auto) 0.4 x10^3/uL (1.0-4.8) Monocytes # (Auto) 0.3 x10^3/uL (0.0-1.1) Eosinophils # (Auto) 0.0 x10^3/uL (0.0-0.7) Basophils # (Auto) 0.0 x10^3/uL (0.0-0.2) Sodium Level 143 mmol/L (136-145) Potassium Level 3.8 mmol/L (3.5-5.1) Chloride Level 110 mmol/L (98-107) Carbon Dioxide Level 20 mmol/L (21-32) Anion Gap 13 (6-14) Blood Urea Nitrogen 40 mg/dL (8-26) Creatinine 1.9 mg/dL (0.7-1.3) Estimated GFR (Cockcroft-Gault) 34.5 Glucose Level 278 mg/dL (70-99) Calcium Level 8.2 mg/dL (8.5-10.1) O2 Saturation 97 % (92-99) 97 % (92-99) Arterial Blood pH 7.39 (7.35-7.45) 7.38 (7.35-7.45) Arterial Blood pCO2 at Patient Temp 33 mmHg (35-46) 35 mmHg (35-46) Arterial Blood pO2 at Patient Temp 111 mmHg (65-108) 106 mmHg (65-108) Arterial Blood HCO3 20 mmol/L (21-28) 20 mmol/L (21-28) Arterial Blood Base Excess -5 mmol/L (-3-3) -4 mmol/L (-3-3) FiO2 40 40 Glucose (Fingerstick) 271 mg/dL (70-99) Test 12/31/16 11:20 12/31/16 17:06 12/31/16 19:00 01/01/17 07:40 Glucose (Fingerstick) 290 mg/dL (70-99) 278 mg/dL (70-99) Vancomycin Level Trough 15.0 mcg/mL (10.0-20.0) Vancomycin Last Dose Date Vancomycin Last Dose Time White Blood Count 5.5 x10^3/uL (4.0-11.0) Red Blood Count 3.46 x10^6/uL (4.30-5.70) Hemoglobin 10.7 g/dL (13.0-17.5) Hematocrit 31.8 % (39.0-53.0) Mean Corpuscular Volume 92 fL (79-100) Mean Corpuscular Hemoglobin 31 pg (25-35) Mean Corpuscular Hemoglobin Concent 34 g/dL (31-37) Red Cell Distribution Width 13.6 % (11.5-14.5) Platelet Count 163 x10^3/uL (140-400) Sodium Level 148 mmol/L (136-145) Potassium Level 3.7 mmol/L (3.5-5.1) Chloride Level 114 mmol/L (98-107) Carbon Dioxide Level 22 mmol/L (21-32) Anion Gap 12 (6-14) Blood Urea Nitrogen 38 mg/dL (8-26) Creatinine 1.7 mg/dL (0.7-1.3) Estimated GFR (Cockcroft-Gault) 39.3 Glucose Level 281 mg/dL (70-99) Calcium Level 8.6 mg/dL (8.5-10.1) Phosphorus Level 2.5 mg/dL (2.6-4.7) Magnesium Level 2.0 mg/dL (1.8-2.4) Laboratory Tests Test 12/31/16 10:05 12/31/16 11:20 12/31/16 17:06 12/31/16 19:00 O2 Saturation 97 % (92-99) Arterial Blood pH 7.38 (7.35-7.45) Arterial Blood pCO2 at Patient Temp 35 mmHg (35-46) Arterial Blood pO2 at Patient Temp 106 mmHg (65-108) Arterial Blood HCO3 20 mmol/L (21-28) Arterial Blood Base Excess -4 mmol/L (-3-3) FiO2 40 Glucose (Fingerstick) 290 mg/dL (70-99) 278 mg/dL (70-99) Vancomycin Level Trough 15.0 mcg/mL (10.0-20.0) Vancomycin Last Dose Date Vancomycin Last Dose Time Test 01/01/17 07:40 White Blood Count 5.5 x10^3/uL (4.0-11.0) Red Blood Count 3.46 x10^6/uL (4.30-5.70) Hemoglobin 10.7 g/dL (13.0-17.5) Hematocrit 31.8 % (39.0-53.0) Mean Corpuscular Volume 92 fL (79-100) Mean Corpuscular Hemoglobin 31 pg (25-35) Mean Corpuscular Hemoglobin Concent 34 g/dL (31-37) Red Cell Distribution Width 13.6 % (11.5-14.5) Platelet Count 163 x10^3/uL (140-400) Sodium Level 148 mmol/L (136-145) Potassium Level 3.7 mmol/L (3.5-5.1) Chloride Level 114 mmol/L (98-107) Carbon Dioxide Level 22 mmol/L (21-32) Anion Gap 12 (6-14) Blood Urea Nitrogen 38 mg/dL (8-26) Creatinine 1.7 mg/dL (0.7-1.3) Estimated GFR (Cockcroft-Gault) 39.3 Glucose Level 281 mg/dL (70-99) Calcium Level 8.6 mg/dL (8.5-10.1) Phosphorus Level 2.5 mg/dL (2.6-4.7) Magnesium Level 2.0 mg/dL (1.8-2.4) Microbiology 12/29/16 Blood Culture - Preliminary, Resulted NO GROWTH AFTER 2 DAYS Medications Current Medications Naloxone HCl (Narcan) 2 mg STK-MED ONCE .ROUTE ; Start 12/29/16 at 17:27; Stop at 17:28; Status DC Atropine Sulfate 1 mg STK-MED ONCE .ROUTE ; Start 12/29/16 at 17:27; Stop at 17:28; Status DC Sodium Chloride 1,000 ml @ 1,000 mls/hr Q1H IV Last administered on 12/29/16 17:30; Start 12/29/16 at 17:44; Stop 12/29/16 at 18:43; Status DC Midazolam HCl (Versed) 5 mg 1X ONCE IV Last administered on 12/29/16 17:53; Start 12/29/16 at 18:00; Stop 12/29/16 at 18:01; Status DC Midazolam HCl 100 ml @ 0 mls/hr 1X ONCE IV Last administered on 12/29/16 18:08 ; Start 12/29/16 at 18:00; Stop 12/29/16 at 18:01; Status DC Etomidate (Amidate) 20 mg STK-MED ONCE IV ; Start 12/29/16 at 18:05; Stop at 18:06; Status DC Succinylcholine Chloride (Anectine) 200 mg STK-MED ONCE .ROUTE ; Start 12/29/16 at 18:05; Stop 12/29/16 at 18:06; Status DC Aspirin (Ecotrin) 81 mg DAILYWBKFT PO Last administered on 12/31/16 08:09; Start 12/30/16 at 08:00 Vitamin D (Vitamin D3) 1,000 unit DAILY PO Last administered on 12/31/16 08:16 ; Start 12/30/16 at 09:00 Cyanocobalamin (Vitamin B-12) 1,000 mcg DAILY PO Last administered on 12/31/16 08:17; Start 12/30/16 at 09:00 Sodium Chloride 1,000 ml @ 100 mls/hr Q10H IV Last administered on 12/31/16 17 :20; Start 12/29/16 at 18:45 Acetaminophen (Tylenol) 650 mg PRN Q6HRS PRN PO FEVER Last administered on 20:24; Start 12/29/16 at 18:45 Ondansetron HCl (Zofran) 4 mg PRN Q6HRS PRN IV NAUSEA/VOMITING; Start 12/29/16 at 18:45 Morphine Sulfate 2 mg PRN Q2HR PRN IV PAIN Last administered on 01/01/17 02:16 ; Start 12/29/16 at 18:45 Tramadol HCl (Ultram) 50 mg PRN Q6HRS PRN PO PAIN Last administered on 21:57; Start 12/29/16 at 18:45 Hydralazine HCl (Apresoline) 10 mg PRN Q4HRS PRN IVP ELEVATED BP, SEE COMMENTS ; Start 12/29/16 at 18:45 Docusate Sodium (Colace) 100 mg PRN DAILY PRN PO CONSTIPATION; Start 12/29/16 at 18:45 Naloxone HCl (Narcan) 2 mg 1X ONCE IV Last administered on 12/29/16 17:32; Start 12/29/16 at 18:45; Stop 12/29/16 at 18:46; Status DC Etomidate (Amidate) 20 mg 1X ONCE IV Last administered on 12/29/16 17:39; Start 12/29/16 at 18:45; Stop 12/29/16 at 18:46; Status DC Succinylcholine Chloride (Anectine) 100 mg 1X ONCE IV Last administered on 12/29 17:39; Start 12/29/16 at 18:45; Stop 12/29/16 at 18:46; Status DC Dextrose (Dextrose 50%-Water Syringe) 25 gm 1X ONCE IV Last administered on 17:20; Start 12/29/16 at 18:45; Stop 12/29/16 at 18:46; Status DC Insulin Aspart (NovoLOG) 0-9 UNITS TIDWMEALS SQ Last administered on 12/31/16 17:11; Start 12/30/16 at 08:00 Dextrose (Dextrose 50%-Water Syringe) 12.5 gm PRN Q15MIN PRN IV SEE COMMENTS; Start 12/29/16 at 18:45; Stop 12/29/16 at 19:45; Status DC Enoxaparin Sodium (Lovenox 30mg Syringe) 30 mg Q24H SQ Last administered on 12/30 08:51; Start 12/30/16 at 10:00; Stop 12/30/16 at 10:38; Status DC Pantoprazole Sodium (Protonix Vial) 40 mg DAILYAC IVP Last administered on 08:09; Start 12/30/16 at 07:30 Vancomycin HCl (Vanco Per Pharmacy) 1 each PRN DAILY PRN MC SEE COMMENTS Last administered on 12/31/16 20:08; Start 12/29/16 at 18:45 Vancomycin HCl 2 gm/Sodium Chloride 500 ml @ 250 mls/hr 1X ONCE IV Last administered on 12/29/16 20:47; Start 12/29/16 at 20:00; Stop 12/29/16 at 21:59; Status DC Piperacillin Sod/ Tazobactam Sod 3.375 gm/Sodium Chloride 50 ml @ 100 mls/hr Q6HRS IV Last administered on 01/01/17 05:30; Start 12/29/16 at 19:00 Piperacillin Sod/ Tazobactam Sod (Zosyn Per Pharmacy) 1 each PRN DAILY PRN MC SEE COMMENTS; Start 12/29/16 at 18:45 Vancomycin HCl 1.5 gm/Sodium Chloride 500 ml @ 250 mls/hr Q24H IV Last administered on 12/31/16 20:24; Start 12/30/16 at 20:00 Vancomycin HCl 1 each 1X ONCE MC Last administered on 12/31/16 19:30; Start at 19:30; Stop 12/31/16 at 19:31; Status DC Ondansetron HCl (Zofran) 4 mg PRN Q8HRS PRN IV NAUSEA/VOMITING; Start 12/29/16 at 19:45; Stop 12/30/16 at 10:39; Status DC Sodium Chloride 1,000 ml @ 100 mls/hr Q10H IV ; Start 12/29/16 at 19:35; Stop at 07:37; Status DC Acetaminophen (Tylenol) 650 mg PRN Q4HRS PRN PO FEVER; Start 12/29/16 at 19:45; Stop 12/30/16 at 10:37; Status DC Dextrose (Dextrose 50%-Water Syringe) 12.5 gm PRN Q15MIN PRN IV SEE COMMENTS; Start 12/29/16 at 19:45 Midazolam HCl 100 ml @ 0 mls/hr CONT PRN IV SEE I/O RECORD Last administered on 12/30/16 10:12; Start 12/29/16 at 19:45; Stop 12/31/16 at 10:34; Status DC Sodium Chloride 1,000 ml @ 3,030 mls/hr Q20M IV Last administered on 12/29/16 21:39; Start 12/29/16 at 20:30; Stop 12/29/16 at 21:30; Status DC Norepinephrine Bitartrate 250 ml @ 0 mls/hr CONT PRN IV SEE I/O RECORD Last administered on 12/29/16 22:00; Start 12/29/16 at 21:45; Stop 12/31/16 at 10:34; Status DC Sodium Chloride 1,000 ml @ 999 mls/hr 1X ONCE IV Last administered on 22:20; Start 12/29/16 at 21:45; Stop 12/29/16 at 22:45; Status DC Dopamine HCl/ Dextrose 250 ml @ As Directed STK-MED ONCE IV ; Start 12/29/16 at 22:04; Stop 12/29/16 at 22:05; Status DC Dopamine HCl/ Dextrose 250 ml @ 18.966 mls/ hr CONT PRN IV SEE I/O RECORD Last administered on 12/30/16 07:43; Start 12/29/16 at 22:15; Stop 12/31/16 at 10: 34; Status DC Hydrocortisone Sodium Succinate (Solu-CORTEF) 100 mg Q8HRS IV Last administered on 12/31/16 05:43; Start 12/29/16 at 22:30; Stop 12/31/16 at 10:30; Status DC Heparin Sodium (Porcine) (Heparin Sq) 5,000 unit Q8HRS SQ Last administered on 01/01/17 05:30; Start 12/30/16 at 14:00; Stop 01/01/17 at 07:10; Status DC Pantoprazole Sodium (Protonix Vial) 40 mg DAILYAC IVP ; Start 12/30/16 at 11:30; Status Cancel Hydrocortisone Sodium Succinate (Solu-CORTEF) 50 mg Q8HRS IV Last administered on 01/01/17 05:29; Start 12/31/16 at 14:00 Insulin Detemir (Levemir) 20 units DAILY SQ Last administered on 12/31/16 11:42 ; Start 12/31/16 at 11:00; Stop 01/01/17 at 09:05; Status DC Apixaban (Eliquis) 5 mg BID PO ; Start 01/01/17 at 09:00 Info (Anti-Coagulation Monitoring By Pharmacy) 1 each PRN DAILY PRN MC SEE COMMENTS; Start 01/01/17 at 07:30 Insulin Detemir (Levemir) 30 units DAILY SQ ; Start 01/01/17 at 09:30 Active Scripts Active Reported Levemir (Insulin Detemir) 100 Unit/1 Ml Vial 40 Unit SQ QHS Mucinex (Guaifenesin) 600 Mg Tablet.er 1 Tab PO BID PRN Atorvastatin Calcium 10 Mg Tablet 10 Mg PO HS Percocet 7.5-325 Mg Tablet (Oxycodone/Acetaminophen) 1 Each Tablet 1 Tab PO Q4HRS Amlodipine Besylate 5 Mg Tablet 5 Mg PO DAILY Novolog Flexpen (Insulin Aspart) 100 Unit/1 Ml Insuln.pen 15 Unit SQ BIDACLD Tylenol (Acetaminophen) 325 Mg Tablet 650 Mg PO PRN Q4-6HRS PRN Protonix (Pantoprazole Sodium) 20 Mg Tablet.dr 1 Tab PO DAILY Toprol Xl (Metoprolol Succinate) 50 Mg Tab.er.24h 1 Tab PO DAILY Lisinopril 10 Mg Tablet 1 Tab PO DAILY Lasix (Furosemide) 40 Mg Tablet 1 Tab PO DAILY Aspir 81 (Aspirin) 81 Mg Tablet.dr 1 Tab PO DAILY Vitamin D3 (Cholecalciferol (Vitamin D3)) 1,000 Unit Tablet 800 Unit PO DAILY Vitamin B-12 (Cyanocobalamin (Vitamin B-12)) 1,000 Mcg Tablet 1 Tab PO DAILY Spironolactone 50 Mg Tablet 1 Tab PO DAILY Nitrostat (Nitroglycerin) 0.4 Mg Tab.subl 1 Tab SL UD Senokot-S Tablet (Sennosides/Docusate Sodium) 1 Each Tablet 2 Tab PO HS Gabapentin 300 Mg Capsule 300 Mg PO HS Vitals/I & O Vital Sign - Last 24 Hours 12/31/16 12/31/16 12/31/16 12/31/16 10:10 10:15 10:55 12:04 Temp 98.6 98.6 Pulse 65 65 72 Resp 17 17 22 B/P (MAP) 154/73 (100) 140/63 (88) 149/67 (94) Pulse Ox 100 100 99 O2 Delivery Ventilator Nasal Cannula Ventilator Nasal Cannula O2 Flow Rate 3.0 12/31/16 12/31/16 12/31/16 12/31/16 12:24 13:15 14:06 14:57 Temp 97.7 97.7 Pulse 75 85 85 Resp 15 20 18 B/P (MAP) 159/80 (106) 162/83 (109) 149/86 (107) Pulse Ox 100 100 100 O2 Delivery Mechanical Ventilator Nasal Cannula Nasal Cannula Nasal Cannula O2 Flow Rate 3.0 12/31/16 12/31/16 12/31/16 12/31/16 16:10 16:15 17:06 18:00 Pulse 90 69 52 Resp 27 B/P (MAP) 158/76 (103) 158/68 (98) 138/71 (93) Pulse Ox 100 100 100 O2 Delivery Nasal Cannula Nasal Cannula Nasal Cannula Nasal Cannula O2 Flow Rate 2.0 2.0 12/31/16 12/31/16 12/31/16 12/31/16 19:00 20:00 20:00 21:00 Temp 98.0 98.0 Pulse 58 55 56 Resp 26 26 22 B/P (MAP) 141/58 (85) 146/72 (96) 148/60 (89) Pulse Ox 98 96 92 O2 Delivery Nasal Cannula Room Air Room Air Room Air O2 Flow Rate 2.0 12/31/16 12/31/16 12/31/16 12/31/16 21:57 22:00 22:55 23:00 Pulse 48 44 Resp 20 21 21 18 B/P (MAP) 147/73 (97) 124/59 (80) Pulse Ox 96 99 99 99 O2 Delivery Room Air Nasal Cannula Room Air Nasal Cannula O2 Flow Rate 2.0 2.0 2.0 01/01/17 01/01/17 01/01/17 01/01/17 00:00 00:00 01:00 02:00 Temp 97.9 97.9 Pulse 42 46 110 Resp 18 18 B/P (MAP) 131/61 (84) 145/62 (89) 128/65 (86) Pulse Ox 98 99 99 O2 Delivery Nasal Cannula Nasal Cannula Nasal Cannula Nasal Cannula O2 Flow Rate 2.0 2.0 2.0 2.0 01/01/17 01/01/17 01/01/17 01/01/17 03:00 04:00 04:00 05:00 Temp 98.6 98.6 Pulse 91 105 122 Resp 18 23 B/P (MAP) 113/72 (86) 125/72 (89) 117/82 (94) Pulse Ox 99 98 98 O2 Delivery Nasal Cannula Nasal Cannula Nasal Cannula Nasal Cannula O2 Flow Rate 2.0 2.0 2.0 2.0 01/01/17 06:00 Pulse 95 Resp 15 B/P (MAP) 121/83 (96) Pulse Ox 98 O2 Delivery Nasal Cannula O2 Flow Rate 2.0 Intake and Output 12/31/16 12/31/16 01/01/17 15:00 23:00 07:00 Intake Total 277 ml 1682 ml 1065 ml Output Total 940 ml 1015 ml 1030 ml Balance -663 ml 667 ml 35 ml Nutrition Consultation Dietary Evaluation: Recommendations by RD: Increase Calorie Intake Comments: Rec. TF's as medically appropriate: Diabetisource AC, goal rate 60 ml/hr start at 20 ml/hr, increase by 20 ml/hr q8h to goal rate flushes 200 cc q6h if no IVF's running Expected Outcomes/Goals: TF initiation Malnutrition Findings: Red[employer]man Strength: N/A Weight Status: Obese Fluid Accumulation (N/A): N/A HADLEY MANCINI MD Jan 01, 2017 10:05
[2017-01-01] MEDS: PANTOPRAZOLE IV PUSH 40 MG VIAL. IVP SCH (10:13)
[2017-01-01] MEDS: INSULIN ASPART 300 UNITS/3 ML INSULN.PEN SQ SCH ×3 (10:14→17:22)
[2017-01-01] MEDS: INSULIN DETEMIR 300 UNITS/3 ML INSULN.PEN. SQ SCH (10:15)
[2017-01-01] MEDS ORDERED: FUROSEMIDE 40 MG/4 ML VIAL. IVP ONE (10:15)
--- NOTE | 2017-01-01 11:23 | PDOC ---
PULMONARY PROGRESS NOTES Subjective extubated 12/31 doing well Vitals Vital Signs Date Time Temp Pulse Resp B/P (MAP) Pulse Ox O2 Delivery O2 Flow Rate FiO2 01/01/17 10:00 58 20 153/73 (99) 98 Room Air 01/01/17 09:00 2.0 01/01/17 08:00 97.8 97.8 General: Alert, No acute distress Lungs: Other (decrease bs) Cardiovascular: S1 Abdomen: Soft Extremities: No Edema Labs Laboratory Tests Test 12/30/16 12:42 12/30/16 16:36 12/30/16 20:50 12/31/16 01:30 Glucose (Fingerstick) 261 mg/dL (70-99) 233 mg/dL (70-99) 201 mg/dL (70-99) 267 mg/dL (70-99) Test 12/31/16 05:10 12/31/16 07:40 12/31/16 08:12 12/31/16 10:05 White Blood Count 6.2 x10^3/uL (4.0-11.0) Red Blood Count 3.31 x10^6/uL (4.30-5.70) Hemoglobin 10.4 g/dL (13.0-17.5) Hematocrit 30.0 % (39.0-53.0) Mean Corpuscular Volume 91 fL (79-100) Mean Corpuscular Hemoglobin 31 pg (25-35) Mean Corpuscular Hemoglobin Concent 35 g/dL (31-37) Red Cell Distribution Width 13.5 % (11.5-14.5) Platelet Count 151 x10^3/uL (140-400) Neutrophils (%) (Auto) 88 % (31-73) Lymphocytes (%) (Auto) 7 % (24-48) Monocytes (%) (Auto) 5 % (0-9) Eosinophils (%) (Auto) 0 % (0-3) Basophils (%) (Auto) 0 % (0-3) Neutrophils # (Auto) 5.4 x10^3uL (1.8-7.7) Lymphocytes # (Auto) 0.4 x10^3/uL (1.0-4.8) Monocytes # (Auto) 0.3 x10^3/uL (0.0-1.1) Eosinophils # (Auto) 0.0 x10^3/uL (0.0-0.7) Basophils # (Auto) 0.0 x10^3/uL (0.0-0.2) Sodium Level 143 mmol/L (136-145) Potassium Level 3.8 mmol/L (3.5-5.1) Chloride Level 110 mmol/L (98-107) Carbon Dioxide Level 20 mmol/L (21-32) Anion Gap 13 (6-14) Blood Urea Nitrogen 40 mg/dL (8-26) Creatinine 1.9 mg/dL (0.7-1.3) Estimated GFR (Cockcroft-Gault) 34.5 Glucose Level 278 mg/dL (70-99) Calcium Level 8.2 mg/dL (8.5-10.1) O2 Saturation 97 % (92-99) 97 % (92-99) Arterial Blood pH 7.39 (7.35-7.45) 7.38 (7.35-7.45) Arterial Blood pCO2 at Patient Temp 33 mmHg (35-46) 35 mmHg (35-46) Arterial Blood pO2 at Patient Temp 111 mmHg (65-108) 106 mmHg (65-108) Arterial Blood HCO3 20 mmol/L (21-28) 20 mmol/L (21-28) Arterial Blood Base Excess -5 mmol/L (-3-3) -4 mmol/L (-3-3) FiO2 40 40 Glucose (Fingerstick) 271 mg/dL (70-99) Test 12/31/16 11:20 12/31/16 17:06 12/31/16 19:00 01/01/17 07:40 Glucose (Fingerstick) 290 mg/dL (70-99) 278 mg/dL (70-99) Vancomycin Level Trough 15.0 mcg/mL (10.0-20.0) Vancomycin Last Dose Date Vancomycin Last Dose Time White Blood Count 5.5 x10^3/uL (4.0-11.0) Red Blood Count 3.46 x10^6/uL (4.30-5.70) Hemoglobin 10.7 g/dL (13.0-17.5) Hematocrit 31.8 % (39.0-53.0) Mean Corpuscular Volume 92 fL (79-100) Mean Corpuscular Hemoglobin 31 pg (25-35) Mean Corpuscular Hemoglobin Concent 34 g/dL (31-37) Red Cell Distribution Width 13.6 % (11.5-14.5) Platelet Count 163 x10^3/uL (140-400) Sodium Level 148 mmol/L (136-145) Potassium Level 3.7 mmol/L (3.5-5.1) Chloride Level 114 mmol/L (98-107) Carbon Dioxide Level 22 mmol/L (21-32) Anion Gap 12 (6-14) Blood Urea Nitrogen 38 mg/dL (8-26) Creatinine 1.7 mg/dL (0.7-1.3) Estimated GFR (Cockcroft-Gault) 39.3 Glucose Level 281 mg/dL (70-99) Calcium Level 8.6 mg/dL (8.5-10.1) Phosphorus Level 2.5 mg/dL (2.6-4.7) Magnesium Level 2.0 mg/dL (1.8-2.4) Laboratory Tests Test 12/31/16 17:06 12/31/16 19:00 01/01/17 07:40 Glucose (Fingerstick) 278 mg/dL (70-99) Vancomycin Level Trough 15.0 mcg/mL (10.0-20.0) Vancomycin Last Dose Date Vancomycin Last Dose Time White Blood Count 5.5 x10^3/uL (4.0-11.0) Red Blood Count 3.46 x10^6/uL (4.30-5.70) Hemoglobin 10.7 g/dL (13.0-17.5) Hematocrit 31.8 % (39.0-53.0) Mean Corpuscular Volume 92 fL (79-100) Mean Corpuscular Hemoglobin 31 pg (25-35) Mean Corpuscular Hemoglobin Concent 34 g/dL (31-37) Red Cell Distribution Width 13.6 % (11.5-14.5) Platelet Count 163 x10^3/uL (140-400) Sodium Level 148 mmol/L (136-145) Potassium Level 3.7 mmol/L (3.5-5.1) Chloride Level 114 mmol/L (98-107) Carbon Dioxide Level 22 mmol/L (21-32) Anion Gap 12 (6-14) Blood Urea Nitrogen 38 mg/dL (8-26) Creatinine 1.7 mg/dL (0.7-1.3) Estimated GFR (Cockcroft-Gault) 39.3 Glucose Level 281 mg/dL (70-99) Calcium Level 8.6 mg/dL (8.5-10.1) Phosphorus Level 2.5 mg/dL (2.6-4.7) Magnesium Level 2.0 mg/dL (1.8-2.4) Medications Active Scripts Medications Dose Route/Sig Max Daily Dose Days Date Category Levemir (Insulin Detemir) 100 Unit/1 Ml Vial 40 Unit SQ QHS 12/29/16 Reported Mucinex (Guaifenesin) 600 Mg Tablet.er 1 Tab PO BID PRN 12/29/16 Reported Atorvastatin Calcium 10 Mg Tablet 10 Mg PO HS 12/29/16 Reported Percocet 7.5-325 Mg Tablet (Oxycodone/Acetaminophen) 1 Each Tablet 1 Tab PO Q4HRS 12/29/16 Reported Amlodipine Besylate 5 Mg Tablet 5 Mg PO DAILY 12/29/16 Reported Novolog Flexpen (Insulin Aspart) 100 Unit/1 Ml Insuln.pen 15 Unit SQ BIDACLD 12/29/16 Reported Tylenol (Acetaminophen) 325 Mg Tablet 650 Mg PO PRN Q4-6HRS PRN 09/14/16 Reported Protonix (Pantoprazole Sodium) 20 Mg Tablet.dr 1 Tab PO DAILY 09/04/16 Reported Toprol Xl (Metoprolol Succinate) 50 Mg Tab.er.24h 1 Tab PO DAILY 09/04/16 Reported Lisinopril 10 Mg Tablet 1 Tab PO DAILY 09/04/16 Reported Lasix (Furosemide) 40 Mg Tablet 1 Tab PO DAILY 09/04/16 Reported Aspir 81 (Aspirin) 81 Mg Tablet.dr 1 Tab PO DAILY 09/04/16 Reported Vitamin D3 (Cholecalciferol (Vitamin D3)) 1,000 Unit Tablet 800 Unit PO DAILY 09/04/16 Reported Vitamin B-12 (Cyanocobalamin (Vitamin B-12)) 1,000 Mcg Tablet 1 Tab PO DAILY 09/04/16 Reported Spironolactone 50 Mg Tablet 1 Tab PO DAILY 09/04/16 Reported Nitrostat (Nitroglycerin) 0.4 Mg Tab.subl 1 Tab SL UD 09/04/16 Reported Senokot-S Tablet (Sennosides/Docusate Sodium) 1 Each Tablet 2 Tab PO HS 09/04/16 Reported Gabapentin 300 Mg Capsule 300 Mg PO HS 09/04/16 Reported Impression . 1. Acute respiratory failure secondary to multifactorial etiologies and includes a combination of early sepsis and hypoglycemic encephalopathy. 2. Hypotension with hypothermia present on admission due to sepsis. 3. Abnormal CT chest with basilar atelectasis and 4 mm nodule in the right lung. He also has some bilateral renal lesions and I will leave up to primary care to do any further workup. 4. Shock combination of hypovolemic and septic. 5. Encephalopathy related to hypoglycemia and early sepsis. 6. Bradycardia Plan . 1. Doing well post extubation 2. off dopamine. 3. Monitor heart rate .follow Cardiology recommendations 4. Continue hydrocortisone.taper dose 5. Bronchodilators. 6. Broad-spectrum antibiotics. 7. Follow all cultures. 8. DVT prophylaxis with heparin. 9. Stress ulcer prophylaxis with Protonix. 10. Follow Infectious Disease recommendations. 11. Discussed with RN and RT. / transfer to floor BETHEL GARCIA MD Jan 01, 2017 11:23
[2017-01-01] MEDS: VANCOMYCIN 1.5 GM in IV NORMAL SALINE 500ML BAG 500 ML IV SCH (21:58)
[2017-01-02] VITALS (7 sets, daily range): BP systolic 138–177; BP diastolic 56–93
[2017-01-02] MEDS: PIPERACILLIN/TAZOBACTAM 3.375 GM in IV NORMAL SALINE 50ML 50 ML IV SCH ×5 (00:10→23:49)
[2017-01-02] MEDS: MORPHINE SULFATE 2 MG/ML DISP.SYRIN. IV PRN ×2 (00:46→06:14)
[2017-01-02] MEDS: HYDROCORTISONE SOD SUCC/PF 100 MG/2 ML VIAL. IV SCH ×2 (06:14→20:08)
[2017-01-02] MEDS: CHOLECALCIFEROL (VITAMIN D3) 1,000 UNIT TABLET PO SCH (08:21)
[2017-01-02] MEDS: PANTOPRAZOLE IV PUSH 40 MG VIAL. IVP SCH (08:21)
[2017-01-02] MEDS: CYANOCOBALAMIN (VITAMIN B-12) 1,000 MCG TABLET. PO SCH (08:22)
[2017-01-02] MEDS: ASPIRIN ENTERIC COATED 81 MG TABLET.DR. PO SCH (08:22)
[2017-01-02] MEDS: APIXABAN 5 MG TABLET. PO SCH ×2 (08:22→20:10)
[2017-01-02] MEDS: INSULIN DETEMIR 300 UNITS/3 ML INSULN.PEN. SQ SCH (09:16)
[2017-01-02] MEDS: INSULIN ASPART 300 UNITS/3 ML INSULN.PEN SQ SCH ×3 (09:17→17:00)
[2017-01-02] MEDS: VANCOMYCIN PER PHARMACY MC PRN (10:08)
--- NOTE | 2017-01-02 10:23 | PDOC ---
PULMONARY PROGRESS NOTES Subjective extubated 12/31 doing well Vitals Vital Signs Date Time Temp Pulse Resp B/P (MAP) Pulse Ox O2 Delivery O2 Flow Rate FiO2 01/02/17 07:00 97.9 56 20 170/56 (94) 95 Room Air 97.9 01/02/17 06:40 2.0 General: Alert, No acute distress Lungs: Other (decrease bs) Cardiovascular: S1 Abdomen: Soft Extremities: No Edema Labs Laboratory Tests Test 12/31/16 11:20 12/31/16 17:06 12/31/16 19:00 01/01/17 07:40 Glucose (Fingerstick) 290 mg/dL (70-99) 278 mg/dL (70-99) Vancomycin Level Trough 15.0 mcg/mL (10.0-20.0) Vancomycin Last Dose Date Vancomycin Last Dose Time White Blood Count 5.5 x10^3/uL (4.0-11.0) Red Blood Count 3.46 x10^6/uL (4.30-5.70) Hemoglobin 10.7 g/dL (13.0-17.5) Hematocrit 31.8 % (39.0-53.0) Mean Corpuscular Volume 92 fL (79-100) Mean Corpuscular Hemoglobin 31 pg (25-35) Mean Corpuscular Hemoglobin Concent 34 g/dL (31-37) Red Cell Distribution Width 13.6 % (11.5-14.5) Platelet Count 163 x10^3/uL (140-400) Sodium Level 148 mmol/L (136-145) Potassium Level 3.7 mmol/L (3.5-5.1) Chloride Level 114 mmol/L (98-107) Carbon Dioxide Level 22 mmol/L (21-32) Anion Gap 12 (6-14) Blood Urea Nitrogen 38 mg/dL (8-26) Creatinine 1.7 mg/dL (0.7-1.3) Estimated GFR (Cockcroft-Gault) 39.3 Glucose Level 281 mg/dL (70-99) Calcium Level 8.6 mg/dL (8.5-10.1) Phosphorus Level 2.5 mg/dL (2.6-4.7) Magnesium Level 2.0 mg/dL (1.8-2.4) Test 01/01/17 09:21 01/01/17 12:14 01/01/17 17:09 01/01/17 20:41 Glucose (Fingerstick) 243 mg/dL (70-99) 278 mg/dL (70-99) 262 mg/dL (70-99) 213 mg/dL (70-99) Test 01/02/17 07:25 Glucose (Fingerstick) 185 mg/dL (70-99) Laboratory Tests Test 01/01/17 12:14 01/01/17 17:09 01/01/17 20:41 01/02/17 07:25 Glucose (Fingerstick) 278 mg/dL (70-99) 262 mg/dL (70-99) 213 mg/dL (70-99) 185 mg/dL (70-99) Medications Active Scripts Medications Dose Route/Sig Max Daily Dose Days Date Category Levemir (Insulin Detemir) 100 Unit/1 Ml Vial 40 Unit SQ QHS 12/29/16 Reported Mucinex (Guaifenesin) 600 Mg Tablet.er 1 Tab PO BID PRN 12/29/16 Reported Atorvastatin Calcium 10 Mg Tablet 10 Mg PO HS 12/29/16 Reported Percocet 7.5-325 Mg Tablet (Oxycodone/Acetaminophen) 1 Each Tablet 1 Tab PO Q4HRS 12/29/16 Reported Amlodipine Besylate 5 Mg Tablet 5 Mg PO DAILY 12/29/16 Reported Novolog Flexpen (Insulin Aspart) 100 Unit/1 Ml Insuln.pen 15 Unit SQ BIDACLD 12/29/16 Reported Tylenol (Acetaminophen) 325 Mg Tablet 650 Mg PO PRN Q4-6HRS PRN 09/14/16 Reported Protonix (Pantoprazole Sodium) 20 Mg Tablet.dr 1 Tab PO DAILY 09/04/16 Reported Toprol Xl (Metoprolol Succinate) 50 Mg Tab.er.24h 1 Tab PO DAILY 09/04/16 Reported Lisinopril 10 Mg Tablet 1 Tab PO DAILY 09/04/16 Reported Lasix (Furosemide) 40 Mg Tablet 1 Tab PO DAILY 09/04/16 Reported Aspir 81 (Aspirin) 81 Mg Tablet.dr 1 Tab PO DAILY 09/04/16 Reported Vitamin D3 (Cholecalciferol (Vitamin D3)) 1,000 Unit Tablet 800 Unit PO DAILY 09/04/16 Reported Vitamin B-12 (Cyanocobalamin (Vitamin B-12)) 1,000 Mcg Tablet 1 Tab PO DAILY 09/04/16 Reported Spironolactone 50 Mg Tablet 1 Tab PO DAILY 09/04/16 Reported Nitrostat (Nitroglycerin) 0.4 Mg Tab.subl 1 Tab SL UD 09/04/16 Reported Senokot-S Tablet (Sennosides/Docusate Sodium) 1 Each Tablet 2 Tab PO HS 09/04/16 Reported Gabapentin 300 Mg Capsule 300 Mg PO HS 09/04/16 Reported Impression . 1. Acute respiratory failure secondary to multifactorial etiologies and includes a combination of early sepsis and hypoglycemic encephalopathy. 2. Hypotension with hypothermia present on admission due to sepsis. resolved 3. Abnormal CT chest with basilar atelectasis and 4 mm nodule in the right lung. He also has some bilateral renal lesions and I will leave up to primary care to do any further workup. 4. Shock combination of hypovolemic and septic. 5. Encephalopathy related to hypoglycemia and early sepsis. 6. Bradycardia Plan . 1. nasal canula 2. PT/ rehab 3. follow Cardiology recommendations 4. taper hydrocortisone. 5. Bronchodilators. 6. Broad-spectrum antibiotics. 7. Follow all cultures. 8. DVT prophylaxis with heparin. 9. Stress ulcer prophylaxis with Protonix. 10. Follow Infectious Disease recommendations. 11. Discussed with BETHEL ROSAS MD Jan 02, 2017 10:23
--- NOTE | 2017-01-02 10:51 | PDOC ---
PROGRESS NOTES Assessment Problems Medical Problems: (1) Acute encephalopathy Status: Acute (2) Acute respiratory failure Status: Acute (3) Chronic kidney disease, stage IV (severe) Status: Acute (4) Hypoglycemia Status: Acute (5) Type 2 diabetes mellitus Status: Acute Metabolic encephalopathy due to hypoglycemia, possible sedatives, although urine drug screen is negative. Right-sided strabismus, ptosis, old Plan Okay for discharge No additional neurological studies needed Subjective He complains of back pain, says this is chronic Objective Vital Signs Date Time Temp Pulse Resp B/P (MAP) Pulse Ox O2 Delivery O2 Flow Rate FiO2 01/02/17 07:00 97.9 56 20 170/56 (94) 95 Room Air 97.9 01/02/17 06:40 2.0 Intake and Output 01/02/17 07:00 Intake Total 325 ml Output Total 3100 ml Balance -2775 ml Intake Oral 25 ml IV Total 300 ml Output Urine Total 3100 ml # Bowel Movements 2 PHYSICAL EXAM Alert. Oriented to place and person, does not know date. PERRL. EOMI. CN: Right-sided ptosis, otherwise no focal findings. Muscle tone: normal. Muscle strength: 4/5 DTR: 1+ Plantar reflex: Flexor Gait: not examined in bed. Sensory exam: Stocking loss. No cerebellar signs elicited. Review of Relevant I have reviewed the following items ivette (where applicable) has been applied. Labs Laboratory Tests Test 12/31/16 11:20 12/31/16 17:06 12/31/16 19:00 01/01/17 07:40 Glucose (Fingerstick) 290 mg/dL (70-99) 278 mg/dL (70-99) Vancomycin Level Trough 15.0 mcg/mL (10.0-20.0) Vancomycin Last Dose Date Vancomycin Last Dose Time White Blood Count 5.5 x10^3/uL (4.0-11.0) Red Blood Count 3.46 x10^6/uL (4.30-5.70) Hemoglobin 10.7 g/dL (13.0-17.5) Hematocrit 31.8 % (39.0-53.0) Mean Corpuscular Volume 92 fL (79-100) Mean Corpuscular Hemoglobin 31 pg (25-35) Mean Corpuscular Hemoglobin Concent 34 g/dL (31-37) Red Cell Distribution Width 13.6 % (11.5-14.5) Platelet Count 163 x10^3/uL (140-400) Sodium Level 148 mmol/L (136-145) Potassium Level 3.7 mmol/L (3.5-5.1) Chloride Level 114 mmol/L (98-107) Carbon Dioxide Level 22 mmol/L (21-32) Anion Gap 12 (6-14) Blood Urea Nitrogen 38 mg/dL (8-26) Creatinine 1.7 mg/dL (0.7-1.3) Estimated GFR (Cockcroft-Gault) 39.3 Glucose Level 281 mg/dL (70-99) Calcium Level 8.6 mg/dL (8.5-10.1) Phosphorus Level 2.5 mg/dL (2.6-4.7) Magnesium Level 2.0 mg/dL (1.8-2.4) Test 01/01/17 09:21 01/01/17 12:14 01/01/17 17:09 01/01/17 20:41 Glucose (Fingerstick) 243 mg/dL (70-99) 278 mg/dL (70-99) 262 mg/dL (70-99) 213 mg/dL (70-99) Test 01/02/17 07:25 Glucose (Fingerstick) 185 mg/dL (70-99) Laboratory Tests Test 01/01/17 12:14 01/01/17 17:09 01/01/17 20:41 01/02/17 07:25 Glucose (Fingerstick) 278 mg/dL (70-99) 262 mg/dL (70-99) 213 mg/dL (70-99) 185 mg/dL (70-99) Microbiology 12/29/16 Blood Culture - Preliminary, Resulted NO GROWTH AFTER 3 DAYS Medications Current Medications Naloxone HCl (Narcan) 2 mg STK-MED ONCE .ROUTE ; Start 12/29/16 at 17:27; Stop at 17:28; Status DC Atropine Sulfate 1 mg STK-MED ONCE .ROUTE ; Start 12/29/16 at 17:27; Stop at 17:28; Status DC Sodium Chloride 1,000 ml @ 1,000 mls/hr Q1H IV Last administered on 12/29/16t 17:30; Start 12/29/16 at 17:44; Stop 12/29/16 at 18:43; Status DC Midazolam HCl (Versed) 5 mg 1X ONCE IV Last administered on 12/29/16 17:53; Start 12/29/16 at 18:00; Stop 12/29/16 at 18:01; Status DC Midazolam HCl 100 ml @ 0 mls/hr 1X ONCE IV Last administered on 12/29/16 18:08 ; Start 12/29/16 at 18:00; Stop 12/29/16 at 18:01; Status DC Etomidate (Amidate) 20 mg STK-MED ONCE IV ; Start 12/29/16 at 18:05; Stop at 18:06; Status DC Succinylcholine Chloride (Anectine) 200 mg STK-MED ONCE .ROUTE ; Start 12/29/16 at 18:05; Stop 12/29/16 at 18:06; Status DC Aspirin (Ecotrin) 81 mg DAILYWBKFT PO Last administered on 01/02/17 08:22; Start 12/30/16 at 08:00 Vitamin D (Vitamin D3) 1,000 unit DAILY PO Last administered on 01/02/17 08:21 ; Start 12/30/16 at 09:00 Cyanocobalamin (Vitamin B-12) 1,000 mcg DAILY PO Last administered on 01/02/17 08:22; Start 12/30/16 at 09:00 Sodium Chloride 1,000 ml @ 100 mls/hr Q10H IV Last administered on 12/31/16 17 :20; Start 12/29/16 at 18:45; Stop 01/01/17 at 10:03; Status DC Acetaminophen (Tylenol) 650 mg PRN Q6HRS PRN PO FEVER Last administered on 20:24; Start 12/29/16 at 18:45 Ondansetron HCl (Zofran) 4 mg PRN Q6HRS PRN IV NAUSEA/VOMITING; Start 12/29/16 at 18:45 Morphine Sulfate 2 mg PRN Q2HR PRN IV PAIN Last administered on 01/02/17 06:14 ; Start 12/29/16 at 18:45 Tramadol HCl (Ultram) 50 mg PRN Q6HRS PRN PO PAIN Last administered on 21:57; Start 12/29/16 at 18:45 Hydralazine HCl (Apresoline) 10 mg PRN Q4HRS PRN IVP ELEVATED BP, SEE COMMENTS ; Start 12/29/16 at 18:45 Docusate Sodium (Colace) 100 mg PRN DAILY PRN PO CONSTIPATION; Start 12/29/16 at 18:45 Naloxone HCl (Narcan) 2 mg 1X ONCE IV Last administered on 12/29/16 17:32; Start 12/29/16 at 18:45; Stop 12/29/16 at 18:46; Status DC Etomidate (Amidate) 20 mg 1X ONCE IV Last administered on 12/29/16 17:39; Start 12/29/16 at 18:45; Stop 12/29/16 at 18:46; Status DC Succinylcholine Chloride (Anectine) 100 mg 1X ONCE IV Last administered on 12/29 17:39; Start 12/29/16 at 18:45; Stop 12/29/16 at 18:46; Status DC Dextrose (Dextrose 50%-Water Syringe) 25 gm 1X ONCE IV Last administered on 17:20; Start 12/29/16 at 18:45; Stop 12/29/16 at 18:46; Status DC Insulin Aspart (NovoLOG) 0-9 UNITS TIDWMEALS SQ Last administered on 01/02/17 09:17; Start 12/30/16 at 08:00 Dextrose (Dextrose 50%-Water Syringe) 12.5 gm PRN Q15MIN PRN IV SEE COMMENTS; Start 12/29/16 at 18:45; Stop 12/29/16 at 19:45; Status DC Enoxaparin Sodium (Lovenox 30mg Syringe) 30 mg Q24H SQ Last administered on 12/30 08:51; Start 12/30/16 at 10:00; Stop 12/30/16 at 10:38; Status DC Pantoprazole Sodium (Protonix Vial) 40 mg DAILYAC IVP Last administered on 08:21; Start 12/30/16 at 07:30 Vancomycin HCl (Vanco Per Pharmacy) 1 each PRN DAILY PRN MC SEE COMMENTS Last administered on 01/02/17 10:08; Start 12/29/16 at 18:45 Vancomycin HCl 2 gm/Sodium Chloride 500 ml @ 250 mls/hr 1X ONCE IV Last administered on 12/29/16 20:47; Start 12/29/16 at 20:00; Stop 12/29/16 at 21:59; Status DC Piperacillin Sod/ Tazobactam Sod 3.375 gm/Sodium Chloride 50 ml @ 100 mls/hr Q6HRS IV Last administered on 01/02/17 06:15; Start 12/29/16 at 19:00 Piperacillin Sod/ Tazobactam Sod (Zosyn Per Pharmacy) 1 each PRN DAILY PRN MC SEE COMMENTS; Start 12/29/16 at 18:45 Vancomycin HCl 1.5 gm/Sodium Chloride 500 ml @ 250 mls/hr Q24H IV Last administered on 01/01/17 21:58; Start 12/30/16 at 20:00 Vancomycin HCl 1 each 1X ONCE MC Last administered on 12/31/16 19:30; Start at 19:30; Stop 12/31/16 at 19:31; Status DC Ondansetron HCl (Zofran) 4 mg PRN Q8HRS PRN IV NAUSEA/VOMITING; Start 12/29/16 at 19:45; Stop 12/30/16 at 10:39; Status DC Sodium Chloride 1,000 ml @ 100 mls/hr Q10H IV ; Start 12/29/16 at 19:35; Stop at 07:37; Status DC Acetaminophen (Tylenol) 650 mg PRN Q4HRS PRN PO FEVER; Start 12/29/16 at 19:45; Stop 12/30/16 at 10:37; Status DC Dextrose (Dextrose 50%-Water Syringe) 12.5 gm PRN Q15MIN PRN IV SEE COMMENTS; Start 12/29/16 at 19:45 Midazolam HCl 100 ml @ 0 mls/hr CONT PRN IV SEE I/O RECORD Last administered on 12/30/16 10:12; Start 12/29/16 at 19:45; Stop 12/31/16 at 10:34; Status DC Sodium Chloride 1,000 ml @ 3,030 mls/hr Q20M IV Last administered on 12/29/16 21:39; Start 12/29/16 at 20:30; Stop 12/29/16 at 21:30; Status DC Norepinephrine Bitartrate 250 ml @ 0 mls/hr CONT PRN IV SEE I/O RECORD Last administered on 12/29/16 22:00; Start 12/29/16 at 21:45; Stop 12/31/16 at 10:34; Status DC Sodium Chloride 1,000 ml @ 999 mls/hr 1X ONCE IV Last administered on 22:20; Start 12/29/16 at 21:45; Stop 12/29/16 at 22:45; Status DC Dopamine HCl/ Dextrose 250 ml @ As Directed STK-MED ONCE IV ; Start 12/29/16 at 22:04; Stop 12/29/16 at 22:05; Status DC Dopamine HCl/ Dextrose 250 ml @ 18.966 mls/ hr CONT PRN IV SEE I/O RECORD Last administered on 12/30/16 07:43; Start 12/29/16 at 22:15; Stop 12/31/16 at 10: 34; Status DC Hydrocortisone Sodium Succinate (Solu-CORTEF) 100 mg Q8HRS IV Last administered on 12/31/16 05:43; Start 12/29/16 at 22:30; Stop 12/31/16 at 10:30; Status DC Heparin Sodium (Porcine) (Heparin Sq) 5,000 unit Q8HRS SQ Last administered on 01/01/17 05:30; Start 12/30/16 at 14:00; Stop 01/01/17 at 07:10; Status DC Pantoprazole Sodium (Protonix Vial) 40 mg DAILYAC IVP ; Start 12/30/16 at 11:30; Status Cancel Hydrocortisone Sodium Succinate (Solu-CORTEF) 50 mg Q8HRS IV Last administered on 01/02/17 06:14; Start 12/31/16 at 14:00; Stop 01/02/17 at 10:24; Status DC Insulin Detemir (Levemir) 20 units DAILY SQ Last administered on 12/31/16 11:42 ; Start 12/31/16 at 11:00; Stop 01/01/17 at 09:05; Status DC Apixaban (Eliquis) 5 mg BID PO Last administered on 01/02/17 08:22; Start at 09:00 Info (Anti-Coagulation Monitoring By Pharmacy) 1 each PRN DAILY PRN MC SEE COMMENTS; Start 01/01/17 at 07:30 Insulin Detemir (Levemir) 30 units DAILY SQ Last administered on 01/02/17 09:16 ; Start 01/01/17 at 09:30 Furosemide (Lasix) 40 mg 1X ONCE IVP Last administered on 01/01/17 10:13; Start 01/01/17 at 10:15; Stop 01/01/17 at 10:16; Status DC Hydrocortisone Sodium Succinate (Solu-CORTEF) 30 mg BID IV ; Start 01/02/17 at 21 :00 Active Scripts Active Reported Levemir (Insulin Detemir) 100 Unit/1 Ml Vial 40 Unit SQ QHS Mucinex (Guaifenesin) 600 Mg Tablet.er 1 Tab PO BID PRN Atorvastatin Calcium 10 Mg Tablet 10 Mg PO HS Percocet 7.5-325 Mg Tablet (Oxycodone/Acetaminophen) 1 Each Tablet 1 Tab PO Q4HRS Amlodipine Besylate 5 Mg Tablet 5 Mg PO DAILY Novolog Flexpen (Insulin Aspart) 100 Unit/1 Ml Insuln.pen 15 Unit SQ BIDACLD Tylenol (Acetaminophen) 325 Mg Tablet 650 Mg PO PRN Q4-6HRS PRN Protonix (Pantoprazole Sodium) 20 Mg Tablet.dr 1 Tab PO DAILY Toprol Xl (Metoprolol Succinate) 50 Mg Tab.er.24h 1 Tab PO DAILY Lisinopril 10 Mg Tablet 1 Tab PO DAILY Lasix (Furosemide) 40 Mg Tablet 1 Tab PO DAILY Aspir 81 (Aspirin) 81 Mg Tablet.dr 1 Tab PO DAILY Vitamin D3 (Cholecalciferol (Vitamin D3)) 1,000 Unit Tablet 800 Unit PO DAILY Vitamin B-12 (Cyanocobalamin (Vitamin B-12)) 1,000 Mcg Tablet 1 Tab PO DAILY Spironolactone 50 Mg Tablet 1 Tab PO DAILY Nitrostat (Nitroglycerin) 0.4 Mg Tab.subl 1 Tab SL UD Senokot-S Tablet (Sennosides/Docusate Sodium) 1 Each Tablet 2 Tab PO HS Gabapentin 300 Mg Capsule 300 Mg PO HS Vitals/I & O Vital Sign - Last 24 Hours 01/01/17 01/01/17 01/01/17 01/01/17 12:00 19:00 20:00 21:58 Temp 98.1 96.8 98.1 96.8 Pulse 50 43 Resp 18 20 B/P (MAP) 136/62 (86) 123/59 (80) Pulse Ox 96 96 O2 Delivery Room Air Room Air Nasal Cannula Room Air O2 Flow Rate 2.0 01/01/17 01/02/17 01/02/17 01/02/17 23:00 00:46 03:00 06:14 Temp 97.7 97.3 97.7 97.3 Pulse 50 39 Resp 20 20 B/P (MAP) 153/64 (93) 149/93 (111) Pulse Ox 95 95 O2 Delivery Room Air Nasal Cannula Room Air Nasal Cannula O2 Flow Rate 2.0 2.0 01/02/17 01/02/17 06:40 07:00 Temp 97.9 97.9 Pulse 56 Resp 20 B/P (MAP) 170/56 (94) Pulse Ox 95 95 O2 Delivery Nasal Cannula Room Air O2 Flow Rate 2.0 Intake and Output 01/01/17 01/01/17 01/02/17 15:00 23:00 07:00 Intake Total 325 ml 0 ml Output Total 1650 ml 1200 ml 250 ml Balance -1325 ml -1200 ml -250 ml JOSE ALBERTO ROMERO MD Jan 02, 2017 10:51
--- NOTE | 2017-01-02 11:21 | DS ---
DATE OF DISCHARGE: 01/02/2017 ADMISSION DIAGNOSIS: Acute metabolic encephalopathy and respiratory failure. DISCHARGE DIAGNOSES: Resolving metabolic encephalopathy, resolving respiratory failure, new-onset atrial fibrillation that converted back to normal sinus rhythm on 12/31/2016, hypotension resolving, obesity, acute kidney injury, anemia, multiple compression fractures, and diabetes. CONSULT: Dr. Rubio and Dr. Agosto. PROCEDURES: None. HOSPITAL COURSE: The patient is a pleasant elderly male who basically presented with mental status change. He was diagnosed with metabolic encephalopathy. We gave him empiric fluids and IV antibiotics. Consulted Neurology and Cardiology. Over the past few days, he has returned to his baseline. We plan to discharge back to nursing home. The patient was seen and examined this morning. His heart tones were normal. His lungs were clear. His abdomen was soft. Extremities have no edema. Skin has no rashes. DISPOSITION: intermediate. ACTIVITY: As tolerated. DIET: Low sodium. MEDICATIONS: Please see the MRAD. TOTAL TIME ON DISCHARGE: 32 minutes. RAN ARROYO DO DR: TREVON/holley JOB#: [id number] / [id number]
--- NOTE | 2017-01-02 11:49 | PDOC ---
GENO COPELAND DIRECTOR SAFETY COUNCIL 01/02/17 1149: CARDIO Progress Notes Date and Time Date of Service 12/30/16 Time of Evaluation 1220 Subjective Subjective: No Chest Pain, No shortness of breath, No Palpitations Vitals Vitals Vital Signs Date Time Temp Pulse Resp B/P (MAP) Pulse Ox O2 Delivery O2 Flow Rate FiO2 01/02/17 11:00 97.9 65 20 177/78 (111) 96 Room Air 97.9 01/02/17 06:40 2.0 Weight Weight [ ] Input and Output Intake and Output Intake and Output 01/02/17 07:00 Intake Total 325 ml Output Total 3100 ml Balance -2775 ml Intake Oral 25 ml IV Total 300 ml Output Urine Total 3100 ml # Bowel Movements 2 Laboratory Labs Laboratory Tests Test 01/01/17 12:14 01/01/17 17:09 01/01/17 20:41 01/02/17 07:25 Glucose (Fingerstick) 278 mg/dL (70-99) 262 mg/dL (70-99) 213 mg/dL (70-99) 185 mg/dL (70-99) Microbiology Micro Microbiology 12/29/16 Blood Culture - Preliminary, Resulted NO GROWTH AFTER 3 DAYS Physical Exam HEENT: Neck Supple W Full Motion Chest: Symmetric LUNGS: Clear to Auscultation Heart: S1S2, RRR Abdomen: Soft N/T Extremities: No Edema, No Calf Tenderness Neurology: alert, oriented, follow commands Assessment Assessment 1. New onset AFIB 2. Sinus bradycardia 3. ? tachy/omar 4. Metabolic encephalopathy 5. Sepsis 6. Hypotension now with hypertension 7. Hyperlipidemia 8. ANTWON with CKD 9. DM with hypoglycemia 10. Baseline dementia ? Recommendations Avoid AV jorge blocking agents Monitor tele overnight; if any further episodes of significant bradycardia or AFIB, will consider for PPM in am. Continue Eliquis for stroke prophylaxis Resume YING and Lasix. Supportive care BALA MITCHELL MD 01/02/17 6688: CARDIO Progress Notes Plan Plan Patient seen and examined. Agree with above nurse practitioner note. 76-year-old male admitted for respiratory failure. Currently unable to swallow. Overnight had some mild bradycardia without any significant pauses. He's had prior atrophic fibrillation during this admission. Currently on examination he is resting comfortably. Normal heart tones. If he has any further recurrence of tachybradycardia issues and we will plan for a pacemaker. Otherwise would favor event monitoring given that he was recently admitted for possible infectious etiologies and to avoid any pacemaker complications due to his recent infection. We will follow along closely. GENO COPELAND APRN Jan 02, 2017 11:49 BALA MITCHELL MD Jan 02, 2017 13:47
[2017-01-02] MEDS ORDERED: INSULIN ASPART 300 UNITS/3 ML INSULN.PEN SQ ONE ×2 (14:15→17:30)
[2017-01-02] MEDS: LISINOPRIL 10 MG TABLET PO SCH (15:27)
[2017-01-02] MEDS: FUROSEMIDE 40 MG TABLET. PO SCH (15:27)
[2017-01-02] MEDS: traMADol 50 MG TABLET PO PRN (20:08)
[2017-01-02] MEDS: VANCOMYCIN 1.5 GM in IV NORMAL SALINE 500ML BAG 500 ML IV SCH (20:08)
[2017-01-03 03:44] VITALS: BP 139/65
[2017-01-03] MEDS: PIPERACILLIN/TAZOBACTAM 3.375 GM in IV NORMAL SALINE 50ML 50 ML IV SCH ×2 (06:11→12:46)
[2017-01-03] MEDS: MORPHINE SULFATE 2 MG/ML DISP.SYRIN. IV PRN (06:11)
[2017-01-03 07:40] VITALS: BP 118/67
[2017-01-03] MEDS: FUROSEMIDE 40 MG TABLET. PO SCH (08:43)
[2017-01-03] MEDS: CHOLECALCIFEROL (VITAMIN D3) 1,000 UNIT TABLET PO SCH (08:44)
[2017-01-03] MEDS: APIXABAN 5 MG TABLET. PO SCH (08:44)
[2017-01-03] MEDS: CYANOCOBALAMIN (VITAMIN B-12) 1,000 MCG TABLET. PO SCH (08:44)
[2017-01-03] MEDS: ASPIRIN ENTERIC COATED 81 MG TABLET.DR. PO SCH (08:44)
[2017-01-03] MEDS: HYDROCORTISONE SOD SUCC/PF 100 MG/2 ML VIAL. IV SCH (08:45)
[2017-01-03] MEDS: LISINOPRIL 10 MG TABLET PO SCH (08:45)
[2017-01-03] MEDS: traMADol 50 MG TABLET PO PRN (08:45)
[2017-01-03] MEDS: PANTOPRAZOLE IV PUSH 40 MG VIAL. IVP SCH (08:49)
[2017-01-03] MEDS: INSULIN DETEMIR 300 UNITS/3 ML INSULN.PEN. SQ SCH (08:57)
[2017-01-03] MEDS: INSULIN ASPART 300 UNITS/3 ML INSULN.PEN SQ SCH ×2 (08:58→12:00)
--- NOTE | 2017-01-03 10:55 | PDOC ---
PULMONARY PROGRESS NOTES Subjective extubated 12/31 doing well Vitals Vital Signs Date Time Temp Pulse Resp B/P (MAP) Pulse Ox O2 Delivery O2 Flow Rate FiO2 01/03/17 08:45 56 118/67 01/03/17 08:45 98 Room Air 01/03/17 07:40 97.1 20 97.1 01/02/17 20:08 2.0 General: Alert, No acute distress Lungs: Other (decrease bs) Cardiovascular: S1 Abdomen: Soft Extremities: No Edema Labs Laboratory Tests Test 01/01/17 12:14 01/01/17 17:09 01/01/17 20:41 01/02/17 07:25 Glucose (Fingerstick) 278 mg/dL (70-99) 262 mg/dL (70-99) 213 mg/dL (70-99) 185 mg/dL (70-99) Test 01/02/17 11:58 01/02/17 14:00 01/02/17 17:13 01/02/17 20:35 Glucose (Fingerstick) 345 mg/dL (70-99) 441 mg/dL (70-99) 377 mg/dL (70-99) 269 mg/dL (70-99) Test 01/03/17 07:15 Glucose (Fingerstick) 240 mg/dL (70-99) Laboratory Tests Test 01/02/17 11:58 01/02/17 14:00 01/02/17 17:13 01/02/17 20:35 Glucose (Fingerstick) 345 mg/dL (70-99) 441 mg/dL (70-99) 377 mg/dL (70-99) 269 mg/dL (70-99) Test 01/03/17 07:15 Glucose (Fingerstick) 240 mg/dL (70-99) Medications Active Scripts Medications Dose Route/Sig Max Daily Dose Days Date Category Levemir (Insulin Detemir) 100 Unit/1 Ml Vial 40 Unit SQ QHS 12/29/16 Reported Mucinex (Guaifenesin) 600 Mg Tablet.er 1 Tab PO BID PRN 12/29/16 Reported Atorvastatin Calcium 10 Mg Tablet 10 Mg PO HS 12/29/16 Reported Percocet 7.5-325 Mg Tablet (Oxycodone/Acetaminophen) 1 Each Tablet 1 Tab PO Q4HRS 12/29/16 Reported Amlodipine Besylate 5 Mg Tablet 5 Mg PO DAILY 12/29/16 Reported Novolog Flexpen (Insulin Aspart) 100 Unit/1 Ml Insuln.pen 15 Unit SQ BIDACLD 12/29/16 Reported Tylenol (Acetaminophen) 325 Mg Tablet 650 Mg PO PRN Q4-6HRS PRN 09/14/16 Reported Protonix (Pantoprazole Sodium) 20 Mg Tablet.dr 1 Tab PO DAILY 09/04/16 Reported Toprol Xl (Metoprolol Succinate) 50 Mg Tab.er.24h 1 Tab PO DAILY 09/04/16 Reported Lisinopril 10 Mg Tablet 1 Tab PO DAILY 09/04/16 Reported Lasix (Furosemide) 40 Mg Tablet 1 Tab PO DAILY 09/04/16 Reported Aspir 81 (Aspirin) 81 Mg Tablet.dr 1 Tab PO DAILY 09/04/16 Reported Vitamin D3 (Cholecalciferol (Vitamin D3)) 1,000 Unit Tablet 800 Unit PO DAILY 09/04/16 Reported Vitamin B-12 (Cyanocobalamin (Vitamin B-12)) 1,000 Mcg Tablet 1 Tab PO DAILY 09/04/16 Reported Spironolactone 50 Mg Tablet 1 Tab PO DAILY 09/04/16 Reported Nitrostat (Nitroglycerin) 0.4 Mg Tab.subl 1 Tab SL UD 09/04/16 Reported Senokot-S Tablet (Sennosides/Docusate Sodium) 1 Each Tablet 2 Tab PO HS 09/04/16 Reported Gabapentin 300 Mg Capsule 300 Mg PO HS 09/04/16 Reported Impression . 1. Acute respiratory failure secondary to multifactorial etiologies and includes a combination of early sepsis and hypoglycemic encephalopathy. 2. Hypotension with hypothermia present on admission due to sepsis. resolved 3. Abnormal CT chest with basilar atelectasis and 4 mm nodule in the right lung. He also has some bilateral renal lesions and I will leave up to primary care to do any further workup. 4. Shock combination of hypovolemic and septic. 5. Encephalopathy related to hypoglycemia and early sepsis. 6. Bradycardia Plan . ok to d/c pt seen PETROS Green MD Jan 03, 2017 10:55
[2017-01-03 10:56] VITALS: BP 150/73
[2017-01-03] MEDS ORDERED: INSULIN ASPART 300 UNITS/3 ML INSULN.PEN SQ ONE (12:35)
[2017-01-03] MEDS ORDERED: APIX5TAB PO (15:06)
--- NOTE | 2017-01-03 15:12 | PDOC ---
CARDIO Progress Notes Date and Time Date of Service 01/03/17 Time of Evaluation 1330 Subjective Subjective: No Chest Pain, No shortness of breath, No Palpitations Comments: no further tachyarhythmias or significant pauses noted on telemetry. Vitals Vitals Vital Signs Date Time Temp Pulse Resp B/P (MAP) Pulse Ox O2 Delivery O2 Flow Rate FiO2 01/03/17 11:24 97 Room Air 01/03/17 10:56 97.9 59 20 150/73 (98) 97.9 01/02/17 20:08 2.0 Weight Weight [ ] Input and Output Intake and Output Intake and Output 01/03/17 07:00 Intake Total 990 ml Output Total 1400 ml Balance -410 ml Intake Oral 990 ml Output Urine Total 1400 ml # Voids 3 # Bowel Movements 1 Laboratory Labs Laboratory Tests Test 01/02/17 17:13 01/02/17 20:35 01/03/17 07:15 01/03/17 11:47 Glucose (Fingerstick) 377 mg/dL (70-99) 269 mg/dL (70-99) 240 mg/dL (70-99) 399 mg/dL (70-99) Microbiology Micro Microbiology 12/29/16 Blood Culture - Preliminary, Resulted NO GROWTH AFTER 4 DAYS Physical Exam HEENT: Neck Supple W Full Motion Chest: Symmetric LUNGS: Clear to Auscultation Heart: S1S2, other (tele SB rate 55. ) Abdomen: Soft N/T Extremities: No Edema, No Calf Tenderness Neurology: alert, oriented, follow commands Assessment Assessment 1. New onset AFIB 2. Bradycardia, asymptomatic 3. ? tachy/omar 4. Metabolic encephalopathy 5. Sepsis 6. Hypotension now with hypertension 7. Hyperlipidemia 8. ANTWON with CKD 9. DM with hypoglycemia 10. Baseline dementia ? Recommendations Event monitor x3 weeks to note presence of significant tachybradycardia indicating need per pacemaker implantation; placed on patient prior to discharge. Instruction also given to staff at [facility]. Eliquis for stroke prophylaxis Avoid AV jorge blocking agents; Toprol discontinued from discharge home medication list. Facility notified of this change along with addition of Eliquis 5mg PO BID. Patient to f/u in our office with Dr. Franklin in 4 weeks as scheduled. GENO COPELAND APRN Jan 03, 2017 15:12
== END 2017-01-03 14:35 | DRG 871 ==
LOC: ER 17:18 → 1 WEST ICU 18:23 → 6 SOUTH 01-01 13:55
PROVIDERS: ADMIT Internal Medicine; ATTEND Internal Medicine
PROC: 5A1945Z Respiratory Ventilation, 24-96 Consecutive Hours (ICD-10-PCS; principal; 2016-12-29)
PROC: 0BH18EZ Insertion of Endotracheal Airway into Trachea, Via Natural or Artificial Opening Endoscopic (ICD-10-PCS; 2016-12-29)
DX: A41.9 Sepsis, unspecified organism (principal); G93.41 Metabolic encephalopathy; J96.00 Acute respiratory failure, unspecified whether with hypoxia or hypercapnia; R65.21 Severe sepsis with septic shock; I13.0 Hypertensive heart and chronic kidney disease with heart failure and stage 1 through stage 4 chronic kidney disease, or unspecified chronic kidney disease; N18.4 Chronic kidney disease, stage 4 (severe); M84.40XA Pathological fracture, unspecified site, initial encounter for fracture; N17.9 Acute kidney failure, unspecified; E78.5 Hyperlipidemia, unspecified; E11.649 Type 2 diabetes mellitus with hypoglycemia without coma; E11.22 Type 2 diabetes mellitus with diabetic chronic kidney disease; G89.29 Other chronic pain; F03.90 Unspecified dementia, unspecified severity, without behavioral disturbance, psychotic disturbance, mood disturbance, and anxiety; I48.91 Unspecified atrial fibrillation; I50.9 Heart failure, unspecified; K21.9 Gastro-esophageal reflux disease without esophagitis; E66.9 Obesity, unspecified; R32 Unspecified urinary incontinence; D64.9 Anemia, unspecified; M19.90 Unspecified osteoarthritis, unspecified site; E86.1 Hypovolemia; G62.9 Polyneuropathy, unspecified; K43.9 Ventral hernia without obstruction or gangrene; J40 Bronchitis, not specified as acute or chronic; T68.XXXA Hypothermia, initial encounter; Z90.49 Acquired absence of other specified parts of digestive tract; Z88.8 Allergy status to other drugs, medicaments and biological substances; Z68.34 Body mass index [BMI] 34.0-34.9, adult; Z79.4 Long term (current) use of insulin; Z87.01 Personal history of pneumonia (recurrent); Z79.899 Other long term (current) drug therapy; Z79.1 Long term (current) use of non-steroidal anti-inflammatories (NSAID); Z79.82 Long term (current) use of aspirin; Z79.2 Long term (current) use of antibiotics
CPT/HCPCS: 31500; 36415; 36600; 51702; 70450; 71010; 71250; 80048; 80053; 80202; 81001; 82140; 82805; 82962; 83605; 83690; 83735; 84100; 85007; 85027; 85610; 85730; 87040; 87641; 93005; 93306; 94002; 94003; 96361; 96374; 96375; C9113; G0481; J0330; J1265; J1650; J1720; J1815; J1940; J2250; J2270; J2310; J2543; J3370; J7030; J7040; J7042; 92526; 92610; 97116; 99291-25

== ENCOUNTER 2017-01-26 00:22 | Inpatient (IN) | payer MEDICARE ==
[~2017-01-26] VITALS: Ht 177.8 cm; Wt 102.5 kg
[~2017-01-26 00:22] MED LIST changes: +AMLO5TAB2 PO; +APIX5TAB PO; +ATOR10TA60 PO; +GUAI600T47 PO; +INSU100V13 SQ; -OXYC-244 PO; +OXYC-327 PO
[2017-01-26 01:25] LABS: BASO % 1 % (0-3); EOS % 5 % (0-3); HEMATOCRIT 32.6 % (39.0-53.0); HEMOGLOBIN 11.2 g/dL (13.0-17.5); LYMPH % 22 % (24-48); MEAN CORPUSCULAR HEMOGLOBIN 32 pg (25-35); MEAN CORPUSCULAR HGB CONC 34 g/dL (31-37); MEAN CORPUSCULAR VOLUME 93 fL (79-100); MONO % 10 % (0-9); NEUT % 62 % (31-73); PLATELET COUNT 169 x10^3/uL (140-400); RED BLOOD COUNT 3.51 x10^6/uL (4.30-5.70); RED CELL DISTRIBUTION WIDTH 14.1 % (11.5-14.5); WHITE BLOOD COUNT 4.5 x10^3/uL (4.0-11.0)
[2017-01-26] MEDS ORDERED: ASPIRIN CHEWABLE 81 MG TABLET. PO ONE (01:30)
[2017-01-26 01:37] LABS: CALCIUM 9.2 mg/dL (8.5-10.1); CREATININE 1.9 mg/dL (0.7-1.3); GFR 34.5; POTASSIUM 4.8 mmol/L (3.5-5.1)
[2017-01-26 01:43] LABS: ALBUMIN 3.9 g/dL (3.4-5.0); ALBUMIN/GLOBULIN RATIO 1.3 (1.0-1.7); TOTAL BILIRUBIN 0.3 mg/dL (0.2-1.0)
--- NOTE | 2017-01-26 01:59 | PHYS DOC ---
Past Medical History Past Medical History: CHF, Diabetes-Type II, GERD, Hypertension Past Surgical History: Cholecystectomy Alcohol Use: None Drug Use: None Adult General Chief Complaint Chief Complaint: CHEST PAIN HPI HPI 76-year-old male with a history of high blood pressure high cholesterol and type 2 diabetes now presents to the emergency department complaining of chest pain. Patient's had intermittent substernal chest pain. He states it's a tightness. Now resolved. No nausea vomiting diaphoresis or shortness of air. No pleuritic pain. Pain is not reproducible. He has no productive cough or fever. Patient has no prior history of coronary artery disease he's never had a stress test or cardiac catheterization. Patient has never been told he had any heart disease. Review of Systems Review of Systems Constitutional: Denies fever or chills [] Eyes: Denies change in visual acuity, redness, or eye pain [] HENT: Denies nasal congestion or sore throat [] Respiratory: Denies cough or shortness of breath [] Cardiovascular: No additional information not addressed in HPI [] GI: Denies abdominal pain, nausea, vomiting, bloody stools or diarrhea [] : Denies dysuria or hematuria [] Musculoskeletal: Denies back pain or joint pain [] Integument: Denies rash or skin lesions [] Neurologic: Denies headache, focal weakness or sensory changes [] Endocrine: Denies polyuria or polydipsia [] Current Medications Current Medications Current Medications Medications (Trade) Dose Ordered Sig/Eran Start Time Stop Time Status Last Admin Dose Admin Acetaminophen/ Hydrocodone Bitart (Lortab 5/325) 1 tab 1X ONCE 01/26/17 02:00 01/26/17 02:01 DC 01/26/17 02:11 1 TAB Aspirin (Children'S Aspirin) 324 mg 1X ONCE 01/26/17 01:30 01/26/17 01:31 DC Allergies Allergies Allergies Coded Allergies Type Severity Reaction Last Updated Verified tetracycline Allergy Intermediate Rash 09/04/16 Yes Physical Exam Physical Exam Well-appearing male no acute distress nontender chest wall clear lungs regular rate and rhythm no tachycardia benign exam. Constitutional: Well developed, well nourished, no acute distress, non-toxic appearance. [] HENT: Normocephalic, atraumatic, bilateral external ears normal, oropharynx moist, no oral exudates, nose normal. [] Eyes: PERRLA, EOMI, conjunctiva normal, no discharge. [] Neck: Normal range of motion, no tenderness, supple, no stridor. [] Cardiovascular:Heart rate regular rhythm, no murmur [] Lungs & Thorax: Bilateral breath sounds clear to auscultation [] Abdomen: Bowel sounds normal, soft, no tenderness, no masses, no pulsatile masses. [] Skin: Warm, dry, no erythema, no rash. [] Back: No tenderness, no CVA tenderness. [] Extremities: No tenderness, no cyanosis, no clubbing, ROM intact, no edema. [] Neurologic: Alert and oriented X 3, normal motor function, normal sensory function, no focal deficits noted. [] Psychologic: Affect normal, judgement normal, mood normal. [] Current Patient Data Vital Signs Vital Signs Date Time Temp Pulse Resp B/P (MAP) Pulse Ox O2 Delivery O2 Flow Rate FiO2 01/26/17 02:12 69 21 157/75 (102) 99 Room Air 01/26/17 00:29 98.1 98.1 Lab Values Laboratory Tests Test 01/26/17 00:30 White Blood Count 4.5 x10^3/uL (4.0-11.0) Red Blood Count 3.51 x10^6/uL (4.30-5.70) L Hemoglobin 11.2 g/dL (13.0-17.5) L Hematocrit 32.6 % (39.0-53.0) L Mean Corpuscular Volume 93 fL (79-100) Mean Corpuscular Hemoglobin 32 pg (25-35) Mean Corpuscular Hemoglobin Concent 34 g/dL (31-37) Red Cell Distribution Width 14.1 % (11.5-14.5) Platelet Count 169 x10^3/uL (140-400) Neutrophils (%) (Auto) 62 % (31-73) Lymphocytes (%) (Auto) 22 % (24-48) L Monocytes (%) (Auto) 10 % (0-9) H Eosinophils (%) (Auto) 5 % (0-3) H Basophils (%) (Auto) 1 % (0-3) Neutrophils # (Auto) 2.8 x10^3uL (1.8-7.7) Lymphocytes # (Auto) 1.0 x10^3/uL (1.0-4.8) Monocytes # (Auto) 0.5 x10^3/uL (0.0-1.1) Eosinophils # (Auto) 0.2 x10^3/uL (0.0-0.7) Basophils # (Auto) 0.0 x10^3/uL (0.0-0.2) Sodium Level 136 mmol/L (136-145) Potassium Level 4.8 mmol/L (3.5-5.1) Chloride Level 103 mmol/L (98-107) Carbon Dioxide Level 30 mmol/L (21-32) Anion Gap 3 (6-14) L Blood Urea Nitrogen 28 mg/dL (8-26) H Creatinine 1.9 mg/dL (0.7-1.3) H Estimated GFR (Cockcroft-Gault) 34.5 BUN/Creatinine Ratio 15 (6-20) Glucose Level 218 mg/dL (70-99) H Calcium Level 9.2 mg/dL (8.5-10.1) Total Bilirubin 0.3 mg/dL (0.2-1.0) Aspartate Amino Transferase (AST) 16 U/L (15-37) Alanine Aminotransferase (ALT) 16 U/L (16-63) Alkaline Phosphatase 87 U/L (46-116) Troponin I Quantitative < 0.017 ng/mL (0.000-0.055) Total Protein 7.0 g/dL (6.4-8.2) Albumin 3.9 g/dL (3.4-5.0) Albumin/Globulin Ratio 1.3 (1.0-1.7) Laboratory Tests 01/26/17 00:30 Laboratory Tests 01/26/17 00:30 EKG EKG EKG normal sinus rhythm at 72. Left axis deviation. No STEMI. Interpreted by me. [] Radiology/Procedures Radiology/Procedures Portable chest x-ray interpreted by me. Chronic changes no acute disease. [] Course & Med Decision Making Course & Med Decision Making Pertinent Labs and Imaging studies reviewed. (See chart for details) Signs and symptoms consistent with chest pain a possible cardiac etiology in an elderly male with multiple cardiac risk factors and no prior workup. EKG unremarkable. Chest x-ray benign with chronic changes. Laboratory workup pending. Anticipate observation telemetry admission for full cardiac workup. [] Dragon Disclaimer Dragon Disclaimer This [facility] medical record was generated, in whole or in part, using a voice recognition dictation system. Departure Departure Referrals: NO PCP (PCP) LISA JOHNSON MD Jan 26, 2017 01:58
[2017-01-26] MEDS ORDERED: HYDROcodone/APAP 5/325MG 1 TAB TABLET PO ONE (02:00)
--- NOTE | 2017-01-26 04:02 | ACF ---
Admission Forms Criteria CARDIOLOGY GRG Clinical Indications for Admission to Inpatient Care ( Place 'X' for any and all applicable criteria): Hospital admission is needed for appropriate care of the patient because of ANY ONE of the following (1): [ ] I. Hemodynamic instability as indicated by ALL of the following (1)(2)(3) (4)(5) [ ]a) Vital signs or other findings not as expected for chronic patient condition or baseline [ ]b) Instability indicated by ANY ONE of the following: [ ]i) Hypotension [ ]ii) Symptomatic Tachycardia unresponsive to treatment ( e.g., analgesia, fluids, sedation as indicated) [ ]iii) Inadequate perfusion indicated by ANY ONE of the following: [ ] 1) Lactic acidosis (> 2 mmol/L) [ ] 2) New abnormal capillary refill (> 3 seconds) [ ] 3) Reduced urine output [ ] 4) New altered mental status [ ]iv) Orthostatic vital sign changes unresponsive to treatment (e.g., fluids) [ ]v) IV inotropic or vasopressor medication required to maintain adequate blood pressure or perfusion [ ] II. Severe heart failure as indicated by ANY ONE of the following(17)(18) [ ]a) Respiratory distress [ ]b) Hypotension [ ]c) Anasarca (refractory to outpatient therapy) [ ]d) Cardiac arrhythmias of immediate concern [ ]e) Myocardial ischemia [ ] III. Cardiac arrhythmias or findings of immediate concern indicated by ANY ONE of the following (19)(20): [ ] a) Heart rhythms that are inherently dangerous or unstable indicated by ANY ONE of the following (21)(22)(23): [ ] i) Resuscitated ventricular fibrillation or cardiac arrest [ ] ii) Ventricular escape rhythm [ ] iii) Sustained ventricular tachycardia (30 seconds or more of ventricular rhythm at greater than 100 beats per minute) [ ] iv) Nonsustained ventricular tachycardia and ANY ONE of the following: [ ] 1) Suspected cardiac ischemia as cause or consequence of ventricular tachycardia [ ] 2) In setting of acute myocarditis [ ] b) Unstable cardiac conduction defects indicated by ANY ONE of the following(23)(24)(25) [ ] i) Type II second-degree atrioventricular block [ ]ii) Third-degree atrioventricular block [ ]iii) New-onset left bundle branch block with suspected myocardial ischemia [ ]c) Any heart rhythm and ANY ONE of the following (21)(22)(26)(27) (28) [ ] i) Continuous long-term ECG monitoring needed (e.g., initiation of drug requiring monitoring for more than 24 hours) [ ] ii) Patient has automatic implanted cardioverter defibrillator that is repeatedly firing, malfunctioning, or in need of immediate adjustment of settings beyond the scope of ambulatory or observation care [ ]d) Heart rhythms of concern due to ANY ONE of the following: [ ] i) Hypotension [ ] ii) Respiratory distress [ ] iii) Association with other significant symptoms (e.g., bradycardia with syncope or ongoing dizziness, supraventricular tachycardia with chest pain (14)(15)(17) [ ] IV. Monitoring for cardiac contusion beyond the scope of observation care needed [A](30)(31)(32) [ ] V. Surgical or device complication (e.g., valve replacement complication , pacemaker dysfunction) (35)(41)(44)(45)(46) [ ] . Inpatient palliative care needed. [B](49) Also use Inpatient Palliative Care Criteria [ ] VII. Nonbacterial thrombotic (marantic) endocarditis (36)(43)(47)(48) [X] VIII. Cardiology condition, symptom, or finding for which emergency and observation care has failed or are not considered appropriate. [ ] IX. Acute valvular disease requiring inpatient as indicated by ANY ONE of the following (41) [ ]a) Acute valvular regurgitation (42) [ ]b) Noninfectious valvulitis (43) [ ]c) Obstructive valve thrombosis [ ]d) Paravalvular leak [ ]e) Other significant valvular disorder remaining after emergency or observation level of care (as appropriate) [ ]X. Pericardial disease requiring inpatient treatment as indicated by ANY ONE of the following (33)(34)(35)(36)(37) [ ]a) Suspected tamponade (38)(39)(40) [ ]b) Hemopericardium [ ]c) Other significant pericardial disorder remaining after emergency or observation level of care (as appropriate) [ ] XI. Cardiac ischemia beyond scope of emergency and observation care. [ ] XII. Hypertension requiring inpatient treatment as indicated by ANY ONE of the following (6)(7)(8) [ ]a) SBP greater than 220 mm Hg or DBP greater than 120 mmHg despite treatment [ ]b) SBP greater than 140 mm Hg or DBP greater than 100 mm Hg with evidence of acute end organ damage as indicated by ANY ONE of the following [ ] i) Encephalopathy [ ] ii) Acute renal failure as indicated by new onset of ANY ONE of the following (9)(10)(11)(12)(13) [ ]1) 3-fold rise in serum creatinine from baseline [ ]2) Serum creatinine greater than 4 mg/dL ( 354 micromoles/L) with acute rise greater than 0.5 mg/dL (44.2 micromoles/L) [ ]3) Reduction of more than 75% in estimated glomerular filtration rate from baseline [ ]4) Estimated glomerular filtration rate less than 35 mL/min/1.73m2 (0.59 mL/sec/1.73m2) in child up to 18 years of age [ ]5) Cessation of urine output indicated by ALL of the following [ ]A. Adequate volume status [ ]B. Inadequate urine output as indicated by ANY ONE of the following [ ]a. Urine output less than 0.3 mL/kg/hr for 24 hours [ ]b. Anuria (urine output less than 0.1 mL/kg/hr) for 12 hours [ ] iii) Aortic dissection [ ] iv) Myocardial Ischemia [ ] v) Left ventricular heart failure [ ]vi) Retinal Hemorrhage [ ]vii) Other significant finding [ ]c) Hypertension in child requiring inpatient treatment as indicated by ALL of the following(14)(15)(16) [ ] i) Outpatient treatment not effective, not available, or not appropriate [ ]ii) SBP or DBP greater than 95th percentile for age [ ]iii) Evidence of acute end organ damage as indicated by ANY ONE of the following [ ]1) Altered mental status [ ]2) Acute renal failure as indicated by new onset of ANY ONE of the following(9)(10)(11)(12)(13) [ ]A. 3-fold rise in serum creatinine from baseline [ ]B. Serum creatinine greater than 4 mg/dL (354 micromoles/L) with acute rise greater than 0.5 mg/dL (44.2 micromoles/L) [ ]C. Reduction of more than 75% in estimated glomerular filtration rate from baseline [ ]D. Estimated glomerular filtration rate less than 35 mL/min/1.73m2 (0.59 mL/sec/1.73m2) in child up to 18 years of age [ ]E. Cessation of urine output indicated by ALL of the following [ ]a. Adequate volume status [ ]b. Inadequate urine output as indicated by ANY ONE of the following [ ]i) Urine output less than 0.3 mL/kg/hr for 24 hours [ ]ii) Anuria ( urine output less than 0.1 mL/kg/hr) for 12 hours [ ]3) Severe headache [ ]4) Visual disturbance [ ]5) Retinal hemorrhage [ ]6) Other significant finding [ ]XIII. Complications of transplanted heart indicated by ANY ONE of the following(61): [ ]a) Acute graft rejection requiring inpatient management (eg, intravenous immunosuppression)(62)(63) [ ]b) Acute graft heart failure indicated by ANY ONE of the following(64): [ ]i) Hemodynamic instability [ ]ii) Cardiac arrhythmias of immediate concern [ ]iii) Pulmonary edema that is very severe (eg, mechanical ventilation needed, imminent or likely, need for 100% oxygen to keep oxygen saturation above 90%) [ ]iv) Pulmonary edema that is persistent as indicated by ALL of the following: [ ]1) New need for oxygen therapy to keep oxygen saturation above 90% (or increased FiO2 need from baseline) [ ]2) Has not improved sufficiently with emergency department or observation care IV diuretics or other heart failure treatments[E] [ ]v) Altered mental status that is severe or persistent [ ]vi) Increased creatinine (new on laboratory test) with reduction of more than 50% in estimated glomerular filtration rate from baseline [ ]vii) Progressively (ongoing) rising creatinine (known from past laboratory test) with reduction of more than 25% in estimated glomerular filtration rate from baseline [ ]viii) Acute renal failure [ ]ix) Acute peripheral ischemia (eg, examination shows pulseless, cool, mottled, or cyanotic extremity) [ ]x) Pulmonary artery catheter monitoring needed [ ]xi) Other sign or symptom of heart failure requiring inpatient treatment (ie, too severe or not responsive to outpatient and observation care treatment) [ ]c) Infection requiring inpatient management (eg, Hemodynamic instability, need for intravenous antimicrobial treatment)(66)(67)(68)(69)(70) [ ]d) Cardiac allograft vasculopathy requiring inpatient management ( eg evidence of cardiac ischemia)(71) [ ]e) Other complication of transplanted heart (eg, stroke, severe pulmonary hypertension, severe valvular dysfunction) requiring inpatient management(72) The original [facility] content created by [facility] has been revised. The portions of the content which have been revised are identified through the use of italic text or in bold, and [facility] has neither reviewed nor approved the modified material. All other unmodified content is copyright [facility]. Please see references footnoted in the original [facility] edition 2016 Admission Criteria Met?: Yes MICHAEL CAMPBELL Jan 26, 2017 04:02
[2017-01-26 04:37] VITALS: BP 140/76
[2017-01-26] MEDS ORDERED: METO100T11 PO (05:28)
[2017-01-26] MEDS ORDERED: FURO40TA4 PO (05:28)
[2017-01-26] MEDS ORDERED: LISI10TA2 PO (05:28)
[2017-01-26] MEDS ORDERED: METO25TA9 PO (05:28)
[2017-01-26] MEDS ORDERED: SPIR50TA2 PO (05:28)
[2017-01-26] MEDS ORDERED: PANT40TA3 PO (05:28)
--- NOTE | 2017-01-26 06:12 | EKG ---
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
[2017-01-26 07:00] VITALS: BP 140/82
--- NOTE | 2017-01-26 07:16 | RAD ---
Portable AP upright view CXR: Clinical indications: Chest pain. Comparison: January 23, 2017. Findings: No acute lung infiltrate or pleural effusion or pulmonary edema or lung mass or pneumothorax is seen. The heart size, pulmonary vasculature, mediastinum and both nikky are unremarkable. Impression: No acute radiographic abnormality is seen.
--- NOTE | 2017-01-26 09:38 | PDOC2 ---
GENO COPELAND FREELANCE INTERPRETER/TRANSLATOR 01/26/17 0938: CARDIAC CONSULT DATE OF CONSULT Date of Consult DATE: 01/26/17 TIME: 09:26 REASON FOR CONSULT Reason for Consult: Chest Pain REFERRING PHYSICIAN Referring Physician: Dr. Abdalla SOURCE Source: Chart review, Patient HISTORY OF PRESENT ILLNESS HISTORY OF PRESENT ILLNESS This is a 76 yo male with baseline dementia, known to us from recent admission, who reportedly presented with complaints of chest pain. Patient reports his pain medication was recently decreased; having increased back pain. Has h/o chronic back pain. Admitted 01/23/17 with altered mental status. Encephalopathy felt to be related to combination of opiates and ANTWON. Was recommend for SNU, but ended up going back to assisted living facility with HH on 01/24/17. Patient unable to recall this event. Per chart review, patient c/o substernal chest pain describes a tightness. Patient presently denies any chest pain, palpitation, dizziness, SOA, diaphoresis, or nausea/vomiting. Troponin negative x2; AMI ruled out. Recent echo with preserved LV function. Previous hospitalization, patient noted with possibly tachybrady with PAFIB. Started on Eliquis and sent home with an event monitor and schedule for a outpatient follow up. PAST MEDICAL HISTORY Past Medical History Cardiovascular: HTN, Hyperlipidemia, PAFIB, diastolic CHF GI: GERD Pulmonary: Pneumonia CENTRAL NERVOUS SYSTEM: Dementia, Peripheral neuropathy Musculoskeletal: low back pain, Osteoarthritis Renal: CKD Endocrine: Diabetes PAST SURGICAL HISTORY Past Surgical History: Cholecystectomy FAMILY HISTORY Family History: Hypertension SOCIAL HISTORY Smoke: No ALCOHOL: none Drugs: None Lives: [facility] ([facility] ) CURRENT MEDICATIONS CURRENT MEDICATIONS Current Medications Medications (Trade) Dose Ordered Sig/Eran Route PRN Reason Start Time Stop Time Status Last Admin Dose Admin Acetaminophen/ Hydrocodone Bitart (Lortab 5/325) 1 tab 1X ONCE PO 01/26/17 02:00 01/26/17 02:01 DC 01/26/17 02:11 ALLERGIES ALLERGIES: Coded Allergies: tetracycline (Verified Allergy, Intermediate, Rash, 09/04/16) PHYSICAL EXAM General: Alert (oriented to person and time. ), Cooperative, No acute distress HEENT: Atraumatic, Mucous membr. moist/pink Lungs: Clear to auscultation, Normal air movement Heart: Regular rate, Normal S1, Normal S2, No murmurs, Other (left chest tendness upon palpation) Abdomen: Soft, No tenderness Extremities: Other (trace bilateral LE edema. DRSG to RLE) Skin: Other (erythema to LLE) Neuro: Normal speech, Sensation intact Psych/Mental Status: Mood NL MUSCULOSKELETAL: Osteoarthritic changes both hands VITALS VITALS Vital Signs Date Time Temp Pulse Resp B/P (MAP) Pulse Ox O2 Delivery O2 Flow Rate FiO2 01/26/17 07:00 97.8 61 20 140/82 (101) 99 Room Air 97.8 LABS Lab: Laboratory Tests Test 01/26/17 00:30 01/26/17 07:10 White Blood Count 4.5 x10^3/uL (4.0-11.0) Red Blood Count 3.51 x10^6/uL (4.30-5.70) Hemoglobin 11.2 g/dL (13.0-17.5) Hematocrit 32.6 % (39.0-53.0) Mean Corpuscular Volume 93 fL (79-100) Mean Corpuscular Hemoglobin 32 pg (25-35) Mean Corpuscular Hemoglobin Concent 34 g/dL (31-37) Red Cell Distribution Width 14.1 % (11.5-14.5) Platelet Count 169 x10^3/uL (140-400) Neutrophils (%) (Auto) 62 % (31-73) Lymphocytes (%) (Auto) 22 % (24-48) Monocytes (%) (Auto) 10 % (0-9) Eosinophils (%) (Auto) 5 % (0-3) Basophils (%) (Auto) 1 % (0-3) Neutrophils # (Auto) 2.8 x10^3uL (1.8-7.7) Lymphocytes # (Auto) 1.0 x10^3/uL (1.0-4.8) Monocytes # (Auto) 0.5 x10^3/uL (0.0-1.1) Eosinophils # (Auto) 0.2 x10^3/uL (0.0-0.7) Basophils # (Auto) 0.0 x10^3/uL (0.0-0.2) Sodium Level 136 mmol/L (136-145) Potassium Level 4.8 mmol/L (3.5-5.1) Chloride Level 103 mmol/L (98-107) Carbon Dioxide Level 30 mmol/L (21-32) Anion Gap 3 (6-14) Blood Urea Nitrogen 28 mg/dL (8-26) Creatinine 1.9 mg/dL (0.7-1.3) Estimated GFR (Cockcroft-Gault) 34.5 BUN/Creatinine Ratio 15 (6-20) Glucose Level 218 mg/dL (70-99) Calcium Level 9.2 mg/dL (8.5-10.1) Total Bilirubin 0.3 mg/dL (0.2-1.0) Aspartate Amino Transf (AST/SGOT) 16 U/L (15-37) Alanine Aminotransferase (ALT/SGPT) 16 U/L (16-63) Alkaline Phosphatase 87 U/L (46-116) Troponin I Quantitative < 0.017 ng/mL (0.000-0.055) Total Protein 7.0 g/dL (6.4-8.2) Albumin 3.9 g/dL (3.4-5.0) Albumin/Globulin Ratio 1.3 (1.0-1.7) Glucose (Fingerstick) 209 mg/dL (70-99) ECHOCARDIOGRAM ECHOCARDIOGRAM <Conclusion> The left ventricular systolic function is normal and the ejection fraction is within normal range. The Ejection Fraction is 65-70%. There is normal LV segmental wall motion. DATE: 12/30/161748 ASSESSMENT/PLAN ASSESSMENT/PLAN 1. Chest pain, atypical 2. PAFIB 3. Hypertension 4. Hyperlipidemia 5. CKD 6. Diabetes 7. Chronic back pain 8. Mild dementia Recommendations AMI ruled out Recent echo with normal LV function as noted above Continue medical management Resume outpatient event monitor upon discharge No further cardiac workup warranted at this time. Will reassess on an outpatient basis. F/u next week as previously scheduled. Problems: BALA MITCHELL MD 01/26/172050: CARDIAC CONSULT ALLERGIES ALLERGIES: Coded Allergies: tetracycline (Verified Allergy, Intermediate, Rash, 09/04/16) GENO COPELAND APRN Jan 26, 2017 09:38 BALA MITCHELL MD Jan 26, 2017 20:51
[2017-01-26 11:00] VITALS: BP 150/98
[2017-01-26] MEDS ORDERED: DEXTROSE 50% 25 GM / 50ML DISP.SYRIN. IV PRN (11:15)
[2017-01-26] MEDS ORDERED: hydrALAZINE 20 MG/ML VIAL. IVP PRN (11:15)
[2017-01-26] MEDS ORDERED: ACETAMINOPHEN 325 MG TABLET. PO PRN ×2 (11:15)
[2017-01-26] MEDS ORDERED: MORPHINE SULFATE 2 MG/ML DISP.SYRIN. IV PRN (11:15)
[2017-01-26] MEDS ORDERED: traMADol 50 MG TABLET PO PRN (11:15)
[2017-01-26] MEDS ORDERED: DOCUSATE SODIUM 100 MG CAPSULE. PO PRN (11:15)
[2017-01-26] MEDS ORDERED: ONDANSETRON PF 4 MG/2 ML VIAL. IV PRN (11:15)
[2017-01-26] MEDS ORDERED: oxyCODONE/APAP 7.5/325 1 TAB TABLET PO SCH ×2 (12:00)
[2017-01-26] MEDS ORDERED: APIXABAN 5 MG TABLET. PO SCH (12:00)
[2017-01-26] MEDS ORDERED: ASPIRIN ENTERIC COATED 81 MG TABLET.DR. PO SCH (12:00)
[2017-01-26] MEDS ORDERED: METOPROLOL SUCC 24HR ER 50 MG TAB.ER.24H. PO SCH (12:00)
[2017-01-26] MEDS ORDERED: CYANOCOBALAMIN (VITAMIN B-12) 1,000 MCG TABLET. PO SCH (12:00)
[2017-01-26] MEDS ORDERED: PANTOPRAZOLE 40 MG TABLET.DR. PO SCH (12:00)
[2017-01-26] MEDS ORDERED: CHOLECALCIFEROL (VITAMIN D3) 1,000 UNIT TABLET PO SCH (12:00)
[2017-01-26 12:24] VITALS: BP 150/98
[2017-01-26] MEDS ORDERED: oxyCODONE/APAP 7.5/325 1 TAB TABLET PO PRN (12:30)
[2017-01-26] MEDS ORDERED: INSU100I27 SQ (13:18)
[2017-01-26] MEDS ORDERED: OXYC1TAB8 PO (13:18)
[2017-01-26 13:30] LABS: CHOLESTEROL/HDL RATIO 2.9
--- NOTE | 2017-01-26 14:26 | PDOC1 ---
History and Physical Date of Admission Date of Admission 01/26/17 Identification/Chief Complaint Chief Complaint back pain Problems: Source Source: Chart review, Patient History of Present Illness History of Present Illness 76-year-old male with a history of high blood pressure high cholesterol and type 2 diabetes now presents to the emergency department with back pain. Pt was just Dced here 2 days ago for AMS and ANTWON. pt denies chest pain, sob. not sure why his SNF sent him here. no acute issues overnight. pt is aaox2-3. Past Medical History Cardiovascular: HTN, Hyperlipidemia Pulmonary: Bronchitis CENTRAL NERVOUS SYSTEM: Periperal neuropathy, Other GI: Other Renal/: Chronic renal insuff, Urinary Incontinence Endocrine: Diabetes Past Surgical History Past Surgical History: Cholecystectomy Family History Family History: Hypertension Social History Smoke: No ALCOHOL: none Drugs: None Current Medications Current Medications Current Medications Medications (Trade) Dose Ordered Sig/Eran Start Time Stop Time Status Last Admin Dose Admin Acetaminophen (Tylenol) 650 mg PRN Q6HRS PRN 01/26/17 11:15 01/26/17 14:16 DC Acetaminophen/ Hydrocodone Bitart (Lortab 5/325) 1 tab 1X ONCE 01/26/17 02:00 01/26/17 02:01 DC 01/26/17 02:11 1 TAB Apixaban (Eliquis) 5 mg BID 01/26/17 12:00 01/26/17 14:16 DC 01/26/17 12:23 5 MG Aspirin (Children'S Aspirin) 324 mg 1X ONCE 01/26/17 01:30 01/26/17 01:31 DC Aspirin (Ecotrin) 81 mg DAILY 01/26/17 12:00 01/26/17 14:16 DC 01/26/17 12:23 81 MG Atorvastatin Calcium (Lipitor) 10 mg HS 01/26/17 21:00 01/26/17 21:00 DC Cyanocobalamin (Vitamin B-12) 1,000 mcg DAILY 01/26/17 12:00 01/26/17 14:16 DC 01/26/17 12:23 1,000 MCG Dextrose (Dextrose 50%-Water Syringe) 12.5 gm PRN Q15MIN PRN 01/26/17 11:15 01/26/17 14:16 DC Docusate Sodium (Colace) 100 mg PRN DAILY PRN 01/26/17 11:15 01/26/17 14:16 DC Furosemide (Lasix) 40 mg DAILY 01/27/17 09:00 01/27/17 09:00 DC Gabapentin (Neurontin) 300 mg QHS 01/26/17 21:00 01/26/17 21:00 DC Guaifenesin (Mucinex) 600 mg PRN BID PRN 01/26/17 11:15 01/26/17 14:16 DC Hydralazine HCl (Apresoline) 10 mg PRN Q4HRS PRN 01/26/17 11:15 01/26/17 14:16 DC Insulin Detemir (Levemir) 10 units QHS 01/26/17 21:00 01/26/17 21:00 DC Lisinopril (Prinivil) 10 mg DAILY 01/27/17 09:00 01/27/17 09:00 DC Metoprolol Succinate (Toprol Xl) 50 mg DAILY 01/26/17 12:00 01/26/17 14:16 DC 01/26/17 12:24 50 MG Morphine Sulfate 2 mg PRN Q2HR PRN 01/26/17 11:15 01/26/17 14:16 DC Ondansetron HCl (Zofran) 4 mg PRN Q6HRS PRN 01/26/17 11:15 01/26/17 14:16 DC Oxycodone/ Acetaminophen (Percocet 7.5/ 325) 1 tab PRN Q6HRS PRN 01/26/17 12:30 01/26/17 14:16 DC 01/26/17 12:30 1 TAB Pantoprazole Sodium (Protonix) 40 mg DAILYAC 01/26/17 12:00 01/26/17 14:16 DC 01/26/17 12:23 40 MG Senna/Docusate Sodium (Senna Plus) 2 tab HS 01/26/17 21:00 01/26/17 21:00 DC Tramadol HCl (Ultram) 50 mg PRN Q6HRS PRN 01/26/17 11:15 01/26/17 14:16 DC Vitamin D (Vitamin D3) 1,000 unit DAILY 01/26/17 12:00 01/26/17 14:16 DC 01/26/17 12:23 1,000 UNIT Allergies Allergies Allergies Coded Allergies Type Severity Reaction Last Updated Verified tetracycline Allergy Intermediate Rash 09/04/16 Yes ROS Review of System CONSTITUTIONAL: No fever or chills EYES: No recent changes SKIN: No rash or itching CARDIOVASCULAR: No chest pain, syncope, palpitations, or edema RESPIRATORY: No SOB or cough GASTROINTESTINAL: No nausea, vomiting or abdominal pain NEUROLOGICAL: No headaches or weakness ENDOCRINE: No cold or heat intolerance GENITOURINARY: No urgency or frequency of urination MUSCULOSKELETAL: No back pain or joint pain LYMPHATICS: No enlarged lymph nodes PSYCHIATRIC: No anxiety or depression Physical Exam Physical Exam GEN.: No apparent distress. Alert and orientedx2, to person, know place, but not know the name, knows the year, not the month HEENT: Head is normocephalic, atraumatic NECK: Supple. LUNGS: Clear to auscultation. HEART: RRR, S1, S2 present. Peripheral pulses intact ABDOMEN: Soft, nontender. Positive bowel sounds. EXTREMITIES: Without any cyanosis. NEUROLOGIC: Normal speech, normal tone PSYCHIATRIC: Normal affect, normal mood. SKIN: No ulcerations Vitals Vitals Vital Signs Date Time Temp Pulse Resp B/P (MAP) Pulse Ox O2 Delivery O2 Flow Rate FiO2 01/26/17 13:30 99 Room Air 01/26/17 12:24 69 150/98 01/26/17 11:00 98.4 20 98.4 Labs Labs Laboratory Tests Test 01/26/17 00:30 01/26/17 07:10 01/26/17 08:30 01/26/17 11:35 White Blood Count 4.5 x10^3/uL (4.0-11.0) Red Blood Count 3.51 x10^6/uL (4.30-5.70) Hemoglobin 11.2 g/dL (13.0-17.5) Hematocrit 32.6 % (39.0-53.0) Mean Corpuscular Volume 93 fL (79-100) Mean Corpuscular Hemoglobin 32 pg (25-35) Mean Corpuscular Hemoglobin Concent 34 g/dL (31-37) Red Cell Distribution Width 14.1 % (11.5-14.5) Platelet Count 169 x10^3/uL (140-400) Neutrophils (%) (Auto) 62 % (31-73) Lymphocytes (%) (Auto) 22 % (24-48) Monocytes (%) (Auto) 10 % (0-9) Eosinophils (%) (Auto) 5 % (0-3) Basophils (%) (Auto) 1 % (0-3) Neutrophils # (Auto) 2.8 x10^3uL (1.8-7.7) Lymphocytes # (Auto) 1.0 x10^3/uL (1.0-4.8) Monocytes # (Auto) 0.5 x10^3/uL (0.0-1.1) Eosinophils # (Auto) 0.2 x10^3/uL (0.0-0.7) Basophils # (Auto) 0.0 x10^3/uL (0.0-0.2) Sodium Level 136 mmol/L (136-145) Potassium Level 4.8 mmol/L (3.5-5.1) Chloride Level 103 mmol/L (98-107) Carbon Dioxide Level 30 mmol/L (21-32) Anion Gap 3 (6-14) Blood Urea Nitrogen 28 mg/dL (8-26) Creatinine 1.9 mg/dL (0.7-1.3) Estimated GFR (Cockcroft-Gault) 34.5 BUN/Creatinine Ratio 15 (6-20) Glucose Level 218 mg/dL (70-99) Calcium Level 9.2 mg/dL (8.5-10.1) Total Bilirubin 0.3 mg/dL (0.2-1.0) Aspartate Amino Transf (AST/SGOT) 16 U/L (15-37) Alanine Aminotransferase (ALT/SGPT) 16 U/L (16-63) Alkaline Phosphatase 87 U/L (46-116) Troponin I Quantitative < 0.017 ng/mL (0.000-0.055) < 0.017 ng/mL (0.000-0.055) Total Protein 7.0 g/dL (6.4-8.2) Albumin 3.9 g/dL (3.4-5.0) Albumin/Globulin Ratio 1.3 (1.0-1.7) Glucose (Fingerstick) 209 mg/dL (70-99) 198 mg/dL (70-99) Triglycerides Level 99 mg/dL (0-150) Cholesterol Level 104 mg/dL (0-200) LDL Cholesterol, Calculated 48 mg/dL (0-100) VLDL Cholesterol, Calculated 20 mg/dL (0-40) Non-HDL Cholesterol Calculated 68 mg/dL (0-129) HDL Cholesterol 36 mg/dL (40-60) Cholesterol/HDL Ratio 2.9 Laboratory Tests Test 01/26/17 00:30 01/26/17 07:10 01/26/17 08:30 01/26/17 11:35 White Blood Count 4.5 x10^3/uL (4.0-11.0) Red Blood Count 3.51 x10^6/uL (4.30-5.70) Hemoglobin 11.2 g/dL (13.0-17.5) Hematocrit 32.6 % (39.0-53.0) Mean Corpuscular Volume 93 fL (79-100) Mean Corpuscular Hemoglobin 32 pg (25-35) Mean Corpuscular Hemoglobin Concent 34 g/dL (31-37) Red Cell Distribution Width 14.1 % (11.5-14.5) Platelet Count 169 x10^3/uL (140-400) Neutrophils (%) (Auto) 62 % (31-73) Lymphocytes (%) (Auto) 22 % (24-48) Monocytes (%) (Auto) 10 % (0-9) Eosinophils (%) (Auto) 5 % (0-3) Basophils (%) (Auto) 1 % (0-3) Neutrophils # (Auto) 2.8 x10^3uL (1.8-7.7) Lymphocytes # (Auto) 1.0 x10^3/uL (1.0-4.8) Monocytes # (Auto) 0.5 x10^3/uL (0.0-1.1) Eosinophils # (Auto) 0.2 x10^3/uL (0.0-0.7) Basophils # (Auto) 0.0 x10^3/uL (0.0-0.2) Sodium Level 136 mmol/L (136-145) Potassium Level 4.8 mmol/L (3.5-5.1) Chloride Level 103 mmol/L (98-107) Carbon Dioxide Level 30 mmol/L (21-32) Anion Gap 3 (6-14) Blood Urea Nitrogen 28 mg/dL (8-26) Creatinine 1.9 mg/dL (0.7-1.3) Estimated GFR (Cockcroft-Gault) 34.5 BUN/Creatinine Ratio 15 (6-20) Glucose Level 218 mg/dL (70-99) Calcium Level 9.2 mg/dL (8.5-10.1) Total Bilirubin 0.3 mg/dL (0.2-1.0) Aspartate Amino Transf (AST/SGOT) 16 U/L (15-37) Alanine Aminotransferase (ALT/SGPT) 16 U/L (16-63) Alkaline Phosphatase 87 U/L (46-116) Troponin I Quantitative < 0.017 ng/mL (0.000-0.055) < 0.017 ng/mL (0.000-0.055) Total Protein 7.0 g/dL (6.4-8.2) Albumin 3.9 g/dL (3.4-5.0) Albumin/Globulin Ratio 1.3 (1.0-1.7) Glucose (Fingerstick) 209 mg/dL (70-99) 198 mg/dL (70-99) Triglycerides Level 99 mg/dL (0-150) Cholesterol Level 104 mg/dL (0-200) LDL Cholesterol, Calculated 48 mg/dL (0-100) VLDL Cholesterol, Calculated 20 mg/dL (0-40) Non-HDL Cholesterol Calculated 68 mg/dL (0-129) HDL Cholesterol 36 mg/dL (40-60) Cholesterol/HDL Ratio 2.9 VTE Prophylaxis Ordered VTE Prophylaxis Devices: Yes VTE Pharmacological Prophylaxi: No Assessment/Plan Assessment/Plan back pain, chronic, likely DJD. recent dced for AMS, 2/2 metabolic encephalopathy possibly, with bl leg cellulitis, ANTWON, plus baseline dementia baseline mild dementia resolved recent ANTWON, vasomotor htn dm2 ckd4 h/o CHF with normal EF gerd PAFIB on eliquis bl leg cellulitis assisted living resident no specific treatment, card consulted, no intervention, dc back to assisted living facility. PT/ot changed all dm and htn meds. OBDULIO HER MD Jan 26, 2017 14:26
--- NOTE | 2017-01-26 14:27 | PDOC3 ---
Discharge Summary [facility] Date of Admission: Jan 26, 2017 Discharge Date: Jan 26, 2017 Admitting Diagnosis back pain, chronic, likely DJD. recent dced for AMS, 2/2 metabolic encephalopathy possibly, with bl leg cellulitis, ANTWON, plus baseline dementia baseline mild dementia resolved recent ANTWON, vasomotor htn dm2 ckd4 h/o CHF with normal EF gerd PAFIB on eliquis bl leg wound assisted living resident Problems: CONSULTS card Brief Hospital Course 76-year-old male with a history of high blood pressure high cholesterol and type 2 diabetes now presents to the emergency department with back pain. Pt was just Dced here 2 days ago for AMS and ANTWON. pt denies chest pain, sob. not sure why his SNF sent him here. no acute issues overnight. pt is aaox2-3. card consulted, no intervention since no chest pain. dced most HTN meds, only keep metoprolol, also decreased insulin to levemir 10u qhs, ssi. ptot. dc to snf. Patient History: Family history: Hypertension (situation) 33 FATHER 32 MOTHER Unknown G8 BROTHER ( 'smoked h imself to ') G8 BROTHER G8 SISTER G8 SISTER Problems: Disposition snf CONDITION AT DISCHARGE: Improved, Stable Diet ada Scheduled Apixaban (Eliquis), 5 MG PO BID Aspirin (Aspir 81), 1 TAB PO DAILY, (Reported) Atorvastatin Calcium (Atorvastatin Calcium), 10 MG PO HS, (Reported) Cholecalciferol (Vitamin D3) (Vitamin D3), 800 UNIT PO DAILY, (Reported) Cyanocobalamin (Vitamin B-12) (Vitamin B-12), 1 TAB PO DAILY, (Reported) Gabapentin (Gabapentin), 300 MG PO HS, (Reported) Insulin Detemir (Levemir Flextouch), 10 UNITS SQ QHS Metoprolol Succinate (Metoprolol Succinate ( Xl )), 50 MG PO DAILY, (Reported) Nitroglycerin (Nitrostat), 1 TAB SL UD, (Reported) Pantoprazole Sodium (Protonix), 40 MG PO DAILY, (Reported) Sennosides/Docusate Sodium (Senokot-S Tablet), 2 TAB PO HS, (Reported) Scheduled PRN Acetaminophen (Tylenol), 650 MG PO PRN Q4-6HRS PRN for FEVER, (Reported) Guaifenesin (Mucinex), 1 TAB PO BID PRN for COUGH, (Reported) Oxycodone Hcl/Acetaminophen (Oxycodon-Acetaminophen 7.5-325), 1 TAB PO PRN Q6HRS PRN for PAIN Discontinued Medications Amlodipine Besylate (Amlodipine Besylate), 5 MG PO DAILY, (Reported) Furosemide (Lasix), 1 TAB PO DAILY, (Reported) Furosemide (Furosemide), 40 MG PO DAILY, (Reported) Insulin Aspart (Novolog Flexpen), 15 UNIT SQ BIDACLD, (Reported) Insulin Detemir (Levemir), 40 UNIT SQ QHS, (Reported) Lisinopril (Lisinopril), 1 TAB PO DAILY, (Reported) Lisinopril (Lisinopril), 10 MG PO DAILY, (Reported) Metoprolol Succinate (Metoprolol Succinate ( Xl )), 100 MG PO DAILY, (Reported) Oxycodone/Apap 7.5-325 (Percocet 7.5-325 Mg Tablet), 1 TAB PO Q4HRS, (Reported) Pantoprazole Sodium (Protonix), 1 TAB PO DAILY, (Reported) Spironolactone (Spironolactone), 1 TAB PO DAILY, (Reported) Spironolactone (Spironolactone), 50 MG PO DAILY, (Reported) OBDULIO HER MD Jan 26, 2017 14:27
[2017-01-26] MEDS ORDERED: ATORVASTATIN CALCIUM 10 MG TABLET. PO SCH (21:00)
[2017-01-26] MEDS ORDERED: INSULIN DETEMIR 300 UNITS/3 ML INSULN.PEN. SQ SCH (21:00)
[2017-01-26] MEDS ORDERED: SENNOSIDES/DOCUSATE 8.6/50MG TABLET. PO SCH (21:00)
[2017-01-26] MEDS ORDERED: GABAPENTIN 300 MG CAPSULE. PO SCH (21:00)
[2017-01-27] MEDS ORDERED: FUROSEMIDE 40 MG TABLET. PO SCH (09:00)
[2017-01-27] MEDS ORDERED: LISINOPRIL 10 MG TABLET PO SCH (09:00)
== END 2017-01-26 14:16 | disposition home or self-care (01) | DRG 206 ==
LOC: ER 00:22 → 6 SOUTH 02:47
PROVIDERS: ADMIT Internal Medicine Hematology & Oncology; ATTEND Internal Medicine Hematology & Oncology
DX: M94.0 Chondrocostal junction syndrome [Tietze] (principal); I13.0 Hypertensive heart and chronic kidney disease with heart failure and stage 1 through stage 4 chronic kidney disease, or unspecified chronic kidney disease; I50.32 Chronic diastolic (congestive) heart failure; N18.4 Chronic kidney disease, stage 4 (severe); M19.90 Unspecified osteoarthritis, unspecified site; E11.22 Type 2 diabetes mellitus with diabetic chronic kidney disease; E78.00 Pure hypercholesterolemia, unspecified; E78.5 Hyperlipidemia, unspecified; M54.5 Low back pain; E11.42 Type 2 diabetes mellitus with diabetic polyneuropathy; F03.90 Unspecified dementia, unspecified severity, without behavioral disturbance, psychotic disturbance, mood disturbance, and anxiety; I48.0 Paroxysmal atrial fibrillation; G89.29 Other chronic pain; K21.9 Gastro-esophageal reflux disease without esophagitis; Z82.49 Family history of ischemic heart disease and other diseases of the circulatory system; Z90.49 Acquired absence of other specified parts of digestive tract; Z79.01 Long term (current) use of anticoagulants; Z88.1 Allergy status to other antibiotic agents
CPT/HCPCS: 36415; 71010; 80053; 80061; 82962; 84484; 85027; 87641; 93005; J1815; 99285-25

== ENCOUNTER 2017-04-03 18:24 | Inpatient (IN) | payer MEDICARE ==
[~2017-04-03] VITALS: Ht 180.3 cm; Wt 99.3 kg
[~2017-04-03 18:24] MED LIST changes: +CEPH500T PO; +DOCU-109 PO; +FURO40TA4 PO; +MAGN2400 PO; +METO-239 PO; +METO-247 PO; +OXYC1TAB8 PO; +PANT40TA3 PO; +POLY17PO29 PO; +SENN1TAB9 PO; +SENN8.6T4 PO
--- NOTE | 2017-04-03 19:04 | PHYS DOC ---
Past Medical History Past Medical History: CHF, Constipation, Diabetes-Type II, GERD, High Cholesterol, Hypertension, UTI Additional Past Medical Histor: back pain Past Surgical History: Cholecystectomy Alcohol Use: None Drug Use: None Adult General Chief Complaint Chief Complaint: ALTERED MENTAL STATUS HPI HPI Patient is a 76 year old M who presents with her mental status from assisted living. There is no family at bedside and the patient states he has no idea why he is here in the emergency room. Patient is a very poor historian. Review of Systems Review of Systems Review of systems is limited secondary to patient's altered mental status Allergies Allergies Allergies Coded Allergies Type Severity Reaction Last Updated Verified tetracycline Allergy Intermediate Rash 09/04/16 Yes Physical Exam Physical Exam GEN.: No apparent distress. Alert and oriented. HEENT: Head is normocephalic, atraumatic NECK: Supple. LUNGS: CTAB. HEART: RRR, 3/6 NORIS. Peripheral pulses intact ABDOMEN: Soft, nontender. Positive bowel sounds. EXTREMITIES: Without any cyanosis. +1 pitting edema to lower extremity bilaterally NEUROLOGIC: AOx2 PSYCHIATRIC: Pleasantly confused SKIN: No ulcerations Current Patient Data Vital Signs Vital Signs Date Time Temp Pulse Resp B/P (MAP) Pulse Ox O2 Delivery O2 Flow Rate FiO2 04/03/17 23:00 78 22 159/76 (103) 95 Room Air 04/03/17 18:28 97.8 97.8 Lab Values Laboratory Tests Test 04/03/17 19:15 04/03/17 20:40 White Blood Count 7.7 x10^3/uL (4.0-11.0) Red Blood Count 3.53 x10^6/uL (4.30-5.70) L Hemoglobin 10.7 g/dL (13.0-17.5) L Hematocrit 31.6 % (39.0-53.0) L Mean Corpuscular Volume 90 fL (79-100) Mean Corpuscular Hemoglobin 30 pg (25-35) Mean Corpuscular Hemoglobin Concent 34 g/dL (31-37) Red Cell Distribution Width 14.3 % (11.5-14.5) Platelet Count 147 x10^3/uL (140-400) Neutrophils (%) (Auto) 80 % (31-73) H Lymphocytes (%) (Auto) 8 % (24-48) L Monocytes (%) (Auto) 7 % (0-9) Eosinophils (%) (Auto) 4 % (0-3) H Basophils (%) (Auto) 0 % (0-3) Neutrophils # (Auto) 6.2 x10^3uL (1.8-7.7) Lymphocytes # (Auto) 0.6 x10^3/uL (1.0-4.8) L Monocytes # (Auto) 0.6 x10^3/uL (0.0-1.1) Eosinophils # (Auto) 0.3 x10^3/uL (0.0-0.7) Basophils # (Auto) 0.0 x10^3/uL (0.0-0.2) Sodium Level 140 mmol/L (136-145) Potassium Level 3.4 mmol/L (3.5-5.1) L Chloride Level 104 mmol/L (98-107) Carbon Dioxide Level 28 mmol/L (21-32) Anion Gap 8 (6-14) Blood Urea Nitrogen 18 mg/dL (8-26) Creatinine 1.5 mg/dL (0.7-1.3) H Estimated GFR (Cockcroft-Gault) 45.4 BUN/Creatinine Ratio 12 (6-20) Glucose Level 143 mg/dL (70-99) H Lactic Acid Level 1.3 mmol/L (0.4-2.0) Calcium Level 9.0 mg/dL (8.5-10.1) Total Bilirubin 0.4 mg/dL (0.2-1.0) Aspartate Amino Transferase (AST) 19 U/L (15-37) Alanine Aminotransferase (ALT) 18 U/L (16-63) Alkaline Phosphatase 89 U/L (46-116) Troponin I Quantitative < 0.017 ng/mL (0.000-0.055) Total Protein 5.9 g/dL (6.4-8.2) L Albumin 2.9 g/dL (3.4-5.0) L Albumin/Globulin Ratio 1.0 (1.0-1.7) Lipase 67 U/L (73-393) L Urine Collection Type U cath Urine Color Yellow Urine Clarity Clear Urine pH 7.0 Urine Specific [place] 1.020 Urine Protein >=300 mg/dL (NEG-TRACE) Urine Glucose (UA) 100 mg/dL (NEG) Urine Ketones (Stick) Trace mg/dL (NEG) Urine Blood Trace (NEG) Urine Nitrite Negative (NEG) Urine Bilirubin Negative (NEG) Urine Urobilinogen Dipstick 0.2 mg/dL (0.2 mg/dL) Urine Leukocyte Esterase Negative (NEG) Urine RBC 1-2 /HPF (0-2) Urine WBC Occ /HPF (0-4) Urine Bacteria 0 /HPF (0-FEW) Urine Hyaline Casts Occasional /HPF Laboratory Tests 04/03/17 19:15 Laboratory Tests 04/03/17 19:15 EKG EKG 1908: EKG shows normal sinus rhythm rate of 69 no STEMI[] Radiology/Procedures Radiology/Procedures PROCEDURE: CT HEAD WO CONTRAST EXAM: CT HEAD WITHOUT CONTRAST. HISTORY: Altered mental status. TECHNIQUE: Computed tomography of the head was performed without intravenous contrast. COMPARISON: March 17, 2017. FINDINGS: There is no intracranial hemorrhage. Hypoattenuation within the periventricular white matter indicates mild chronic microangiopathic change. Prominence of the lateral ventricles and hemispheric sulci indicates mild to moderate atrophy. There is mild mucosal thickening in the left maxillary sinus. There are changes of bilateral cataract surgery. There is a small amount of fluid in the left mastoid air cells. The calvarium reveals no suspicious lesions. There are atherosclerotic calcifications of the internal carotid and vertebral arteries. IMPRESSION: 1. No acute intracranial findings. 2. Mild to moderate atrophy and mild chronic microangiopathic white matter change. *One or more of the following individualized dose reduction techniques were utilized for this examination: 1. Automated exposure control. 2. Adjustment of the mA and/or kV according to patient size. 3. Use of iterative reconstruction technique. Electronically signed by: Erika Cazares MD (04/03/2017 10:28 PM) [facility] DICTATED and SIGNED BY: BA CAZARES MD DATE: 04/03/172225[] Course & Med Decision Making Course & Med Decision Making Pertinent Labs and Imaging studies reviewed. (See chart for details) 2129: Patient was signed out to Dr. Farias for follow-up on CT scan of the head without contrast and disposition --- Assumed care from Dr. Sesay at the end of his shift. Patient remained in stable condition. CT shows no acute intracranial process. Discussed further with the patient; he is in independent living. Recommend admission for further evaluation & treatment. The patient agrees with plan of care. Discussed with Dr. Beavers who agrees to admit to inpatient status, neurology consult to Dr. Meadows. The patient is admitted in stable condition. Chelo Saleh MD [] Dragon Disclaimer Dragon Disclaimer This electronic medical record was generated, in whole or in part, using a voice recognition dictation system. Departure Departure Impression: Primary Impression: Altered mental status Disposition: ADMITTED INPATIENT Condition: STABLE Referrals: NO PCP (PCP) MARITA SESAY DO Apr 03, 2017 19:03 CHELO SALEH MD Apr 04, 2017 02:20
[2017-04-03 19:32] LABS: BASO % 0 % (0-3); EOS % 4 % (0-3); HEMATOCRIT 31.6 % (39.0-53.0); HEMOGLOBIN 10.7 g/dL (13.0-17.5); LYMPH # 0.6 x10^3/uL (1.0-4.8); LYMPH % 8 % (24-48); MEAN CORPUSCULAR HEMOGLOBIN 30 pg (25-35); MEAN CORPUSCULAR HGB CONC 34 g/dL (31-37); MEAN CORPUSCULAR VOLUME 90 fL (79-100); MONO % 7 % (0-9); NEUT % 80 % (31-73); PLATELET COUNT 147 x10^3/uL (140-400); RED BLOOD COUNT 3.53 x10^6/uL (4.30-5.70); RED CELL DISTRIBUTION WIDTH 14.3 % (11.5-14.5); WHITE BLOOD COUNT 7.7 x10^3/uL (4.0-11.0)
[2017-04-03 19:43] LABS: CREATININE 1.5 mg/dL (0.7-1.3); GFR 45.4; POTASSIUM 3.4 mmol/L (3.5-5.1)
[2017-04-03 19:57] LABS: ALBUMIN 2.9 g/dL (3.4-5.0); TOTAL BILIRUBIN 0.4 mg/dL (0.2-1.0); TOTAL PROTEIN 5.9 g/dL (6.4-8.2)
[2017-04-03 20:50] LABS: BILIRUBIN,URINE NEGATIVE (NEG); GLUCOSE,URINE 100 mg/dL (NEG); NITRITE,URINE NEGATIVE (NEG); PROTEIN,URINE >=300 mg/dL (NEG-TRACE); UROBILINOGEN,URINE 0.2 mg/dL (0.2 mg/dL)
[2017-04-03 21:02] LABS: BACTERIA,URINE 0 /HPF (0-FEW); WBC,URINE OCC /HPF (0-4)
--- NOTE | 2017-04-03 22:31 | RAD ---
EXAM: CT HEAD WITHOUT CONTRAST. HISTORY: Altered mental status. TECHNIQUE: Computed tomography of the head was performed without intravenous contrast. COMPARISON: March 17, 2017. FINDINGS: There is no intracranial hemorrhage. Hypoattenuation within the periventricular white matter indicates mild chronic microangiopathic change. Prominence of the lateral ventricles and hemispheric sulci indicates mild to moderate atrophy. There is mild mucosal thickening in the left maxillary sinus. There are changes of bilateral cataract surgery. There is a small amount of fluid in the left mastoid air cells. The calvarium reveals no suspicious lesions. There are atherosclerotic calcifications of the internal carotid and vertebral arteries. IMPRESSION: 1. No acute intracranial findings. 2. Mild to moderate atrophy and mild chronic microangiopathic white matter change. *One or more of the following individualized dose reduction techniques were utilized for this examination: 1. Automated exposure control. 2. Adjustment of the mA and/or kV according to patient size. 3. Use of iterative reconstruction technique. Electronically signed by: Erika Cazares MD (04/03/2017 10:28 PM) [facility]
[2017-04-03] MEDS ORDERED: MORPHINE SULFATE 2 MG/ML DISP.SYRIN. IV PRN (23:15)
[2017-04-03] MEDS ORDERED: ONDANSETRON PF 4 MG/2 ML VIAL. IV PRN (23:15)
[2017-04-03] MEDS ORDERED: ACETAMINOPHEN 325 MG TABLET. PO PRN (23:15)
[2017-04-04] VITALS (7 sets, daily range): BP systolic 137–207; BP diastolic 58–107
[2017-04-04] MEDS ORDERED: OXYC-327 PO (01:23)
[2017-04-04 05:39] LABS: BASO % 1 % (0-3); EOS % 6 % (0-3); HEMATOCRIT 31.4 % (39.0-53.0); HEMOGLOBIN 10.9 g/dL (13.0-17.5); LYMPH # 0.5 x10^3/uL (1.0-4.8); LYMPH % 10 % (24-48); MEAN CORPUSCULAR HEMOGLOBIN 30 pg (25-35); MEAN CORPUSCULAR HGB CONC 35 g/dL (31-37); MEAN CORPUSCULAR VOLUME 88 fL (79-100); MONO % 9 % (0-9); NEUT % 75 % (31-73); PLATELET COUNT 137 x10^3/uL (140-400); RED BLOOD COUNT 3.59 x10^6/uL (4.30-5.70); RED CELL DISTRIBUTION WIDTH 14.3 % (11.5-14.5); WHITE BLOOD COUNT 5.5 x10^3/uL (4.0-11.0)
[2017-04-04 06:02] LABS: CALCIUM 8.7 mg/dL (8.5-10.1); CREATININE 1.4 mg/dL (0.7-1.3); GFR 49.1; POTASSIUM 3.8 mmol/L (3.5-5.1)
--- NOTE | 2017-04-04 06:51 | EKG ---
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
--- NOTE | 2017-04-04 08:52 | RAD ---
Indication change in mental status. Suspect CVA. Protocol exam. A single view of the chest was obtained and is compared to an examination 03/17/2017. The heart and pulmonary vessels are unchanged. There is slight elevation of the left hemidiaphragm appearing similar. Again minimal volume loss is seen at the right lung base also appearing similar. An acute finding in the chest or significant change when compared to the previous exam is not seen. IMPRESSION: No acute finding. No significant change
[2017-04-04] MEDS ORDERED: oxyCODONE/APAP 7.5/325 1 TAB TABLET PO PRN (09:15)
[2017-04-04] MEDS ORDERED: LABETALOL 20 MG/4 ML DISP.SYRIN. IVP PRN (09:15)
[2017-04-04] MEDS ORDERED: ONDANSETRON PF 4 MG/2 ML VIAL. IV PRN (09:15)
[2017-04-04] MEDS ORDERED: NITROGLYCERIN SUBLINGUAL 0.4 MG BOTTLE OF 25. SL PRN (09:15)
[2017-04-04] MEDS ORDERED: ACETAMINOPHEN 325 MG TABLET. PO PRN (09:15)
[2017-04-04] MEDS ORDERED: DEXTROSE 50% 25 GM / 50ML DISP.SYRIN. IV PRN (09:15)
[2017-04-04] MEDS ORDERED: MAGNESIUM HYDROXIDE 2,400 MG/30 ML ORAL.SUSP. PO PRN (09:30)
--- NOTE | 2017-04-04 09:32 | PDOC2 ---
NEUROLOGY CONSULT Date of Admission Date of Admission DATE: 04/04/17 TIME: 09:32 Reason for Consult Reason for Consult: Altered mental status Referring Physician Referring Physician: Dr. Beavers Source Source: Chart review, Patient History of Present Illness History of Present Illness The patient is a 76-year-old right-handed male who is not sure why he is here. He was confused at his assisted-living. No other details are available in the chart and I cannot reach the family. The patient denies any history of stroke, seizure, or head injury. Past Medical History Cardiovascular: HTN, Hyperlipidemia Pulmonary: Bronchitis CENTRAL NERVOUS SYSTEM: Periperal neuropathy GI: Other ( abdominal hernia) Musculoskeletal: low back pain, Osteoarthritis ENT: Other (Hard of hearing) Renal/: Urinary Incontinence Endocrine: Diabetes Past Surgical History Past Surgical History: Cholecystectomy Family History Family History: Hypertension Social History Social History , non-smoker, nondrinker Current Medications Current Medications Current Medications Ondansetron HCl (Zofran) 4 mg PRN Q8HRS PRN IV NAUSEA/VOMITING; Start 04/03/17 at 23:15; Stop 04/04/17 at 09:10; Status DC Morphine Sulfate 2 mg PRN Q2HR PRN IV SEVERE PAIN; Start 04/03/17 at 23:15; Stop 04/04/17 at 23:14 Acetaminophen (Tylenol) 650 mg PRN Q4HRS PRN PO FEVER; Start 04/03/17 at 23:15; Stop 04/04/17 at 23:14 Ondansetron HCl (Zofran) 4 mg PRN Q6HRS PRN IV NAUSEA/VOMITING; Start 04/04/17 at 09:15; Stop 04/05/17 at 09:14 Labetalol HCl (Normodyne) 10 mg PRN Q2HR PRN IVP HYPERTENSION, SEE COMMENTS; Start 04/04/17 at 09:15 Insulin Aspart (NovoLOG) 0-9 UNITS TIDWMEALS SQ ; Start 04/04/17 at 12:00 Dextrose (Dextrose 50%-Water Syringe) 12.5 gm PRN Q15MIN PRN IV SEE COMMENTS; Start 04/04/17 at 09:15 Acetaminophen (Tylenol) 650 mg QID PRN PO FEVER; Start 04/04/17 at 09:15 Amlodipine Besylate (Norvasc) 5 mg DAILY PO ; Start 04/05/17 at 09:00 Apixaban (Eliquis) 5 mg BID PO ; Start 04/04/17 at 10:00 Aspirin (Ecotrin) 81 mg DAILYWBKFT PO ; Start 04/04/17 at 10:00 Atorvastatin Calcium (Lipitor) 10 mg HS PO ; Start 04/04/17 at 21:00 Vitamin D (Vitamin D3) 1,000 unit DAILY PO ; Start 04/04/17 at 10:00 Cyanocobalamin (Vitamin B-12) 1,000 mcg DAILY PO ; Start 04/04/17 at 10:00 Docusate Sodium (Colace) 100 mg DAILY PO ; Start 04/04/17 at 10:00 Furosemide (Lasix) 40 mg DAILY PO ; Start 04/04/17 at 10:00 Guaifenesin (Mucinex) 600 mg BID PRN PO COUGH; Start 04/04/17 at 09:15 Insulin Aspart (NovoLOG) 15 units BIDWMEALS SQ ; Start 04/04/17 at 17:00 Insulin Detemir (Levemir) 10 units QHS SQ ; Start 04/04/17 at 21:00 Metoprolol Succinate (Toprol Xl) 50 mg DAILY PO ; Start 04/04/17 at 10:00 Nitroglycerin (Nitrostat) 0.4 mg QID PRN SL cp q 5 mins; Start 04/04/17 at 09:15 Oxycodone/ Acetaminophen (Percocet 7.5/ 325) 1 tab PRN Q6HRS PRN PO PAIN; Start 04/04/17 at 09:15; Status Cancel Oxycodone/ Acetaminophen (Percocet 7.5/ 325) 1 tab PRN Q4HRS PRN PO PAIN; Start 04/04/17 at 12:00 Pantoprazole Sodium (Protonix) 40 mg DAILYAC PO ; Start 04/04/17 at 10:00 Polyethylene Glycol (miraLAX PACKET) 17 gm DAILY PO ; Start 04/04/17 at 10:00 Sennosides (Senna) 8.6 mg HS PO ; Start 04/04/17 at 21:00; Status UNV Senna/Docusate Sodium (Senna Plus) 1 tab BID PO ; Start 04/04/17 at 10:00 Senna/Docusate Sodium (Senna Plus) 2 tab HS PO ; Start 04/04/17 at 21:00; Status UNV Magnesium Hydroxide (Milk Of Magnesia) 2,400 mg PRN DAILY PRN PO CONSTIPATION; Start 04/04/17 at 09:30 Active Scripts Active Oxycodon-Acetaminophen 7.5-325 (Oxycodone Hcl/Acetaminophen) 1 Each Tablet 1 Tab PO PRN Q6HRS PRN Milk Of Magnesia (Magnesium Hydroxide) 2,400 Mg/10 Ml Oral.susp 2,400 Mg PO DAILY PRN Miralax (Polyethylene Glycol 3350) 17 Gm Powd.pack 1 Packet PO DAILY Colace (Docusate Sodium) 100 Mg Capsule 100 Mg PO DAILY Lasix (Furosemide) 40 Mg Tablet 1 Tab PO DAILY Levemir Flextouch (Insulin Detemir) 100 Unit/1 Ml Insuln.pen 10 Units SQ QHS 30 Days Eliquis (Apixaban) 5 Mg Tablet 5 Mg PO BID 30 Days Reported Percocet 7.5-325 Mg Tablet (Oxycodone/Acetaminophen) 1 Each Tablet 1 Tab PO Q4HRS Novolog Flexpen (Insulin Aspart) 100 Unit/1 Ml Insuln.pen 15 Unit SQ BID Cephalexin 500 Mg Tablet 500 Mg PO BID Amlodipine Besylate 5 Mg Tablet 5 Mg PO DAILY Senexon (Sennosides) 8.6 Mg Tablet 8.6 Mg PO HS Senexon-S Tablet (Sennosides/Docusate Sodium) 1 Each Tablet 1 Each PO Metoprolol Succinate ( Xl ) (Metoprolol Succinate) 25 Mg Tab.er.24h 50 Mg PO DAILY Protonix (Pantoprazole Sodium) 40 Mg Tablet.dr 40 Mg PO DAILY Mucinex (Guaifenesin) 600 Mg Tablet.er 1 Tab PO BID PRN Atorvastatin Calcium 10 Mg Tablet 10 Mg PO HS Tylenol (Acetaminophen) 325 Mg Tablet 650 Mg PO PRN Q4-6HRS PRN Aspir 81 (Aspirin) 81 Mg Tablet.dr 1 Tab PO DAILY Vitamin D3 (Cholecalciferol (Vitamin D3)) 1,000 Unit Tablet 800 Unit PO DAILY Vitamin B-12 (Cyanocobalamin (Vitamin B-12)) 1,000 Mcg Tablet 1 Tab PO DAILY Nitrostat (Nitroglycerin) 0.4 Mg Tab.subl 1 Tab SL UD Senokot-S Tablet (Sennosides/Docusate Sodium) 1 Each Tablet 2 Tab PO HS Gabapentin 300 Mg Capsule 300 Mg PO HS Allergies Allergies: Coded Allergies: tetracycline (Verified Allergy, Intermediate, Rash, 09/04/16) ROS Review of System Negative for fevers, chills, weight loss, shortness of breath, chest pain, indigestion, hematochezia, melena, dysuria. Full 14-point review systems is negative. Physical Exam Physical Examination PHYSICAL EXAMINATION: Vital signs: see above. General appearance is normal and in no acute distress. HEENT: Normocephalic and nontraumatic. Eyes, nose, ears, and throat are unremarkable. Neck is supple. No lymphadenopathy. No bruits are heard over the carotid artery. No crepitus. NEUROLOGICAL EXAMINATION: Mental Status Examination: Alert. Oriented to place and person, does not know date. Answers questions and follows commends. Pupils are equal round and reactive to light and accommodation. Extraocular movements are intact. Visual field exam shows no defect on the direct confrontation. No motor or sensory deficits on the facial exam. Uvula in the midline and the soft palate elevated symmetrically. No deviation of the tongue to any direction. Gross hearing is normal. Shoulder shrug normal. Muscle tone is normal. Muscle strength is 4/5. Deep tendon reflexes are 2+ all around. He has bilateral grasp reflexes. Plantar reflex is with flexion response bilaterally. Finger-to -nose test performance is accurate. Alternative movements are accurate. Gait not tested. Sensory exam shows no deficits. No cerebellar signs are elicited. Vitals VITALS Vital Signs Date Time Temp Pulse Resp B/P (MAP) Pulse Ox O2 Delivery O2 Flow Rate FiO2 04/04/17 07:15 98.9 81 22 155/67 (96) 96 Room Air 98.9 Labs Labs Laboratory Tests Test 04/03/17 19:15 04/03/17 20:40 04/04/17 03:40 04/04/17 07:54 White Blood Count 7.7 x10^3/uL (4.0-11.0) 5.5 x10^3/uL (4.0-11.0) Red Blood Count 3.53 x10^6/uL (4.30-5.70) 3.59 x10^6/uL (4.30-5.70) Hemoglobin 10.7 g/dL (13.0-17.5) 10.9 g/dL (13.0-17.5) Hematocrit 31.6 % (39.0-53.0) 31.4 % (39.0-53.0) Mean Corpuscular Volume 90 fL (79-100) 88 fL (79-100) Mean Corpuscular Hemoglobin 30 pg (25-35) 30 pg (25-35) Mean Corpuscular Hemoglobin Concent 34 g/dL (31-37) 35 g/dL (31-37) Red Cell Distribution Width 14.3 % (11.5-14.5) 14.3 % (11.5-14.5) Platelet Count 147 x10^3/uL (140-400) 137 x10^3/uL (140-400) Neutrophils (%) (Auto) 80 % (31-73) 75 % (31-73) Lymphocytes (%) (Auto) 8 % (24-48) 10 % (24-48) Monocytes (%) (Auto) 7 % (0-9) 9 % (0-9) Eosinophils (%) (Auto) 4 % (0-3) 6 % (0-3) Basophils (%) (Auto) 0 % (0-3) 1 % (0-3) Neutrophils # (Auto) 6.2 x10^3uL (1.8-7.7) 4.1 x10^3uL (1.8-7.7) Lymphocytes # (Auto) 0.6 x10^3/uL (1.0-4.8) 0.5 x10^3/uL (1.0-4.8) Monocytes # (Auto) 0.6 x10^3/uL (0.0-1.1) 0.5 x10^3/uL (0.0-1.1) Eosinophils # (Auto) 0.3 x10^3/uL (0.0-0.7) 0.3 x10^3/uL (0.0-0.7) Basophils # (Auto) 0.0 x10^3/uL (0.0-0.2) 0.0 x10^3/uL (0.0-0.2) Sodium Level 140 mmol/L (136-145) 141 mmol/L (136-145) Potassium Level 3.4 mmol/L (3.5-5.1) 3.8 mmol/L (3.5-5.1) Chloride Level 104 mmol/L (98-107) 104 mmol/L (98-107) Carbon Dioxide Level 28 mmol/L (21-32) 29 mmol/L (21-32) Anion Gap 8 (6-14) 8 (6-14) Blood Urea Nitrogen 18 mg/dL (8-26) 17 mg/dL (8-26) Creatinine 1.5 mg/dL (0.7-1.3) 1.4 mg/dL (0.7-1.3) Estimated GFR (Cockcroft-Gault) 45.4 49.1 BUN/Creatinine Ratio 12 (6-20) Glucose Level 143 mg/dL (70-99) 186 mg/dL (70-99) Lactic Acid Level 1.3 mmol/L (0.4-2.0) Calcium Level 9.0 mg/dL (8.5-10.1) 8.7 mg/dL (8.5-10.1) Total Bilirubin 0.4 mg/dL (0.2-1.0) Aspartate Amino Transf (AST/SGOT) 19 U/L (15-37) Alanine Aminotransferase (ALT/SGPT) 18 U/L (16-63) Alkaline Phosphatase 89 U/L (46-116) Troponin I Quantitative < 0.017 ng/mL (0.000-0.055) Total Protein 5.9 g/dL (6.4-8.2) Albumin 2.9 g/dL (3.4-5.0) Albumin/Globulin Ratio 1.0 (1.0-1.7) Lipase 67 U/L (73-393) Urine Collection Type U cath Urine Color Yellow Urine Clarity Clear Urine pH 7.0 Urine Specific [place] 1.020 Urine Protein >=300 mg/dL (NEG-TRACE) Urine Glucose (UA) 100 mg/dL (NEG) Urine Ketones (Stick) Trace mg/dL (NEG) Urine Blood Trace (NEG) Urine Nitrite Negative (NEG) Urine Bilirubin Negative (NEG) Urine Urobilinogen Dipstick 0.2 mg/dL (0.2 mg/dL) Urine Leukocyte Esterase Negative (NEG) Urine RBC 1-2 /HPF (0-2) Urine WBC Occ /HPF (0-4) Urine Bacteria 0 /HPF (0-FEW) Urine Hyaline Casts Occasional /HPF Glucose (Fingerstick) 209 mg/dL (70-99) Laboratory Tests Test 04/03/17 19:15 04/03/17 20:40 04/04/17 03:40 04/04/17 07:54 White Blood Count 7.7 x10^3/uL (4.0-11.0) 5.5 x10^3/uL (4.0-11.0) Red Blood Count 3.53 x10^6/uL (4.30-5.70) 3.59 x10^6/uL (4.30-5.70) Hemoglobin 10.7 g/dL (13.0-17.5) 10.9 g/dL (13.0-17.5) Hematocrit 31.6 % (39.0-53.0) 31.4 % (39.0-53.0) Mean Corpuscular Volume 90 fL (79-100) 88 fL (79-100) Mean Corpuscular Hemoglobin 30 pg (25-35) 30 pg (25-35) Mean Corpuscular Hemoglobin Concent 34 g/dL (31-37) 35 g/dL (31-37) Red Cell Distribution Width 14.3 % (11.5-14.5) 14.3 % (11.5-14.5) Platelet Count 147 x10^3/uL (140-400) 137 x10^3/uL (140-400) Neutrophils (%) (Auto) 80 % (31-73) 75 % (31-73) Lymphocytes (%) (Auto) 8 % (24-48) 10 % (24-48) Monocytes (%) (Auto) 7 % (0-9) 9 % (0-9) Eosinophils (%) (Auto) 4 % (0-3) 6 % (0-3) Basophils (%) (Auto) 0 % (0-3) 1 % (0-3) Neutrophils # (Auto) 6.2 x10^3uL (1.8-7.7) 4.1 x10^3uL (1.8-7.7) Lymphocytes # (Auto) 0.6 x10^3/uL (1.0-4.8) 0.5 x10^3/uL (1.0-4.8) Monocytes # (Auto) 0.6 x10^3/uL (0.0-1.1) 0.5 x10^3/uL (0.0-1.1) Eosinophils # (Auto) 0.3 x10^3/uL (0.0-0.7) 0.3 x10^3/uL (0.0-0.7) Basophils # (Auto) 0.0 x10^3/uL (0.0-0.2) 0.0 x10^3/uL (0.0-0.2) Sodium Level 140 mmol/L (136-145) 141 mmol/L (136-145) Potassium Level 3.4 mmol/L (3.5-5.1) 3.8 mmol/L (3.5-5.1) Chloride Level 104 mmol/L (98-107) 104 mmol/L (98-107) Carbon Dioxide Level 28 mmol/L (21-32) 29 mmol/L (21-32) Anion Gap 8 (6-14) 8 (6-14) Blood Urea Nitrogen 18 mg/dL (8-26) 17 mg/dL (8-26) Creatinine 1.5 mg/dL (0.7-1.3) 1.4 mg/dL (0.7-1.3) Estimated GFR (Cockcroft-Gault) 45.4 49.1 BUN/Creatinine Ratio 12 (6-20) Glucose Level 143 mg/dL (70-99) 186 mg/dL (70-99) Lactic Acid Level 1.3 mmol/L (0.4-2.0) Calcium Level 9.0 mg/dL (8.5-10.1) 8.7 mg/dL (8.5-10.1) Total Bilirubin 0.4 mg/dL (0.2-1.0) Aspartate Amino Transf (AST/SGOT) 19 U/L (15-37) Alanine Aminotransferase (ALT/SGPT) 18 U/L (16-63) Alkaline Phosphatase 89 U/L (46-116) Troponin I Quantitative < 0.017 ng/mL (0.000-0.055) Total Protein 5.9 g/dL (6.4-8.2) Albumin 2.9 g/dL (3.4-5.0) Albumin/Globulin Ratio 1.0 (1.0-1.7) Lipase 67 U/L (73-393) Urine Collection Type U cath Urine Color Yellow Urine Clarity Clear Urine pH 7.0 Urine Specific [place] 1.020 Urine Protein >=300 mg/dL (NEG-TRACE) Urine Glucose (UA) 100 mg/dL (NEG) Urine Ketones (Stick) Trace mg/dL (NEG) Urine Blood Trace (NEG) Urine Nitrite Negative (NEG) Urine Bilirubin Negative (NEG) Urine Urobilinogen Dipstick 0.2 mg/dL (0.2 mg/dL) Urine Leukocyte Esterase Negative (NEG) Urine RBC 1-2 /HPF (0-2) Urine WBC Occ /HPF (0-4) Urine Bacteria 0 /HPF (0-FEW) Urine Hyaline Casts Occasional /HPF Glucose (Fingerstick) 209 mg/dL (70-99) Images Images Head CT: FINDINGS: There is no intracranial hemorrhage. Hypoattenuation within the periventricular white matter indicates mild chronic microangiopathic change. Prominence of the lateral ventricles and hemispheric sulci indicates mild to moderate atrophy. There is mild mucosal thickening in the left maxillary sinus. There are changes of bilateral cataract surgery. There is a small amount of fluid in the left mastoid air cells. The calvarium reveals no suspicious lesions. There are atherosclerotic calcifications of the internal carotid and vertebral arteries. IMPRESSION: 1. No acute intracranial findings. 2. Mild to moderate atrophy and mild chronic microangiopathic white matter change. Assessment/Plan Assessment/Plan Impression: History is limited, but my impression from the exam is that he probably has some long-standing dementia if only because of the bilateral grasp reflexes. I do not see any significant metabolic derangement. There is no bedside evidence of a stroke. Recommendations: MRI of the brain Additional laboratory studies Physical and occupational therapy Additional studies such as stroke workup if the MRI is positive. I will continue to attempt to reach the family. Thank you for letting me help of the patient's care. JOSE ALBERTO ROMERO MD Apr 04, 2017 09:32
[2017-04-04] MEDS: ASPIRIN ENTERIC COATED 81 MG TABLET.DR. PO SCH (11:55)
[2017-04-04] MEDS: APIXABAN 5 MG TABLET. PO SCH ×2 (11:55→20:21)
[2017-04-04] MEDS: PANTOPRAZOLE 40 MG TABLET.DR. PO SCH (11:55)
[2017-04-04] MEDS: CYANOCOBALAMIN (VITAMIN B-12) 1,000 MCG TABLET. PO SCH (11:55)
[2017-04-04] MEDS: POLYETHYLENE GLYCOL 3350 17 GM PACKET. PO SCH (11:56)
[2017-04-04] MEDS: FUROSEMIDE 40 MG TABLET. PO SCH (11:56)
[2017-04-04] MEDS: CHOLECALCIFEROL (VITAMIN D3) 1,000 UNIT TABLET PO SCH (11:56)
[2017-04-04] MEDS: DOCUSATE SODIUM 100 MG CAPSULE. PO SCH (11:56)
[2017-04-04] MEDS: SENNOSIDES/DOCUSATE 8.6/50MG TABLET. PO SCH ×2 (11:56→20:22)
[2017-04-04] MEDS: METOPROLOL SUCC 24HR ER 50 MG TAB.ER.24H. PO SCH (11:57)
--- NOTE | 2017-04-04 13:01 | PDOC1 ---
History and Physical Date of Admission Date of Admission DATE: 04/04/17 TIME: 12:54 Identification/Chief Complaint Chief Complaint confused Problems: Source Source: Caregiver, Chart review, Patient History of Present Illness History of Present Illness 76 y.o male, [place] resident, I last saw mos ago for the ff: Mechanical fall Back pain Chronic thoracic compression fxs\ OA R knee, bruise R knee CHF chronic stable Diabetes-Type II, marginally controlled GERD Hypertension controlled ANTWON, resolved Metabolic encehalopathy, likely cognitive impairment He was NOT confused for me. BUt looking at old records, he was just here Mar 21 for exact the same reasons, same neurologist saw and dx with dementia, possibly long standing, just undiagnosed. LAbs show maybe some evidence of dehydration, with ketonuria, glucosuria too with BS 200s, he ate breakfast fine, complains of back pain (chronic). Resst of labs and VS ok ESR and TSH pending, I will hold his gabapentin 300 qhs just bec of mentation, but might possibly be able to resume as he is NOT drowsy but just calmy confused. NOt oriented to place or time, but oriented to self, Past Medical History Cardiovascular: HTN, Hyperlipidemia Pulmonary: Bronchitis CENTRAL NERVOUS SYSTEM: Periperal neuropathy GI: Other ( abdominal hernia) Musculoskeletal: low back pain, Osteoarthritis ENT: Other (Hard of hearing) Renal/: Urinary Incontinence Endocrine: Diabetes Past Surgical History Past Surgical History: Cholecystectomy Family History Family History: Hypertension, Family History Unknown Social History Smoke: No ALCOHOL: none Drugs: None Current Problem List Problem List Problems Medical Problems: (1) Altered mental status Status: Acute Problems: Current Medications Current Medications Current Medications Ondansetron HCl (Zofran) 4 mg PRN Q8HRS PRN IV NAUSEA/VOMITING; Start 04/03/17 at 23:15; Stop 04/04/17 at 09:10; Status DC Morphine Sulfate 2 mg PRN Q2HR PRN IV SEVERE PAIN; Start 04/03/17 at 23:15; Stop 04/04/17 at 23:14 Acetaminophen (Tylenol) 650 mg PRN Q4HRS PRN PO FEVER Last administered on t 11:56; Start 04/03/17 at 23:15; Stop 04/04/17 at 23:14 Ondansetron HCl (Zofran) 4 mg PRN Q6HRS PRN IV NAUSEA/VOMITING; Start 04/04/17 at 09:15; Stop 04/05/17 at 09:14 Labetalol HCl (Normodyne) 10 mg PRN Q2HR PRN IVP HYPERTENSION, SEE COMMENTS; Start 04/04/17 at 09:15 Insulin Aspart (NovoLOG) 0-9 UNITS TIDWMEALS SQ ; Start 04/04/17 at 12:00 Dextrose (Dextrose 50%-Water Syringe) 12.5 gm PRN Q15MIN PRN IV SEE COMMENTS; Start 04/04/17 at 09:15 Acetaminophen (Tylenol) 650 mg QID PRN PO FEVER; Start 04/04/17 at 09:15 Amlodipine Besylate (Norvasc) 5 mg DAILY PO ; Start 04/05/17 at 09:00 Apixaban (Eliquis) 5 mg BID PO Last administered on 04/04/17 11:55; Start at 10:00 Aspirin (Ecotrin) 81 mg DAILYWBKFT PO Last administered on 04/04/17 11:55; Start 04/04/17 at 10:00 Atorvastatin Calcium (Lipitor) 10 mg HS PO ; Start 04/04/17 at 21:00 Vitamin D (Vitamin D3) 1,000 unit DAILY PO Last administered on 04/04/17 11:56 ; Start 04/04/17 at 10:00 Cyanocobalamin (Vitamin B-12) 1,000 mcg DAILY PO Last administered on 04/04/17 11:55; Start 04/04/17 at 10:00 Docusate Sodium (Colace) 100 mg DAILY PO Last administered on 04/04/17 11:56; Start 04/04/17 at 10:00 Furosemide (Lasix) 40 mg DAILY PO Last administered on 04/04/17 11:56; Start at 10:00 Guaifenesin (Mucinex) 600 mg BID PRN PO COUGH; Start 04/04/17 at 09:15 Insulin Aspart (NovoLOG) 15 units BIDWMEALS SQ ; Start 04/04/17 at 17:00 Insulin Detemir (Levemir) 10 units QHS SQ ; Start 04/04/17 at 21:00 Metoprolol Succinate (Toprol Xl) 50 mg DAILY PO Last administered on 04/04/17 11:57; Start 04/04/17 at 10:00 Nitroglycerin (Nitrostat) 0.4 mg QID PRN SL cp q 5 mins; Start 04/04/17 at 09:15 Oxycodone/ Acetaminophen (Percocet 7.5/ 325) 1 tab PRN Q6HRS PRN PO PAIN; Start 04/04/17 at 09:15; Status Cancel Oxycodone/ Acetaminophen (Percocet 7.5/ 325) 1 tab PRN Q4HRS PRN PO PAIN; Start 04/04/17 at 12:00 Pantoprazole Sodium (Protonix) 40 mg DAILYAC PO Last administered on 04/04/17 11:55; Start 04/04/17 at 10:00 Polyethylene Glycol (miraLAX PACKET) 17 gm DAILY PO Last administered on 11:56; Start 04/04/17 at 10:00 Sennosides (Senna) 8.6 mg HS PO ; Start 04/04/17 at 21:00; Status UNV Senna/Docusate Sodium (Senna Plus) 1 tab BID PO Last administered on 04/04/17 11:56; Start 04/04/17 at 10:00 Senna/Docusate Sodium (Senna Plus) 2 tab HS PO ; Start 04/04/17 at 21:00; Status UNV Magnesium Hydroxide (Milk Of Magnesia) 2,400 mg PRN DAILY PRN PO CONSTIPATION; Start 04/04/17 at 09:30 Active Scripts Active Oxycodon-Acetaminophen 7.5-325 (Oxycodone Hcl/Acetaminophen) 1 Each Tablet 1 Tab PO PRN Q6HRS PRN Milk Of Magnesia (Magnesium Hydroxide) 2,400 Mg/10 Ml Oral.susp 2,400 Mg PO DAILY PRN Miralax (Polyethylene Glycol 3350) 17 Gm Powd.pack 1 Packet PO DAILY Colace (Docusate Sodium) 100 Mg Capsule 100 Mg PO DAILY Lasix (Furosemide) 40 Mg Tablet 1 Tab PO DAILY Levemir Flextouch (Insulin Detemir) 100 Unit/1 Ml Insuln.pen 10 Units SQ QHS 30 Days Eliquis (Apixaban) 5 Mg Tablet 5 Mg PO BID 30 Days Reported Percocet 7.5-325 Mg Tablet (Oxycodone/Acetaminophen) 1 Each Tablet 1 Tab PO Q4HRS Novolog Flexpen (Insulin Aspart) 100 Unit/1 Ml Insuln.pen 15 Unit SQ BID Cephalexin 500 Mg Tablet 500 Mg PO BID Amlodipine Besylate 5 Mg Tablet 5 Mg PO DAILY Senexon (Sennosides) 8.6 Mg Tablet 8.6 Mg PO HS Senexon-S Tablet (Sennosides/Docusate Sodium) 1 Each Tablet 1 Each PO Metoprolol Succinate ( Xl ) (Metoprolol Succinate) 25 Mg Tab.er.24h 50 Mg PO DAILY Protonix (Pantoprazole Sodium) 40 Mg Tablet.dr 40 Mg PO DAILY Mucinex (Guaifenesin) 600 Mg Tablet.er 1 Tab PO BID PRN Atorvastatin Calcium 10 Mg Tablet 10 Mg PO HS Tylenol (Acetaminophen) 325 Mg Tablet 650 Mg PO PRN Q4-6HRS PRN Aspir 81 (Aspirin) 81 Mg Tablet.dr 1 Tab PO DAILY Vitamin D3 (Cholecalciferol (Vitamin D3)) 1,000 Unit Tablet 800 Unit PO DAILY Vitamin B-12 (Cyanocobalamin (Vitamin B-12)) 1,000 Mcg Tablet 1 Tab PO DAILY Nitrostat (Nitroglycerin) 0.4 Mg Tab.subl 1 Tab SL UD Senokot-S Tablet (Sennosides/Docusate Sodium) 1 Each Tablet 2 Tab PO HS Gabapentin 300 Mg Capsule 300 Mg PO HS Allergies Allergies: Coded Allergies: tetracycline (Verified Allergy, Intermediate, Rash, 09/04/16) ROS Review of System back pain, all else limited/neg Physical Exam General: Cooperative, No acute distress HEENT: Atraumatic, PERRLA Lungs: Clear to auscultation, Normal air movement Heart: S1S2, RRR, no thrills, no rubs Cardiovascular: S1, S2 Male Genitals Exam: normal genitalia, normal prostate Rectal Exam: not examined PELVIC: Nml ext genitalia Extremities: No clubbing, No cyanosis, No edema, Normal pulses, No tenderness/ swelling Skin: No rashes, No breakdown, No significant lesion Neuro: Normal gait, Normal speech, Strength at 5/5 X4 ext, Normal tone, Sensation intact, Cranial nerves 3-12 NL, Reflexes 2+ Psych/Mental Status: Mental status NL, Mood NL Vitals Vitals Vital Signs Date Time Temp Pulse Resp B/P (MAP) Pulse Ox O2 Delivery O2 Flow Rate FiO2 9/5/17 11:57 57 178/91 04/04/17 11:07 98.3 20 97 Room Air 98.3 Labs Labs Laboratory Tests Test 04/03/17 19:15 04/03/17 20:40 04/04/17 03:40 04/04/17 07:54 White Blood Count 7.7 x10^3/uL (4.0-11.0) 5.5 x10^3/uL (4.0-11.0) Red Blood Count 3.53 x10^6/uL (4.30-5.70) 3.59 x10^6/uL (4.30-5.70) Hemoglobin 10.7 g/dL (13.0-17.5) 10.9 g/dL (13.0-17.5) Hematocrit 31.6 % (39.0-53.0) 31.4 % (39.0-53.0) Mean Corpuscular Volume 90 fL (79-100) 88 fL (79-100) Mean Corpuscular Hemoglobin 30 pg (25-35) 30 pg (25-35) Mean Corpuscular Hemoglobin Concent 34 g/dL (31-37) 35 g/dL (31-37) Red Cell Distribution Width 14.3 % (11.5-14.5) 14.3 % (11.5-14.5) Platelet Count 147 x10^3/uL (140-400) 137 x10^3/uL (140-400) Neutrophils (%) (Auto) 80 % (31-73) 75 % (31-73) Lymphocytes (%) (Auto) 8 % (24-48) 10 % (24-48) Monocytes (%) (Auto) 7 % (0-9) 9 % (0-9) Eosinophils (%) (Auto) 4 % (0-3) 6 % (0-3) Basophils (%) (Auto) 0 % (0-3) 1 % (0-3) Neutrophils # (Auto) 6.2 x10^3uL (1.8-7.7) 4.1 x10^3uL (1.8-7.7) Lymphocytes # (Auto) 0.6 x10^3/uL (1.0-4.8) 0.5 x10^3/uL (1.0-4.8) Monocytes # (Auto) 0.6 x10^3/uL (0.0-1.1) 0.5 x10^3/uL (0.0-1.1) Eosinophils # (Auto) 0.3 x10^3/uL (0.0-0.7) 0.3 x10^3/uL (0.0-0.7) Basophils # (Auto) 0.0 x10^3/uL (0.0-0.2) 0.0 x10^3/uL (0.0-0.2) Sodium Level 140 mmol/L (136-145) 141 mmol/L (136-145) Potassium Level 3.4 mmol/L (3.5-5.1) 3.8 mmol/L (3.5-5.1) Chloride Level 104 mmol/L (98-107) 104 mmol/L (98-107) Carbon Dioxide Level 28 mmol/L (21-32) 29 mmol/L (21-32) Anion Gap 8 (6-14) 8 (6-14) Blood Urea Nitrogen 18 mg/dL (8-26) 17 mg/dL (8-26) Creatinine 1.5 mg/dL (0.7-1.3) 1.4 mg/dL (0.7-1.3) Estimated GFR (Cockcroft-Gault) 45.4 49.1 BUN/Creatinine Ratio 12 (6-20) Glucose Level 143 mg/dL (70-99) 186 mg/dL (70-99) Lactic Acid Level 1.3 mmol/L (0.4-2.0) Calcium Level 9.0 mg/dL (8.5-10.1) 8.7 mg/dL (8.5-10.1) Total Bilirubin 0.4 mg/dL (0.2-1.0) Aspartate Amino Transf (AST/SGOT) 19 U/L (15-37) Alanine Aminotransferase (ALT/SGPT) 18 U/L (16-63) Alkaline Phosphatase 89 U/L (46-116) Troponin I Quantitative < 0.017 ng/mL (0.000-0.055) Total Protein 5.9 g/dL (6.4-8.2) Albumin 2.9 g/dL (3.4-5.0) Albumin/Globulin Ratio 1.0 (1.0-1.7) Lipase 67 U/L (73-393) Urine Collection Type U cath Urine Color Yellow Urine Clarity Clear Urine pH 7.0 Urine Specific [place] 1.020 Urine Protein >=300 mg/dL (NEG-TRACE) Urine Glucose (UA) 100 mg/dL (NEG) Urine Ketones (Stick) Trace mg/dL (NEG) Urine Blood Trace (NEG) Urine Nitrite Negative (NEG) Urine Bilirubin Negative (NEG) Urine Urobilinogen Dipstick 0.2 mg/dL (0.2 mg/dL) Urine Leukocyte Esterase Negative (NEG) Urine RBC 1-2 /HPF (0-2) Urine WBC Occ /HPF (0-4) Urine Bacteria 0 /HPF (0-FEW) Urine Hyaline Casts Occasional /HPF Glucose (Fingerstick) 209 mg/dL (70-99) Test 04/04/17 11:53 Glucose (Fingerstick) 213 mg/dL (70-99) Laboratory Tests Test 04/03/17 19:15 04/03/17 20:40 04/04/17 03:40 04/04/17 07:54 White Blood Count 7.7 x10^3/uL (4.0-11.0) 5.5 x10^3/uL (4.0-11.0) Red Blood Count 3.53 x10^6/uL (4.30-5.70) 3.59 x10^6/uL (4.30-5.70) Hemoglobin 10.7 g/dL (13.0-17.5) 10.9 g/dL (13.0-17.5) Hematocrit 31.6 % (39.0-53.0) 31.4 % (39.0-53.0) Mean Corpuscular Volume 90 fL (79-100) 88 fL (79-100) Mean Corpuscular Hemoglobin 30 pg (25-35) 30 pg (25-35) Mean Corpuscular Hemoglobin Concent 34 g/dL (31-37) 35 g/dL (31-37) Red Cell Distribution Width 14.3 % (11.5-14.5) 14.3 % (11.5-14.5) Platelet Count 147 x10^3/uL (140-400) 137 x10^3/uL (140-400) Neutrophils (%) (Auto) 80 % (31-73) 75 % (31-73) Lymphocytes (%) (Auto) 8 % (24-48) 10 % (24-48) Monocytes (%) (Auto) 7 % (0-9) 9 % (0-9) Eosinophils (%) (Auto) 4 % (0-3) 6 % (0-3) Basophils (%) (Auto) 0 % (0-3) 1 % (0-3) Neutrophils # (Auto) 6.2 x10^3uL (1.8-7.7) 4.1 x10^3uL (1.8-7.7) Lymphocytes # (Auto) 0.6 x10^3/uL (1.0-4.8) 0.5 x10^3/uL (1.0-4.8) Monocytes # (Auto) 0.6 x10^3/uL (0.0-1.1) 0.5 x10^3/uL (0.0-1.1) Eosinophils # (Auto) 0.3 x10^3/uL (0.0-0.7) 0.3 x10^3/uL (0.0-0.7) Basophils # (Auto) 0.0 x10^3/uL (0.0-0.2) 0.0 x10^3/uL (0.0-0.2) Sodium Level 140 mmol/L (136-145) 141 mmol/L (136-145) Potassium Level 3.4 mmol/L (3.5-5.1) 3.8 mmol/L (3.5-5.1) Chloride Level 104 mmol/L (98-107) 104 mmol/L (98-107) Carbon Dioxide Level 28 mmol/L (21-32) 29 mmol/L (21-32) Anion Gap 8 (6-14) 8 (6-14) Blood Urea Nitrogen 18 mg/dL (8-26) 17 mg/dL (8-26) Creatinine 1.5 mg/dL (0.7-1.3) 1.4 mg/dL (0.7-1.3) Estimated GFR (Cockcroft-Gault) 45.4 49.1 BUN/Creatinine Ratio 12 (6-20) Glucose Level 143 mg/dL (70-99) 186 mg/dL (70-99) Lactic Acid Level 1.3 mmol/L (0.4-2.0) Calcium Level 9.0 mg/dL (8.5-10.1) 8.7 mg/dL (8.5-10.1) Total Bilirubin 0.4 mg/dL (0.2-1.0) Aspartate Amino Transf (AST/SGOT) 19 U/L (15-37) Alanine Aminotransferase (ALT/SGPT) 18 U/L (16-63) Alkaline Phosphatase 89 U/L (46-116) Troponin I Quantitative < 0.017 ng/mL (0.000-0.055) Total Protein 5.9 g/dL (6.4-8.2) Albumin 2.9 g/dL (3.4-5.0) Albumin/Globulin Ratio 1.0 (1.0-1.7) Lipase 67 U/L (73-393) Urine Collection Type U cath Urine Color Yellow Urine Clarity Clear Urine pH 7.0 Urine Specific [place] 1.020 Urine Protein >=300 mg/dL (NEG-TRACE) Urine Glucose (UA) 100 mg/dL (NEG) Urine Ketones (Stick) Trace mg/dL (NEG) Urine Blood Trace (NEG) Urine Nitrite Negative (NEG) Urine Bilirubin Negative (NEG) Urine Urobilinogen Dipstick 0.2 mg/dL (0.2 mg/dL) Urine Leukocyte Esterase Negative (NEG) Urine RBC 1-2 /HPF (0-2) Urine WBC Occ /HPF (0-4) Urine Bacteria 0 /HPF (0-FEW) Urine Hyaline Casts Occasional /HPF Glucose (Fingerstick) 209 mg/dL (70-99) Test 04/04/17 11:53 Glucose (Fingerstick) 213 mg/dL (70-99) VTE Prophylaxis Ordered VTE Prophylaxis Devices: Yes VTE Pharmacological Prophylaxi: Yes Assessment/Plan Assessment/Plan 1. Acute on chronic encephalopathy, likely undiagnosed long standing dementia 2. Chronci back pain 3. Hx falls, 4. Diabetes-Type II, marginally controlled with glucosuria 5. ANTWON< dehydration with ketonuria 6. GERD 7. Hypertension controlled PLAN: Admit IVF Supprotive care Will involve palliative, address code status\ SSI high dose Unfortunately nature of dse will cause exacerbations/intermitted confusions., Education of family members is impt so they will understand PT/OT if [place] sufficient to provide his needs or higher level of care is needed HADLEY MANCINI MD Apr 04, 2017 13:01
[2017-04-04] MEDS: INSULIN ASPART 300 UNITS/3 ML INSULN.PEN SQ SCH ×3 (13:50→18:02)
--- NOTE | 2017-04-04 15:28 | RAD ---
MRI Brain without contrast History: Altered mental status Technique: Multiplanar, multisequential noncontrast MR imaging was performed of the brain. Contrast: None Comparison: None Findings: There is severe motion degradation.There is no convincing evidence of recent infarct or cytotoxic edema. There are is anterior gliosis of the choroid plexus bilaterally. Ventricular size is proportionate to the sulcal spaces. There is [id number] generalized supratentorial atrophy. There is no significant midline shift, mass effect, or focal abnormal extra-axial fluid collection. There is probable mild T2 and FLAIR hyperintense signal abnormality of the supratentorial white matter bilaterally. There is preservation of the major intracranial flow-voids at the skull base. There is fairly severe fluid of the left mastoid air cells, right mastoid air cells aerated. There has been lens surgery bilaterally.The cerebellar tonsils are normal in location. There is no significant abnormality of the pineal gland or pituitary gland. There is moderate to severe left maxillary sinus mucosal thickening with air-fluid level. There is patchy [id number] ethmoid air cell mucosal thickening, also minimally of the frontal sinus. There is nonspecific disconjugate gaze. There is preserved marrow signal of the clivus. Impression: 1. Exam is degraded by motion. There is no evidence of recent infarct or intracranial mass effect. There is [id number] generalized supratentorial atrophy. Mild T2 and FLAIR hyperintense signal abnormality of the supratentorial white matter is probably due to chronic microvascular ischemic disease. 2. There is prominent fluid of the left mastoid air cells, uncertain sterility. 3. There is left maxillary sinus mucosal thickening with air-fluid level which could be due to acute sinusitis. Electronically signed by: Joe Deleon MD (04/04/2017 3:25 PM) [id number]
[2017-04-04] MEDS: ATORVASTATIN CALCIUM 10 MG TABLET. PO SCH (20:21)
[2017-04-04] MEDS ORDERED: SENNOSIDES 8.6 MG TABLET PO SCH (21:00)
[2017-04-04] MEDS ORDERED: SENNOSIDES/DOCUSATE 8.6/50MG TABLET. PO SCH (21:00)
[2017-04-04] MEDS: INSULIN DETEMIR 300 UNITS/3 ML INSULN.PEN. SQ SCH (21:42)
[2017-04-05] MEDS: oxyCODONE/APAP 7.5/325 1 TAB TABLET PO PRN ×4 (00:33→23:43)
[2017-04-05 03:13] VITALS: BP 135/66
[2017-04-05 07:08] VITALS: BP 148/58
[2017-04-05] MEDS: DOCUSATE SODIUM 100 MG CAPSULE. PO SCH (08:35)
[2017-04-05] MEDS: CHOLECALCIFEROL (VITAMIN D3) 1,000 UNIT TABLET PO SCH (08:35)
[2017-04-05] MEDS: amLODIPine BESYLATE 5 MG TABLET PO SCH (08:35)
[2017-04-05] MEDS: PANTOPRAZOLE 40 MG TABLET.DR. PO SCH (08:35)
[2017-04-05] MEDS: CYANOCOBALAMIN (VITAMIN B-12) 1,000 MCG TABLET. PO SCH (08:35)
[2017-04-05] MEDS: FUROSEMIDE 40 MG TABLET. PO SCH (08:35)
[2017-04-05] MEDS: SENNOSIDES/DOCUSATE 8.6/50MG TABLET. PO SCH ×2 (08:36→20:58)
[2017-04-05] MEDS: ASPIRIN ENTERIC COATED 81 MG TABLET.DR. PO SCH (08:36)
[2017-04-05] MEDS: POLYETHYLENE GLYCOL 3350 17 GM PACKET. PO SCH (08:36)
[2017-04-05] MEDS: APIXABAN 5 MG TABLET. PO SCH ×2 (08:36→20:58)
[2017-04-05] MEDS: METOPROLOL SUCC 24HR ER 50 MG TAB.ER.24H. PO SCH (08:36)
[2017-04-05] MEDS: INSULIN ASPART 300 UNITS/3 ML INSULN.PEN SQ SCH ×5 (08:53→17:53)
[2017-04-05 10:39] VITALS: BP 128/56
--- NOTE | 2017-04-05 11:48 | PDOC ---
PROGRESS NOTES Assessment Problems Medical Problems: (1) Altered mental status Status: Acute Metabolic encephalopathy Increasing dementia, consistent with Alzheimer's MRI is usually oversensitive for sinusitis, deferred treatment for further evaluation to primary service Note elevated sedimentation rate, dementia laboratory studies otherwise negative. 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 He has been hospitalized her several times over the past 3 months for confusion. I do not think he is capable of being in assisted living. His demented is also there and the patient would greatly miss his dog if he had to move to a senior living. I told the daughter that he needs some sort of 24/7 care. I discussed risk, benefits, alternatives, side effects, and will start donepezil. No additional neurological workup required. Objective Vital Signs Date Time Temp Pulse Resp B/P (MAP) Pulse Ox O2 Delivery O2 Flow Rate FiO2 04/05/17 10:39 98.9 68 19 128/56 (80) 94 Room Air 98.9 Intake and Output 04/06/17 07:00 Intake Total 720 ml Balance 720 ml Intake Oral 720 ml PHYSICAL EXAM Alert. Oriented only to person. PERRL. Right eye exotropia, otherwise EOMI. CN: no focal findings. Muscle tone: normal. Muscle strength: 4/5 DTR: 1+ Plantar reflex: flexor Bilateral grasp reflexes Gait: not examined in bed. Sensory exam: no abnormal findings. No cerebellar signs elicited. Review of Relevant I have reviewed the following items ivette (where applicable) has been applied. Labs Laboratory Tests Test 04/03/17 19:15 04/03/17 20:40 04/04/17 03:40 04/04/17 07:54 White Blood Count 7.7 x10^3/uL (4.0-11.0) 5.5 x10^3/uL (4.0-11.0) Red Blood Count 3.53 x10^6/uL (4.30-5.70) 3.59 x10^6/uL (4.30-5.70) Hemoglobin 10.7 g/dL (13.0-17.5) 10.9 g/dL (13.0-17.5) Hematocrit 31.6 % (39.0-53.0) 31.4 % (39.0-53.0) Mean Corpuscular Volume 90 fL (79-100) 88 fL (79-100) Mean Corpuscular Hemoglobin 30 pg (25-35) 30 pg (25-35) Mean Corpuscular Hemoglobin Concent 34 g/dL (31-37) 35 g/dL (31-37) Red Cell Distribution Width 14.3 % (11.5-14.5) 14.3 % (11.5-14.5) Platelet Count 147 x10^3/uL (140-400) 137 x10^3/uL (140-400) Neutrophils (%) (Auto) 80 % (31-73) 75 % (31-73) Lymphocytes (%) (Auto) 8 % (24-48) 10 % (24-48) Monocytes (%) (Auto) 7 % (0-9) 9 % (0-9) Eosinophils (%) (Auto) 4 % (0-3) 6 % (0-3) Basophils (%) (Auto) 0 % (0-3) 1 % (0-3) Neutrophils # (Auto) 6.2 x10^3uL (1.8-7.7) 4.1 x10^3uL (1.8-7.7) Lymphocytes # (Auto) 0.6 x10^3/uL (1.0-4.8) 0.5 x10^3/uL (1.0-4.8) Monocytes # (Auto) 0.6 x10^3/uL (0.0-1.1) 0.5 x10^3/uL (0.0-1.1) Eosinophils # (Auto) 0.3 x10^3/uL (0.0-0.7) 0.3 x10^3/uL (0.0-0.7) Basophils # (Auto) 0.0 x10^3/uL (0.0-0.2) 0.0 x10^3/uL (0.0-0.2) Sodium Level 140 mmol/L (136-145) 141 mmol/L (136-145) Potassium Level 3.4 mmol/L (3.5-5.1) 3.8 mmol/L (3.5-5.1) Chloride Level 104 mmol/L (98-107) 104 mmol/L (98-107) Carbon Dioxide Level 28 mmol/L (21-32) 29 mmol/L (21-32) Anion Gap 8 (6-14) 8 (6-14) Blood Urea Nitrogen 18 mg/dL (8-26) 17 mg/dL (8-26) Creatinine 1.5 mg/dL (0.7-1.3) 1.4 mg/dL (0.7-1.3) Estimated GFR (Cockcroft-Gault) 45.4 49.1 BUN/Creatinine Ratio 12 (6-20) Glucose Level 143 mg/dL (70-99) 186 mg/dL (70-99) Lactic Acid Level 1.3 mmol/L (0.4-2.0) Calcium Level 9.0 mg/dL (8.5-10.1) 8.7 mg/dL (8.5-10.1) Total Bilirubin 0.4 mg/dL (0.2-1.0) Aspartate Amino Transf (AST/SGOT) 19 U/L (15-37) Alanine Aminotransferase (ALT/SGPT) 18 U/L (16-63) Alkaline Phosphatase 89 U/L (46-116) Troponin I Quantitative < 0.017 ng/mL (0.000-0.055) Total Protein 5.9 g/dL (6.4-8.2) Albumin 2.9 g/dL (3.4-5.0) Albumin/Globulin Ratio 1.0 (1.0-1.7) Lipase 67 U/L (73-393) Urine Collection Type U cath Urine Color Yellow Urine Clarity Clear Urine pH 7.0 Urine Specific [place] 1.020 Urine Protein >=300 mg/dL (NEG-TRACE) Urine Glucose (UA) 100 mg/dL (NEG) Urine Ketones (Stick) Trace mg/dL (NEG) Urine Blood Trace (NEG) Urine Nitrite Negative (NEG) Urine Bilirubin Negative (NEG) Urine Urobilinogen Dipstick 0.2 mg/dL (0.2 mg/dL) Urine Leukocyte Esterase Negative (NEG) Urine RBC 1-2 /HPF (0-2) Urine WBC Occ /HPF (0-4) Urine Bacteria 0 /HPF (0-FEW) Urine Hyaline Casts Occasional /HPF Vitamin B12 Level 1872 pg/mL (247-911) Glucose (Fingerstick) 209 mg/dL (70-99) Test 9/5/17 11:53 04/04/17 16:51 04/04/17 20:39 04/05/17 04:14 Glucose (Fingerstick) 213 mg/dL (70-99) 169 mg/dL (70-99) 146 mg/dL (70-99) Erythrocyte Sedimentation Rate 51 (0-15) Thyroid Stimulating Hormone (TSH) 0.914 uIU/mL (0.358-3.74) Test 04/05/17 07:28 04/05/17 11:38 Glucose (Fingerstick) 200 mg/dL (70-99) 149 mg/dL (70-99) Laboratory Tests Test 04/04/17 11:53 04/04/17 16:51 04/04/17 20:39 04/05/17 04:14 Glucose (Fingerstick) 213 mg/dL (70-99) 169 mg/dL (70-99) 146 mg/dL (70-99) Erythrocyte Sedimentation Rate 51 (0-15) Thyroid Stimulating Hormone (TSH) 0.914 uIU/mL (0.358-3.74) Test 04/05/17 07:28 04/05/17 11:38 Glucose (Fingerstick) 200 mg/dL (70-99) 149 mg/dL (70-99) Microbiology 04/03/17 Blood Culture - Preliminary, Resulted NO GROWTH AFTER 1 DAY Medications Current Medications Ondansetron HCl (Zofran) 4 mg PRN Q8HRS PRN IV NAUSEA/VOMITING; Start 04/03/17 at 23:15; Stop 04/04/17 at 09:10; Status DC Morphine Sulfate 2 mg PRN Q2HR PRN IV SEVERE PAIN; Start 04/03/17 at 23:15; Stop 04/04/17 at 23:14; Status DC Acetaminophen (Tylenol) 650 mg PRN Q4HRS PRN PO FEVER Last administered on t 11:56; Start 04/03/17 at 23:15; Stop 04/04/17 at 23:14; Status DC Ondansetron HCl (Zofran) 4 mg PRN Q6HRS PRN IV NAUSEA/VOMITING; Start 04/04/17 at 09:15; Stop 04/05/17 at 09:14; Status DC Labetalol HCl (Normodyne) 10 mg PRN Q2HR PRN IVP HYPERTENSION, SEE COMMENTS; Start 04/04/17 at 09:15 Insulin Aspart (NovoLOG) 0-9 UNITS TIDWMEALS SQ Last administered on 04/05/17 08:53; Start 04/04/17 at 12:00 Dextrose (Dextrose 50%-Water Syringe) 12.5 gm PRN Q15MIN PRN IV SEE COMMENTS; Start 04/04/17 at 09:15 Acetaminophen (Tylenol) 650 mg QID PRN PO FEVER; Start 04/04/17 at 09:15 Amlodipine Besylate (Norvasc) 5 mg DAILY PO Last administered on 04/05/17 08:35 ; Start 04/05/17 at 09:00 Apixaban (Eliquis) 5 mg BID PO Last administered on 04/05/17 08:36; Start at 10:00 Aspirin (Ecotrin) 81 mg DAILYWBKFT PO Last administered on 04/05/17 08:36; Start 04/04/17 at 10:00 Atorvastatin Calcium (Lipitor) 10 mg HS PO Last administered on 04/04/17 20:21 ; Start 04/04/17 at 21:00 Vitamin D (Vitamin D3) 1,000 unit DAILY PO Last administered on 04/05/17 08:35 ; Start 04/04/17 at 10:00 Cyanocobalamin (Vitamin B-12) 1,000 mcg DAILY PO Last administered on 04/05/17 08:35; Start 04/04/17 at 10:00 Docusate Sodium (Colace) 100 mg DAILY PO Last administered on 04/05/17 08:35; Start 04/04/17 at 10:00 Furosemide (Lasix) 40 mg DAILY PO Last administered on 04/05/17 08:35; Start at 10:00 Guaifenesin (Mucinex) 600 mg BID PRN PO COUGH; Start 04/04/17 at 09:15 Insulin Aspart (NovoLOG) 15 units BIDWMEALS SQ Last administered on 04/05/17 08 :53; Start 04/04/17 at 17:00 Insulin Detemir (Levemir) 10 units QHS SQ Last administered on 04/04/17 21:42; Start 04/04/17 at 21:00 Metoprolol Succinate (Toprol Xl) 50 mg DAILY PO Last administered on 04/05/17 08:36; Start 04/04/17 at 10:00 Nitroglycerin (Nitrostat) 0.4 mg QID PRN SL cp q 5 mins; Start 04/04/17 at 09:15 Oxycodone/ Acetaminophen (Percocet 7.5/ 325) 1 tab PRN Q6HRS PRN PO PAIN; Start 04/04/17 at 09:15; Status Cancel Oxycodone/ Acetaminophen (Percocet 7.5/ 325) 1 tab PRN Q4HRS PRN PO PAIN Last administered on 04/05/17 00:33; Start 04/04/17 at 12:00 Pantoprazole Sodium (Protonix) 40 mg DAILYAC PO Last administered on 04/05/17 08:35; Start 04/04/17 at 10:00 Polyethylene Glycol (miraLAX PACKET) 17 gm DAILY PO Last administered on 08:36; Start 04/04/17 at 10:00 Sennosides (Senna) 8.6 mg HS PO ; Start 04/04/17 at 21:00; Status UNV Senna/Docusate Sodium (Senna Plus) 1 tab BID PO Last administered on 04/05/17 08:36; Start 04/04/17 at 10:00 Senna/Docusate Sodium (Senna Plus) 2 tab HS PO ; Start 04/04/17 at 21:00; Status UNV Magnesium Hydroxide (Milk Of Magnesia) 2,400 mg PRN DAILY PRN PO CONSTIPATION; Start 04/04/17 at 09:30 Active Scripts Active Oxycodon-Acetaminophen 7.5-325 (Oxycodone Hcl/Acetaminophen) 1 Each Tablet 1 Tab PO PRN Q6HRS PRN Milk Of Magnesia (Magnesium Hydroxide) 2,400 Mg/10 Ml Oral.susp 2,400 Mg PO DAILY PRN Miralax (Polyethylene Glycol 3350) 17 Gm Powd.pack 1 Packet PO DAILY Colace (Docusate Sodium) 100 Mg Capsule 100 Mg PO DAILY Lasix (Furosemide) 40 Mg Tablet 1 Tab PO DAILY Levemir Flextouch (Insulin Detemir) 100 Unit/1 Ml Insuln.pen 10 Units SQ QHS 30 Days Eliquis (Apixaban) 5 Mg Tablet 5 Mg PO BID 30 Days Reported Percocet 7.5-325 Mg Tablet (Oxycodone/Acetaminophen) 1 Each Tablet 1 Tab PO Q4HRS Novolog Flexpen (Insulin Aspart) 100 Unit/1 Ml Insuln.pen 15 Unit SQ BID Cephalexin 500 Mg Tablet 500 Mg PO BID Amlodipine Besylate 5 Mg Tablet 5 Mg PO DAILY Senexon (Sennosides) 8.6 Mg Tablet 8.6 Mg PO HS Senexon-S Tablet (Sennosides/Docusate Sodium) 1 Each Tablet 1 Each PO Metoprolol Succinate ( Xl ) (Metoprolol Succinate) 25 Mg Tab.er.24h 50 Mg PO DAILY Protonix (Pantoprazole Sodium) 40 Mg Tablet.dr 40 Mg PO DAILY Mucinex (Guaifenesin) 600 Mg Tablet.er 1 Tab PO BID PRN Atorvastatin Calcium 10 Mg Tablet 10 Mg PO HS Tylenol (Acetaminophen) 325 Mg Tablet 650 Mg PO PRN Q4-6HRS PRN Aspir 81 (Aspirin) 81 Mg Tablet.dr 1 Tab PO DAILY Vitamin D3 (Cholecalciferol (Vitamin D3)) 1,000 Unit Tablet 800 Unit PO DAILY Vitamin B-12 (Cyanocobalamin (Vitamin B-12)) 1,000 Mcg Tablet 1 Tab PO DAILY Nitrostat (Nitroglycerin) 0.4 Mg Tab.subl 1 Tab SL UD Senokot-S Tablet (Sennosides/Docusate Sodium) 1 Each Tablet 2 Tab PO HS Gabapentin 300 Mg Capsule 300 Mg PO HS Vitals/I & O Vital Sign - Last 24 Hours 04/04/17 04/04/17 04/04/17 04/04/17 11:57 15:16 19:00 20:20 Temp 98.0 97.3 98.0 97.3 Pulse 57 80 60 Resp 20 20 B/P (MAP) 178/91 149/69 (95) 146/107 (120) Pulse Ox 97 100 O2 Delivery Room Air Room Air Room Air 04/04/17 04/05/17 04/05/17 04/05/17 23:00 03:13 07:08 08:35 Temp 97.7 97.7 98.7 97.7 97.7 98.7 Pulse 65 62 61 61 Resp 20 20 20 B/P (MAP) 137/58 (84) 135/66 (89) 148/58 (88) 148/58 Pulse Ox 98 96 97 O2 Delivery Room Air Room Air Room Air 04/05/17 04/05/17 08:36 10:39 Temp 98.9 98.9 Pulse 61 68 Resp 19 B/P (MAP) 148/58 128/56 (80) Pulse Ox 94 O2 Delivery Room Air Intake and Output 04/05/17 04/05/17 04/06/17 15:00 23:00 07:00 Intake Total 720 ml Balance 720 ml Images MRI brain: Findings: There is severe motion degradation.There is no convincing evidence of recent infarct or cytotoxic edema. There are is anterior gliosis of the choroid plexus bilaterally. Ventricular size is proportionate to the sulcal spaces. There is [id number] generalized supratentorial atrophy. There is no significant midline shift, mass effect, or focal abnormal extra-axial fluid collection. There is probable mild T2 and FLAIR hyperintense signal abnormality of the supratentorial white matter bilaterally. There is preservation of the major intracranial flow-voids at the skull base. There is fairly severe fluid of the left mastoid air cells, right mastoid air cells aerated. There has been lens surgery bilaterally.The cerebellar tonsils are normal in location. There is no significant abnormality of the pineal gland or pituitary gland. There is moderate to severe left maxillary sinus mucosal thickening with air-fluid level. There is patchy ohrs-yy-johhtjoc ethmoid air cell mucosal thickening, also minimally of the frontal sinus. There is nonspecific disconjugate gaze. There is preserved marrow signal of the clivus. Impression: 1. Exam is degraded by motion. There is no evidence of recent infarct or intracranial mass effect. There is utnw-rv-fyngeogi generalized supratentorial atrophy. Mild T2 and FLAIR hyperintense signal abnormality of the supratentorial white matter is probably due to chronic microvascular ischemic disease. 2. There is prominent fluid of the left mastoid air cells, uncertain sterility. 3. There is left maxillary sinus mucosal thickening with air-fluid level which could be due to acute sinusitis. JOSE ALBERTO ROMERO MD Apr 05, 2017 11:48
[2017-04-05] MEDS: DONEPEZIL HCL 10 MG TABLET. PO SCH (12:19)
[2017-04-05 12:34] LABS: FOLATE 5.84 ng/ml (3.2-20.0)
--- NOTE | 2017-04-05 13:27 | PDOC ---
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 no further intervention MRI no stroke, ? acute sinusitis, no need treatment unless fever or obvious symptoms cont home meds on insulin, SSI ptot dvt ppx SW for SNF History of Present Illness History of Present Illness ROS: no fever, chills, sob or chest pain agitated sometime AAOX1 to person only Vitals Vitals Vital Signs Date Time Temp Pulse Resp B/P (MAP) Pulse Ox O2 Delivery O2 Flow Rate FiO2 04/05/17 10:39 98.9 68 19 128/56 (80) 94 Room Air 98.9 Physical Exam Physical Exam aaox1 agitated Heart: Regular rate, Normal S1 Lungs: Clear, Other Abdomen: Normal bowel sounds, Soft, No tenderness Extremities: No clubbing, No cyanosis, No edema, Normal pulses, No tenderness/ swelling Skin: No rashes, No breakdown, No significant lesion Labs LABS Laboratory Tests Test 04/04/17 16:51 04/04/17 20:39 04/05/17 04:14 04/05/17 07:28 Glucose (Fingerstick) 169 mg/dL (70-99) 146 mg/dL (70-99) 200 mg/dL (70-99) Erythrocyte Sedimentation Rate 51 (0-15) Vitamin B12 Level 1923 pg/mL (247-911) Serum Folate 5.84 ng/ml (3.2-20.0) Thyroid Stimulating Hormone (TSH) 0.914 uIU/mL (0.358-3.74) Test 04/05/17 11:38 Glucose (Fingerstick) 149 mg/dL (70-99) Assessment and Plan Assessmemt and Plan Problems Medical Problems: (1) Altered mental status Status: Acute Problems: Comment Review of Relevant I have reviewed the following items ivette (where applicable) has been applied. Labs Laboratory Tests Test 04/03/17 19:15 04/03/17 20:40 04/04/17 03:40 04/04/17 07:54 White Blood Count 7.7 x10^3/uL (4.0-11.0) 5.5 x10^3/uL (4.0-11.0) Red Blood Count 3.53 x10^6/uL (4.30-5.70) 3.59 x10^6/uL (4.30-5.70) Hemoglobin 10.7 g/dL (13.0-17.5) 10.9 g/dL (13.0-17.5) Hematocrit 31.6 % (39.0-53.0) 31.4 % (39.0-53.0) Mean Corpuscular Volume 90 fL (79-100) 88 fL (79-100) Mean Corpuscular Hemoglobin 30 pg (25-35) 30 pg (25-35) Mean Corpuscular Hemoglobin Concent 34 g/dL (31-37) 35 g/dL (31-37) Red Cell Distribution Width 14.3 % (11.5-14.5) 14.3 % (11.5-14.5) Platelet Count 147 x10^3/uL (140-400) 137 x10^3/uL (140-400) Neutrophils (%) (Auto) 80 % (31-73) 75 % (31-73) Lymphocytes (%) (Auto) 8 % (24-48) 10 % (24-48) Monocytes (%) (Auto) 7 % (0-9) 9 % (0-9) Eosinophils (%) (Auto) 4 % (0-3) 6 % (0-3) Basophils (%) (Auto) 0 % (0-3) 1 % (0-3) Neutrophils # (Auto) 6.2 x10^3uL (1.8-7.7) 4.1 x10^3uL (1.8-7.7) Lymphocytes # (Auto) 0.6 x10^3/uL (1.0-4.8) 0.5 x10^3/uL (1.0-4.8) Monocytes # (Auto) 0.6 x10^3/uL (0.0-1.1) 0.5 x10^3/uL (0.0-1.1) Eosinophils # (Auto) 0.3 x10^3/uL (0.0-0.7) 0.3 x10^3/uL (0.0-0.7) Basophils # (Auto) 0.0 x10^3/uL (0.0-0.2) 0.0 x10^3/uL (0.0-0.2) Sodium Level 140 mmol/L (136-145) 141 mmol/L (136-145) Potassium Level 3.4 mmol/L (3.5-5.1) 3.8 mmol/L (3.5-5.1) Chloride Level 104 mmol/L (98-107) 104 mmol/L (98-107) Carbon Dioxide Level 28 mmol/L (21-32) 29 mmol/L (21-32) Anion Gap 8 (6-14) 8 (6-14) Blood Urea Nitrogen 18 mg/dL (8-26) 17 mg/dL (8-26) Creatinine 1.5 mg/dL (0.7-1.3) 1.4 mg/dL (0.7-1.3) Estimated GFR (Cockcroft-Gault) 45.4 49.1 BUN/Creatinine Ratio 12 (6-20) Glucose Level 143 mg/dL (70-99) 186 mg/dL (70-99) Lactic Acid Level 1.3 mmol/L (0.4-2.0) Calcium Level 9.0 mg/dL (8.5-10.1) 8.7 mg/dL (8.5-10.1) Total Bilirubin 0.4 mg/dL (0.2-1.0) Aspartate Amino Transf (AST/SGOT) 19 U/L (15-37) Alanine Aminotransferase (ALT/SGPT) 18 U/L (16-63) Alkaline Phosphatase 89 U/L (46-116) Troponin I Quantitative < 0.017 ng/mL (0.000-0.055) Total Protein 5.9 g/dL (6.4-8.2) Albumin 2.9 g/dL (3.4-5.0) Albumin/Globulin Ratio 1.0 (1.0-1.7) Lipase 67 U/L (73-393) Urine Collection Type U cath Urine Color Yellow Urine Clarity Clear Urine pH 7.0 Urine Specific [place] 1.020 Urine Protein >=300 mg/dL (NEG-TRACE) Urine Glucose (UA) 100 mg/dL (NEG) Urine Ketones (Stick) Trace mg/dL (NEG) Urine Blood Trace (NEG) Urine Nitrite Negative (NEG) Urine Bilirubin Negative (NEG) Urine Urobilinogen Dipstick 0.2 mg/dL (0.2 mg/dL) Urine Leukocyte Esterase Negative (NEG) Urine RBC 1-2 /HPF (0-2) Urine WBC Occ /HPF (0-4) Urine Bacteria 0 /HPF (0-FEW) Urine Hyaline Casts Occasional /HPF Vitamin B12 Level 1872 pg/mL (139-911) Glucose (Fingerstick) 209 mg/dL (70-99) Test 04/04/17 11:53 04/04/17 16:51 04/04/17 20:39 04/05/17 04:14 Glucose (Fingerstick) 213 mg/dL (70-99) 169 mg/dL (70-99) 146 mg/dL (70-99) Erythrocyte Sedimentation Rate 51 (0-15) Vitamin B12 Level 1923 pg/mL (531-911) Serum Folate 5.84 ng/ml (3.2-20.0) Thyroid Stimulating Hormone (TSH) 0.914 uIU/mL (0.358-3.74) Test 04/05/17 07:28 04/05/17 11:38 Glucose (Fingerstick) 200 mg/dL (70-99) 149 mg/dL (70-99) Laboratory Tests Test 04/04/17 16:51 04/04/17 20:39 04/05/17 04:14 04/05/17 07:28 Glucose (Fingerstick) 169 mg/dL (70-99) 146 mg/dL (70-99) 200 mg/dL (70-99) Erythrocyte Sedimentation Rate 51 (0-15) Vitamin B12 Level 1923 pg/mL (247-911) Serum Folate 5.84 ng/ml (3.2-20.0) Thyroid Stimulating Hormone (TSH) 0.914 uIU/mL (0.358-3.74) Test 04/05/17 11:38 Glucose (Fingerstick) 149 mg/dL (70-99) Microbiology 04/03/17 Blood Culture - Preliminary, Resulted NO GROWTH AFTER 1 DAY Medications Current Medications Ondansetron HCl (Zofran) 4 mg PRN Q8HRS PRN IV NAUSEA/VOMITING; Start 04/03/17 at 23:15; Stop 04/04/17 at 09:10; Status DC Morphine Sulfate 2 mg PRN Q2HR PRN IV SEVERE PAIN; Start 04/03/17 at 23:15; Stop 04/04/17 at 23:14; Status DC Acetaminophen (Tylenol) 650 mg PRN Q4HRS PRN PO FEVER Last administered on 11:56; Start 04/03/17 at 23:15; Stop 04/04/17 at 23:14; Status DC Ondansetron HCl (Zofran) 4 mg PRN Q6HRS PRN IV NAUSEA/VOMITING; Start 04/04/17 at 09:15; Stop 04/05/17 at 09:14; Status DC Labetalol HCl (Normodyne) 10 mg PRN Q2HR PRN IVP HYPERTENSION, SEE COMMENTS; Start 04/04/17 at 09:15 Insulin Aspart (NovoLOG) 0-9 UNITS TIDWMEALS SQ Last administered on 04/05/17 08:53; Start 04/04/17 at 12:00 Dextrose (Dextrose 50%-Water Syringe) 12.5 gm PRN Q15MIN PRN IV SEE COMMENTS; Start 04/04/17 at 09:15 Acetaminophen (Tylenol) 650 mg QID PRN PO FEVER; Start 04/04/17 at 09:15 Amlodipine Besylate (Norvasc) 5 mg DAILY PO Last administered on 04/05/17 08:35 ; Start 04/05/17 at 09:00 Apixaban (Eliquis) 5 mg BID PO Last administered on 04/05/17 08:36; Start at 10:00 Aspirin (Ecotrin) 81 mg DAILYWBKFT PO Last administered on 04/05/17 08:36; Start 04/04/17 at 10:00 Atorvastatin Calcium (Lipitor) 10 mg HS PO Last administered on 04/04/17 20:21 ; Start 04/04/17 at 21:00 Vitamin D (Vitamin D3) 1,000 unit DAILY PO Last administered on 04/05/17 08:35 ; Start 04/04/17 at 10:00 Cyanocobalamin (Vitamin B-12) 1,000 mcg DAILY PO Last administered on 04/05/17 08:35; Start 04/04/17 at 10:00 Docusate Sodium (Colace) 100 mg DAILY PO Last administered on 04/05/17 08:35; Start 04/04/17 at 10:00 Furosemide (Lasix) 40 mg DAILY PO Last administered on 04/05/17 08:35; Start at 10:00 Guaifenesin (Mucinex) 600 mg BID PRN PO COUGH; Start 04/04/17 at 09:15 Insulin Aspart (NovoLOG) 15 units BIDWMEALS SQ Last administered on 04/05/17 08 :53; Start 04/04/17 at 17:00 Insulin Detemir (Levemir) 10 units QHS SQ Last administered on 04/04/17 21:42; Start 04/04/17 at 21:00 Metoprolol Succinate (Toprol Xl) 50 mg DAILY PO Last administered on 04/05/17 08:36; Start 04/04/17 at 10:00 Nitroglycerin (Nitrostat) 0.4 mg QID PRN SL cp q 5 mins; Start 04/04/17 at 09:15 Oxycodone/ Acetaminophen (Percocet 7.5/ 325) 1 tab PRN Q6HRS PRN PO PAIN; Start 04/04/17 at 09:15; Status Cancel Oxycodone/ Acetaminophen (Percocet 7.5/ 325) 1 tab PRN Q4HRS PRN PO PAIN Last administered on 04/05/17 00:33; Start 04/04/17 at 12:00 Pantoprazole Sodium (Protonix) 40 mg DAILYAC PO Last administered on 04/05/17 08:35; Start 04/04/17 at 10:00 Polyethylene Glycol (miraLAX PACKET) 17 gm DAILY PO Last administered on 08:36; Start 04/04/17 at 10:00 Sennosides (Senna) 8.6 mg HS PO ; Start 04/04/17 at 21:00; Status UNV Senna/Docusate Sodium (Senna Plus) 1 tab BID PO Last administered on 04/05/17 08:36; Start 04/04/17 at 10:00 Senna/Docusate Sodium (Senna Plus) 2 tab HS PO ; Start 04/04/17 at 21:00; Status UNV Magnesium Hydroxide (Milk Of Magnesia) 2,400 mg PRN DAILY PRN PO CONSTIPATION; Start 04/04/17 at 09:30 Donepezil HCl (Aricept) 10 mg DAILY PO Last administered on 04/05/17t 12:19; Start 04/05/17 at 12:00 Active Scripts Active Oxycodon-Acetaminophen 7.5-325 (Oxycodone Hcl/Acetaminophen) 1 Each Tablet 1 Tab PO PRN Q6HRS PRN Milk Of Magnesia (Magnesium Hydroxide) 2,400 Mg/10 Ml Oral.susp 2,400 Mg PO DAILY PRN Miralax (Polyethylene Glycol 3350) 17 Gm Powd.pack 1 Packet PO DAILY Colace (Docusate Sodium) 100 Mg Capsule 100 Mg PO DAILY Lasix (Furosemide) 40 Mg Tablet 1 Tab PO DAILY Levemir Flextouch (Insulin Detemir) 100 Unit/1 Ml Insuln.pen 10 Units SQ QHS 30 Days Eliquis (Apixaban) 5 Mg Tablet 5 Mg PO BID 30 Days Reported Percocet 7.5-325 Mg Tablet (Oxycodone/Acetaminophen) 1 Each Tablet 1 Tab PO Q4HRS Novolog Flexpen (Insulin Aspart) 100 Unit/1 Ml Insuln.pen 15 Unit SQ BID Cephalexin 500 Mg Tablet 500 Mg PO BID Amlodipine Besylate 5 Mg Tablet 5 Mg PO DAILY Senexon (Sennosides) 8.6 Mg Tablet 8.6 Mg PO HS Senexon-S Tablet (Sennosides/Docusate Sodium) 1 Each Tablet 1 Each PO Metoprolol Succinate ( Xl ) (Metoprolol Succinate) 25 Mg Tab.er.24h 50 Mg PO DAILY Protonix (Pantoprazole Sodium) 40 Mg Tablet.dr 40 Mg PO DAILY Mucinex (Guaifenesin) 600 Mg Tablet.er 1 Tab PO BID PRN Atorvastatin Calcium 10 Mg Tablet 10 Mg PO HS Tylenol (Acetaminophen) 325 Mg Tablet 650 Mg PO PRN Q4-6HRS PRN Aspir 81 (Aspirin) 81 Mg Tablet.dr 1 Tab PO DAILY Vitamin D3 (Cholecalciferol (Vitamin D3)) 1,000 Unit Tablet 800 Unit PO DAILY Vitamin B-12 (Cyanocobalamin (Vitamin B-12)) 1,000 Mcg Tablet 1 Tab PO DAILY Nitrostat (Nitroglycerin) 0.4 Mg Tab.subl 1 Tab SL UD Senokot-S Tablet (Sennosides/Docusate Sodium) 1 Each Tablet 2 Tab PO HS Gabapentin 300 Mg Capsule 300 Mg PO HS Vitals/I & O Vital Sign - Last 24 Hours 04/04/17 04/04/17 04/04/17 04/04/17 15:16 19:00 20:20 23:00 Temp 98.0 97.3 97.7 98.0 97.3 97.7 Pulse 80 60 65 Resp 20 20 20 B/P (MAP) 149/69 (95) 146/107 (120) 137/58 (84) Pulse Ox 97 100 98 O2 Delivery Room Air Room Air Room Air Room Air 04/05/17 04/05/17 04/05/17 04/05/17 03:13 07:08 08:00 08:35 Temp 97.7 98.7 97.7 98.7 Pulse 62 61 61 Resp 20 20 B/P (MAP) 135/66 (89) 148/58 (88) 148/58 Pulse Ox 96 97 O2 Delivery Room Air Room Air Room Air 04/05/17 04/05/17 08:36 10:39 Temp 98.9 98.9 Pulse 61 68 Resp 19 B/P (MAP) 148/58 128/56 (80) Pulse Ox 94 O2 Delivery Room Air Intake and Output 04/05/17 04/05/17 04/06/17 15:00 23:00 07:00 Intake Total 1220 ml Output Total 800 ml Balance 420 ml OBDULIO HER MD Apr 05, 2017 13:26
[2017-04-05 14:54] VITALS: BP 106/47
[2017-04-05 19:59] VITALS: BP_SYST 122; BP_DIAS 54; BP_DIAS 59
[2017-04-05] MEDS: ATORVASTATIN CALCIUM 10 MG TABLET. PO SCH (20:58)
[2017-04-05] MEDS: INSULIN DETEMIR 300 UNITS/3 ML INSULN.PEN. SQ SCH (21:04)
[2017-04-05 23:59] VITALS: BP 107/57
[2017-04-06 03:16] VITALS: BP 122/50
[2017-04-06 04:58] LABS: BASO % 0 % (0-3); EOS % 6 % (0-3); HEMATOCRIT 30.9 % (39.0-53.0); HEMOGLOBIN 10.5 g/dL (13.0-17.5); LYMPH # 0.8 x10^3/uL (1.0-4.8); LYMPH % 14 % (24-48); MEAN CORPUSCULAR HEMOGLOBIN 30 pg (25-35); MEAN CORPUSCULAR HGB CONC 34 g/dL (31-37); MEAN CORPUSCULAR VOLUME 89 fL (79-100); MONO % 10 % (0-9); NEUT % 70 % (31-73); PLATELET COUNT 136 x10^3/uL (140-400); RED BLOOD COUNT 3.46 x10^6/uL (4.30-5.70); RED CELL DISTRIBUTION WIDTH 14.5 % (11.5-14.5); WHITE BLOOD COUNT 6.1 x10^3/uL (4.0-11.0)
[2017-04-06 05:09] LABS: CREATININE 1.8 mg/dL (0.7-1.3); GFR 36.8; POTASSIUM 3.8 mmol/L (3.5-5.1)
[2017-04-06] MEDS: oxyCODONE/APAP 7.5/325 1 TAB TABLET PO PRN ×4 (05:22→21:15)
[2017-04-06 07:30] VITALS: BP 127/64
[2017-04-06] MEDS: CYANOCOBALAMIN (VITAMIN B-12) 1,000 MCG TABLET. PO SCH (09:00)
[2017-04-06] MEDS: DOCUSATE SODIUM 100 MG CAPSULE. PO SCH (09:06)
[2017-04-06] MEDS: FUROSEMIDE 40 MG TABLET. PO SCH (09:06)
[2017-04-06] MEDS: CHOLECALCIFEROL (VITAMIN D3) 1,000 UNIT TABLET PO SCH (09:06)
[2017-04-06] MEDS: METOPROLOL SUCC 24HR ER 50 MG TAB.ER.24H. PO SCH (09:06)
[2017-04-06] MEDS: PANTOPRAZOLE 40 MG TABLET.DR. PO SCH (09:06)
[2017-04-06] MEDS: APIXABAN 5 MG TABLET. PO SCH ×2 (09:06→21:15)
[2017-04-06] MEDS: DONEPEZIL HCL 10 MG TABLET. PO SCH (09:06)
[2017-04-06] MEDS: ASPIRIN ENTERIC COATED 81 MG TABLET.DR. PO SCH (09:06)
[2017-04-06] MEDS: SENNOSIDES/DOCUSATE 8.6/50MG TABLET. PO SCH ×2 (09:06→21:15)
[2017-04-06] MEDS: amLODIPine BESYLATE 5 MG TABLET PO SCH (09:07)
[2017-04-06] MEDS: POLYETHYLENE GLYCOL 3350 17 GM PACKET. PO SCH (09:07)
[2017-04-06] MEDS: INSULIN ASPART 300 UNITS/3 ML INSULN.PEN SQ SCH ×5 (09:10→17:00)
[2017-04-06 11:02] VITALS: BP 115/64
[2017-04-06] MEDS: IV NORMAL SALINE 1000ML BAG 1,000 ML IV SCH ×2 (11:44→21:20)
--- NOTE | 2017-04-06 13:33 | PDOC ---
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 no further intervention MRI no stroke, ? acute sinusitis, no need treatment unless fever or obvious symptoms cont home meds on insulin, SSI, increase levemir to 20u qhs ptot dvt ppx SW for SNF dc lasix, IVF for now History of Present Illness History of Present Illness ROS: no fever, chills, sob or chest pain agitated sometime, still very confused, trying to talk to me but thinking for a long time and cannot tell me AAOX1 to person only Vitals Vitals Vital Signs Date Time Temp Pulse Resp B/P (MAP) Pulse Ox O2 Delivery O2 Flow Rate FiO2 04/06/17 11:02 97.7 59 18 115/64 (81) 93 Room Air 97.7 Physical Exam Physical Exam aaox1 agitated Heart: Regular rate, Normal S1 Lungs: Clear, Other Abdomen: Normal bowel sounds, Soft, No tenderness Extremities: No clubbing, No cyanosis, No edema, Normal pulses, No tenderness/ swelling Skin: No rashes, No breakdown, No significant lesion Labs LABS Laboratory Tests Test 04/05/17 16:50 04/05/17 20:47 04/06/17 04:35 04/06/17 07:37 Glucose (Fingerstick) 174 mg/dL (70-99) 147 mg/dL (70-99) 249 mg/dL (70-99) White Blood Count 6.1 x10^3/uL (4.0-11.0) Red Blood Count 3.46 x10^6/uL (4.30-5.70) Hemoglobin 10.5 g/dL (13.0-17.5) Hematocrit 30.9 % (39.0-53.0) Mean Corpuscular Volume 89 fL (79-100) Mean Corpuscular Hemoglobin 30 pg (25-35) Mean Corpuscular Hemoglobin Concent 34 g/dL (31-37) Red Cell Distribution Width 14.5 % (11.5-14.5) Platelet Count 136 x10^3/uL (140-400) Neutrophils (%) (Auto) 70 % (31-73) Lymphocytes (%) (Auto) 14 % (24-48) Monocytes (%) (Auto) 10 % (0-9) Eosinophils (%) (Auto) 6 % (0-3) Basophils (%) (Auto) 0 % (0-3) Neutrophils # (Auto) 4.2 x10^3uL (1.8-7.7) Lymphocytes # (Auto) 0.8 x10^3/uL (1.0-4.8) Monocytes # (Auto) 0.6 x10^3/uL (0.0-1.1) Eosinophils # (Auto) 0.4 x10^3/uL (0.0-0.7) Basophils # (Auto) 0.0 x10^3/uL (0.0-0.2) Sodium Level 139 mmol/L (136-145) Potassium Level 3.8 mmol/L (3.5-5.1) Chloride Level 103 mmol/L (98-107) Carbon Dioxide Level 28 mmol/L (21-32) Anion Gap 8 (6-14) Blood Urea Nitrogen 25 mg/dL (8-26) Creatinine 1.8 mg/dL (0.7-1.3) Estimated GFR (Cockcroft-Gault) 36.8 Glucose Level 245 mg/dL (70-99) Calcium Level 8.0 mg/dL (8.5-10.1) Test 04/06/17 12:06 Glucose (Fingerstick) 172 mg/dL (70-99) Assessment and Plan Assessmemt and Plan Problems Medical Problems: (1) Altered mental status Status: Acute Problems: Comment Review of Relevant I have reviewed the following items ivette (where applicable) has been applied. Labs Laboratory Tests Test 04/04/17 16:51 04/04/17 20:39 04/05/17 04:14 04/05/17 07:28 Glucose (Fingerstick) 169 mg/dL (70-99) 146 mg/dL (70-99) 200 mg/dL (70-99) Erythrocyte Sedimentation Rate 51 (0-15) Vitamin B12 Level 1923 pg/mL (247-911) Serum Folate 5.84 ng/ml (3.2-20.0) Thyroid Stimulating Hormone (TSH) 0.914 uIU/mL (0.358-3.74) Test 04/05/17 11:38 04/05/17 16:50 04/05/17 20:47 04/06/17 04:35 Glucose (Fingerstick) 149 mg/dL (70-99) 174 mg/dL (70-99) 147 mg/dL (70-99) White Blood Count 6.1 x10^3/uL (4.0-11.0) Red Blood Count 3.46 x10^6/uL (4.30-5.70) Hemoglobin 10.5 g/dL (13.0-17.5) Hematocrit 30.9 % (39.0-53.0) Mean Corpuscular Volume 89 fL (79-100) Mean Corpuscular Hemoglobin 30 pg (25-35) Mean Corpuscular Hemoglobin Concent 34 g/dL (31-37) Red Cell Distribution Width 14.5 % (11.5-14.5) Platelet Count 136 x10^3/uL (140-400) Neutrophils (%) (Auto) 70 % (31-73) Lymphocytes (%) (Auto) 14 % (24-48) Monocytes (%) (Auto) 10 % (0-9) Eosinophils (%) (Auto) 6 % (0-3) Basophils (%) (Auto) 0 % (0-3) Neutrophils # (Auto) 4.2 x10^3uL (1.8-7.7) Lymphocytes # (Auto) 0.8 x10^3/uL (1.0-4.8) Monocytes # (Auto) 0.6 x10^3/uL (0.0-1.1) Eosinophils # (Auto) 0.4 x10^3/uL (0.0-0.7) Basophils # (Auto) 0.0 x10^3/uL (0.0-0.2) Sodium Level 139 mmol/L (136-145) Potassium Level 3.8 mmol/L (3.5-5.1) Chloride Level 103 mmol/L (98-107) Carbon Dioxide Level 28 mmol/L (21-32) Anion Gap 8 (6-14) Blood Urea Nitrogen 25 mg/dL (8-26) Creatinine 1.8 mg/dL (0.7-1.3) Estimated GFR (Cockcroft-Gault) 36.8 Glucose Level 245 mg/dL (70-99) Calcium Level 8.0 mg/dL (8.5-10.1) Test 04/06/17 07:37 04/06/17 12:06 Glucose (Fingerstick) 249 mg/dL (70-99) 172 mg/dL (70-99) Laboratory Tests Test 04/05/17 16:50 04/05/17 20:47 04/06/17 04:35 04/06/17 07:37 Glucose (Fingerstick) 174 mg/dL (70-99) 147 mg/dL (70-99) 249 mg/dL (70-99) White Blood Count 6.1 x10^3/uL (4.0-11.0) Red Blood Count 3.46 x10^6/uL (4.30-5.70) Hemoglobin 10.5 g/dL (13.0-17.5) Hematocrit 30.9 % (39.0-53.0) Mean Corpuscular Volume 89 fL (79-100) Mean Corpuscular Hemoglobin 30 pg (25-35) Mean Corpuscular Hemoglobin Concent 34 g/dL (31-37) Red Cell Distribution Width 14.5 % (11.5-14.5) Platelet Count 136 x10^3/uL (140-400) Neutrophils (%) (Auto) 70 % (31-73) Lymphocytes (%) (Auto) 14 % (24-48) Monocytes (%) (Auto) 10 % (0-9) Eosinophils (%) (Auto) 6 % (0-3) Basophils (%) (Auto) 0 % (0-3) Neutrophils # (Auto) 4.2 x10^3uL (1.8-7.7) Lymphocytes # (Auto) 0.8 x10^3/uL (1.0-4.8) Monocytes # (Auto) 0.6 x10^3/uL (0.0-1.1) Eosinophils # (Auto) 0.4 x10^3/uL (0.0-0.7) Basophils # (Auto) 0.0 x10^3/uL (0.0-0.2) Sodium Level 139 mmol/L (136-145) Potassium Level 3.8 mmol/L (3.5-5.1) Chloride Level 103 mmol/L (98-107) Carbon Dioxide Level 28 mmol/L (21-32) Anion Gap 8 (6-14) Blood Urea Nitrogen 25 mg/dL (8-26) Creatinine 1.8 mg/dL (0.7-1.3) Estimated GFR (Cockcroft-Gault) 36.8 Glucose Level 245 mg/dL (70-99) Calcium Level 8.0 mg/dL (8.5-10.1) Test 04/06/17 12:06 Glucose (Fingerstick) 172 mg/dL (70-99) Microbiology 04/03/17 Blood Culture - Preliminary, Resulted NO GROWTH AFTER 2 DAYS Medications Current Medications Ondansetron HCl (Zofran) 4 mg PRN Q8HRS PRN IV NAUSEA/VOMITING; Start 04/03/17 at 23:15; Stop 04/04/17 at 09:10; Status DC Morphine Sulfate 2 mg PRN Q2HR PRN IV SEVERE PAIN; Start 04/03/17 at 23:15; Stop 04/04/17 at 23:14; Status DC Acetaminophen (Tylenol) 650 mg PRN Q4HRS PRN PO FEVER Last administered on 11:56; Start 04/03/17 at 23:15; Stop 04/04/17 at 23:14; Status DC Ondansetron HCl (Zofran) 4 mg PRN Q6HRS PRN IV NAUSEA/VOMITING; Start 04/04/17 at 09:15; Stop 04/05/17 at 09:14; Status DC Labetalol HCl (Normodyne) 10 mg PRN Q2HR PRN IVP HYPERTENSION, SEE COMMENTS; Start 04/04/17 at 09:15 Insulin Aspart (NovoLOG) 0-9 UNITS TIDWMEALS SQ Last administered on 04/06/17 12:51; Start 04/04/17 at 12:00 Dextrose (Dextrose 50%-Water Syringe) 12.5 gm PRN Q15MIN PRN IV SEE COMMENTS; Start 04/04/17 at 09:15 Acetaminophen (Tylenol) 650 mg QID PRN PO FEVER; Start 04/04/17 at 09:15 Amlodipine Besylate (Norvasc) 5 mg DAILY PO Last administered on 04/06/17 09:07 ; Start 04/05/17 at 09:00 Apixaban (Eliquis) 5 mg BID PO Last administered on 04/06/17 09:06; Start at 10:00 Aspirin (Ecotrin) 81 mg DAILYWBKFT PO Last administered on 04/06/17 09:06; Start 04/04/17 at 10:00 Atorvastatin Calcium (Lipitor) 10 mg HS PO Last administered on 04/05/17 20:58 ; Start 04/04/17 at 21:00 Vitamin D (Vitamin D3) 1,000 unit DAILY PO Last administered on 04/06/17 09:06 ; Start 04/04/17 at 10:00 Cyanocobalamin (Vitamin B-12) 1,000 mcg DAILY PO Last administered on 04/05/17 08:35; Start 04/04/17 at 10:00 Docusate Sodium (Colace) 100 mg DAILY PO Last administered on 04/06/17 09:06; Start 04/04/17 at 10:00 Furosemide (Lasix) 40 mg DAILY PO Last administered on 04/06/17 09:06; Start at 10:00; Stop 04/06/17 at 11:19; Status DC Guaifenesin (Mucinex) 600 mg BID PRN PO COUGH; Start 04/04/17 at 09:15 Insulin Aspart (NovoLOG) 15 units BIDWMEALS SQ Last administered on 04/06/17 09 :11; Start 04/04/17 at 17:00 Insulin Detemir (Levemir) 10 units QHS SQ Last administered on 04/05/17 21:04; Start 04/04/17 at 21:00; Stop 04/06/17 at 09:52; Status DC Metoprolol Succinate (Toprol Xl) 50 mg DAILY PO Last administered on 04/06/17 09:06; Start 04/04/17 at 10:00 Nitroglycerin (Nitrostat) 0.4 mg QID PRN SL cp q 5 mins; Start 04/04/17 at 09:15 Oxycodone/ Acetaminophen (Percocet 7.5/ 325) 1 tab PRN Q6HRS PRN PO PAIN; Start 04/04/17 at 09:15; Status Cancel Oxycodone/ Acetaminophen (Percocet 7.5/ 325) 1 tab PRN Q4HRS PRN PO PAIN Last administered on 04/06/17 09:05; Start 04/04/17 at 12:00 Pantoprazole Sodium (Protonix) 40 mg DAILYAC PO Last administered on 04/06/17 09:06; Start 04/04/17 at 10:00 Polyethylene Glycol (miraLAX PACKET) 17 gm DAILY PO Last administered on 09:07; Start 04/04/17 at 10:00 Sennosides (Senna) 8.6 mg HS PO ; Start 04/04/17 at 21:00; Status UNV Senna/Docusate Sodium (Senna Plus) 1 tab BID PO Last administered on 04/06/17 09:06; Start 04/04/17 at 10:00 Senna/Docusate Sodium (Senna Plus) 2 tab HS PO ; Start 04/04/17 at 21:00; Status UNV Magnesium Hydroxide (Milk Of Magnesia) 2,400 mg PRN DAILY PRN PO CONSTIPATION; Start 04/04/17 at 09:30 Donepezil HCl (Aricept) 10 mg DAILY PO Last administered on 04/06/17 09:06; Start 04/05/17 at 12:00 Insulin Detemir (Levemir) 20 units QHS SQ ; Start 04/06/17 at 21:00 Gabapentin (Neurontin) 300 mg QHS PO ; Start 04/06/17 at 21:00 Sodium Chloride 1,000 ml @ 100 mls/hr Q10H IV Last administered on 04/06/17 11 :44; Start 04/06/17 at 11:30 Active Scripts Active Oxycodon-Acetaminophen 7.5-325 (Oxycodone Hcl/Acetaminophen) 1 Each Tablet 1 Tab PO PRN Q6HRS PRN Milk Of Magnesia (Magnesium Hydroxide) 2,400 Mg/10 Ml Oral.susp 2,400 Mg PO DAILY PRN Miralax (Polyethylene Glycol 3350) 17 Gm Powd.pack 1 Packet PO DAILY Colace (Docusate Sodium) 100 Mg Capsule 100 Mg PO DAILY Lasix (Furosemide) 40 Mg Tablet 1 Tab PO DAILY Levemir Flextouch (Insulin Detemir) 100 Unit/1 Ml Insuln.pen 10 Units SQ QHS 30 Days Eliquis (Apixaban) 5 Mg Tablet 5 Mg PO BID 30 Days Reported Percocet 7.5-325 Mg Tablet (Oxycodone/Acetaminophen) 1 Each Tablet 1 Tab PO Q4HRS Novolog Flexpen (Insulin Aspart) 100 Unit/1 Ml Insuln.pen 15 Unit SQ BID Cephalexin 500 Mg Tablet 500 Mg PO BID Amlodipine Besylate 5 Mg Tablet 5 Mg PO DAILY Senexon (Sennosides) 8.6 Mg Tablet 8.6 Mg PO HS Senexon-S Tablet (Sennosides/Docusate Sodium) 1 Each Tablet 1 Each PO Metoprolol Succinate ( Xl ) (Metoprolol Succinate) 25 Mg Tab.er.24h 50 Mg PO DAILY Protonix (Pantoprazole Sodium) 40 Mg Tablet.dr 40 Mg PO DAILY Mucinex (Guaifenesin) 600 Mg Tablet.er 1 Tab PO BID PRN Atorvastatin Calcium 10 Mg Tablet 10 Mg PO HS Tylenol (Acetaminophen) 325 Mg Tablet 650 Mg PO PRN Q4-6HRS PRN Aspir 81 (Aspirin) 81 Mg Tablet.dr 1 Tab PO DAILY Vitamin D3 (Cholecalciferol (Vitamin D3)) 1,000 Unit Tablet 800 Unit PO DAILY Vitamin B-12 (Cyanocobalamin (Vitamin B-12)) 1,000 Mcg Tablet 1 Tab PO DAILY Nitrostat (Nitroglycerin) 0.4 Mg Tab.subl 1 Tab SL UD Senokot-S Tablet (Sennosides/Docusate Sodium) 1 Each Tablet 2 Tab PO HS Gabapentin 300 Mg Capsule 300 Mg PO HS Vitals/I & O Vital Sign - Last 24 Hours 04/05/17 04/05/17 04/05/17 04/05/17 13:41 14:54 18:31 19:59 Temp 98.8 97.6 98.8 97.6 Pulse 60 61 Resp 20 18 B/P (MAP) 106/47 (66) 122/54 (76) Pulse Ox 96 97 O2 Delivery Room Air Room Air Room Air Room Air 04/05/17 04/05/17 04/06/17 04/06/17 20:15 23:59 03:16 07:30 Temp 99.3 97.5 99.3 97.5 Pulse 57 62 60 Resp 18 20 18 B/P (MAP) 107/57 (74) 122/50 (74) 127/64 (85) Pulse Ox 95 95 95 O2 Delivery Room Air Room Air Room Air Room Air 04/06/17 04/06/17 04/06/17 04/06/17 09:05 09:06 09:07 10:05 Pulse 60 60 Resp 16 16 B/P (MAP) 127/64 127/64 O2 Delivery Room Air Room Air 04/06/17 11:02 Temp 97.7 97.7 Pulse 59 Resp 18 B/P (MAP) 115/64 (81) Pulse Ox 93 O2 Delivery Room Air Intake and Output 04/06/17 04/06/17 04/07/17 15:00 23:00 07:00 Intake Total 300 ml Balance 300 ml OBDULIO HER MD Apr 06, 2017 13:33
--- NOTE | 2017-04-06 14:49 | PDOC ---
PROGRESS NOTES Assessment Problems Medical Problems: (1) Altered mental status Status: Acute Metabolic encephalopathy Increasing dementia, consistent with Alzheimer's MRI is usually oversensitive for sinusitis, defer treatment or further evaluation to primary service Note elevated sedimentation rate, dementia laboratory studies otherwise negative. Right eye strabismus, he says is old Plan Not realistic for him to return to assisted living, needs 24/7 care Donepezil. No additional neurological workup required. Subjective none Objective Vital Signs Date Time Temp Pulse Resp B/P (MAP) Pulse Ox O2 Delivery O2 Flow Rate FiO2 04/06/17 11:02 97.7 59 18 115/64 (81) 93 Room Air 97.7 Intake and Output 04/07/17 07:00 Intake Total 300 ml Balance 300 ml Intake Oral 300 ml PHYSICAL EXAM Alert. Oriented only to person. PERRL. Right eye exotropia, otherwise EOMI. CN: no focal findings. Muscle tone: normal. Muscle strength: 4/5 DTR: 1+ Plantar reflex: flexor Bilateral grasp reflexes Gait: not examined in bed. Sensory exam: no abnormal findings. No cerebellar signs elicited. Review of Relevant I have reviewed the following items ivette (where applicable) has been applied. Labs Laboratory Tests Test 04/04/17 16:51 04/04/17 20:39 04/05/17 04:14 04/05/17 07:28 Glucose (Fingerstick) 169 mg/dL (70-99) 146 mg/dL (70-99) 200 mg/dL (70-99) Erythrocyte Sedimentation Rate 51 (0-15) Vitamin B12 Level 1923 pg/mL (247-911) Serum Folate 5.84 ng/ml (3.2-20.0) Thyroid Stimulating Hormone (TSH) 0.914 uIU/mL (0.358-3.74) Test 04/05/17 11:38 04/05/17 16:50 04/05/17 20:47 04/06/17 04:35 Glucose (Fingerstick) 149 mg/dL (70-99) 174 mg/dL (70-99) 147 mg/dL (70-99) White Blood Count 6.1 x10^3/uL (4.0-11.0) Red Blood Count 3.46 x10^6/uL (4.30-5.70) Hemoglobin 10.5 g/dL (13.0-17.5) Hematocrit 30.9 % (39.0-53.0) Mean Corpuscular Volume 89 fL (79-100) Mean Corpuscular Hemoglobin 30 pg (25-35) Mean Corpuscular Hemoglobin Concent 34 g/dL (31-37) Red Cell Distribution Width 14.5 % (11.5-14.5) Platelet Count 136 x10^3/uL (140-400) Neutrophils (%) (Auto) 70 % (31-73) Lymphocytes (%) (Auto) 14 % (24-48) Monocytes (%) (Auto) 10 % (0-9) Eosinophils (%) (Auto) 6 % (0-3) Basophils (%) (Auto) 0 % (0-3) Neutrophils # (Auto) 4.2 x10^3uL (1.8-7.7) Lymphocytes # (Auto) 0.8 x10^3/uL (1.0-4.8) Monocytes # (Auto) 0.6 x10^3/uL (0.0-1.1) Eosinophils # (Auto) 0.4 x10^3/uL (0.0-0.7) Basophils # (Auto) 0.0 x10^3/uL (0.0-0.2) Sodium Level 139 mmol/L (136-145) Potassium Level 3.8 mmol/L (3.5-5.1) Chloride Level 103 mmol/L (98-107) Carbon Dioxide Level 28 mmol/L (21-32) Anion Gap 8 (6-14) Blood Urea Nitrogen 25 mg/dL (8-26) Creatinine 1.8 mg/dL (0.7-1.3) Estimated GFR (Cockcroft-Gault) 36.8 Glucose Level 245 mg/dL (70-99) Calcium Level 8.0 mg/dL (8.5-10.1) Test 04/06/17 07:37 04/06/17 12:06 Glucose (Fingerstick) 249 mg/dL (70-99) 172 mg/dL (70-99) Laboratory Tests Test 04/05/17 16:50 04/05/17 20:47 04/06/17 04:35 04/06/17 07:37 Glucose (Fingerstick) 174 mg/dL (70-99) 147 mg/dL (70-99) 249 mg/dL (70-99) White Blood Count 6.1 x10^3/uL (4.0-11.0) Red Blood Count 3.46 x10^6/uL (4.30-5.70) Hemoglobin 10.5 g/dL (13.0-17.5) Hematocrit 30.9 % (39.0-53.0) Mean Corpuscular Volume 89 fL (79-100) Mean Corpuscular Hemoglobin 30 pg (25-35) Mean Corpuscular Hemoglobin Concent 34 g/dL (31-37) Red Cell Distribution Width 14.5 % (11.5-14.5) Platelet Count 136 x10^3/uL (140-400) Neutrophils (%) (Auto) 70 % (31-73) Lymphocytes (%) (Auto) 14 % (24-48) Monocytes (%) (Auto) 10 % (0-9) Eosinophils (%) (Auto) 6 % (0-3) Basophils (%) (Auto) 0 % (0-3) Neutrophils # (Auto) 4.2 x10^3uL (1.8-7.7) Lymphocytes # (Auto) 0.8 x10^3/uL (1.0-4.8) Monocytes # (Auto) 0.6 x10^3/uL (0.0-1.1) Eosinophils # (Auto) 0.4 x10^3/uL (0.0-0.7) Basophils # (Auto) 0.0 x10^3/uL (0.0-0.2) Sodium Level 139 mmol/L (136-145) Potassium Level 3.8 mmol/L (3.5-5.1) Chloride Level 103 mmol/L (98-107) Carbon Dioxide Level 28 mmol/L (21-32) Anion Gap 8 (6-14) Blood Urea Nitrogen 25 mg/dL (8-26) Creatinine 1.8 mg/dL (0.7-1.3) Estimated GFR (Cockcroft-Gault) 36.8 Glucose Level 245 mg/dL (70-99) Calcium Level 8.0 mg/dL (8.5-10.1) Test 04/06/17 12:06 Glucose (Fingerstick) 172 mg/dL (70-99) Microbiology 04/03/17 Blood Culture - Preliminary, Resulted NO GROWTH AFTER 2 DAYS Medications Current Medications Ondansetron HCl (Zofran) 4 mg PRN Q8HRS PRN IV NAUSEA/VOMITING; Start 04/03/17 at 23:15; Stop 04/04/17 at 09:10; Status DC Morphine Sulfate 2 mg PRN Q2HR PRN IV SEVERE PAIN; Start 04/03/17 at 23:15; Stop 04/04/17 at 23:14; Status DC Acetaminophen (Tylenol) 650 mg PRN Q4HRS PRN PO FEVER Last administered on 11:56; Start 04/03/17 at 23:15; Stop 04/04/17 at 23:14; Status DC Ondansetron HCl (Zofran) 4 mg PRN Q6HRS PRN IV NAUSEA/VOMITING; Start 04/04/17 at 09:15; Stop 04/05/17 at 09:14; Status DC Labetalol HCl (Normodyne) 10 mg PRN Q2HR PRN IVP HYPERTENSION, SEE COMMENTS; Start 04/04/17 at 09:15 Insulin Aspart (NovoLOG) 0-9 UNITS TIDWMEALS SQ Last administered on 04/06/17 12:51; Start 04/04/17 at 12:00 Dextrose (Dextrose 50%-Water Syringe) 12.5 gm PRN Q15MIN PRN IV SEE COMMENTS; Start 04/04/17 at 09:15 Acetaminophen (Tylenol) 650 mg QID PRN PO FEVER; Start 04/04/17 at 09:15 Amlodipine Besylate (Norvasc) 5 mg DAILY PO Last administered on 04/06/17 09:07 ; Start 04/05/17 at 09:00 Apixaban (Eliquis) 5 mg BID PO Last administered on 04/06/17 09:06; Start at 10:00 Aspirin (Ecotrin) 81 mg DAILYWBKFT PO Last administered on 04/06/17 09:06; Start 04/04/17 at 10:00 Atorvastatin Calcium (Lipitor) 10 mg HS PO Last administered on 04/05/17 20:58 ; Start 04/04/17 at 21:00 Vitamin D (Vitamin D3) 1,000 unit DAILY PO Last administered on 04/06/17 09:06 ; Start 04/04/17 at 10:00 Cyanocobalamin (Vitamin B-12) 1,000 mcg DAILY PO Last administered on 04/05/17 08:35; Start 04/04/17 at 10:00 Docusate Sodium (Colace) 100 mg DAILY PO Last administered on 04/06/17 09:06; Start 04/04/17 at 10:00 Furosemide (Lasix) 40 mg DAILY PO Last administered on 04/06/17 09:06; Start at 10:00; Stop 04/06/17 at 11:19; Status DC Guaifenesin (Mucinex) 600 mg BID PRN PO COUGH; Start 04/04/17 at 09:15 Insulin Aspart (NovoLOG) 15 units BIDWMEALS SQ Last administered on 04/06/17 09 :11; Start 04/04/17 at 17:00 Insulin Detemir (Levemir) 10 units QHS SQ Last administered on 04/05/17 21:04; Start 04/04/17 at 21:00; Stop 04/06/17 at 09:52; Status DC Metoprolol Succinate (Toprol Xl) 50 mg DAILY PO Last administered on 04/06/17 09:06; Start 04/04/17 at 10:00 Nitroglycerin (Nitrostat) 0.4 mg QID PRN SL cp q 5 mins; Start 04/04/17 at 09:15 Oxycodone/ Acetaminophen (Percocet 7.5/ 325) 1 tab PRN Q6HRS PRN PO PAIN; Start 04/04/17 at 09:15; Status Cancel Oxycodone/ Acetaminophen (Percocet 7.5/ 325) 1 tab PRN Q4HRS PRN PO PAIN Last administered on 04/06/17 09:05; Start 04/04/17 at 12:00 Pantoprazole Sodium (Protonix) 40 mg DAILYAC PO Last administered on 04/06/17 09:06; Start 04/04/17 at 10:00 Polyethylene Glycol (miraLAX PACKET) 17 gm DAILY PO Last administered on 09:07; Start 04/04/17 at 10:00 Sennosides (Senna) 8.6 mg HS PO ; Start 04/04/17 at 21:00; Status UNV Senna/Docusate Sodium (Senna Plus) 1 tab BID PO Last administered on 04/06/17 09:06; Start 04/04/17 at 10:00 Senna/Docusate Sodium (Senna Plus) 2 tab HS PO ; Start 04/04/17 at 21:00; Status UNV Magnesium Hydroxide (Milk Of Magnesia) 2,400 mg PRN DAILY PRN PO CONSTIPATION; Start 04/04/17 at 09:30 Donepezil HCl (Aricept) 10 mg DAILY PO Last administered on 04/06/17 09:06; Start 04/05/17 at 12:00 Insulin Detemir (Levemir) 20 units QHS SQ ; Start 04/06/17 at 21:00 Gabapentin (Neurontin) 300 mg QHS PO ; Start 04/06/17 at 21:00 Sodium Chloride 1,000 ml @ 100 mls/hr Q10H IV Last administered on 04/06/17 11 :44; Start 04/06/17 at 11:30 Active Scripts Active Oxycodon-Acetaminophen 7.5-325 (Oxycodone Hcl/Acetaminophen) 1 Each Tablet 1 Tab PO PRN Q6HRS PRN Milk Of Magnesia (Magnesium Hydroxide) 2,400 Mg/10 Ml Oral.susp 2,400 Mg PO DAILY PRN Miralax (Polyethylene Glycol 3350) 17 Gm Powd.pack 1 Packet PO DAILY Colace (Docusate Sodium) 100 Mg Capsule 100 Mg PO DAILY Lasix (Furosemide) 40 Mg Tablet 1 Tab PO DAILY Levemir Flextouch (Insulin Detemir) 100 Unit/1 Ml Insuln.pen 10 Units SQ QHS 30 Days Eliquis (Apixaban) 5 Mg Tablet 5 Mg PO BID 30 Days Reported Percocet 7.5-325 Mg Tablet (Oxycodone/Acetaminophen) 1 Each Tablet 1 Tab PO Q4HRS Novolog Flexpen (Insulin Aspart) 100 Unit/1 Ml Insuln.pen 15 Unit SQ BID Cephalexin 500 Mg Tablet 500 Mg PO BID Amlodipine Besylate 5 Mg Tablet 5 Mg PO DAILY Senexon (Sennosides) 8.6 Mg Tablet 8.6 Mg PO HS Senexon-S Tablet (Sennosides/Docusate Sodium) 1 Each Tablet 1 Each PO Metoprolol Succinate ( Xl ) (Metoprolol Succinate) 25 Mg Tab.er.24h 50 Mg PO DAILY Protonix (Pantoprazole Sodium) 40 Mg Tablet.dr 40 Mg PO DAILY Mucinex (Guaifenesin) 600 Mg Tablet.er 1 Tab PO BID PRN Atorvastatin Calcium 10 Mg Tablet 10 Mg PO HS Tylenol (Acetaminophen) 325 Mg Tablet 650 Mg PO PRN Q4-6HRS PRN Aspir 81 (Aspirin) 81 Mg Tablet.dr 1 Tab PO DAILY Vitamin D3 (Cholecalciferol (Vitamin D3)) 1,000 Unit Tablet 800 Unit PO DAILY Vitamin B-12 (Cyanocobalamin (Vitamin B-12)) 1,000 Mcg Tablet 1 Tab PO DAILY Nitrostat (Nitroglycerin) 0.4 Mg Tab.subl 1 Tab SL UD Senokot-S Tablet (Sennosides/Docusate Sodium) 1 Each Tablet 2 Tab PO HS Gabapentin 300 Mg Capsule 300 Mg PO HS Vitals/I & O Vital Sign - Last 24 Hours 04/05/17 04/05/17 04/05/17 04/05/17 14:54 18:31 19:59 20:15 Temp 98.8 97.6 98.8 97.6 Pulse 60 61 Resp 20 18 B/P (MAP) 106/47 (66) 122/54 (76) Pulse Ox 96 97 O2 Delivery Room Air Room Air Room Air Room Air 04/05/17 04/06/17 04/06/17 04/06/17 23:59 03:16 07:30 09:05 Temp 99.3 97.5 99.3 97.5 Pulse 57 62 60 Resp 18 20 18 16 B/P (MAP) 107/57 (74) 122/50 (74) 127/64 (85) Pulse Ox 95 95 95 O2 Delivery Room Air Room Air Room Air Room Air 04/06/17 04/06/17 04/06/17 04/06/17 09:06 09:07 10:05 11:02 Temp 97.7 97.7 Pulse 60 60 59 Resp 16 18 B/P (MAP) 127/64 127/64 115/64 (81) Pulse Ox 93 O2 Delivery Room Air Room Air Intake and Output 04/06/17 04/06/17 04/07/17 15:00 23:00 07:00 Intake Total 300 ml Balance 300 ml JOSE ALBERTO ROMERO MD Apr 06, 2017 14:49
[2017-04-06 15:02] VITALS: BP 148/73
[2017-04-06] MEDS ORDERED: ANTI-COAG MONITOR BY PHARMACY. MC PRN (15:45)
[2017-04-06 19:28] VITALS: BP 151/94
[2017-04-06] MEDS ORDERED: INSULIN DETEMIR 300 UNITS/3 ML INSULN.PEN. SQ SCH (21:00)
[2017-04-06] MEDS ORDERED: GABAPENTIN 300 MG CAPSULE. PO SCH (21:00)
[2017-04-06] MEDS: ATORVASTATIN CALCIUM 10 MG TABLET. PO SCH (21:15)
[2017-04-06 23:14] VITALS: BP 165/65
[2017-04-07 03:21] VITALS: BP 162/74
[2017-04-07 05:43] LABS: BASO % 0 % (0-3); EOS % 7 % (0-3); HEMATOCRIT 33.2 % (39.0-53.0); HEMOGLOBIN 11.6 g/dL (13.0-17.5); LYMPH # 0.6 x10^3/uL (1.0-4.8); LYMPH % 9 % (24-48); MEAN CORPUSCULAR HEMOGLOBIN 31 pg (25-35); MEAN CORPUSCULAR HGB CONC 35 g/dL (31-37); MEAN CORPUSCULAR VOLUME 88 fL (79-100); MONO % 9 % (0-9); NEUT % 75 % (31-73); PLATELET COUNT 165 x10^3/uL (140-400); RED BLOOD COUNT 3.79 x10^6/uL (4.30-5.70); WHITE BLOOD COUNT 6.7 x10^3/uL (4.0-11.0)
[2017-04-07 05:58] LABS: CALCIUM 8.6 mg/dL (8.5-10.1); CREATININE 1.8 mg/dL (0.7-1.3); GFR 36.8
[2017-04-07] MEDS: IV NORMAL SALINE 1000ML BAG 1,000 ML IV SCH (06:22)
[2017-04-07 07:58] VITALS: BP 153/85
[2017-04-07] MEDS: SENNOSIDES/DOCUSATE 8.6/50MG TABLET. PO SCH (08:15)
[2017-04-07] MEDS: ASPIRIN ENTERIC COATED 81 MG TABLET.DR. PO SCH (08:15)
[2017-04-07] MEDS: DOCUSATE SODIUM 100 MG CAPSULE. PO SCH (08:15)
[2017-04-07] MEDS: CHOLECALCIFEROL (VITAMIN D3) 1,000 UNIT TABLET PO SCH (08:15)
[2017-04-07] MEDS: PANTOPRAZOLE 40 MG TABLET.DR. PO SCH (08:16)
[2017-04-07] MEDS: APIXABAN 5 MG TABLET. PO SCH (08:16)
[2017-04-07] MEDS: DONEPEZIL HCL 10 MG TABLET. PO SCH (08:16)
[2017-04-07] MEDS: METOPROLOL SUCC 24HR ER 50 MG TAB.ER.24H. PO SCH (08:16)
[2017-04-07] MEDS: CYANOCOBALAMIN (VITAMIN B-12) 1,000 MCG TABLET. PO SCH (08:16)
[2017-04-07] MEDS: amLODIPine BESYLATE 5 MG TABLET PO SCH (08:17)
[2017-04-07] MEDS: oxyCODONE/APAP 7.5/325 1 TAB TABLET PO PRN ×2 (08:17→13:55)
[2017-04-07] MEDS: POLYETHYLENE GLYCOL 3350 17 GM PACKET. PO SCH (08:18)
[2017-04-07] MEDS: INSULIN ASPART 300 UNITS/3 ML INSULN.PEN SQ SCH ×3 (08:23→12:00)
--- NOTE | 2017-04-07 10:22 | PDOC ---
PROGRESS NOTES Assessment Problems Medical Problems: (1) Altered mental status Status: Acute Metabolic encephalopathy Increasing dementia, consistent with Alzheimer'sNote elevated sedimentation rate , dementia laboratory studies otherwise negative. Right eye strabismus Plan Not realistic for him to return to assisted living, needs 20/02 care Donepezil. No additional neurological workup required. Subjective No complaints Objective Vital Signs Date Time Temp Pulse Resp B/P (MAP) Pulse Ox O2 Delivery O2 Flow Rate FiO2 04/07/17 09:24 Room Air 04/07/17 08:17 59 153/85 04/07/17 07:58 98.3 18 94 98.3 PHYSICAL EXAM Alert. Oriented only to person. PERRL. Right eye exotropia, otherwise EOMI. CN: no focal findings. Muscle tone: normal. Muscle strength: 4/5 DTR: 1+ Plantar reflex: flexor Bilateral grasp reflexes Gait: not examined in bed. Sensory exam: no abnormal findings. No cerebellar signs elicited. Review of Relevant I have reviewed the following items ivette (where applicable) has been applied. Labs Laboratory Tests Test 04/05/17 11:38 04/05/17 16:50 04/05/17 20:47 04/06/17 04:35 Glucose (Fingerstick) 149 mg/dL (70-99) 174 mg/dL (70-99) 147 mg/dL (70-99) White Blood Count 6.1 x10^3/uL (4.0-11.0) Red Blood Count 3.46 x10^6/uL (4.30-5.70) Hemoglobin 10.5 g/dL (13.0-17.5) Hematocrit 30.9 % (39.0-53.0) Mean Corpuscular Volume 89 fL (79-100) Mean Corpuscular Hemoglobin 30 pg (25-35) Mean Corpuscular Hemoglobin Concent 34 g/dL (31-37) Red Cell Distribution Width 14.5 % (11.5-14.5) Platelet Count 136 x10^3/uL (140-400) Neutrophils (%) (Auto) 70 % (31-73) Lymphocytes (%) (Auto) 14 % (24-48) Monocytes (%) (Auto) 10 % (0-9) Eosinophils (%) (Auto) 6 % (0-3) Basophils (%) (Auto) 0 % (0-3) Neutrophils # (Auto) 4.2 x10^3uL (1.8-7.7) Lymphocytes # (Auto) 0.8 x10^3/uL (1.0-4.8) Monocytes # (Auto) 0.6 x10^3/uL (0.0-1.1) Eosinophils # (Auto) 0.4 x10^3/uL (0.0-0.7) Basophils # (Auto) 0.0 x10^3/uL (0.0-0.2) Sodium Level 139 mmol/L (136-145) Potassium Level 3.8 mmol/L (3.5-5.1) Chloride Level 103 mmol/L (98-107) Carbon Dioxide Level 28 mmol/L (21-32) Anion Gap 8 (6-14) Blood Urea Nitrogen 25 mg/dL (8-26) Creatinine 1.8 mg/dL (0.7-1.3) Estimated GFR (Cockcroft-Gault) 36.8 Glucose Level 245 mg/dL (70-99) Calcium Level 8.0 mg/dL (8.5-10.1) Test 04/06/17 07:37 04/06/17 12:06 04/06/17 17:07 04/06/17 17:53 Glucose (Fingerstick) 249 mg/dL (70-99) 172 mg/dL (70-99) 76 mg/dL (70-99) 85 mg/dL (70-99) Test 04/06/17 20:25 04/07/17 04:50 04/07/17 08:02 Glucose (Fingerstick) 155 mg/dL (70-99) 172 mg/dL (70-99) White Blood Count 6.7 x10^3/uL (4.0-11.0) Red Blood Count 3.79 x10^6/uL (4.30-5.70) Hemoglobin 11.6 g/dL (13.0-17.5) Hematocrit 33.2 % (39.0-53.0) Mean Corpuscular Volume 88 fL (79-100) Mean Corpuscular Hemoglobin 31 pg (25-35) Mean Corpuscular Hemoglobin Concent 35 g/dL (31-37) Red Cell Distribution Width 14.0 % (11.5-14.5) Platelet Count 165 x10^3/uL (140-400) Neutrophils (%) (Auto) 75 % (31-73) Lymphocytes (%) (Auto) 9 % (24-48) Monocytes (%) (Auto) 9 % (0-9) Eosinophils (%) (Auto) 7 % (0-3) Basophils (%) (Auto) 0 % (0-3) Neutrophils # (Auto) 5.0 x10^3uL (1.8-7.7) Lymphocytes # (Auto) 0.6 x10^3/uL (1.0-4.8) Monocytes # (Auto) 0.6 x10^3/uL (0.0-1.1) Eosinophils # (Auto) 0.5 x10^3/uL (0.0-0.7) Basophils # (Auto) 0.0 x10^3/uL (0.0-0.2) Sodium Level 139 mmol/L (136-145) Potassium Level 4.0 mmol/L (3.5-5.1) Chloride Level 102 mmol/L (98-107) Carbon Dioxide Level 30 mmol/L (21-32) Anion Gap 7 (6-14) Blood Urea Nitrogen 24 mg/dL (8-26) Creatinine 1.8 mg/dL (0.7-1.3) Estimated GFR (Cockcroft-Gault) 36.8 Glucose Level 191 mg/dL (70-99) Calcium Level 8.6 mg/dL (8.5-10.1) Laboratory Tests Test 04/06/17 12:06 04/06/17 17:07 04/06/17 17:53 04/06/17 20:25 Glucose (Fingerstick) 172 mg/dL (70-99) 76 mg/dL (70-99) 85 mg/dL (70-99) 155 mg/dL (70-99) Test 04/07/17 04:50 04/07/17 08:02 White Blood Count 6.7 x10^3/uL (4.0-11.0) Red Blood Count 3.79 x10^6/uL (4.30-5.70) Hemoglobin 11.6 g/dL (13.0-17.5) Hematocrit 33.2 % (39.0-53.0) Mean Corpuscular Volume 88 fL (79-100) Mean Corpuscular Hemoglobin 31 pg (25-35) Mean Corpuscular Hemoglobin Concent 35 g/dL (31-37) Red Cell Distribution Width 14.0 % (11.5-14.5) Platelet Count 165 x10^3/uL (140-400) Neutrophils (%) (Auto) 75 % (31-73) Lymphocytes (%) (Auto) 9 % (24-48) Monocytes (%) (Auto) 9 % (0-9) Eosinophils (%) (Auto) 7 % (0-3) Basophils (%) (Auto) 0 % (0-3) Neutrophils # (Auto) 5.0 x10^3uL (1.8-7.7) Lymphocytes # (Auto) 0.6 x10^3/uL (1.0-4.8) Monocytes # (Auto) 0.6 x10^3/uL (0.0-1.1) Eosinophils # (Auto) 0.5 x10^3/uL (0.0-0.7) Basophils # (Auto) 0.0 x10^3/uL (0.0-0.2) Sodium Level 139 mmol/L (136-145) Potassium Level 4.0 mmol/L (3.5-5.1) Chloride Level 102 mmol/L (98-107) Carbon Dioxide Level 30 mmol/L (21-32) Anion Gap 7 (6-14) Blood Urea Nitrogen 24 mg/dL (8-26) Creatinine 1.8 mg/dL (0.7-1.3) Estimated GFR (Cockcroft-Gault) 36.8 Glucose Level 191 mg/dL (70-99) Calcium Level 8.6 mg/dL (8.5-10.1) Glucose (Fingerstick) 172 mg/dL (70-99) Microbiology 04/03/17 Blood Culture - Preliminary, Resulted NO GROWTH AFTER 3 DAYS Medications Current Medications Ondansetron HCl (Zofran) 4 mg PRN Q8HRS PRN IV NAUSEA/VOMITING; Start 04/03/17 at 23:15; Stop 04/04/17 at 09:10; Status DC Morphine Sulfate 2 mg PRN Q2HR PRN IV SEVERE PAIN; Start 04/03/17 at 23:15; Stop 04/04/17 at 23:14; Status DC Acetaminophen (Tylenol) 650 mg PRN Q4HRS PRN PO FEVER Last administered on 11:56; Start 04/03/17 at 23:15; Stop 04/04/17 at 23:14; Status DC Ondansetron HCl (Zofran) 4 mg PRN Q6HRS PRN IV NAUSEA/VOMITING; Start 04/04/17 at 09:15; Stop 04/05/17 at 09:14; Status DC Labetalol HCl (Normodyne) 10 mg PRN Q2HR PRN IVP HYPERTENSION, SEE COMMENTS; Start 04/04/17 at 09:15 Insulin Aspart (NovoLOG) 0-9 UNITS TIDWMEALS SQ Last administered on 04/07/17 08:23; Start 04/04/17 at 12:00 Dextrose (Dextrose 50%-Water Syringe) 12.5 gm PRN Q15MIN PRN IV SEE COMMENTS; Start 04/04/17 at 09:15 Acetaminophen (Tylenol) 650 mg QID PRN PO FEVER Last administered on 04/07/17 03:52; Start 04/04/17 at 09:15 Amlodipine Besylate (Norvasc) 5 mg DAILY PO Last administered on 04/07/17 08:17 ; Start 04/05/17 at 09:00 Apixaban (Eliquis) 5 mg BID PO Last administered on 04/07/17 08:16; Start at 10:00 Aspirin (Ecotrin) 81 mg DAILYWBKFT PO Last administered on 04/07/17 08:15; Start 04/04/17 at 10:00 Atorvastatin Calcium (Lipitor) 10 mg HS PO Last administered on 04/06/17 21:15 ; Start 04/04/17 at 21:00 Vitamin D (Vitamin D3) 1,000 unit DAILY PO Last administered on 04/07/17 08:15 ; Start 04/04/17 at 10:00 Cyanocobalamin (Vitamin B-12) 1,000 mcg DAILY PO Last administered on 04/05/17 08:35; Start 04/04/17 at 10:00 Docusate Sodium (Colace) 100 mg DAILY PO Last administered on 04/07/17 08:15; Start 04/04/17 at 10:00 Furosemide (Lasix) 40 mg DAILY PO Last administered on 04/06/17 09:06; Start at 10:00; Stop 04/06/17 at 11:19; Status DC Guaifenesin (Mucinex) 600 mg BID PRN PO COUGH; Start 04/04/17 at 09:15 Insulin Aspart (NovoLOG) 15 units BIDWMEALS SQ Last administered on 04/07/17 08 :24; Start 04/04/17 at 17:00 Insulin Detemir (Levemir) 10 units QHS SQ Last administered on 04/05/17 21:04; Start 04/04/17 at 21:00; Stop 04/06/17 at 09:52; Status DC Metoprolol Succinate (Toprol Xl) 50 mg DAILY PO Last administered on 04/07/17 08:16; Start 04/04/17 at 10:00 Nitroglycerin (Nitrostat) 0.4 mg QID PRN SL cp q 5 mins; Start 04/04/17 at 09:15 Oxycodone/ Acetaminophen (Percocet 7.5/ 325) 1 tab PRN Q6HRS PRN PO PAIN; Start 04/04/17 at 09:15; Status Cancel Oxycodone/ Acetaminophen (Percocet 7.5/ 325) 1 tab PRN Q4HRS PRN PO PAIN Last administered on 04/07/17 08:17; Start 04/04/17 at 12:00 Pantoprazole Sodium (Protonix) 40 mg DAILYAC PO Last administered on 04/07/17 08:16; Start 04/04/17 at 10:00 Polyethylene Glycol (miraLAX PACKET) 17 gm DAILY PO Last administered on 08:18; Start 04/04/17 at 10:00 Sennosides (Senna) 8.6 mg HS PO ; Start 04/04/17 at 21:00; Status UNV Senna/Docusate Sodium (Senna Plus) 1 tab BID PO Last administered on 04/07/17 08:15; Start 04/04/17 at 10:00 Senna/Docusate Sodium (Senna Plus) 2 tab HS PO ; Start 04/04/17 at 21:00; Status UNV Magnesium Hydroxide (Milk Of Magnesia) 2,400 mg PRN DAILY PRN PO CONSTIPATION; Start 04/04/17 at 09:30 Donepezil HCl (Aricept) 10 mg DAILY PO Last administered on 04/07/17 08:16; Start 04/05/17 at 12:00 Insulin Detemir (Levemir) 20 units QHS SQ Last administered on 04/06/17 21:20; Start 04/06/17 at 21:00 Gabapentin (Neurontin) 300 mg QHS PO Last administered on 04/06/17 21:15; Start 04/06/17 at 21:00 Sodium Chloride 1,000 ml @ 100 mls/hr Q10H IV Last administered on 04/07/17 06 :22; Start 04/06/17 at 11:30 Info (Anti-Coagulation Monitoring By Pharmacy) 1 each PRN DAILY PRN MC SEE COMMENTS; Start 04/06/17 at 15:45 Active Scripts Active Oxycodon-Acetaminophen 7.5-325 (Oxycodone Hcl/Acetaminophen) 1 Each Tablet 1 Tab PO PRN Q6HRS PRN Milk Of Magnesia (Magnesium Hydroxide) 2,400 Mg/10 Ml Oral.susp 2,400 Mg PO DAILY PRN Miralax (Polyethylene Glycol 3350) 17 Gm Powd.pack 1 Packet PO DAILY Colace (Docusate Sodium) 100 Mg Capsule 100 Mg PO DAILY Lasix (Furosemide) 40 Mg Tablet 1 Tab PO DAILY Levemir Flextouch (Insulin Detemir) 100 Unit/1 Ml Insuln.pen 10 Units SQ QHS 30 Days Eliquis (Apixaban) 5 Mg Tablet 5 Mg PO BID 30 Days Reported Percocet 7.5-325 Mg Tablet (Oxycodone/Acetaminophen) 1 Each Tablet 1 Tab PO Q4HRS Novolog Flexpen (Insulin Aspart) 100 Unit/1 Ml Insuln.pen 15 Unit SQ BID Cephalexin 500 Mg Tablet 500 Mg PO BID Amlodipine Besylate 5 Mg Tablet 5 Mg PO DAILY Senexon (Sennosides) 8.6 Mg Tablet 8.6 Mg PO HS Senexon-S Tablet (Sennosides/Docusate Sodium) 1 Each Tablet 1 Each PO Metoprolol Succinate ( Xl ) (Metoprolol Succinate) 25 Mg Tab.er.24h 50 Mg PO DAILY Protonix (Pantoprazole Sodium) 40 Mg Tablet.dr 40 Mg PO DAILY Mucinex (Guaifenesin) 600 Mg Tablet.er 1 Tab PO BID PRN Atorvastatin Calcium 10 Mg Tablet 10 Mg PO HS Tylenol (Acetaminophen) 325 Mg Tablet 650 Mg PO PRN Q4-6HRS PRN Aspir 81 (Aspirin) 81 Mg Tablet.dr 1 Tab PO DAILY Vitamin D3 (Cholecalciferol (Vitamin D3)) 1,000 Unit Tablet 800 Unit PO DAILY Vitamin B-12 (Cyanocobalamin (Vitamin B-12)) 1,000 Mcg Tablet 1 Tab PO DAILY Nitrostat (Nitroglycerin) 0.4 Mg Tab.subl 1 Tab SL UD Senokot-S Tablet (Sennosides/Docusate Sodium) 1 Each Tablet 2 Tab PO HS Gabapentin 300 Mg Capsule 300 Mg PO HS Vitals/I & O Vital Sign - Last 24 Hours 04/06/17 04/06/17 04/06/17 04/06/17 11:02 15:02 15:19 16:19 Temp 97.7 97.8 97.7 97.8 Pulse 59 61 Resp 18 20 16 16 B/P (MAP) 115/64 (81) 148/73 (98) Pulse Ox 93 97 O2 Delivery Room Air Room Air Room Air 04/06/17 04/06/17 04/06/17 04/06/17 19:28 20:00 21:15 22:15 Temp 96.4 96.4 Pulse 64 Resp 16 B/P (MAP) 151/94 (113) Pulse Ox 98 98 98 O2 Delivery Room Air Room Air Room Air 04/06/17 04/07/17 04/07/17 04/07/17 23:14 03:21 07:58 08:00 Temp 97.9 98.2 98.3 97.9 98.2 98.3 Pulse 61 63 59 Resp 16 18 18 B/P (MAP) 165/65 (98) 162/74 (103) 153/85 (107) Pulse Ox 98 95 94 O2 Delivery Room Air Room Air Room Air Room Air 04/07/17 04/07/17 04/07/17 04/07/17 08:16 08:17 08:17 09:24 Pulse 59 59 B/P (MAP) 153/85 153/85 O2 Delivery Room Air Room Air JOSE ALBERTO ROMERO MD Apr 07, 2017 10:22
[2017-04-07 11:40] VITALS: BP 125/69
[2017-04-07] MEDS ORDERED: DONE10TA61 PO (12:00)
[2017-04-07] MEDS ORDERED: INSU100I27 SQ (12:00)
--- NOTE | 2017-04-07 14:42 | PDOC3 ---
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 Townsend is a 76 old M, likely has alzheimer, was sent from assisted living facility for AMS with agitation. Pt was here a couple of time in the past 3 months for same reason, was treated with UTI, doubt that was the cause tho. He has been cont confused here during the admission, likely 2/2 dementia fluctuation. MRI no stroke. needs 24/7 SNF care, but pt signed him out of SNF before and want to go home, so dc back to the same assisted living facility, alcept started, dc lasix, increase levemir. hope get high level care like SNF. dc time 35min Physical Exam [id number] confused , no agitation Heart: Regular rate, Normal S1 Lungs: Clear, Other Abdomen: Normal bowel sounds, Soft, No tenderness Extremities: No clubbing, No cyanosis, No edema, Normal pulses, No tenderness/ swelling Skin: No rashes, No breakdown, No significant lesion Patient History: Family history: Hypertension (situation) 33 FATHER 32 MOTHER Unknown G8 BROTHER ( 'smoked h imself to ') G8 BROTHER G8 SISTER G8 SISTER Problems: Disposition HH CONDITION AT DISCHARGE: Improved Diet REGULAR, ada Scheduled Amlodipine Besylate (Amlodipine Besylate), 5 MG PO DAILY, (Reported) Apixaban (Eliquis), 5 MG PO BID Aspirin (Aspir 81), 1 TAB PO DAILY, (Reported) Atorvastatin Calcium (Atorvastatin Calcium), 10 MG PO HS, (Reported) Cholecalciferol (Vitamin D3) (Vitamin D3), 800 UNIT PO DAILY, (Reported) Cyanocobalamin (Vitamin B-12) (Vitamin B-12), 1 TAB PO DAILY, (Reported) Docusate Sodium (Colace), 100 MG PO DAILY Donepezil Hcl (Aricept), 10 MG PO DAILY Gabapentin (Gabapentin), 300 MG PO HS, (Reported) Insulin Aspart (Novolog Flexpen), 15 UNIT SQ BID, (Reported) Insulin Detemir (Levemir Flextouch), 20 UNITS SQ QHS Metoprolol Succinate (Metoprolol Succinate ( Xl )), 50 MG PO DAILY, (Reported) Nitroglycerin (Nitrostat), 1 TAB SL UD, (Reported) Pantoprazole Sodium (Protonix), 40 MG PO DAILY, (Reported) Polyethylene Glycol 3350 (Miralax), 1 PACKET PO DAILY Sennosides/Docusate Sodium (Senokot-S Tablet), 2 TAB PO HS, (Reported) Scheduled PRN Acetaminophen (Tylenol), 650 MG PO PRN Q4-6HRS PRN for FEVER, (Reported) Guaifenesin (Mucinex), 1 TAB PO BID PRN for COUGH, (Reported) Magnesium Hydroxide (Milk Of Magnesia), 2,400 MG PO DAILY PRN for CONSTIPATION Oxycodone Hcl/Acetaminophen (Oxycodon-Acetaminophen 7.5-325), 1 TAB PO PRN Q6HRS PRN for PAIN Discontinued Medications Cephalexin (Cephalexin), 500 MG PO BID, (Reported) Furosemide (Lasix), 1 TAB PO DAILY Insulin Detemir (Levemir Flextouch), 10 UNITS SQ QHS Oxycodone/Apap 7.5-325 (Percocet 7.5-325 Mg Tablet), 1 TAB PO Q4HRS, (Reported) Sennosides (Senexon), 8.6 MG PO HS, (Reported) Sennosides/Docusate Sodium (Senexon-S Tablet), 1 EACH PO, (Reported) Follow Up pcp in 2 weeks OBDULIO HER MD Apr 07, 2017 14:41
== END 2017-04-07 14:30 | disposition home health service (06) | DRG 56 ==
LOC: ER 18:24 → 2 NORTH 23:05 → 6 SOUTH 04-04 18:45
PROVIDERS: ADMIT Internal Medicine Hematology & Oncology; ATTEND Internal Medicine Hematology & Oncology
DX: G30.9 Alzheimer's disease, unspecified (principal); N17.0 Acute kidney failure with tubular necrosis; G93.41 Metabolic encephalopathy; I13.0 Hypertensive heart and chronic kidney disease with heart failure and stage 1 through stage 4 chronic kidney disease, or unspecified chronic kidney disease; I50.32 Chronic diastolic (congestive) heart failure; E11.22 Type 2 diabetes mellitus with diabetic chronic kidney disease; E86.0 Dehydration; F02.80 Dementia in other diseases classified elsewhere, unspecified severity, without behavioral disturbance, psychotic disturbance, mood disturbance, and anxiety; D64.9 Anemia, unspecified; N18.3 Chronic kidney disease, stage 3 (moderate); E78.00 Pure hypercholesterolemia, unspecified; E78.5 Hyperlipidemia, unspecified; E87.6 Hypokalemia; H50.89 Other specified strabismus; H91.90 Unspecified hearing loss, unspecified ear; R29.6 Repeated falls; E11.42 Type 2 diabetes mellitus with diabetic polyneuropathy; G89.29 Other chronic pain; K21.9 Gastro-esophageal reflux disease without esophagitis; M17.11 Unilateral primary osteoarthritis, right knee; Z82.49 Family history of ischemic heart disease and other diseases of the circulatory system; Z87.440 Personal history of urinary (tract) infections; Z90.49 Acquired absence of other specified parts of digestive tract; Z88.1 Allergy status to other antibiotic agents; Z91.81 History of falling
CPT/HCPCS: 36415; 51701; 70450; 70551; 71010; 80048; 80053; 81001; 82607; 82746; 82962; 83605; 83690; 84443; 84484; 85025; 85651; 87040; 93005; J1815; J7030; 97110; 97116; 97535; 99285-25

== ENCOUNTER 2017-05-05 10:07 | Emergency (ER) | payer MEDICARE ==
[~2017-05-05] VITALS: Ht 175.3 cm; Wt 97.5 kg
[~2017-05-05 10:07] MED LIST changes: +DONE10TA61 PO
[2017-05-05 11:14] LABS: BASO # 0.1 x10^3/uL (0.0-0.2); BASO % 1 % (0-3); EOS % 5 % (0-3); HEMATOCRIT 32.2 % (39.0-53.0); HEMOGLOBIN 10.9 g/dL (13.0-17.5); LYMPH # 0.6 x10^3/uL (1.0-4.8); LYMPH % 10 % (24-48); MEAN CORPUSCULAR HEMOGLOBIN 30 pg (25-35); MEAN CORPUSCULAR HGB CONC 34 g/dL (31-37); MEAN CORPUSCULAR VOLUME 87 fL (79-100); MONO % 9 % (0-9); NEUT % 75 % (31-73); PLATELET COUNT 159 x10^3/uL (140-400); RED CELL DISTRIBUTION WIDTH 14.1 % (11.5-14.5); WHITE BLOOD COUNT 6.4 x10^3/uL (4.0-11.0)
[2017-05-05 11:24] LABS: INR 1.2 (0.8-1.1); PROTHROMBIN TIME PATIENT 14.4 SEC (11.7-14.0)
[2017-05-05 11:27] LABS: CREATININE 1.7 mg/dL (0.7-1.3); GFR 39.2
[2017-05-05 11:32] LABS: ALBUMIN 2.7 g/dL (3.4-5.0); MAGNESIUM 1.7 mg/dL (1.8-2.4); TOTAL BILIRUBIN 0.2 mg/dL (0.2-1.0); TOTAL PROTEIN 5.3 g/dL (6.4-8.2)
--- NOTE | 2017-05-05 11:41 | EKG ---
[facility] [address] [place] [address] Test Date: 2017-05-05 Test Time: 11:29:00 Pat Name: RUBI BOLAND Department: Room: Gender: M [employer] Assistant: : 1940 Requested By: VERONIKA WHITE Order Number: [id number] Reading MD: Measurements Intervals [place] Rate: 70 P: 41 WA: 218 QRS: -54 QRSD: 98 T: 65 QT: 384 QTc: 417 Interpretive Statements SINUS RHYTHM ABNORMAL LEFT AXIS DEVIATION LEFT ANTERIOR FASCICULAR BLOCK INCOMPLETE RIGHT BUNDLE BRANCH BLOCK QRS(T) CONTOUR ABNORMALITY CONSIDER ANTEROSEPTAL MYOCARDIAL DAMAGE RI6.01 Unconfirmed report No previous ECG available for comparison
[2017-05-05] MEDS ORDERED: ACETAMINOPHEN 500 MG TABLET PO ONE (12:15)
--- NOTE | 2017-05-05 13:08 | RAD ---
CT of the head without contrast, 05/05/2017: History: Headache, dementia Comparison is made to a study from 04/03/2017. The scans through the skull base are compromised by patient motion artifact. Calvarial defects in the left posterior parietal region are presumably molly holes from previous surgery. There is moderate cerebral atrophy. There is also mild cerebellar atrophy. The ventricles are within normal limits in size. There is no shift of the midline structures. There is no evidence of acute intracranial hemorrhage or mass effect. IMPRESSION: 1. Cerebral and cerebellar atrophy. 2. No acute intracranial abnormality is detected. PQRS Compliance Statement: One or more of the following individualized dose reduction techniques were utilized for this examination: 1. Automated exposure control 2. Adjustment of the mA and/or kV according to patient size 3. Use of iterative reconstruction technique
[2017-05-05 13:16] LABS: BILIRUBIN,URINE NEGATIVE (NEG); GLUCOSE,URINE >=1000 mg/dL (NEG); NITRITE,URINE NEGATIVE (NEG); PROTEIN,URINE 100 mg/dL (NEG-TRACE); UROBILINOGEN,URINE 0.2 mg/dL (0.2 mg/dL)
[2017-05-05 13:26] LABS: BACTERIA,URINE FEW /HPF (0-FEW); RBC,URINE OCC /HPF (0-2); SQUAMOUS EPITHELIAL CELL,UR FEW /LPF; WBC,URINE RARE /HPF (0-4)
--- NOTE | 2017-05-05 14:31 | PHYS DOC ---
Past Medical History Past Medical History: CHF, Constipation, Diabetes-Type I, GERD, High Cholesterol, Hypertension, UTI Additional Past Medical Histor: back pain Past Surgical History: Cholecystectomy Alcohol Use: None Drug Use: None Adult General Chief Complaint Chief Complaint: HYPERGLYCEMIA HPI HPI Patient is a 77 year old male who presents with reports of intermittent headaches. He's reported this at the detention, no report that any pain meds have been given. Pt had elevated BS en route by ems. When I asked pt, he reported he had hip pain that was gone. On ROS, he reported the SIERRA. BS had improved on our check, pt had received insulin prior to transport. Pt has memory difficulties. Review of Systems Review of Systems Reports headache, other denies symptoms at this time. Current Medications Current Medications Current Medications Medications (Trade) Dose Ordered Sig/Eran Start Time Stop Time Status Last Admin Dose Admin Acetaminophen (Tylenol) 1,000 mg 1X ONCE 05/05/17 12:15 05/05/17 12:16 DC 05/05/17 12:40 1,000 MG Allergies Allergies Allergies Coded Allergies Type Severity Reaction Last Updated Verified tetracycline Allergy Intermediate Rash 09/04/16 Yes Physical Exam Physical Exam Constitutional: Well developed, well nourished, no acute distress, non-toxic appearance. very talkative HENT: Normocephalic, atraumatic, bilateral external ears normal, oropharynx moist, no oral exudates, nose normal. [] Eyes: PERRLA, EOMI, conjunctiva normal, no discharge. [] Neck: Normal range of motion, no tenderness, supple, no stridor. [] Cardiovascular:Heart rate regular rhythm Lungs & Thorax: Bilateral breath sounds clear to auscultation [] Abdomen: Bowel sounds normal, soft, no tenderness, no masses, no pulsatile masses. [] Skin: Warm, dry, no erythema, no rash. [] Back: No tenderness, no CVA tenderness. [] Extremities: No tenderness, no cyanosis, no clubbing, ROM intact, no edema. [] Neurologic: Alert, normal motor function, normal sensory function, no focal deficits noted. [] Current Patient Data Vital Signs Vital Signs Date Time Temp Pulse Resp B/P (MAP) Pulse Ox O2 Delivery O2 Flow Rate FiO2 05/05/17 15:15 80 18 130/87 (101) 96 Room Air 05/05/17 10:32 98.4 98.4 Lab Values Laboratory Tests Test 05/05/17 10:40 05/05/17 11:00 05/05/17 13:10 Glucose (Fingerstick) 395 mg/dL (70-99) H White Blood Count 6.4 x10^3/uL (4.0-11.0) Red Blood Count 3.70 x10^6/uL (4.30-5.70) L Hemoglobin 10.9 g/dL (13.0-17.5) L Hematocrit 32.2 % (39.0-53.0) L Mean Corpuscular Volume 87 fL (79-100) Mean Corpuscular Hemoglobin 30 pg (25-35) Mean Corpuscular Hemoglobin Concent 34 g/dL (31-37) Red Cell Distribution Width 14.1 % (11.5-14.5) Platelet Count 159 x10^3/uL (140-400) Neutrophils (%) (Auto) 75 % (31-73) H Lymphocytes (%) (Auto) 10 % (24-48) L Monocytes (%) (Auto) 9 % (0-9) Eosinophils (%) (Auto) 5 % (0-3) H Basophils (%) (Auto) 1 % (0-3) Neutrophils # (Auto) 4.8 x10^3uL (1.8-7.7) Lymphocytes # (Auto) 0.6 x10^3/uL (1.0-4.8) L Monocytes # (Auto) 0.5 x10^3/uL (0.0-1.1) Eosinophils # (Auto) 0.3 x10^3/uL (0.0-0.7) Basophils # (Auto) 0.1 x10^3/uL (0.0-0.2) Prothrombin Time 14.4 SEC (11.7-14.0) H Prothrombin Time INR 1.2 (0.8-1.1) H Sodium Level 138 mmol/L (136-145) Potassium Level 4.0 mmol/L (3.5-5.1) Chloride Level 105 mmol/L (98-107) Carbon Dioxide Level 28 mmol/L (21-32) Anion Gap 5 (6-14) L Blood Urea Nitrogen 19 mg/dL (8-26) Creatinine 1.7 mg/dL (0.7-1.3) H Estimated GFR (Cockcroft-Gault) 39.2 BUN/Creatinine Ratio 11 (6-20) Glucose Level 322 mg/dL (70-99) H Calcium Level 8.0 mg/dL (8.5-10.1) L Magnesium Level 1.7 mg/dL (1.8-2.4) L Total Bilirubin 0.2 mg/dL (0.2-1.0) Aspartate Amino Transferase (AST) 17 U/L (15-37) Alanine Aminotransferase (ALT) 29 U/L (16-63) Alkaline Phosphatase 122 U/L (46-116) H Total Protein 5.3 g/dL (6.4-8.2) L Albumin 2.7 g/dL (3.4-5.0) L Albumin/Globulin Ratio 1.0 (1.0-1.7) Urine Collection Type Unknown Urine Color Yellow Urine Clarity Clear Urine pH 7.0 Urine Specific Adkins 1.025 Urine Protein 100 mg/dL (NEG-TRACE) Urine Glucose (UA) >=1000 mg/dL (NEG) Urine Ketones (Stick) Negative mg/dL (NEG) Urine Blood Negative (NEG) Urine Nitrite Negative (NEG) Urine Bilirubin Negative (NEG) Urine Urobilinogen Dipstick 0.2 mg/dL (0.2 mg/dL) Urine Leukocyte Esterase Negative (NEG) Urine RBC Occ /HPF (0-2) Urine WBC Rare /HPF (0-4) Urine Squamous Epithelial Cells Few /LPF Urine Bacteria Few /HPF (0-FEW) Laboratory Tests 05/05/17 11:00 Laboratory Tests 05/05/17 11:00 EKG EKG [] Radiology/Procedures Radiology/Procedures CT head: CT of the head without contrast, 05/05/2017: History: Headache, dementia Comparison is made to a study from 04/03/2017. The scans through the skull base are compromised by patient motion artifact. Calvarial defects in the left posterior parietal region are presumably molly holes from previous surgery. There is moderate cerebral atrophy. There is also mild cerebellar atrophy. The ventricles are within normal limits in size. There is no shift of the midline structures. There is no evidence of acute intracranial hemorrhage or mass effect. IMPRESSION: 1. Cerebral and cerebellar atrophy. 2. No acute intracranial abnormality is detected. [] Course & Med Decision Making Course & Med Decision Making Pertinent Labs and Imaging studies reviewed. (See chart for details) Pt given PO tylenol and IV fluids. Pt sleeping and appears to be in no distress. Discharged pt back to the detention. Dragon Disclaimer Dragon Disclaimer This electronic medical record was generated, in whole or in part, using a voice recognition dictation system. Departure Departure Impression: Primary Impression: Hyperglycemia Disposition: 01 HOME, SELF-CARE Condition: IMPROVED Referrals: UNKNOWN PCP NAME (PCP) VERONIKA WHITE MD May 05, 2017 14:30
[2017-05-05 15:15] VITALS: BP 130/87
== END 2017-05-05 15:58 | disposition home or self-care (01) ==
LOC: ER 10:07
DX: G31.9 Degenerative disease of nervous system, unspecified (principal); E10.65 Type 1 diabetes mellitus with hyperglycemia; I11.0 Hypertensive heart disease with heart failure; I50.9 Heart failure, unspecified; K21.9 Gastro-esophageal reflux disease without esophagitis; Z88.8 Allergy status to other drugs, medicaments and biological substances
CPT/HCPCS: 36415; 70450; 80053; 81001; 82962; 83735; 85025; 85610; 93005; 99285-25